=== PATIENT | female | born 1970 | race Caucasian/White ===

== ENCOUNTER 2017-04-11 10:36 | Emergency (ER) | payer OTHER ==
[~2017-04-11] VITALS: Ht 157.5 cm; Wt 97.7 kg
[2017-04-11] MEDS ORDERED: NS 1,000 ML IV ONE ×2 (11:30→12:30)
[2017-04-11 12:15] LABS: ANION GAP 6 MEQ/L (8-16); BLOOD UREA NITROGEN 10 MG/DL (7-18); CALCIUM LEVEL 8.7 MG/DL (8.5-10.1); CARBON DIOXIDE LEVEL 28 MEQ/L (21-32); CHLORIDE LEVEL 103 MEQ/L (98-107); CREATININE FOR GFR 0.79 MG/DL (0.55-1.02); GLOMERULAR FILTRATION RATE > 60.0 (>58); GLUCOSE, FASTING 384 MG/DL (70-105); HCG, SERUM QUANTITATIVE < 1.0 MIU/ML; SODIUM LEVEL 137 MEQ/L (136-145)
--- NOTE | 2017-04-11 12:18 | REP ---
Clinical: Abnormal uterine bleeding . Technique: Transabdominal pelvic ultrasound followed by transvaginal examination for better evaluation of the endometrium and adnexa with color Doppler evaluation of the ovaries. Findings: Bladder is unremarkable and measures 8.7 x 8.0 x 2.7 cm . Heterogeneous anteverted uterus measures 9.2 x 5.8 x 6.7 cm. The endometrial complex is heterogeneous and thickened to 28 mm. No focal uterine abnormality or fibroid appreciated. The right ovary is not identified. The left ovary measures 4.2 x 3.1 x 4.0 cm and includes 4.0 x 3.0 x 4.0 cm cyst. No evidence for torsion; R I = 0.53 . No pelvic fluid or adnexal mass lesion identified . Impression: 1. Thickened heterogeneous endometrium to 28 mm may represent clot and hemorrhagic debris, but requires followup and correlation. 2. Right ovary not visualized. Left ovary dominated by 4 cm simple cyst may warrant reevaluation and 4-6 weeks. Signed by Dread Hyde MD 04/11/2017 12:09 P
[2017-04-11 12:30] LABS: BASO # 0.1 K/mm3 (0.0-0.2); BASO % 0.9 % (0.0-1.0); EOS # 0.1 K/mm3 (0.0-0.50); LARGE UNSTAINED CELL # 0.2 K/mm3 (0.0-0.4); LARGE UNSTAINED CELL % 1.7 % (0.0-4.0); LYMPH # 2.8 K/mm3 (1.5-4.5); LYMPH % 22.2 % (24.0-44.0); MEAN CORPUSCULAR HEMOGLOBIN 22.7 pg (27.0-33.0); MEAN CORPUSCULAR HGB CONC 29.9 g/dl (32.0-36.5); MEAN CORPUSCULAR VOLUME 76.1 fl (80.0-96.0); MONO # 0.5 K/mm3 (0.0-0.8); MONO % 4.3 % (0.0-5.0); NEUTROPHILS # 8.9 K/mm3 (1.8-7.7); PLATELET COUNT, AUTOMATED 473 k/mm3 (150-450); RED CELL DISTRIBUTION WIDTH 15.1 % (11.5-14.5); WHITE BLOOD COUNT 12.7 K/mm3 (4.0-10.0)
[2017-04-11] MEDS ORDERED: METF500T13 PO (15:26)
[2017-04-11 15:39] VITALS: BP 143/82
[2017-08-12] MEDS ORDERED: BACT800T5 PO (18:56)
== END 2017-04-11 15:48 | disposition home or self-care (01) ==
LOC: M ED 10:36
DX: N92.0 Excessive and frequent menstruation with regular cycle (principal); E11.65 Type 2 diabetes mellitus with hyperglycemia; Z88.5 Allergy status to narcotic agent; Z88.6 Allergy status to analgesic agent

== ENCOUNTER 2017-07-30 13:14 | Emergency (ER) | payer OTHER ==
[~2017-07-30] VITALS: Ht 157.5 cm; Wt 88.8 kg
[~2017-07-30 13:14] MED LIST: METF500T13 PO
[2017-07-30] MEDS ORDERED: ASPIRIN 81 MG CHEW TABLET PO ONE (14:45)
[2017-07-30] MEDS ORDERED: NS 500 ML IV ONE (14:45)
[2017-07-30 14:59] LABS: BASO # 0.1 10^3/uL (0.0-0.2); BASO % 0.4 % (0.0-1.0); EOS # 0.2 10^3/uL (0.0-0.50); EOS % 1.2 % (0.0-3.0); IMMATURE GRANULOCYTE % 0.5 % (0-0); LYMPH % 29.1 % (24.0-44.0); MEAN CORPUSCULAR HGB CONC 27.1 g/dl (32.0-36.5); MONO # 0.8 10^3/uL (0.0-0.8); MONO % 5.4 % (0.0-5.0); NEUTROPHILS # 8.8 10^3/uL (1.8-7.7); NEUTROPHILS % 63.4 % (36.0-66.0); PLATELET COUNT, AUTOMATED 334 10^3/uL (150-450); WHITE BLOOD COUNT 13.9 10^3/uL (4.0-10.0)
[2017-07-30 15:03] LABS: MEAN CORPUSCULAR VOLUME 66.3 fl (80.0-96.0); POSITIVE MORPH POS FLAG; RED CELL DISTRIBUTION WIDTH 20.1 % (11.5-14.5)
[2017-07-30 15:04] LABS: ADD MORPHOLOGY? YES
[2017-07-30 15:13] LABS: ANION GAP 9 MEQ/L (8-16); BLOOD UREA NITROGEN 11 MG/DL (7-18); CALCIUM LEVEL 8.8 MG/DL (8.5-10.1); CARBON DIOXIDE LEVEL 26 MEQ/L (21-32); CHLORIDE LEVEL 104 MEQ/L (98-107); FREE T4 1.43 NG/DL (0.76-1.46); GLOMERULAR FILTRATION RATE > 60.0 (>58); GLUCOSE, FASTING 222 MG/DL (70-105); POTASSIUM SERUM 3.7 MEQ/L (3.5-5.1); SODIUM LEVEL 139 MEQ/L (136-145)
[2017-07-30 15:27] LABS: ANISOCYTOSIS 2+; HYPOCHROMASIA 1+; POIKILOCYTOSIS 1+
--- NOTE | 2017-07-30 15:27 | REP ---
Chest two views HISTORY: Chest pain Comparison: 09/12/2013 The lungs are clear. The heart is normal in size. The pulmonary vasculature is normal in appearance. The bony structure is intact. IMPRESSION: No acute disease. Signed by Reg Farnsworth MD 07/30/2017 03:18 P
[2017-07-30] MEDS ORDERED: hydrALAZINE INJ 20 MG/ML VIAL IV STA (16:39)
[2017-07-30] MEDS ORDERED: FIORICET TAB PO ONE (16:45)
[2017-07-30] MEDS ORDERED: FUROSEMIDE 40 MG/4 ML VIAL (J1940) IV ONE (16:45)
[2017-07-30 16:54] VITALS: BP 163/83
[2017-07-30] MEDS ORDERED: GLIP5TAB8 PO (16:55)
[2017-07-30] MEDS ORDERED: GI COCKTAIL 50ML BTL(HYOSCYAMINE/MAALOX/LIDOCAINE VISCOUS)(1:3:1) PO ONE (17:00)
[2017-07-30 17:31] VITALS: BP 158/82
--- NOTE | 2017-07-30 19:13 | ECGEPIP ---
Stationary ECG Study [facility] - ED Test Date: 2017-07-30 Pat Name: DESIREE MENDES Department: Room: - Gender: F Wrapper Off: LUCA : 1970 Requested By: Partha Souza Order Number: [id number] Reading MD: Partha Dubose Measurements Intervals [place] Rate: 80 P: 24 KS: 143 QRS: 4 QRSD: 83 T: 5 QT: 371 QTc: 429 Interpretive Statements SINUS RHYTHM SIMILAR TO 10/18/11 Electronically Signed On 07-30-2017 19:12:33 EDT by Partha Dubose
[2017-08-12] MEDS ORDERED: BACT800T5 PO (18:56)
== END 2017-07-30 17:56 | disposition home or self-care (01) ==
LOC: M ED 13:14
DX: R07.9 Chest pain, unspecified (principal); I10 Essential (primary) hypertension; E11.9 Type 2 diabetes mellitus without complications
CPT/HCPCS: 71020; 80048; 82550; 82553; 83036; 83880; 84439; 84443; 85025; 93005; 93041; 94760; 96374; 96375; 99284; J1940

== ENCOUNTER 2017-12-04 11:04 | Emergency (ER) | payer OTHER ==
[2017-12-04] MEDS: GENTAMICIN 0.3% OPHTH SOL 5 ML BTL OD (12:00)
== END 2017-12-04 12:24 | disposition home or self-care (01) ==
LOC: M ED 11:04
DX: H10.9 Unspecified conjunctivitis (principal); J02.9 Acute pharyngitis, unspecified; E11.9 Type 2 diabetes mellitus without complications; I10 Essential (primary) hypertension; Z88.5 Allergy status to narcotic agent
CPT/HCPCS: 87880

== ENCOUNTER 2018-01-11 18:04 | Day surgery (SDC) | payer OTHER ==
[2018-01-11 19:26] LABS: BASO # 0.1 10^3/uL (0.0-0.2); BASO % 0.3 % (0.0-1.0); EOS # 0.1 10^3/uL (0.0-0.50); EOS % 0.4 % (0.0-3.0); HEMATOCRIT 39.8 % (36.0-47.0); HEMOGLOBIN 11.6 g/dl (12.0-15.5); IMMATURE GRANULOCYTE % 0.7 % (0-3.0); LYMPH # 3.2 10^3/uL (1.5-4.5); LYMPH % 15.3 % (24.0-44.0); MEAN CORPUSCULAR HEMOGLOBIN 21.8 pg (27.0-33.0); MEAN CORPUSCULAR HGB CONC 29.1 g/dl (32.0-36.5); MEAN CORPUSCULAR VOLUME 74.8 fl (80.0-96.0); MONO # 1.2 10^3/uL (0.0-0.8); MONO % 5.9 % (0.0-5.0); NEUTROPHILS # 16.1 10^3/uL (1.8-7.7); NEUTROPHILS % 77.4 % (36.0-66.0); PLATELET COUNT, AUTOMATED 409 10^3/uL (150-450); RED BLOOD COUNT 5.32 10^6/uL (4.00-5.40); RED CELL DISTRIBUTION WIDTH 16.6 % (11.5-14.5); WHITE BLOOD COUNT 20.8 10^3/uL (4.0-10.0)
[2018-01-11 19:39] LABS: ALBUMIN 3.5 GM/DL (3.2-5.2); ALBUMIN/GLOBULIN RATIO 0.78 (1.00-1.93); ALKALINE PHOSPHATASE 81 U/L (45-117); ALT/SGPT 17 U/L (12-78); ANION GAP 8 MEQ/L (8-16); AST/SGOT 9 U/L (7-37); BILIRUBIN,DIRECT < 0.1 MG/DL (0.0-0.2); BILIRUBIN,TOTAL 0.3 MG/DL (0.2-1.0); BLOOD UREA NITROGEN 18 MG/DL (7-18); CARBON DIOXIDE LEVEL 26 MEQ/L (21-32); CHLORIDE LEVEL 103 MEQ/L (98-107); CREATININE FOR GFR 0.78 MG/DL (0.55-1.30); GLOMERULAR FILTRATION RATE > 60.0 (>58); GLUCOSE, FASTING 272 MG/DL (70-100); POTASSIUM SERUM 4.1 MEQ/L (3.5-5.1); SODIUM LEVEL 137 MEQ/L (136-145)
[2018-01-11] MEDS: ONDANSETRON 4MG/2ML VIAL (J2405) IV (19:39)
[2018-01-11] MEDS: HYDROmorphone HCL 1 MG/ML SYRINGE (J1170) IV (19:40)
[2018-01-11] MEDS ORDERED: ISOVUE-370 76% 100ML VIAL (Q9967) As Ordered (19:44)
[2018-01-11] MEDS: PIPERACILLIN/TAZOBACTAM SOD 3.375 GM in APPROPRIATE DILUENT 1 EA IV (20:47)
[2018-01-11] MEDS: LIDOCAINE 2% MDV 20 ML VIAL SC (21:08)
[2018-01-11] MEDS: LR 1,000 ML IV ×2 (22:07→23:45)
[2018-01-11] MEDS ORDERED: CHLOROPROCAINE 2 % INJ PRES.FREE 20 ML VIAL (J2400) As Ordered (22:53)
[2018-01-11] MEDS: BUPIVACAINE HCL 0.5% 10 ML VIAL As Ordered (23:02)
[2018-01-11] MEDS ORDERED: NORCO, ANEXSIA 5/325MG TABLET (HYDROcodone/ACETAMINOPHEN) PO ×2 (23:30)
[2018-01-11] MEDS ORDERED: DEXTROSE 50% 50 ML SYRINGE IV (23:30)
[2018-01-11] MEDS ORDERED: GLUCOSE 4 GM CHEW TABLET PO (23:30)
[2018-01-11] MEDS ORDERED: GLUCAGON FOR INJ 1 MG VIAL (J1610) SC (23:30)
[2018-01-11 23:34] LABS: BEDSIDE GLUCOSE 232 MG/DL (70-105)
[2018-01-11] MEDS ORDERED: PERCOCET 5MG/325MG TAB PO (23:45)
[2018-01-11] MEDS ORDERED: ONDANSETRON 4MG/2ML VIAL (J2405) IV (23:45)
[2018-01-11] MEDS ORDERED: KETOROLAC 30 MG/ML VIAL (J1885) IV (23:45)
[2018-01-12] MEDS: LR 1,000 ML IV (00:31)
[2018-01-12] MEDS: KETOROLAC 30 MG/ML VIAL (J1885) IV ×2 (00:32→05:33)
[2018-01-12] MEDS: PIPERACILLIN/TAZOBACTAM SOD 3.375 GM in APPROPRIATE DILUENT 1 EA IV (05:33)
[2018-01-12 06:41] LABS: BASO % 0.2 % (0.0-1.0); EOS # 0.1 10^3/uL (0.0-0.50); EOS % 0.6 % (0.0-3.0); HEMATOCRIT 33.6 % (36.0-47.0); HEMOGLOBIN 9.8 g/dl (12.0-15.5); IMMATURE GRANULOCYTE % 0.4 % (0-3.0); LYMPH # 2.9 10^3/uL (1.5-4.5); LYMPH % 18.1 % (24.0-44.0); MEAN CORPUSCULAR HGB CONC 29.2 g/dl (32.0-36.5); MEAN CORPUSCULAR VOLUME 75.5 fl (80.0-96.0); MONO % 6.2 % (0.0-5.0); NEUTROPHILS % 74.5 % (36.0-66.0); PLATELET COUNT, AUTOMATED 319 10^3/uL (150-450); RED BLOOD COUNT 4.45 10^6/uL (4.00-5.40); RED CELL DISTRIBUTION WIDTH 16.2 % (11.5-14.5); WHITE BLOOD COUNT 16.1 10^3/uL (4.0-10.0)
[2018-01-12 06:55] LABS: ANION GAP 6 MEQ/L (8-16); BLOOD UREA NITROGEN 17 MG/DL (7-18); CALCIUM LEVEL 8.4 MG/DL (8.5-10.1); CARBON DIOXIDE LEVEL 29 MEQ/L (21-32); CHLORIDE LEVEL 107 MEQ/L (98-107); CREATININE FOR GFR 0.63 MG/DL (0.55-1.30); GLOMERULAR FILTRATION RATE > 60.0 (>58); GLUCOSE, FASTING 247 MG/DL (70-100); POTASSIUM SERUM 4.3 MEQ/L (3.5-5.1); SODIUM LEVEL 142 MEQ/L (136-145)
[2018-01-12 06:58] LABS: ESTIMATED AVERAGE GLUCOSE 283 MG/DL (60-110); HEMOGLOBIN A1c 11.5 %
[2018-01-12] MEDS: HumaLOG INSULIN (NovoLOG) PER UNIT SC (07:30)
[2018-01-12] MEDS: metFORMIN (GLUCOPHAGE) 500 MG TAB PO (08:05)
[2018-01-12] MEDS: glyBURIDE 2.5 MG TAB PO (08:10)
== END 2018-01-12 11:15 | disposition home or self-care (01) ==
LOC: M PED 01-12 00:15 → M ED 18:04 → M SDC 01-12 11:15
DX: K61.0 Anal abscess (principal); E11.9 Type 2 diabetes mellitus without complications; I10 Essential (primary) hypertension; E66.9 Obesity, unspecified; Z68.35 Body mass index [BMI] 35.0-35.9, adult; R06.83 Snoring; Z88.5 Allergy status to narcotic agent; Z79.899 Other long term (current) drug therapy
CPT/HCPCS: 46050

== ENCOUNTER 2018-05-14 23:50 | Emergency (ER) | payer OTHER ==
[2018-05-15 00:46] LABS: KETONE, URINE AUTO RFX NEGATIVE (NEGATIVE); MUCUS, URINE RFX SMALL (NEGATIVE); NITRITE, URINE AUTO RFX NEGATIVE (NEGATIVE); RBC, URINE AUTO RFX 5 /HPF (0-3); SPECIFIC GRAVITY UR AUTO RFX 1.035 (1.002-1.035); SQUAM EPITHELIAL CELL UR AURFX 1 /HPF (0-6); WBC, URINE AUTO RFX 5 /HPF (0-3)
[2018-05-15 00:47] LABS: LEUKOCYTE ESTERASE UR AUTO RFX TRACE (NEGATIVE)
[2018-05-15] MEDS: NS 1,000 ML IV (01:00)
[2018-05-15] MEDS: ONDANSETRON 4MG/2ML VIAL (J2405) IV (01:17)
[2018-05-15] MEDS: MORPHINE 4 MG/ML 1ML VIAL/SYRINGE (J2270) IV (01:18)
[2018-05-15 01:22] LABS: BASO % 0.2 % (0.0-1.0); EOS # 0.1 10^3/uL (0.0-0.50); EOS % 0.8 % (0.0-3.0); HEMATOCRIT 42.4 % (36.0-47.0); HEMOGLOBIN 12.7 g/dl (12.0-15.5); IMMATURE GRANULOCYTE % 0.3 % (0-3.0); LYMPH # 2.8 10^3/uL (1.5-4.5); LYMPH % 24.9 % (24.0-44.0); MEAN CORPUSCULAR HEMOGLOBIN 22.4 pg (27.0-33.0); MEAN CORPUSCULAR VOLUME 74.6 fl (80.0-96.0); MONO # 0.8 10^3/uL (0.0-0.8); MONO % 7.3 % (0.0-5.0); NEUTROPHILS # 7.6 10^3/uL (1.8-7.7); NEUTROPHILS % 66.5 % (36.0-66.0); PLATELET COUNT, AUTOMATED 312 10^3/uL (150-450); RED BLOOD COUNT 5.68 10^6/uL (4.00-5.40); RED CELL DISTRIBUTION WIDTH 17.1 % (11.5-14.5); WHITE BLOOD COUNT 11.4 10^3/uL (4.0-10.0)
[2018-05-15 01:45] LABS: CONTROL LINE HCG INT CTR LINE PRESENT; HCG, SERUM QUALITATIVE NEGATIVE (NEGATIVE)
[2018-05-15 01:47] LABS: ALBUMIN/GLOBULIN RATIO 0.79 (1.00-1.93); ALKALINE PHOSPHATASE 96 U/L (45-117); ALT/SGPT 27 U/L (12-78); ANION GAP 10 MEQ/L (8-16); AST/SGOT 18 U/L (7-37); BILIRUBIN,DIRECT < 0.1 MG/DL (0.0-0.2); BILIRUBIN,TOTAL 0.2 MG/DL (0.2-1.0); BLOOD UREA NITROGEN 13 MG/DL (7-18); CALCIUM LEVEL 8.6 MG/DL (8.5-10.1); CARBON DIOXIDE LEVEL 28 MEQ/L (21-32); CHLORIDE LEVEL 102 MEQ/L (98-107); CREATININE FOR GFR 0.81 MG/DL (0.55-1.30); ETHYL ALCOHOL (ETHANOL) < 0.003 % (0.000-0.010); GLOMERULAR FILTRATION RATE > 60.0 (>58); GLUCOSE, FASTING 345 MG/DL (70-100); LIPASE 137 U/L (73-393); POTASSIUM SERUM 4.4 MEQ/L (3.5-5.1); SODIUM LEVEL 140 MEQ/L (136-145); TOTAL PROTEIN 6.8 GM/DL (6.4-8.2)
[2018-05-15 01:50] LABS: LACTIC ACID SEPSIS PROTOCOL 2.6 MMOL/L (0.4-2.0)
[2018-05-15] MEDS ORDERED: ISOVUE-370 76% 100ML VIAL (Q9967) As Ordered (02:17)
[2018-05-15 08:17] LABS: CHLAMYDIA DNA AMPLIFICATION NEGATIVE (NEGATIVE); GC DNA AMPLIFICATION NEGATIVE (NEGATIVE)
== END 2018-05-15 06:56 | disposition home or self-care (01) ==
LOC: M ED 23:50
DX: R10.9 Unspecified abdominal pain (principal); E11.9 Type 2 diabetes mellitus without complications; Z91.19 Patient's noncompliance with other medical treatment and regimen; K57.30 Diverticulosis of large intestine without perforation or abscess without bleeding; R16.0 Hepatomegaly, not elsewhere classified; K76.0 Fatty (change of) liver, not elsewhere classified; Z88.5 Allergy status to narcotic agent; Z88.6 Allergy status to analgesic agent
CPT/HCPCS: J2270

== ENCOUNTER 2018-07-22 09:55 | Inpatient (IN) | payer OTHER ==
[2018-07-22 11:41] LABS: BASO # 0.1 10^3/uL (0.0-0.2); BASO % 0.3 % (0.0-1.0); EOS # 0.1 10^3/uL (0.0-0.50); EOS % 0.7 % (0.0-3.0); HEMATOCRIT 40.2 % (36.0-47.0); IMMATURE GRANULOCYTE % 0.7 % (0-3.0); LYMPH # 2.3 10^3/uL (1.5-4.5); LYMPH % 13.6 % (24.0-44.0); MEAN CORPUSCULAR HEMOGLOBIN 23.7 pg (27.0-33.0); MEAN CORPUSCULAR HGB CONC 29.9 g/dl (32.0-36.5); MEAN CORPUSCULAR VOLUME 79.4 fl (80.0-96.0); NEUTROPHILS # 13.3 10^3/uL (1.8-7.7); NEUTROPHILS % 78.7 % (36.0-66.0); PLATELET COUNT, AUTOMATED 357 10^3/uL (150-450); RED BLOOD COUNT 5.06 10^6/uL (4.00-5.40); RED CELL DISTRIBUTION WIDTH 16.2 % (11.5-14.5); WHITE BLOOD COUNT 16.9 10^3/uL (4.0-10.0)
[2018-07-22 11:46] LABS: KETONE, URINE AUTO RFX NEGATIVE (NEGATIVE); NITRITE, URINE AUTO RFX NEGATIVE (NEGATIVE); RBC, URINE AUTO RFX 10 /HPF (0-3); SPECIFIC GRAVITY UR AUTO RFX 1.031 (1.002-1.035); SQUAM EPITHELIAL CELL UR AURFX 0 /HPF (0-6); WBC, URINE AUTO RFX 6 /HPF (0-3)
[2018-07-22] MEDS: PIPERACILLIN/TAZOBACTAM SOD 3.375 GM in D5W MINI-BAG PLUS 50 ML IV ×3 (11:53→23:50)
[2018-07-22] MEDS: PERCOCET 5MG/325MG TAB PO (11:54)
[2018-07-22 11:56] LABS: LEUKOCYTE ESTERASE UR AUTO RFX 1+ (NEGATIVE)
[2018-07-22 12:28] LABS: ALBUMIN 2.9 GM/DL (3.2-5.2); ALBUMIN/GLOBULIN RATIO 0.76 (1.00-1.93); ALKALINE PHOSPHATASE 96 U/L (45-117); ALT/SGPT 19 U/L (12-78); ANION GAP 10 MEQ/L (8-16); AST/SGOT 8 U/L (7-37); BILIRUBIN,DIRECT < 0.1 MG/DL (0.0-0.2); BILIRUBIN,TOTAL 0.3 MG/DL (0.2-1.0); BLOOD UREA NITROGEN 10 MG/DL (7-18); CALCIUM LEVEL 8.7 MG/DL (8.5-10.1); CARBON DIOXIDE LEVEL 28 MEQ/L (21-32); CHLORIDE LEVEL 105 MEQ/L (98-107); CREATININE FOR GFR 0.77 MG/DL (0.55-1.30); GLOMERULAR FILTRATION RATE > 60.0 (>58); GLUCOSE, FASTING 403 MG/DL (70-100); POTASSIUM SERUM 4.2 MEQ/L (3.5-5.1); SODIUM LEVEL 143 MEQ/L (136-145); TOTAL PROTEIN 6.7 GM/DL (6.4-8.2)
[2018-07-22] MEDS ORDERED: ONDANSETRON 4MG/2ML VIAL (J2405) As Ordered ×2 (12:28→19:28)
[2018-07-22] MEDS ORDERED: GLUCOSE 4 GM CHEW TABLET PO (13:00)
[2018-07-22] MEDS ORDERED: DEXTROSE 50% 50 ML SYRINGE IV (13:00)
[2018-07-22] MEDS ORDERED: NS 1,000 ML IV (13:00)
[2018-07-22] MEDS ORDERED: GLUCAGON FOR INJ 1 MG VIAL (J1610) SC (13:00)
[2018-07-22] MEDS ORDERED: KETOROLAC 30 MG/ML VIAL (J1885) As Ordered (13:12)
[2018-07-22] MEDS: amLODIPine 5 MG TAB PO ×2 (13:15→23:07)
[2018-07-22] MEDS: HumaLOG INSULIN (NovoLOG) PER UNIT SC ×3 (13:18→21:00)
[2018-07-22] MEDS: NS 1,830 ML in APPROPRIATE DILUENT 1 EA IV (13:18)
[2018-07-22] MEDS: ONDANSETRON 4MG/2ML VIAL (J2405) IV ×2 (13:27→19:30)
[2018-07-22] MEDS: KETOROLAC 30 MG/ML VIAL (J1885) IV (13:27)
[2018-07-22 14:03] LABS: ESTIMATED AVERAGE GLUCOSE 306 MG/DL (60-110); HEMOGLOBIN A1c 12.3 %
[2018-07-22] MEDS: NS 1,000 ML IV (14:40)
[2018-07-22] MEDS ORDERED: MIDAZOLAM INJ 2 MG/2 ML VIAL (J2250) As Ordered (17:51)
[2018-07-22] MEDS ORDERED: LIDOCAINE 2% INJ 100 MG/5 ML SDV (FOR ANES.) As Ordered (17:52)
[2018-07-22] MEDS ORDERED: fentaNYL 100 MCG/2 ML INJECTION (J3010) As Ordered (17:52)
[2018-07-22] MEDS ORDERED: PROPOFOL 200 MG/20 ML VIAL As Ordered (17:52)
[2018-07-22] MEDS ORDERED: CHLOROPROCAINE 2 % INJ PRES.FREE 20 ML VIAL (J2400) As Ordered (17:56)
[2018-07-22 18:21] LABS: BEDSIDE GLUCOSE 151 MG/DL (70-105)
[2018-07-22] MEDS: ZOSYN 3.375 GM VIAL (J2543) As Ordered (18:21)
[2018-07-22 18:46] LABS: LACTIC ACID SEPSIS PROTOCOL 1.8 MMOL/L (0.4-2.0)
[2018-07-22] MEDS: BUPIVACAINE LIPOSOME/PF 1.3% 20 ML VIAL (13.3MG/ML)(EXPAREL) As Ordered (19:00)
[2018-07-22] MEDS: BUPIVACAINE HCL 0.25% 10 ML VIAL As Ordered (19:00)
[2018-07-22] MEDS: LR 1,000 ML IV (19:25)
[2018-07-22] MEDS ORDERED: METOCLOPRAMIDE INJ 10MG/2ML VIAL (J2765) As Ordered ×2 (19:31→19:33)
[2018-07-22] MEDS: METOCLOPRAMIDE INJ 10MG/2ML VIAL (J2765) IV (19:37)
[2018-07-22 19:40] LABS: BEDSIDE GLUCOSE 176 MG/DL (70-105)
[2018-07-22] MEDS ORDERED: ePHEDrine INJ 50 MG/ML VIAL IV (19:45)
[2018-07-22] MEDS ORDERED: fentaNYL 100 MCG/2 ML INJECTION (J3010) IV (19:45)
[2018-07-22 22:39] LABS: BEDSIDE GLUCOSE 211 MG/DL (70-105)
[2018-07-23] MEDS: PERCOCET 5MG/325MG TAB PO ×5 (00:20→20:47)
[2018-07-23] MEDS: LR 1,000 ML IV ×2 (05:45→12:27)
[2018-07-23] MEDS: PIPERACILLIN/TAZOBACTAM SOD 3.375 GM in D5W MINI-BAG PLUS 50 ML IV ×3 (06:12→17:15)
[2018-07-23 07:16] LABS: BASO % 0.2 % (0.0-1.0); EOS # 0.1 10^3/uL (0.0-0.50); EOS % 0.7 % (0.0-3.0); HEMATOCRIT 33.7 % (36.0-47.0); HEMOGLOBIN 10.1 g/dl (12.0-15.5); IMMATURE GRANULOCYTE % 0.6 % (0-3.0); LYMPH # 2.3 10^3/uL (1.5-4.5); LYMPH % 13.6 % (24.0-44.0); MONO % 5.6 % (0.0-5.0); NEUTROPHILS # 13.5 10^3/uL (1.8-7.7); NEUTROPHILS % 79.3 % (36.0-66.0); PLATELET COUNT, AUTOMATED 295 10^3/uL (150-450); RED BLOOD COUNT 4.21 10^6/uL (4.00-5.40); RED CELL DISTRIBUTION WIDTH 16.3 % (11.5-14.5)
[2018-07-23 07:44] LABS: ANION GAP 7 MEQ/L (8-16); BLOOD UREA NITROGEN 10 MG/DL (7-18); CALCIUM LEVEL 7.2 MG/DL (8.5-10.1); CARBON DIOXIDE LEVEL 26 MEQ/L (21-32); CHLORIDE LEVEL 106 MEQ/L (98-107); CHOLESTEROL LEVEL 167 MG/DL (<200); CHOLESTEROL RISK RATIO 4.638 (<5); CREATININE FOR GFR 0.52 MG/DL (0.55-1.30); GLOMERULAR FILTRATION RATE > 60.0 (>58); GLUCOSE, FASTING 226 MG/DL (70-100); HDL CHOLESTEROL 36 MG/DL (>40); LDL CHOLESTEROL 94 MG/DL (<100); MAGNESIUM LEVEL 1.9 MG/DL (1.8-2.4); NON-HDL-C 131 MG/DL; SODIUM LEVEL 139 MEQ/L (136-145); TRIGLYCERIDES LEVEL 184 MG/DL (<150)
[2018-07-23] MEDS: amLODIPine 5 MG TAB PO ×2 (07:58→20:38)
[2018-07-23] MEDS: HumaLOG INSULIN (NovoLOG) PER UNIT SC ×4 (07:58→21:45)
[2018-07-23 11:48] LABS: BEDSIDE GLUCOSE 224 MG/DL (70-105)
[2018-07-23] MEDS ORDERED: ePHEDrine SULFATE 25 MG/5 ML(5MG/ML) SYRINGE (13:57)
[2018-07-23 16:55] LABS: BEDSIDE GLUCOSE 226 MG/DL (70-105)
[2018-07-23 20:46] LABS: BEDSIDE GLUCOSE 324 MG/DL (70-105)
[2018-07-24] MEDS: PIPERACILLIN/TAZOBACTAM SOD 3.375 GM in D5W MINI-BAG PLUS 50 ML IV ×4 (00:15→17:20)
[2018-07-24] MEDS: PERCOCET 5MG/325MG TAB PO ×5 (01:13→21:23)
[2018-07-24] MEDS: LR 1,000 ML IV (01:45)
[2018-07-24 07:41] LABS: BEDSIDE GLUCOSE 203 MG/DL (70-105)
[2018-07-24] MEDS: amLODIPine 5 MG TAB PO ×2 (08:44→20:15)
[2018-07-24] MEDS: HumaLOG INSULIN (NovoLOG) PER UNIT SC ×4 (08:44→21:10)
[2018-07-24] MEDS: guaiFENesin ER 600 MG TAB PO ×2 (09:44→20:14)
[2018-07-24 12:20] LABS: BEDSIDE GLUCOSE 202 MG/DL (70-105)
[2018-07-24] MEDS: IPRATROPIUM 0.5MG/ALBUTEROL 2.5MG INH SOL UD 3ML (DUONEB)(J7620) NEB (15:16)
[2018-07-24 16:49] LABS: BEDSIDE GLUCOSE 235 MG/DL (70-105)
[2018-07-24 21:04] LABS: BEDSIDE GLUCOSE 354 MG/DL (70-105)
[2018-07-25] MEDS: PIPERACILLIN/TAZOBACTAM SOD 3.375 GM in D5W MINI-BAG PLUS 50 ML IV ×3 (00:05→11:53)
[2018-07-25] MEDS: IPRATROPIUM 0.5MG/ALBUTEROL 2.5MG INH SOL UD 3ML (DUONEB)(J7620) NEB ×4 (00:11→13:47)
[2018-07-25] MEDS: PERCOCET 5MG/325MG TAB PO ×5 (02:21→21:18)
[2018-07-25 07:41] LABS: HEMOGLOBIN 10.6 g/dl (12.0-15.5); MEAN CORPUSCULAR HEMOGLOBIN 23.8 pg (27.0-33.0); MEAN CORPUSCULAR HGB CONC 29.4 g/dl (32.0-36.5); MEAN CORPUSCULAR VOLUME 80.9 fl (80.0-96.0); PLATELET COUNT, AUTOMATED 316 10^3/uL (150-450); RED BLOOD COUNT 4.45 10^6/uL (4.00-5.40); RED CELL DISTRIBUTION WIDTH 16.4 % (11.5-14.5); WHITE BLOOD COUNT 15.7 10^3/uL (4.0-10.0)
[2018-07-25 08:12] LABS: ANION GAP 13 MEQ/L (8-16); BLOOD UREA NITROGEN 12 MG/DL (7-18); CALCIUM LEVEL 8.5 MG/DL (8.5-10.1); CARBON DIOXIDE LEVEL 23 MEQ/L (21-32); CHLORIDE LEVEL 104 MEQ/L (98-107); CREATININE FOR GFR 0.49 MG/DL (0.55-1.30); GLOMERULAR FILTRATION RATE > 60.0 (>58); GLUCOSE, FASTING 199 MG/DL (70-100); POTASSIUM SERUM 4.3 MEQ/L (3.5-5.1); SODIUM LEVEL 140 MEQ/L (136-145)
[2018-07-25] MEDS: amLODIPine 5 MG TAB PO ×2 (08:27→21:17)
[2018-07-25] MEDS: guaiFENesin ER 600 MG TAB PO ×2 (08:27→21:17)
[2018-07-25] MEDS: HumaLOG INSULIN (NovoLOG) PER UNIT SC ×4 (08:27→21:19)
[2018-07-25] MEDS: MOM 30ML SUSPENSION UDC PO (11:52)
[2018-07-25 12:05] LABS: BEDSIDE GLUCOSE 231 MG/DL (70-105)
[2018-07-25] MEDS: MIRALAX *UNIT DOSE* 17GM PACKET PO (15:17)
[2018-07-25] MEDS: methylPREDNISolone INJ 125 MG/2 ML VIAL (J2930) IV (16:36)
[2018-07-25 16:43] LABS: BEDSIDE GLUCOSE 263 MG/DL (70-105)
[2018-07-25] MEDS: LACTOBACILLUS ACIDOPHILUS CAP (BACID) PO (17:35)
[2018-07-25 20:23] LABS: BEDSIDE GLUCOSE 412 MG/DL (70-105)
[2018-07-25] MEDS: AUGMENTIN 875 MG TAB PO (21:00)
[2018-07-26 00:24] LABS: Chitobioside Carbohydrat (ACCA 44 units (0-90); Laminaribioside Carbohyd (ALCA 4 units (0-60); Mannobioside Carbohydrat (AMCA 16 units (0-100); Saccharomyces cerevisiae IgG A 9 units (0-50)
[2018-07-26] MEDS: PERCOCET 5MG/325MG TAB PO ×5 (02:07→21:19)
[2018-07-26 06:47] LABS: HEMATOCRIT 38.3 % (36.0-47.0); HEMOGLOBIN 11.5 g/dl (12.0-15.5); PLATELET COUNT, AUTOMATED 333 10^3/uL (150-450); RED BLOOD COUNT 4.79 10^6/uL (4.00-5.40); RED CELL DISTRIBUTION WIDTH 16.4 % (11.5-14.5); WHITE BLOOD COUNT 15.5 10^3/uL (4.0-10.0)
[2018-07-26 07:13] LABS: ANION GAP 11 MEQ/L (8-16); BLOOD UREA NITROGEN 15 MG/DL (7-18); CALCIUM LEVEL 9.2 MG/DL (8.5-10.1); CARBON DIOXIDE LEVEL 26 MEQ/L (21-32); CHLORIDE LEVEL 102 MEQ/L (98-107); CREATININE FOR GFR 0.53 MG/DL (0.55-1.30); GLOMERULAR FILTRATION RATE > 60.0 (>58); GLUCOSE, FASTING 238 MG/DL (70-100); POTASSIUM SERUM 4.6 MEQ/L (3.5-5.1); SODIUM LEVEL 139 MEQ/L (136-145)
[2018-07-26] MEDS: LACTOBACILLUS ACIDOPHILUS CAP (BACID) PO ×3 (07:26→17:03)
[2018-07-26] MEDS: HumaLOG INSULIN (NovoLOG) PER UNIT SC ×4 (07:27→21:18)
[2018-07-26] MEDS: guaiFENesin ER 600 MG TAB PO ×2 (08:26→21:18)
[2018-07-26] MEDS: amLODIPine 5 MG TAB PO ×2 (08:26→21:18)
[2018-07-26] MEDS: AUGMENTIN 875 MG TAB PO ×2 (08:27→21:18)
[2018-07-26] MEDS: IPRATROPIUM 0.5MG/ALBUTEROL 2.5MG INH SOL UD 3ML (DUONEB)(J7620) NEB ×3 (08:58→15:53)
[2018-07-26 11:40] LABS: BEDSIDE GLUCOSE 228 MG/DL (70-105)
[2018-07-26 16:39] LABS: BEDSIDE GLUCOSE 263 MG/DL (70-105)
[2018-07-26] MEDS: predniSONE 10 MG TAB PO (17:53)
[2018-07-26 20:38] LABS: BEDSIDE GLUCOSE 342 MG/DL (70-105)
[2018-07-27] MEDS: IPRATROPIUM 0.5MG/ALBUTEROL 2.5MG INH SOL UD 3ML (DUONEB)(J7620) NEB ×2 (00:11→08:11)
[2018-07-27] MEDS: PERCOCET 5MG/325MG TAB PO ×2 (04:07→10:18)
[2018-07-27 06:59] LABS: HEMATOCRIT 36.8 % (36.0-47.0); MEAN CORPUSCULAR HEMOGLOBIN 23.4 pg (27.0-33.0); MEAN CORPUSCULAR HGB CONC 29.9 g/dl (32.0-36.5); MEAN CORPUSCULAR VOLUME 78.3 fl (80.0-96.0); PLATELET COUNT, AUTOMATED 363 10^3/uL (150-450); RED CELL DISTRIBUTION WIDTH 16.8 % (11.5-14.5); WHITE BLOOD COUNT 12.5 10^3/uL (4.0-10.0)
[2018-07-27 07:27] LABS: ANION GAP 12 MEQ/L (8-16); BLOOD UREA NITROGEN 18 MG/DL (7-18); CALCIUM LEVEL 8.7 MG/DL (8.5-10.1); CARBON DIOXIDE LEVEL 24 MEQ/L (21-32); CHLORIDE LEVEL 101 MEQ/L (98-107); CREATININE FOR GFR 0.54 MG/DL (0.55-1.30); GLOMERULAR FILTRATION RATE > 60.0 (>58); GLUCOSE, FASTING 230 MG/DL (70-100); POTASSIUM SERUM 4.4 MEQ/L (3.5-5.1); SODIUM LEVEL 137 MEQ/L (136-145)
[2018-07-27] MEDS: LACTOBACILLUS ACIDOPHILUS CAP (BACID) PO (08:12)
[2018-07-27] MEDS: HumaLOG INSULIN (NovoLOG) PER UNIT SC (08:12)
[2018-07-27] MEDS: AUGMENTIN 875 MG TAB PO (09:55)
[2018-07-27] MEDS: predniSONE 10 MG TAB PO (09:59)
[2018-07-27] MEDS: guaiFENesin ER 600 MG TAB PO (09:59)
[2018-07-27] MEDS: hydroCHLOROthiazide 25 MG TAB PO (09:59)
== END 2018-07-27 11:40 | disposition home or self-care (01) | DRG 347 ==
LOC: M SDC 07-24 12:02 → M PED 07-24 12:03 → M ED 09:55 → M SDC 11:51 → M PED 20:45
PROC: 0D9Q0ZZ Drainage of Anus, Open Approach (ICD-10-PCS; principal; 2018-07-22 18:30)
DX: K61.0 Anal abscess (principal); J18.9 Pneumonia, unspecified organism; E11.65 Type 2 diabetes mellitus with hyperglycemia; I10 Essential (primary) hypertension; Z88.5 Allergy status to narcotic agent; Z88.6 Allergy status to analgesic agent; E66.9 Obesity, unspecified; Z68.38 Body mass index [BMI] 38.0-38.9, adult; E78.5 Hyperlipidemia, unspecified; R60.0 Localized edema; T38.3X6A Underdosing of insulin and oral hypoglycemic [antidiabetic] drugs, initial encounter; Z91.120 Patient's intentional underdosing of medication regimen due to financial hardship; T46.5X6A Underdosing of other antihypertensive drugs, initial encounter

== ENCOUNTER 2018-10-23 19:23 | Emergency (ER) | payer OTHER ==
[~2018-10-23] VITALS: Ht 157.5 cm; Wt 86.4 kg
[~2018-10-23 19:23] MED LIST changes: +AMOX875T2 PO; +BACT800T5 PO; +CIPR5SUS PO; +GENT3OPD OD; +GLIP5TAB8 PO; +GLYB25TA PO; +HYDR25TAB PO; +IBUP-1114 PO; +IBUP1TAB7 PO; +METF10004 PO; +METR-201 PO; +NORCOTAB PO; +PERC5TAB12 PO; +PRED10TA2 PO; +PYRI1TAB5 PO; +VENTAER INH
[2018-10-23 19:24] VITALS: BP 169/88
[2018-10-23] MEDS ORDERED: NORCO, ANEXSIA 5/325MG TABLET (HYDROcodone/ACETAMINOPHEN) PO ONE (21:45)
--- NOTE | 2018-10-23 22:55 | REPVR ---
EXAM: US Pelvis Complete, Transabdominal EXAM DATE/TIME: 10/23/2018 9:59 PM CLINICAL HISTORY: 48 years old, female; Pain; Pelvic pain; Additional info: Pelvic pain/irreg bleeding TECHNIQUE: Real-time transabdominal pelvic ultrasound with image documentation. Complete exam. COMPARISON: US PELVIC NON-OB COMPLETE 04/11/2017 11:44 AM FINDINGS: Uterus/cervix: Anteverted enlarged uterus measuring 13.1 x 7.9 x 8.6 cm. Thickened endometrium measuring 16.2 mm. Right adnexa: Right ovary is not visualized secondary to patient's body habitus. Left adnexa: Left ovary is not visualized secondary to patient's body habitus. Free fluid: None. Bladder: Normal. IMPRESSION: 1. Limited study secondary to patient's body habitus. 2. Large uterus and thickened endometrial stone measuring up to 16.2 mm. Clinical correlation is recommended. 3. Bilateral ovaries are not seen. Electronically signed by: Janet Saul On 10/23/2018 22:54:23 PM
[2018-10-23] MEDS ORDERED: NORCOTAB PO (23:15)
--- NOTE | 2018-10-24 15:43 | ED PDOC ---
Post-Departure Follow-Up dr stallings faxed formal report of pelvic us for fu Kodak Herron MD Oct 24, 2018 15:43
[2018-10-24] MEDS ORDERED: IBUP-1022 PO (21:16)
== END 2018-10-23 23:25 | disposition home or self-care (01) ==
LOC: M ED 19:23
DX: N92.6 Irregular menstruation, unspecified (principal); N80.9 Endometriosis, unspecified; E11.9 Type 2 diabetes mellitus without complications; I10 Essential (primary) hypertension

== ENCOUNTER 2018-10-24 20:22 | Emergency (ER) | payer OTHER ==
[~2018-10-24] VITALS: Ht 157.5 cm; Wt 86.4 kg
[2018-10-24] MEDS ORDERED: IBUP-1022 PO (21:16)
[2018-10-24] MEDS ORDERED: PERCOCET 5MG/325MG TAB PO ONE (22:15)
[2018-10-24] MEDS ORDERED: NS 1,000 ML IV ONE (22:15)
[2018-10-24] MEDS ORDERED: KETOROLAC 30 MG/ML VIAL (J1885) IV ONE (22:15)
[2018-10-24 22:31] LABS: BASO % 0.2 % (0.0-1.0); EOS # 0.1 10^3/uL (0.0-0.50); EOS % 0.6 % (0.0-3.0); HEMOGLOBIN 14.4 g/dl (12.0-15.5); LYMPH # 3.1 10^3/uL (1.5-4.5); LYMPH % 19.2 % (24.0-44.0); MEAN CORPUSCULAR HEMOGLOBIN 23.4 pg (27.0-33.0); MEAN CORPUSCULAR VOLUME 77.9 fl (80.0-96.0); MONO # 0.9 10^3/uL (0.0-0.8); MONO % 5.7 % (0.0-5.0); NEUTROPHILS % 73.9 % (36.0-66.0); PLATELET COUNT, AUTOMATED 368 10^3/uL (150-450); RED BLOOD COUNT 6.16 10^6/uL (4.00-5.40); WHITE BLOOD COUNT 16.2 10^3/uL (4.0-10.0)
[2018-10-24 22:36] LABS: APPEARANCE, URINE CLOUDY (CLEAR); BACTERIA, URINE AUTO 3+ (NEGATIVE); BILIRUBIN, URINE AUTO NEGATIVE (NEGATIVE); BLOOD, URINE BLOOD 3+ (NEGATIVE); COLOR, URINE YELLOW (YELLOW); GLUCOSE, URINE (UA) AUTO 3+ mg/dL (NEGATIVE); KETONE, URINE AUTO NEGATIVE (NEGATIVE); LEUKOCYTE ESTERASE, URINE AUTO 3+ (NEGATIVE); MUCUS, URINE SMALL (NEGATIVE); NITRITE, URINE AUTO NEGATIVE (NEGATIVE); PROTEIN, URINE AUTO NEGATIVE (NEGATIVE); RBC, URINE AUTO 15 /HPF (0-3); SPECIFIC GRAVITY URINE AUTO 1.035 (1.002-1.035); SQUAMOUS EPITHELIAL CELL UR AU 4 /HPF (0-6); UROBILINOGEN, URINE AUTO 0.2 mg/dL (0.0-2.0); WBC, URINE AUTO 110 /HPF (0-3)
[2018-10-24 23:01] LABS: ALBUMIN 3.5 GM/DL (3.2-5.2); ALT/SGPT 22 U/L (12-78); BILIRUBIN,TOTAL 0.2 MG/DL (0.2-1.0); BLOOD UREA NITROGEN 22 MG/DL (7-18); CALCIUM LEVEL 9.7 MG/DL (8.5-10.1); CARBON DIOXIDE LEVEL 30 MEQ/L (21-32); CHLORIDE LEVEL 95 MEQ/L (98-107); CREATININE FOR GFR 0.95 MG/DL (0.55-1.30); GLOMERULAR FILTRATION RATE > 60.0 (>58); GLUCOSE, FASTING 496 MG/DL (70-100); LIPASE 298 U/L (73-393); POTASSIUM SERUM 4.8 MEQ/L (3.5-5.1); SODIUM LEVEL 133 MEQ/L (136-145); TOTAL PROTEIN 7.6 GM/DL (6.4-8.2)
[2018-10-24] MEDS ORDERED: ISOVUE-370 76% 100ML VIAL (Q9967) As Ordered ONE (23:08)
--- NOTE | 2018-10-24 23:58 | REPVR ---
EXAM: CT Abdomen and Pelvis With Contrast EXAM DATE/TIME: 10/24/2018 10:09 PM CLINICAL HISTORY: 48 years old, female; Pain; Abdominal pain; Localized; Lower; Additional info: Pelvic pain, r flank pain TECHNIQUE: Axial computed tomography images of the abdomen and pelvis with intravenous contrast. All CT scans at this facility use at least one of these dose optimization techniques: automated exposure control; mA and/or kV adjustment per patient size (includes targeted exams where dose is matched to clinical indication); or iterative reconstruction. Coronal and sagittal reformatted images were created and reviewed. CONTRAST: 100 ml of iso administered intravenously. COMPARISON: CT ABD/PEL W/IV CONTRAST ONLY 05/15/2018 2:16 AM FINDINGS: Lower thorax: No acute findings. ABDOMEN: Liver: There is a diffuse decrease in hepatic parenchymal density, consistent with fatty infiltration. Gallbladder and bile ducts: Normal. No calcified stones. No ductal dilation. Pancreas: Normal. No ductal dilation. Spleen: Normal. No splenomegaly. Adrenals: Normal. No mass. Kidneys and ureters: Normal. No hydronephrosis. Stomach and bowel: There is increased feces throughout the colon consistent with constipation. Appendix: No evidence of appendicitis. PELVIS: Bladder: Unremarkable as visualized. Reproductive: Enlarged uterus and gross enlargement of the endometrial cavity by a mixed density enhancing partially necrotic mass measuring 4.7 cm in maximum thickness with a lobular soft tissue mass demonstrated in the fundus. Findings worrisome for endometrial carcinoma. ABDOMEN and PELVIS: Intraperitoneal space: Normal. No free air. No significant fluid collection. Bones/joints: The spine demonstrates mild degenerative changes. Soft tissues: Unremarkable. Vasculature: Normal. No abdominal aortic aneurysm. Lymph nodes: Multiple retroperitoneal lymph nodes demonstrated measuring up to 1.3 cm and the left para-aortic region and 1.2 cm in the interaortocaval region. IMPRESSION: 1. There is a diffuse decrease in hepatic parenchymal density, consistent with fatty infiltration. 2. Enlarged uterus and gross enlargement of the endometrial cavity by a mixed density enhancing partially necrotic mass measuring 4.7 cm in maximum thickness with a lobular soft tissue mass demonstrated in the fundus. Findings worrisome for endometrial carcinoma. 3. Multiple retroperitoneal lymph nodes demonstrated measuring up to 1.3 cm and the left para-aortic region and 1.2 cm in the interaortocaval region. 4. There is increased feces throughout the colon consistent with constipation. Electronically signed by: Paco Menchaca On 10/24/2018 23:57:46 PM
[2018-10-25] MEDS ORDERED: NITROFURANTOIN (MACROBID) 100 MG CAP PO ONE (00:45)
[2018-10-25 01:00] VITALS: BP 141/71
[2018-10-25] MEDS ORDERED: OXYCODONE/APAP 5MG/325MG(BULK FOR ED) 1 TABLET PO ONE (01:15)
[2018-10-25] MEDS ORDERED: MACR100C43 PO (01:17)
--- NOTE | 2018-10-28 12:35 | ED PDOC ---
Post-Departure Follow-Up dr villalobos faxed formal report of ct abd/p for fu Kodak Herron MD Oct 28, 2018 12:35
== END 2018-10-25 01:38 | disposition home or self-care (01) ==
LOC: M ED 20:22
DX: N85.8 Other specified noninflammatory disorders of uterus (principal); R10.2 Pelvic and perineal pain; N39.0 Urinary tract infection, site not specified; E11.9 Type 2 diabetes mellitus without complications; I10 Essential (primary) hypertension; Z88.5 Allergy status to narcotic agent; Z88.6 Allergy status to analgesic agent
CPT/HCPCS: 74177; 80053; 81001; 83690; 85025; 96374; 99284; J1885; Q9967

== ENCOUNTER → 2018-11-07 | Day surgery (SDC) | payer OTHER ==
[~2018-11-07] MED LIST changes: +CIPR-249 PO; +GLYB5TA PO; +IBUP-1022 PO; +MACR100C43 PO
== END | disposition home or self-care (01) ==
LOC: M SDC 12:03
PROVIDERS: ATTEND Obstetrics & Gynecology
DX: N85.8 Other specified noninflammatory disorders of uterus (principal); Z53.09 Procedure and treatment not carried out because of other contraindication; E11.65 Type 2 diabetes mellitus with hyperglycemia

== ENCOUNTER 2018-11-08 01:47 | Emergency (ER) | payer OTHER ==
[~2018-11-08] VITALS: Ht 157.5 cm; Wt 87.3 kg
[~2018-11-08 01:47] MED LIST changes: -CIPR-249 PO; -GLYB5TA PO
[2018-11-08] MEDS ORDERED: MORPHINE 4 MG/ML 1ML VIAL/SYRINGE (J2270) IV ONE (02:30)
[2018-11-08 02:42] LABS: BASO % 0.3 % (0.0-1.0); EOS # 0.1 10^3/uL (0.0-0.50); EOS % 0.7 % (0.0-3.0); HEMATOCRIT 41.8 % (36.0-47.0); HEMOGLOBIN 12.5 g/dl (12.0-15.5); LYMPH # 1.9 10^3/uL (1.5-4.5); LYMPH % 14.8 % (24.0-44.0); MEAN CORPUSCULAR HEMOGLOBIN 23.8 pg (27.0-33.0); MEAN CORPUSCULAR HGB CONC 29.9 g/dl (32.0-36.5); MEAN CORPUSCULAR VOLUME 79.6 fl (80.0-96.0); MONO # 0.9 10^3/uL (0.0-0.8); NEUTROPHILS % 76.4 % (36.0-66.0); PLATELET COUNT, AUTOMATED 274 10^3/uL (150-450); RED BLOOD COUNT 5.25 10^6/uL (4.00-5.40)
[2018-11-08 03:04] LABS: ALBUMIN 2.7 GM/DL (3.2-5.2); ALT/SGPT 17 U/L (12-78); BILIRUBIN,DIRECT < 0.1 MG/DL (0.0-0.2); BILIRUBIN,TOTAL 0.1 MG/DL (0.2-1.0); BLOOD UREA NITROGEN 16 MG/DL (7-18); CALCIUM LEVEL 9.1 MG/DL (8.5-10.1); CARBON DIOXIDE LEVEL 28 MEQ/L (21-32); CHLORIDE LEVEL 104 MEQ/L (98-107); CREATININE FOR GFR 0.61 MG/DL (0.55-1.30); GLOMERULAR FILTRATION RATE > 60.0 (>58); GLUCOSE, FASTING 390 MG/DL (70-100); LIPASE 143 U/L (73-393); SODIUM LEVEL 143 MEQ/L (136-145)
[2018-11-08] MEDS ORDERED: CIPROFLOXACIN 400 MG in APPROPRIATE DILUENT 1 EA IV ONE (03:15)
[2018-11-08] MEDS ORDERED: metFORMIN (GLUCOPHAGE) 1000 MG TABLET PO ONE (03:30)
--- NOTE | 2018-11-08 05:02 | REPVR ---
EXAM: US Pelvis Complete, Transabdominal and US Pelvis, Transvaginal EXAM DATE/TIME: 11/08/2018 4:30 AM CLINICAL HISTORY: 48 years old, female; Pain; Pelvic pain; Additional info: Pelvic pain R/O torsion TECHNIQUE: Real-time transabdominal and transvaginal pelvic ultrasound (complete) with image documentation. Transvaginal imaging was used for better evaluation of the endometrium and adnexa. COMPARISON: No relevant prior studies available. FINDINGS: Uterus/cervix: The uterus is enlarged and heterogeneous in echotexture measuring 12.6 x 7.4 x 8.4 cm. No discrete myometrial mass. The endometrium is not clearly defined but appears thickened measuring approximately 2.7 cm. Right adnexa: The right ovary is not seen transabdominally or transvaginally. Left adnexa: The left ovary is not seen transabdominally or transvaginally. Free fluid: No evidence of free fluid. Bladder: Normal. IMPRESSION: 1. The uterus is enlarged and heterogeneous echotexture. The endometrium is not clearly defined but appears thickened which may be secondary to endometrial hyperplasia or polyps. Other endometrial pathology cannot be excluded. 2. No evidence of free fluid. 3. Nonvisualization of the bilateral ovaries. Electronically signed by: Dread Rajput On 11/08/2018 05:01:45 AM
[2018-11-08 05:20] VITALS: BP 132/77
[2018-11-08] MEDS ORDERED: CIPR-249 PO (05:28)
[2018-11-08] MEDS ORDERED: METF10004 PO (05:29)
[2018-11-08] MEDS ORDERED: GLYB5TA PO (05:32)
[2018-11-08] MEDS ORDERED: PERC5TAB12 PO (05:36)
[2018-11-08 05:40] LABS: CHLAMYDIA DNA AMPLIFICATION NEGATIVE (NEGATIVE); GC DNA AMPLIFICATION NEGATIVE (NEGATIVE)
--- NOTE | 2018-11-10 11:56 | ED PDOC ---
Post-Departure Follow-Up dr villalobos and [facility] faxed formal report of pelvic us for fu Kodak Herron MD Nov 10, 2018 11:56
[2018-11-19] MEDS ORDERED: TYLE500T78 PO (14:15)
[2018-11-19] MEDS ORDERED: OXYC1TAB23 PO (14:15)
[2018-11-19] MEDS ORDERED: HYDR25TAB PO (14:15)
[2018-11-19] MEDS ORDERED: BASA100I SC (14:15)
[2018-11-19] MEDS ORDERED: ATOR80TA59 PO (14:15)
== END 2018-11-08 06:10 | disposition home or self-care (01) ==
LOC: M ED 01:47
DX: N39.0 Urinary tract infection, site not specified (principal); E11.65 Type 2 diabetes mellitus with hyperglycemia; N80.9 Endometriosis, unspecified; I10 Essential (primary) hypertension; E66.9 Obesity, unspecified
CPT/HCPCS: 76830; 76856; 80048; 80076; 81001; 83690; 85025; 87086; 87210; 87491; 87591; 96374; 96375; 99284; J0744; J2270

== ENCOUNTER → 2018-11-08 | Outpatient (REF) | payer OTHER ==
[2018-11-08 13:20] LABS: CHOLESTEROL RISK RATIO 7.612 (<5)
[2018-11-08 13:25] LABS: HEMOGLOBIN A1c 13.7 %
== END ==
LOC: M SFHCPLAZ 11:18
PROVIDERS: ATTEND Family Medicine
DX: Z13.220 Encounter for screening for lipoid disorders (principal); Z13.1 Encounter for screening for diabetes mellitus

== ENCOUNTER 2018-11-22 05:59 | Day surgery (SDC) | payer OTHER ==
[~2018-11-22] VITALS: Ht 158.8 cm; Wt 84.4 kg
[~2018-11-22 05:59] MED LIST changes: +ATOR80TA59 PO; +BASA100I SC; +CIPR-249 PO; +GLYB5TA PO; +OXYC1TAB23 PO; +TYLE500T78 PO
[2018-11-22] MEDS ORDERED: LIDOCAINE 1% MDV 20ML VIAL SQ PRN (06:00)
[2018-11-22] MEDS ORDERED: LR 1,000 ML IV ONE ×2 (06:00→08:00)
[2018-11-22] MEDS ORDERED: ACETAMINOPHEN 650 MG SUPP PR ONE (06:00)
[2018-11-22 06:50] LABS: HEMATOCRIT 43.3 % (36.0-47.0); HEMOGLOBIN 13.3 g/dl (12.0-15.5); MEAN CORPUSCULAR HEMOGLOBIN 24.1 pg (27.0-33.0); MEAN CORPUSCULAR HGB CONC 30.7 g/dl (32.0-36.5); MEAN CORPUSCULAR VOLUME 78.4 fl (80.0-96.0); PLATELET COUNT, AUTOMATED 402 10^3/uL (150-450); RED BLOOD COUNT 5.52 10^6/uL (4.00-5.40); WHITE BLOOD COUNT 16.5 10^3/uL (4.0-10.0)
[2018-11-22 07:40] LABS: URINE PREG TEST NEGATIVE (NEGATIVE)
[2018-11-22] MEDS ORDERED: HumaLOG INSULIN (NovoLOG) PER UNIT As Ordered ONE (07:49)
[2018-11-22] MEDS ORDERED: HumaLOG INSULIN (NovoLOG) PER UNIT SC ONE (08:15)
[2018-11-22] MEDS ORDERED: ONDANSETRON 4MG/2ML VIAL (J2405) As Ordered ONE (08:46)
[2018-11-22] MEDS ORDERED: KETOROLAC 60 MG/2 ML VIAL (J1885) As Ordered ONE (08:46)
[2018-11-22] MEDS ORDERED: MIDAZOLAM INJ 2 MG/2 ML VIAL (J2250) As Ordered ONE (08:46)
[2018-11-22] MEDS ORDERED: METOCLOPRAMIDE INJ 10MG/2ML VIAL (J2765) As Ordered ONE (08:46)
[2018-11-22] MEDS ORDERED: dexameTHASONE 4 MG/ML 1ML VIAL (J1100) As Ordered ONE (08:46)
[2018-11-22] MEDS ORDERED: PROPOFOL 200 MG/20 ML VIAL As Ordered ONE (08:46)
[2018-11-22] MEDS ORDERED: fentaNYL 100 MCG/2 ML INJECTION (J3010) As Ordered ONE ×2 (08:47→10:20)
[2018-11-22] MEDS ORDERED: HYDROmorphone HCL 2 MG/ML 1ML VIAL (J1170) As Ordered ONE (09:17)
[2018-11-22] MEDS ORDERED: LR 1,000 ML IV SCH (10:00)
[2018-11-22] MEDS ORDERED: ONDANSETRON 4MG/2ML VIAL (J2405) IV PRN (10:00)
[2018-11-22] MEDS ORDERED: PERCOCET 5MG/325MG TAB PO PRN ×2 (10:00→10:30)
[2018-11-22] MEDS ORDERED: fentaNYL 100 MCG/2 ML INJECTION (J3010) IV PRN (10:00)
[2018-11-22] MEDS ORDERED: METOCLOPRAMIDE INJ 10MG/2ML VIAL (J2765) IV PRN (10:00)
[2018-11-22] MEDS ORDERED: GABAPENTIN 300 MG CAP PO ONE (11:45)
[2018-11-22] MEDS ORDERED: GABA-843 PO (11:48)
[2018-11-22 13:00] VITALS: BP 156/83
[2018-11-22] MEDS ORDERED: IBUPROFEN 800 MG TAB PO SCH (14:00)
[2018-11-22] MEDS ORDERED: GABAPENTIN 300 MG CAP PO SCH (16:00)
--- NOTE | 2018-11-25 14:01 | RO ---
DATE OF PROCEDURE: 11/22/2018 Jenise is a 48-year-old female, who presented with abnormal uterine bleeding, was found to have a large cervical lesion on exam and on ultrasound and CAT scan a large endometrial mass, cancerous process could not be ruled out. After extensive counseling in the office and after she has received medical clearance, the patient was then being taken to the operating room for an examination under anesthesia, dilation and curettage, hysteroscopy and biopsy of the cervical mass. PREOPERATIVE DIAGNOSES: 1. Abnormal uterine bleeding. 2. large endometrial mass. 3. Cervical lesion, cannot rule out cancer. POSTOPERATIVE DIAGNOSES: 1. Abnormal uterine bleeding. 2. large endometrial mass. 3. Cervical lesion, cannot rule out cancer. 4. 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 PROCEDURE: 1. Examination under anesthesia. 2. Cervical biopsy. 3. Dilation and curettage, hysteroscopy with frozen section. Postoperative consult with [facility] Oncology done via phone Dr. Mobley. Patient will be seen in [place] in the next few days for further evaluation and further surgery. ANESTHESIA: General. SURGEON: Dr. Stevens LINE INSTALLER TROLLEY: COMPLICATIONS: None. ESTIMATED BLOOD LOSS: Less than 100 mL. SPECIMEN SENT TO THE LAB: Endometrial curetting and cervical biopsy. DESCRIPTION OF PROCEDURE: After obtaining informed consent and visiting with the patient in the holding area, she was then taken to the operating room where general anesthetic was found to be adequate. She was then draped and prepped in usual sterile fashion in the dorsal lithotomy position. At this point, a straight catheter to bladder was performed for approximately 100 mL of clear urine. We then placed a weighted speculum in the posterior fornix of the vagina. The vagina as well as the cervix was inspected. The cervix and the top layer of the vagina was found to be very indurated. The cervical mass was noted and this was biopsied. The mass was very friable. This was biopsied and sent for frozen section with the above-noted finding. At this point, the uterus was sound to approximately 9 cm in size. The cervix serially dilated. The hysteroscope was inserted and the endometrial cavity visualized. It was hard to see the endometrial cavity as it was filled with debris. The hysteroscope was removed. A sharp curettage was done and tissue was obtained to send to pathology. The tissue was found to be very necrotic and numerous in amount consistent with a possible cancer. At this point, the instruments were removed. Massage and pressure was held at the level of the cervical biopsy site. Good hemostasis noted. The patient's partner was informed of the finding, and the patient was awakened and taken to the recovery room in stable condition. Please note that she would be seen by Dr. Mobley next week for further surgery and possible further treatment.
== END 2018-11-22 13:20 | disposition home or self-care (01) ==
LOC: M SDC 05:59
PROVIDERS: ATTEND Obstetrics & Gynecology
DX: C54.1 Malignant neoplasm of endometrium (principal); N84.0 Polyp of corpus uteri; I10 Essential (primary) hypertension; E78.5 Hyperlipidemia, unspecified; E11.9 Type 2 diabetes mellitus without complications; E66.09 Other obesity due to excess calories; Z79.84 Long term (current) use of oral hypoglycemic drugs; Z79.899 Other long term (current) drug therapy
CPT/HCPCS: 36415; 57500; 58558; 84703; 85027; 86850; 86900; 86901; 88304; 88305; J0690; J1100; J1170; J1885; J2250; J2405; J2765; J3010

== ENCOUNTER → 2019-01-01 | Outpatient (CLI) | payer OTHER ==
[~2019-01-01] MED LIST changes: +CEPH500C PO; +GABA-843 PO; +GASTROGRAFIN SOLUTION 30ML (Q9963) As Ordered ONE; +ISOVUE-370 76% 125ML VIAL (Q9967 PER ML) As Ordered ONE
--- NOTE | 2019-01-02 08:20 | REP ---
Clinical: Endometrial carcinoma for restaging. Technique: Slow contrast enhanced images from the thoracic inlet to the upper abdomen using 100 ml Isovue 370 intravenous contrast material with coronal and sagittal re-formations. Comparison: 10/19/2011. Findings: 9 mm noncalcified nodule in the posterior left apex (image 25) and right middle lobe along with smaller scattered noncalcified nodules are most concerning for metastatic disease. No consolidation. No effusion. No pneumothorax. Tracheobronchial tree is patent. No significant adenopathy is appreciated. Mediastinum demonstrates normal thoracic aorta, pulmonary vasculature and heart/pericardium. Limited upper abdomen demonstrates normal bilateral adrenal glands. Impression: Scattered nodules up to 9 mm most concerning for metastatic disease. Electronically Signed by Dread Hyde MD 01/02/2019 08:12 A
--- NOTE | 2019-01-02 08:27 | REP ---
Clinical: Endometrial carcinoma for restaging. Technique: Axial contrast enhanced images from the lung bases to the pubic symphysis using oral (per protocol) and 100 ml Isovue 370 intravenous contrast material with delayed images of the abdomen as well as coronal and sagittal re-formations. Comparison: 10/24/2018. Findings: Please refer to chest CT for evaluation of lung bases. Liver, spleen, pancreas, gallbladder, bilateral adrenal glands and kidneys are normal. The enteric system is without obstruction or acute inflammatory process. Normal terminal ileum and appendix identified in the right lower quadrant. Sigmoid diverticula noted without acute diverticulitis. Pelvis demonstrates normal bladder and evidence for prior hysterectomy. No pelvic fluid collection/abscess. Bilateral pelvic sidewall lymph nodes measure up to 16 mm and consistent with metastatic disease. Periumbilical fat stranding in the subcutaneous tissues with small focus of gas likely represent postsurgical changes related to hysterectomy. No ascites. No free air. Few retroperitoneal lymph nodes measure up to 12 mm and are nonspecific but again likely concerning for metastatic disease. Abdominal aorta and vasculature without aneurysm or dissection. Musculoskeletal structures are intact. Impression: 1. Retroperitoneal and pelvic lymph nodes up to 60 mm concerning for metastatic disease. 2. Postsurgical changes in the periumbilical subcutaneous fat without abscess. 3. Evidence for prior hysterectomy. 4. Colonic diverticulosis without acute diverticulitis. Electronically Signed by Dread Hyde MD 01/02/2019 08:18 A
== END ==
LOC: M RAD 16:09
PROVIDERS: ATTEND Internal Medicine Medical Oncology
DX: C54.1 Malignant neoplasm of endometrium (principal); R91.8 Other nonspecific abnormal finding of lung field; R59.0 Localized enlarged lymph nodes; K57.30 Diverticulosis of large intestine without perforation or abscess without bleeding
CPT/HCPCS: 71260; 74177; Q9963; Q9967

== ENCOUNTER → 2019-01-28 | Outpatient (CLI) | payer OTHER ==
[~2019-01-28] MED LIST changes: -GASTROGRAFIN SOLUTION 30ML (Q9963) As Ordered ONE; +GENT0.3S36 OD; -GENT3OPD OD; +HYDR-3715 PO; -ISOVUE-370 76% 125ML VIAL (Q9967 PER ML) As Ordered ONE; -METR-201 PO; +METR-265 PO; -NORCOTAB PO; +ONDA8TAB7 PO; +PROC10TA4 PO; +PROC5TA PO
--- NOTE | 2019-01-28 16:16 | REP ---
PET/CT: History: Advanced endometrial carcinosarcoma. Staging. Patient is status post laparoscopic hysterectomy, bilateral salpingo-oophorectomy, pelvic lymph node biopsy. Comparisons: Comparison CT study of the chest, abdomen and pelvis is from January 01, 2019. TECHNIQUE: 59 minutes following the intravenous injection of a 9.75 mCi dose of F-18 FDG, three-dimensional PET scintigraphy is acquired from the skull base to the proximal thighs. Triplanar noncontrast CT scanning is acquired through the same anatomic range for attenuation correction, and image registration with scan parameters optimized to minimize radiation exposure to the patient. PET scintigraphy and CT datasets were fused and displayed on a workstation with multiplanar and projection display capability. PET/CT Findings: No hypermetabolic uptake is seen within the thorax. The largest visible pulmonary nodule is in the right middle lobe and this has a maximum standard uptake value of only 1.35. Bone marrow uptake is diffusely somewhat more prominent than is typical. This is not focal and is most likely normal variant. There is aortocaval and periaortic and right pelvic mild lymphadenopathy which is hypermetabolic. The periaortic lymph nodes show mildly hypermetabolic uptake with maximum standard uptake value of 3.45. There is a right external iliac lymph node, which has a maximum standard uptake value of 10.1, however, this may be contributed to by adjacent ureter. Lastly there is a focus of hypermetabolic uptake in the right perianal soft tissues which may be hemorrhoids. Maximum standard uptake value here is 7.98. Impression: Mildly hypermetabolic retroperitoneal periaortic lymph nodes. The known pulmonary nodules are not discernibly hypermetabolic. No other abnormal uptake. Electronically Signed by Maxime Henriquez MD 01/28/2019 05:22 P
== END ==
LOC: M PLARAD 10:49
PROVIDERS: ATTEND Internal Medicine Medical Oncology
DX: C54.1 Malignant neoplasm of endometrium (principal); R91.8 Other nonspecific abnormal finding of lung field; Z90.79 Acquired absence of other genital organ(s)
CPT/HCPCS: 78815; A9552

== ENCOUNTER 2019-02-06 23:22 | Emergency (ER) | payer OTHER ==
[~2019-02-06] VITALS: Ht 157.5 cm; Wt 88.2 kg
[~2019-02-06 23:22] MED LIST changes: +ACET500T15 PO
[2019-02-06] MEDS ORDERED: NS IV ONE (23:45)
[2019-02-06] MEDS ORDERED: DILUENT IV ONE (23:45)
[2019-02-07 00:30] LABS: BASO % 0.1 % (0.0-1.0); HEMATOCRIT 38.4 % (36.0-47.0); HEMOGLOBIN 11.7 g/dl (12.0-15.5); LYMPH # 0.6 10^3/uL (1.5-4.5); LYMPH % 8.5 % (24.0-44.0); MEAN CORPUSCULAR HEMOGLOBIN 23.4 pg (27.0-33.0); MEAN CORPUSCULAR HGB CONC 30.5 g/dl (32.0-36.5); MEAN CORPUSCULAR VOLUME 76.8 fl (80.0-96.0); MONO # 0.1 10^3/uL (0.0-0.8); NEUTROPHILS # 6.2 10^3/uL (1.8-7.7); NEUTROPHILS % 88.8 % (36.0-66.0); PLATELET COUNT, AUTOMATED 530 10^3/uL (150-450)
[2019-02-07 00:51] LABS: INR 0.95; PROTHROMBIN TIME 12.8 SECONDS (12.1-14.4)
[2019-02-07 00:59] LABS: ALBUMIN 3.1 GM/DL (3.2-5.2); ALT/SGPT 29 U/L (12-78); BILIRUBIN,DIRECT 0.1 MG/DL (0.0-0.2); BILIRUBIN,TOTAL 0.5 MG/DL (0.2-1.0); BLOOD UREA NITROGEN 23 MG/DL (7-18); CALCIUM LEVEL 8.2 MG/DL (8.5-10.1); CARBON DIOXIDE LEVEL 27 MEQ/L (21-32); CHLORIDE LEVEL 101 MEQ/L (98-107); CREATININE FOR GFR 0.86 MG/DL (0.55-1.30); GLOMERULAR FILTRATION RATE > 60.0 (>58); GLUCOSE, FASTING 344 MG/DL (70-100); LIPASE 98 U/L (73-393); POTASSIUM SERUM 4.3 MEQ/L (3.5-5.1); SODIUM LEVEL 137 MEQ/L (136-145); TOTAL PROTEIN 6.8 GM/DL (6.4-8.2)
[2019-02-07] MEDS ORDERED: LOMOTIL 2.5MG/0.025MG TABLET PO ONE (01:45)
[2019-02-07 03:32] VITALS: BP 141/78
[2019-02-07] MEDS ORDERED: LOMO2.5T PO (03:49)
== END 2019-02-07 04:02 | disposition home or self-care (01) ==
LOC: M ED 23:22
DX: A08.11 Acute gastroenteropathy due to Norwalk agent (principal); C54.1 Malignant neoplasm of endometrium; E11.9 Type 2 diabetes mellitus without complications; I10 Essential (primary) hypertension; E78.5 Hyperlipidemia, unspecified; Z88.5 Allergy status to narcotic agent; Z88.8 Allergy status to other drugs, medicaments and biological substances; Z79.899 Other long term (current) drug therapy; Z79.4 Long term (current) use of insulin

== ENCOUNTER 2019-02-14 09:40 | Emergency (ER) | payer OTHER ==
[~2019-02-14] VITALS: Ht 157.5 cm; Wt 86.4 kg
[~2019-02-14 09:40] MED LIST changes: +LOMO2.5T PO
[2019-02-14 10:58] LABS: BASO # 0.1 10^3/uL (0.0-0.2); BASO % 0.5 % (0.0-1.0); EOS % 0.1 % (0.0-3.0); HEMATOCRIT 42.5 % (36.0-47.0); HEMOGLOBIN 12.7 g/dl (12.0-15.5); LYMPH # 2.5 10^3/uL (1.5-4.5); LYMPH % 12.8 % (24.0-44.0); MEAN CORPUSCULAR HEMOGLOBIN 23.2 pg (27.0-33.0); MEAN CORPUSCULAR HGB CONC 29.9 g/dl (32.0-36.5); MEAN CORPUSCULAR VOLUME 77.6 fl (80.0-96.0); MONO # 1.6 10^3/uL (0.0-0.8); NEUTROPHILS # 15.2 10^3/uL (1.8-7.7); NEUTROPHILS % 77.6 % (36.0-66.0); PLATELET COUNT, AUTOMATED 265 10^3/uL (150-450); RED BLOOD COUNT 5.48 10^6/uL (4.00-5.40); WHITE BLOOD COUNT 19.6 10^3/uL (4.0-10.0)
--- NOTE | 2019-02-14 11:10 | REP ---
Chest two views HISTORY: Cough Comparison: 07/27/2018 The lungs are clear. The heart is normal in size. The pulmonary vasculature is normal in appearance. The bony structure is intact. IMPRESSION: No acute disease. Electronically Signed by Reg Farnsworth MD 02/14/2019 11:02 A
[2019-02-14 11:21] LABS: INFLUENZA A AMPLIFICATION NEGATIVE (NEGATIVE); INFLUENZA B AMPLIFICATION NEGATIVE (NEGATIVE)
[2019-02-14 11:21] LABS: BLOOD UREA NITROGEN 21 MG/DL (7-18); CALCIUM LEVEL 8.9 MG/DL (8.5-10.1); CARBON DIOXIDE LEVEL 29 MEQ/L (21-32); CHLORIDE LEVEL 102 MEQ/L (98-107); CREATININE FOR GFR 0.74 MG/DL (0.55-1.30); GLOMERULAR FILTRATION RATE > 60.0 (>58); GLUCOSE, FASTING 256 MG/DL (70-100); POTASSIUM SERUM 4.4 MEQ/L (3.5-5.1); SODIUM LEVEL 138 MEQ/L (136-145)
[2019-02-14 11:42] VITALS: BP 135/81
[2019-02-14] MEDS ORDERED: MUCI600T31 PO (12:05)
[2019-02-14] MEDS ORDERED: AFRI0.058 (12:05)
[2019-02-14] MEDS ORDERED: BENZ200C70 PO (12:05)
== END 2019-02-14 12:18 | disposition home or self-care (01) ==
LOC: M ED 09:40
DX: J06.9 Acute upper respiratory infection, unspecified (principal); C54.1 Malignant neoplasm of endometrium; Z79.899 Other long term (current) drug therapy; Z88.5 Allergy status to narcotic agent; Z88.8 Allergy status to other drugs, medicaments and biological substances

== ENCOUNTER 2019-03-08 20:09 | Inpatient (IN) | payer OTHER ==
[~2019-03-08] VITALS: Ht 157.5 cm; Wt 87.4 kg
[~2019-03-08 20:09] MED LIST changes: +AFRI0.058; +BENZ200C70 PO; +MUCI600T31 PO
[2019-03-08 21:02] LABS: MEAN CORPUSCULAR HEMOGLOBIN 25.1 pg (27.0-33.0); MEAN CORPUSCULAR HGB CONC 30.8 g/dl (32.0-36.5); MEAN CORPUSCULAR VOLUME 81.4 fl (80.0-96.0); PLATELET COUNT, AUTOMATED 290 10^3/uL (150-450); RED BLOOD COUNT 4.79 10^6/uL (4.00-5.40); WHITE BLOOD COUNT 23.9 10^3/uL (4.0-10.0)
[2019-03-08 21:33] LABS: ALBUMIN 3.4 GM/DL (3.2-5.2); ALT/SGPT 35 U/L (12-78); BILIRUBIN,DIRECT < 0.1 MG/DL (0.0-0.2); BILIRUBIN,TOTAL 0.2 MG/DL (0.2-1.0); BLOOD UREA NITROGEN 16 MG/DL (7-18); CALCIUM LEVEL 8.7 MG/DL (8.5-10.1); CARBON DIOXIDE LEVEL 25 MEQ/L (21-32); CHLORIDE LEVEL 101 MEQ/L (98-107); CREATININE FOR GFR 0.84 MG/DL (0.55-1.30); GLOMERULAR FILTRATION RATE > 60.0 (>58); GLUCOSE, FASTING 345 MG/DL (70-100); LIPASE 273 U/L (73-393); POTASSIUM SERUM 3.4 MEQ/L (3.5-5.1); SODIUM LEVEL 140 MEQ/L (136-145); TOTAL PROTEIN 6.7 GM/DL (6.4-8.2)
[2019-03-08 21:40] LABS: LYMPHOCYTES 21 % (16-52); METAMYELOCYTES 1 % (0-0); MYELOCYTES 1 % (0-0); NEUTROPHILS 72 % (35-75)
[2019-03-08 21:41] LABS: ANISOCYTOSIS 2+; MICROCYTOSIS 1+; PLATELET ESTIMATE NORMAL (NORMAL)
[2019-03-08] MEDS ORDERED: ISOVUE-370 76% 100ML VIAL (Q9967) As Ordered ONE (21:52)
[2019-03-08] MEDS ORDERED: MORPHINE 4 MG/ML 1ML VIAL/SYRINGE (J2270) IV ONE (22:00)
[2019-03-08] MEDS ORDERED: VANCOMYCIN HCL 1,000 MG, VIAL MATE ADAPTER 1 EACH in D5W 250 ML IV ONE (22:30)
[2019-03-08] MEDS ORDERED: NS 1,000 ML IV ONE (22:30)
[2019-03-08] MEDS ORDERED: PIPERACILLIN/TAZOBACTAM SOD 3.375 GM in D5W MINI-BAG PLUS 50 ML IV ONE (22:30)
[2019-03-08] MEDS ORDERED: PROC5TA PO (22:59)
[2019-03-08] MEDS ORDERED: LOMO2.5T PO (22:59)
[2019-03-08] MEDS ORDERED: METF10004 PO (22:59)
[2019-03-08] MEDS ORDERED: ONDA8TAB7 PO (22:59)
--- NOTE | 2019-03-08 23:38 | REPVR ---
EXAM: CT Abdomen and Pelvis With Contrast EXAM DATE/TIME: 03/08/2019 10:07 PM CLINICAL HISTORY: 48 years old, female; Abdominal pain; Generalized; Prior surgery; Surgery date: 1-6 months; Additional info: Abdominal pain, recent abdominal surgery, eval for abscess TECHNIQUE: Imaging protocol: Axial computed tomography images of the abdomen and pelvis with intravenous contrast. Coronal and sagittal reformatted images were created and reviewed. Radiation optimization: All CT scans at this facility use at least one of these dose optimization techniques: automated exposure control; mA and/or kV adjustment per patient size (includes targeted exams where dose is matched to clinical indication); or iterative reconstruction. Contrast material: ISOVUE 370; Contrast volume: 100 ml; Contrast route: IV; COMPARISON: CT ABD PELVIS WITH CONTRAST 01/01/2019 5:49 PM FINDINGS: 5 mm nodular density in the right lung. Recommend followup CT scan in 6 months for reevaluation to document stability. ABDOMEN: Liver: There is prominence of the right lobe of the liver. Gallbladder and bile ducts: Normal gallbladder. Normal common bile duct. Pancreas: Normal pancreas. Spleen: Normal spleen. Adrenals: Normal adrenal glands. Kidneys and ureters: Normal kidneys. Stomach and bowel: The cecum is in the right lower quadrant. The appendix appears within the range of normal. Normal-appearing small bowel. PELVIS: Bladder: Normal appearing urinary bladder. Reproductive: The patient is status post hysterectomy. ABDOMEN and PELVIS: Intraperitoneal space: There is no evidence of pneumoperitoneum. As there is no evidence of free fluid in the abdomen or pelvis. Bones/joints: There is posterior disc protrusion L5-S1. Soft tissues: On the exam of 01/01/2019 there was an area of subcutaneous infection at the umbilicus and now resolved. Vasculature: There is opacification of the SMV and SMA. There is opacification of the aorta which is normal in size. Lymph nodes: There are few lymph nodes along the aorta. One of these has increased in size to 1.3 CM. There are several small lymph nodes in the right and left groin. IMPRESSION: No evidence of areas of infection. 5 mm nodule right lower lung field. Recommend followup CT scan in 6 months for reevaluation to document stability. Electronically signed by: Michael Zuniga On 03/08/2019 23:38:04 PM
[2019-03-08] MEDS ORDERED: MORPHINE 10 MG/ML 1ML VIAL (J2270) IM ONE (23:45)
[2019-03-09] MEDS ORDERED: KCL 20MEQ IN D5/0.45NS 1000ML 1,000 ML IV SCH
[2019-03-09] MEDS ORDERED: NS 1,000 ML IV SCH (00:34)
[2019-03-09] MEDS ORDERED: LOMOTIL 2.5MG/0.025MG TABLET PO PRN (00:45)
[2019-03-09] MEDS ORDERED: ACETAMINOPHEN TAB 650MG DOSE (2X325MG) PO PRN (00:45)
[2019-03-09] MEDS ORDERED: ONDANSETRON 4 MG TAB (S0181) PO PRN (00:45)
[2019-03-09] MEDS ORDERED: PROCHLORPERAZINE 5 MG TAB (S0183) PO PRN (00:45)
[2019-03-09] MEDS ORDERED: DEXTROSE 50% 50 ML SYRINGE IV PRN (00:45)
[2019-03-09] MEDS ORDERED: GLUCAGON FOR INJ 1 MG VIAL (J1610) SC PRN (00:45)
[2019-03-09] MEDS ORDERED: GLUCOSE 4 GM CHEW TABLET PO PRN (00:45)
[2019-03-09] MEDS: KCL 40MEQ in NS 1000ML 1,000 ML IV SCH ×4 (01:26→21:28)
[2019-03-09] MEDS: LEVEMIR (INSULIN DETEMIR) 1 UNITS/0.01ML SC SCH ×3 (01:30→22:07)
[2019-03-09] MEDS ORDERED: ACETAMINOPHEN 500 MG TAB PO PRN (01:30)
[2019-03-09] MEDS ORDERED: ONDANSETRON 4MG/2ML VIAL (J2405) IV PRN (01:30)
[2019-03-09] MEDS: GABAPENTIN 300 MG CAP PO SCH ×3 (02:07→21:27)
[2019-03-09] MEDS: ENOXAPARIN 40 MG/0.4 ML SYRINGE (J1650) SC SCH (02:09)
[2019-03-09 02:25] VITALS: BP 140/76
[2019-03-09] MEDS: PIPERACILLIN/TAZOBACTAM SOD 3.375 GM in D5W MINI-BAG PLUS 50 ML IV SCH ×3 (05:27→18:55)
[2019-03-09 06:00] VITALS: BP 130/70
[2019-03-09] MEDS: MORPHINE 4 MG/ML 1ML VIAL/SYRINGE (J2270) IV PRN ×5 (06:42→22:06)
[2019-03-09 07:12] LABS: HEMATOCRIT 36.5 % (36.0-47.0); HEMOGLOBIN 10.9 g/dl (12.0-15.5); MEAN CORPUSCULAR HEMOGLOBIN 24.8 pg (27.0-33.0); MEAN CORPUSCULAR HGB CONC 29.9 g/dl (32.0-36.5); PLATELET COUNT, AUTOMATED 242 10^3/uL (150-450); WHITE BLOOD COUNT 25.6 10^3/uL (4.0-10.0)
[2019-03-09 07:28] LABS: BLOOD UREA NITROGEN 13 MG/DL (7-18); CALCIUM LEVEL 7.8 MG/DL (8.5-10.1); CARBON DIOXIDE LEVEL 27 MEQ/L (21-32); CHLORIDE LEVEL 106 MEQ/L (98-107); CREATININE FOR GFR 0.52 MG/DL (0.55-1.30); GLOMERULAR FILTRATION RATE > 60.0 (>58); GLUCOSE, FASTING 190 MG/DL (70-100); POTASSIUM SERUM 3.4 MEQ/L (3.5-5.1); SODIUM LEVEL 141 MEQ/L (136-145)
[2019-03-09 07:53] LABS: ANISOCYTOSIS 2+; LYMPHOCYTES 18 % (16-52); METAMYELOCYTES 1 % (0-0); MONOCYTES 3 % (0-8); NEUTROPHILS 76 % (35-75); OVALOCYTES 1+; PLATELET ESTIMATE NORMAL (NORMAL)
--- NOTE | 2019-03-09 08:20 | REP ---
Clinical: Chest pain with leukocytosis . Comparison: 02/14/2019 . Technique: PA and lateral. Findings: The mediastinum and cardiac silhouette are normal. The lung honeycutt are clear and without acute consolidation, effusion, or pneumothorax. The skeletal structures are intact and normal. Impression: 1. No acute cardiopulmonary process. Electronically Signed by Dread Hyde MD 03/09/2019 08:11 A
[2019-03-09] MEDS: ATORVASTATIN 20 MG TAB PO SCH (08:22)
[2019-03-09] MEDS: HumaLOG INSULIN (NovoLOG) PER UNIT SC SCH ×4 (08:24→21:00)
[2019-03-09] MEDS ORDERED: hydroCHLOROthiazide 25 MG TAB PO SCH (09:00)
[2019-03-09 14:00] VITALS: BP 171/79
--- NOTE | 2019-03-09 14:34 | IPNPDOC ---
Date Seen The patient was seen on 03/09/19. Progress Note Please note no H&P available at the time of this note SUBJECTIVE: Patient tells me that she feels about the same, she still has persistent abdominal pain she denies any further episodes of diarrhea otherwise patient denies chest pain, shortness breath, nausea, vomiting, fevers, chills OBJECTIVE PHYSICAL EXAMINATION: VITAL SIGNS: Please see below. GENERAL: Pleasant obese female balled sitting up in bed awake alert oriented speaking in complete sentences appears mildly uncomfortable HEENT: Moist mucous membranes no elevation and CVP CARDIOVASCULAR: S1 S2 regular no additional heart sounds appreciated. RESPIRATORY: Clear to auscultation bilaterally. ABDOMINAL: Bowel sounds present abdomen soft diffusely distended and diffusely tender EXTREMITIES: No clubbing cyanosis or edema NEUROLOGICAL: Spontaneously moves all 4 extremities cranial 2 through 12 grossly intact no gross focal deficits appreciated PSYCHOLOGICAL: Appropriate LABORATORY DATA, MICROBIOLOGY: Please see below. IMAGING STUDIES: CT abdomen pelvis:No evidence of areas of infection. 5 mm nodule right lower lung field. Recommend followup CT scan in 6 months for reevaluation to document stability. Chest x-ray:1. No acute cardiopulmonary process. DVT prophylaxis ordered?: Lovenox ASSESSMENT AND PLAN: This is a 48-year-old female with abdominal pain and diarrhea. PROBLEMS: 1. Abdominal pain and diarrhea: Possibly related to chemotherapy, however she does have significant leukocytosis. The patient does have endometrial cancer as well which could be contributing to her abdominal pain. She did have an elevated lactic acid which is trending down this morning. The time being she is on empiric Zosyn. A GI PCR panel has been ordered however her diarrhea has slowed since her admission. Patient is normally on Lomotil for chronic diarrhea 2. Hypokalemia: Likely secondary to dehydration and diarrhea. Continue with KCl at 120 mL per hour 3. Diabetes: Insulin-dependent, continuous fingersticks and sliding scale finger 6. Well-controlled at this time. 4. Hypertension: Continue hydrochlorothiazide 5. Neuropathy: Continue with gabapentin 6. Dyslipidemia: Continue with atorvastatin 7. Dementia cancer: Continue chemotherapy on the outpatient setting and is able DISPOSITION: Pending improvement in abdominal pain and diarrhea. PROGNOSIS: Guarded given her malignancy and poor tolerance of chemotherapy VS, I&O, 24H, Fishbone Vital Signs/I&O Vital Signs Date Time Temp Pulse Resp B/P (MAP) Pulse Ox O2 Delivery O2 Flow Rate FiO2 03/09/19 10:51 18 03/09/19 06:00 98.8 93 130/70 (90) 95 03/09/19 02:11 Room Air I&O- Last 24 Hours up to 6 AM 03/09/19 06:00 Intake Total 1230 ml Balance 1230 ml Laboratory Data 24H LABS Laboratory Tests 2 03/08/19 20:54: Immature Granulocyte % (Auto) , Nucleated Red Blood Cells % (auto) 0.1H, Neutrophils 72, Band Neutrophils 5, Lymphocytes (Manual) 21, Metamyelocytes 1H, Myelocytes 1H, Platelet Estimate NORMAL, Anisocytosis 2+, Microcytosis 1+, Anion Gap 14, Glomerular Filtration Rate > 60.0, Lactic Acid Level 5.2*H, Calcium Level 8.7, Aspartate Amino Transf (AST/SGOT) 16, Alanine Aminotransferase (ALT/SGPT) 35, Alkaline Phosphatase 177H, Total Bilirubin 0.2, Direct Bilirubin < 0.1, Total Protein 6.7, Albumin 3.4, Albumin/Globulin Ratio 1.03, Lipase 273 03/08/19 23:16: Urine Color STRAW, Urine Appearance CLEAR, Urine pH 5.0, Urine Specific [place] 1.047, Urine Protein NEGATIVE, Urine Glucose (UA) 3+H, Urine Ketones NEGATIVE, Urine Blood NEGATIVE, Urine Nitrite NEGATIVE, Urine Bilirubin NEGATIVE, Urine Urobilinogen 0.2, Urine Leukocyte Esterase NEGATIVE, Urine WBC (Auto) 10H, Urine RBC (Auto) 2, Urine Hyaline Casts (Auto) 0, Urine Bacteria (Auto) NEGATIVE, Urine Squamous Epithelial Cells 1, Urine Sperm (Auto) 03/09/19 01:33: Lactic Acid Followup at 4 Hours 3.1*H 03/09/19 06:44: Immature Granulocyte % (Auto) , Nucleated Red Blood Cells % (auto) 0.1H, Neutrophils 76H, Band Neutrophils 2, Lymphocytes (Manual) 18, Metamyelocytes 1H, Platelet Estimate NORMAL, Anisocytosis 2+, Anion Gap 8, Glomerular Filtration Rate > 60.0, Calcium Level 7.8L, Monocytes (Manual) 3, Ovalocytes 1+, Blood Urea Nitrogen 13, Creatinine 0.52L, Sodium Level 141, Potassium Level 3.4L, Chloride Level 106, Carbon Dioxide Level 27, Procalcitonin 0.25 03/09/19 10:35: Bedside Glucose (Misc Panel) 169H CBC/BMP Laboratory Tests 03/08/19 20:54 Red Blood Count 4.79, Mean Corpuscular Volume 81.4, Mean Corpuscular Hemoglobin 25.1 L, Mean Corpuscular Hemoglobin Concent 30.8 L, Red Cell Distribution Width 21.3 H 03/09/19 06:44 Red Blood Count 4.40, Mean Corpuscular Volume 83.0, Mean Corpuscular Hemoglobin 24.8 L, Mean Corpuscular Hemoglobin Concent 29.9 L, Red Cell Distribution Width 21.6 H, Calcium Level 7.8 L Microbiology Microbiology 03/08/19 Blood Culture, Received Pending 03/08/19 Blood Culture, Received Pending AMAYA LIZARRAGA MD March 09, 2019 14:34
[2019-03-09 16:07] LABS: BLOOD UREA NITROGEN 13 MG/DL (7-18); CALCIUM LEVEL 7.6 MG/DL (8.5-10.1); CARBON DIOXIDE LEVEL 27 MEQ/L (21-32); CHLORIDE LEVEL 107 MEQ/L (98-107); CREATININE FOR GFR 0.62 MG/DL (0.55-1.30); GLOMERULAR FILTRATION RATE > 60.0 (>58); GLUCOSE, FASTING 178 MG/DL (70-100); MAGNESIUM LEVEL 0.9 MG/DL (1.8-2.4); POTASSIUM SERUM 3.8 MEQ/L (3.5-5.1); SODIUM LEVEL 141 MEQ/L (136-145)
[2019-03-09] MEDS: MAG SULF 1GM/100ML (MAG RUN) 1 GM in APPROPRIATE DILUENT 1 EA IV SCH ×2 (16:46→17:48)
[2019-03-09 22:00] VITALS: BP 148/85
[2019-03-10] MEDS: PIPERACILLIN/TAZOBACTAM SOD 3.375 GM in D5W MINI-BAG PLUS 50 ML IV SCH ×5 (00:49→23:05)
[2019-03-10] MEDS: KCL 40MEQ in NS 1000ML 1,000 ML IV SCH (02:27)
[2019-03-10] MEDS: MORPHINE 4 MG/ML 1ML VIAL/SYRINGE (J2270) IV PRN ×6 (02:28→23:06)
[2019-03-10 06:00] VITALS: BP 135/78
[2019-03-10 07:08] LABS: HEMATOCRIT 36.1 % (36.0-47.0); HEMOGLOBIN 10.8 g/dl (12.0-15.5); MEAN CORPUSCULAR HEMOGLOBIN 24.8 pg (27.0-33.0); MEAN CORPUSCULAR HGB CONC 29.9 g/dl (32.0-36.5); MEAN CORPUSCULAR VOLUME 82.8 fl (80.0-96.0); PLATELET COUNT, AUTOMATED 185 10^3/uL (150-450); RED BLOOD COUNT 4.36 10^6/uL (4.00-5.40); WHITE BLOOD COUNT 19.3 10^3/uL (4.0-10.0)
[2019-03-10 07:34] LABS: ALBUMIN 2.7 GM/DL (3.2-5.2); ALT/SGPT 36 U/L (12-78); BILIRUBIN,TOTAL 0.3 MG/DL (0.2-1.0); BLOOD UREA NITROGEN 10 MG/DL (7-18); CALCIUM LEVEL 7.8 MG/DL (8.5-10.1); CARBON DIOXIDE LEVEL 25 MEQ/L (21-32); CHLORIDE LEVEL 109 MEQ/L (98-107); CREATININE FOR GFR 0.44 MG/DL (0.55-1.30); GLOMERULAR FILTRATION RATE > 60.0 (>58); GLUCOSE, FASTING 172 MG/DL (70-100); POTASSIUM SERUM 4.3 MEQ/L (3.5-5.1); SODIUM LEVEL 141 MEQ/L (136-145)
[2019-03-10 07:51] LABS: ATYPICAL LYMPH 1 % (0-5); LYMPHOCYTES 11 % (16-52); MONOCYTES 6 % (0-8); NEUTROPHILS 80 % (35-75); PLATELET ESTIMATE NORMAL (NORMAL)
[2019-03-10 07:52] LABS: ANISOCYTOSIS 3+
[2019-03-10 07:53] LABS: OVALOCYTES 1+
[2019-03-10 08:00] LABS: DOHLE BODIES 1+
[2019-03-10] MEDS: ATORVASTATIN 20 MG TAB PO SCH (08:03)
[2019-03-10] MEDS: GABAPENTIN 300 MG CAP PO SCH ×2 (08:03→21:13)
[2019-03-10] MEDS: HumaLOG INSULIN (NovoLOG) PER UNIT SC SCH ×4 (08:04→21:00)
[2019-03-10] MEDS: LEVEMIR (INSULIN DETEMIR) 1 UNITS/0.01ML SC SCH ×2 (08:05→21:13)
[2019-03-10] MEDS: ENOXAPARIN 40 MG/0.4 ML SYRINGE (J1650) SC SCH (08:06)
[2019-03-10 08:20] LABS: MAGNESIUM LEVEL 1.3 MG/DL (1.8-2.4)
[2019-03-10] MEDS: MAG SULF 1GM/100ML (MAG RUN) 1 GM in APPROPRIATE DILUENT 1 EA IV SCH ×2 (12:09→15:04)
--- NOTE | 2019-03-10 17:02 | IPNPDOC ---
Text Note Date of Service The patient was seen on 03/10/19. NOTE SUBJECTIVE:Ms. Valiente is seen on bedside rounds this morning, she is laying in bed, she feels comfortable but does complain of some abdominal discomfort continued in lower abdomen. She has not had any episodes of diarrhea. Denies CP, SOB, N/V, fever or chills. OBJECTIVE PHYSICAL EXAMINATION: VITAL SIGNS: Please see below. GENERAL: Pleasant obese female laying in bed appearing her stated age, NAD, awake alert oriented speaking in complete sentences appears mildly uncomfortable HEENT: Moist mucous membranes, no JVD, EOMI CARDIOVASCULAR: S1 S2 regular no additional heart sounds appreciated RESPIRATORY: Clear to auscultation bilaterally. ABDOMINAL: abdomen soft, obese, diffusely tender in lower abdomen, nabsx4, no rebound ridgity or guarding, minimal diffuse distension, no masses or hepatosplenomegaly EXTREMITIES: No clubbing cyanosis or edema NEUROLOGICAL: no focal deficits appreciated PSYCHOLOGICAL: Appropriate LABORATORY DATA, MICROBIOLOGY: Please see below. ASSESSMENT AND PLAN: This is a 48-year-old female with abdominal pain and diarrhea. PROBLEMS: 1. Abdominal pain and diarrhea -Likely related to chemotherapy, her lactic acidosis has resolved, she is still having leukocytosis but improving. She has endometrial cancer as well which could be contributing to her abdominal pain. She continues on empiric Zosyn. A GI PCR panel was negative.Patient is normally on Lomotil for chronic diarrhea. CT abdomen without acute intra-abdominal pathology to explain symptoms. She does have incidental 5 mm RLL nodule needs repeat CT scan in 6 mo. outpatient for follow up. Blood cultures negative x24 hours. 2. Hypokalemia and low Mg -Potassium resolved, today was 4.3, likely 2/2 dehydration and diarrhea. Mg still low, c/w supplementation. She was getting IVF with potassium supplementation. Tolerating diet now. 3. Diabetes - Insulin-dependent, continuous fingersticks and sliding scale. Well-controlled at this time. 4. Hypertension -stable, c/w hydrochlorothiazide 5. Neuropathy - chornic, c/w gabapentin 6. Dyslipidemia -c/w statin Continue 7. Endometrial cancer -c/w chemotherapy out pt. DISPOSITION: Pending improvement in abdominal pain and diarrhea. PROGNOSIS: Guarded given her malignancy and poor tolerance of chemotherapy. VS,Fishbone, I+O VS, Fishbone, I+O Laboratory Tests 03/10/19 06:54 Red Blood Count 4.36, Mean Corpuscular Volume 82.8, Mean Corpuscular Hemoglobin 24.8 L, Mean Corpuscular Hemoglobin Concent 29.9 L, Red Cell Distribution Width 21.5 H, Calcium Level 7.8 L, Aspartate Amino Transf (AST/SGOT) 24, Alanine Aminotransferase (ALT/SGPT) 36, Alkaline Phosphatase 153 H, Total Bilirubin 0.3, Total Protein 6.0 L, Albumin 2.7 #L Vital Signs Date Time Temp Pulse Resp B/P (MAP) Pulse Ox O2 Delivery O2 Flow Rate FiO2 03/10/19 15:15 16 03/10/19 14:00 97.4 102 91 03/10/19 06:00 135/78 (97) 03/09/19 02:11 Room Air I&O- Last 24 Hours up to 6 AM 03/10/19 06:00 Intake Total 3070 ml Output Total 1850 ml Balance 1220 ml GME ATTESTATION GME ATTESTATION My faculty preceptor for this patient encounter was physically present during the encounter and was fully available. All aspects of the patient interview, examination, medical decision making process, and medical care plan development were reviewed and approved by the faculty preceptor. The faculty preceptor is aware and concurs with the plan as stated in the body of this note and will attest to such by his/her cosignature. ATTENDING NOTE I saw and evaluated the patient. I agree with the findings and plan of care as documented in the resident's note ROBER WHIPPLE DO March 10, 2019 17:02 AMAYA LIZARRAGA MD March 14, 2019 15:01
[2019-03-10 22:00] VITALS: BP 160/87
[2019-03-11] MEDS: MORPHINE 4 MG/ML 1ML VIAL/SYRINGE (J2270) IV PRN ×7 (03:01→23:35)
[2019-03-11] MEDS: PERCOCET 5MG/325MG TAB PO PRN ×3 (05:10→19:59)
[2019-03-11] MEDS: PIPERACILLIN/TAZOBACTAM SOD 3.375 GM in D5W MINI-BAG PLUS 50 ML IV SCH ×2 (05:10→11:23)
[2019-03-11 06:00] VITALS: BP 125/71
[2019-03-11 06:09] LABS: HEMATOCRIT 35.2 % (36.0-47.0); HEMOGLOBIN 10.6 g/dl (12.0-15.5); MEAN CORPUSCULAR HEMOGLOBIN 24.7 pg (27.0-33.0); MEAN CORPUSCULAR HGB CONC 30.1 g/dl (32.0-36.5); MEAN CORPUSCULAR VOLUME 82.1 fl (80.0-96.0); PLATELET COUNT, AUTOMATED 151 10^3/uL (150-450); RED BLOOD COUNT 4.29 10^6/uL (4.00-5.40); WHITE BLOOD COUNT 19.1 10^3/uL (4.0-10.0)
[2019-03-11 06:31] LABS: BLOOD UREA NITROGEN 10 MG/DL (7-18); CALCIUM LEVEL 8.4 MG/DL (8.5-10.1); CARBON DIOXIDE LEVEL 28 MEQ/L (21-32); CHLORIDE LEVEL 107 MEQ/L (98-107); CREATININE FOR GFR 0.46 MG/DL (0.55-1.30); GLOMERULAR FILTRATION RATE > 60.0 (>58); GLUCOSE, FASTING 181 MG/DL (70-100); MAGNESIUM LEVEL 1.3 MG/DL (1.8-2.4); POTASSIUM SERUM 4.8 MEQ/L (3.5-5.1); SODIUM LEVEL 140 MEQ/L (136-145)
[2019-03-11 06:54] LABS: ANISOCYTOSIS 2+; ATYPICAL LYMPH 1 % (0-5); LYMPHOCYTES 30 % (16-52); METAMYELOCYTES 3 % (0-0); MONOCYTES 3 % (0-8); NEUTROPHILS 58 % (35-75); PLATELET ESTIMATE NORMAL (NORMAL)
[2019-03-11 06:55] LABS: OVALOCYTES 1+; POLYCHROMASIA 1+
[2019-03-11] MEDS: LEVEMIR (INSULIN DETEMIR) 1 UNITS/0.01ML SC SCH ×2 (08:07→20:07)
[2019-03-11] MEDS: HumaLOG INSULIN (NovoLOG) PER UNIT SC SCH ×4 (08:07→20:30)
[2019-03-11] MEDS: GABAPENTIN 300 MG CAP PO SCH ×2 (08:08→20:08)
[2019-03-11] MEDS: ATORVASTATIN 20 MG TAB PO SCH (08:08)
[2019-03-11] MEDS: ENOXAPARIN 40 MG/0.4 ML SYRINGE (J1650) SC SCH (08:08)
[2019-03-11] MEDS: LevoFLOXacin 500 MG TABLET PO SCH (12:10)
[2019-03-11] MEDS: MAG SULF 1GM/100ML (MAG RUN) 1 GM in APPROPRIATE DILUENT 1 EA IV SCH ×2 (12:11→14:15)
--- NOTE | 2019-03-11 13:35 | IPNPDOC ---
Text Note Date of Service The patient was seen on 03/11/19. NOTE SUBJECTIVE:Ms. Valiente is seen on bedside rounds this morning, she is laying in bed, states her lower abdomen is still bothering her and she doesn't feel the percocet helps. She has not had any episodes of diarrhea. Denies CP, SOB, N/V, fever or chills. OBJECTIVE PHYSICAL EXAMINATION: VITAL SIGNS: Please see below. GENERAL: Pleasant obese female laying in bed appearing her stated age, NAD, awake alert oriented speaking in complete sentences appears mildly uncomfortable HEENT: Moist mucous membranes, no JVD, EOMI CARDIOVASCULAR: S1 S2 regular no additional heart sounds appreciated RESPIRATORY: Clear to auscultation bilaterally. ABDOMINAL: abdomen soft, obese, diffusely tender in lower abdomen again but seems improved today, nabsx4, no rebound ridgity or guarding, minimal diffuse distension, no masses or hepatosplenomegaly EXTREMITIES: No clubbing cyanosis or edema NEUROLOGICAL: no focal deficits appreciated PSYCHOLOGICAL: Appropriate LABORATORY DATA, MICROBIOLOGY: Please see below. ASSESSMENT AND PLAN: This is a 48-year-old female with abdominal pain and diarrhea. PROBLEMS: 1. Abdominal pain and diarrhea -Likely related to chemotherapy, lactic acidosis has resolved, she is still having leukocytosis but improving, 19.1 today. She has endometrial cancer as well which could be contributing to her abdominal pain. She continues on empiric Zosyn but we will d/c this and began oral Levaquin today. A GI PCR panel was negative.Patient is normally on Lomotil for chronic diarrhea. CT abdomen without acute intra-abdominal pathology to explain symptoms. She does have incidental 5 mm RLL nodule needs repeat CT scan in 6 mo. outpatient for follow up. Blood cultures negative so far. Due to malignancy and prognosis we will have palliative medicine consult for end of life discussions/care and pain medicine recommendations. 2. Hypokalemia and low Mg -Potassium resolved, today was 4.8, likely 2/2 dehydration and diarrhea. Mg still low, c/w supplementation. She was getting IVF with potassium supplementation. Tolerating diet now. 3. Diabetes - Insulin-dependent, continuous fingersticks and sliding scale. Well-controlled at this time. 4. Hypertension -stable, c/w hydrochlorothiazide 5. Neuropathy - chronic, c/w gabapentin 6. Dyslipidemia -c/w statin Continue 7. Endometrial cancer -c/w chemotherapy out pt. DISPOSITION: Palliative care consult placed PROGNOSIS: Guarded given her malignancy and poor tolerance of chemotherapy. VS,Fishbone, I+O VS, Fishbone, I+O Laboratory Tests 03/11/19 05:38 Red Blood Count 4.29, Mean Corpuscular Volume 82.1, Mean Corpuscular Hemoglobin 24.7 L, Mean Corpuscular Hemoglobin Concent 30.1 L, Red Cell Distribution Width 21.6 H, Calcium Level 8.4 L Vital Signs Date Time Temp Pulse Resp B/P (MAP) Pulse Ox O2 Delivery O2 Flow Rate FiO2 03/11/19 13:12 16 03/11/19 06:00 97.8 76 125/71 (89) 96 03/09/19 02:11 Room Air I&O- Last 24 Hours up to 6 AM 03/11/19 06:00 Intake Total 3190 ml Output Total 4325 ml Balance -1135 ml GME ATTESTATION GME ATTESTATION My faculty preceptor for this patient encounter was physically present during the encounter and was fully available. All aspects of the patient interview, examination, medical decision making process, and medical care plan development were reviewed and approved by the faculty preceptor. The faculty preceptor is aware and concurs with the plan as stated in the body of this note and will attest to such by his/her cosignature. ATTENDING NOTE I saw and evaluated the patient. I agree with the findings and plan of care as documented in the resident's note ROBER WHIPPLE DO March 11, 2019 13:35 AMAYA LIZARRAGA MD March 14, 2019 15:04
[2019-03-11 14:34] VITALS: BP 127/79
[2019-03-11 22:00] VITALS: BP 152/89
[2019-03-12] MEDS: MORPHINE 4 MG/ML 1ML VIAL/SYRINGE (J2270) IV PRN ×3 (03:27→10:19)
[2019-03-12] MEDS: PERCOCET 5MG/325MG TAB PO PRN ×3 (05:29→19:47)
[2019-03-12] MEDS: LevoFLOXacin 500 MG TABLET PO SCH (05:29)
[2019-03-12 06:00] VITALS: BP 144/82
[2019-03-12 07:07] LABS: HEMATOCRIT 35.4 % (36.0-47.0); HEMOGLOBIN 10.7 g/dl (12.0-15.5); MEAN CORPUSCULAR HEMOGLOBIN 24.7 pg (27.0-33.0); MEAN CORPUSCULAR HGB CONC 30.2 g/dl (32.0-36.5); MEAN CORPUSCULAR VOLUME 81.8 fl (80.0-96.0); PLATELET COUNT, AUTOMATED 125 10^3/uL (150-450); RED BLOOD COUNT 4.33 10^6/uL (4.00-5.40); WHITE BLOOD COUNT 13.7 10^3/uL (4.0-10.0)
[2019-03-12 07:27] LABS: BLOOD UREA NITROGEN 10 MG/DL (7-18); CALCIUM LEVEL 8.3 MG/DL (8.5-10.1); CARBON DIOXIDE LEVEL 29 MEQ/L (21-32); CHLORIDE LEVEL 106 MEQ/L (98-107); CREATININE FOR GFR 0.42 MG/DL (0.55-1.30); GLOMERULAR FILTRATION RATE > 60.0 (>58); GLUCOSE, FASTING 189 MG/DL (70-100); MAGNESIUM LEVEL 1.5 MG/DL (1.8-2.4); POTASSIUM SERUM 4.8 MEQ/L (3.5-5.1); SODIUM LEVEL 141 MEQ/L (136-145)
[2019-03-12 07:45] LABS: ATYPICAL LYMPH 1 % (0-5); LYMPHOCYTES 25 % (16-52); MONOCYTES 6 % (0-8); NEUTROPHILS 68 % (35-75)
[2019-03-12 07:48] LABS: ANISOCYTOSIS 1+; MICROCYTOSIS 1+; OVALOCYTES 1+; POLYCHROMASIA 1+
[2019-03-12 07:49] LABS: PLATELET ESTIMATE DECREASED (NORMAL)
[2019-03-12] MEDS ORDERED: MAG SULF 1GM/100ML (MAG RUN) 1 GM in APPROPRIATE DILUENT 1 EA IV ONE (08:15)
[2019-03-12] MEDS: ATORVASTATIN 20 MG TAB PO SCH (08:16)
[2019-03-12] MEDS: GABAPENTIN 300 MG CAP PO SCH ×2 (08:17→20:25)
[2019-03-12] MEDS: LEVEMIR (INSULIN DETEMIR) 1 UNITS/0.01ML SC SCH ×2 (08:18→20:25)
[2019-03-12] MEDS: HumaLOG INSULIN (NovoLOG) PER UNIT SC SCH ×4 (08:18→20:26)
[2019-03-12] MEDS: ENOXAPARIN 40 MG/0.4 ML SYRINGE (J1650) SC SCH (08:18)
--- NOTE | 2019-03-12 12:56 | IPNPDOC ---
Text Note Date of Service The patient was seen on 03/12/19. NOTE SUBJECTIVE:Ms. Valiente is seen on bedside rounds this morning, she is laying in bed, states her lower abdomen is still bothersome to her, not too much improved. She has not had any episodes of diarrhea. Denies CP, SOB, N/V, fever or chills. OBJECTIVE PHYSICAL EXAMINATION: VITAL SIGNS: Please see below. GENERAL: Pleasant obese female laying in bed appearing her stated age, NAD, awake alert oriented speaking in complete sentences appears mildly uncomfortable due to LLQ and lower abdominal pain HEENT: Moist mucous membranes, no JVD, EOMI CARDIOVASCULAR: S1 S2 regular no additional heart sounds appreciated RESPIRATORY: Clear to auscultation bilaterally. ABDOMINAL: abdomen soft, obese, diffusely tender in lower abdomen again without much improvement, nabsx4, no rebound ridgity or guarding, minimal diffuse distension, no masses or hepatosplenomegaly EXTREMITIES: No clubbing cyanosis or edema NEUROLOGICAL: no focal deficits appreciated PSYCHOLOGICAL: Appropriate LABORATORY DATA, MICROBIOLOGY: Please see below. ASSESSMENT AND PLAN: This is a 48-year-old female with abdominal pain and diarrhea. PROBLEMS: 1. Abdominal pain and diarrhea -Likely related to chemotherapy, she is still requiring IV morphine, we will attempt to d/c IV pain medication and begin PO medication, have started MSContin and Roxycodone. Her lactic acidosis has resolved, she is still having leukocytosis but improving, 13.7 today. Likely that endometrial cancer is contributing to her abdominal pain. S/P Zosyn, c/w oral Levaquin today. A GI PCR panel was negative. Patient is normally on Lomotil for chronic diarrhea. CT abdomen without acute intra-abdominal pathology to explain symptoms. She does have incidental 5 mm RLL nodule needs repeat CT scan in 6 mo. outpatient for follow up. Blood cultures negative so far. Due to malignancy and prognosis we will have palliative medicine consult for end of life discussions/care and pain medicine recommendations. They will see her tomorrow is the plan. 2. Hypokalemia and low Mg -Potassium resolved, today was 4.8, likely 2/2 dehydration and diarrhea. Mg still low and was 1.5 today, c/w supplementation. She was getting IVF with p otassium supplementation. Tolerating diet now. 3. Diabetes - Insulin-dependent, continuous fingersticks and sliding scale. Well-controlled at this time. 4. Hypertension -stable, c/w hydrochlorothiazide 5. Neuropathy - chronic, c/w gabapentin 6. Dyslipidemia -c/w statin Continue 7. Endometrial cancer -c/w chemotherapy out pt. DISPOSITION: Palliative care consult placed, we need to be able to control her pain with PO pain medications, d/c IV morphine today and we will see how she does. PROGNOSIS: Guarded given her malignancy and poor tolerance of chemotherapy. VS,Fishbone, I+O VS, Fishbone, I+O Laboratory Tests 03/12/19 06:42 Red Blood Count 4.33, Mean Corpuscular Volume 81.8, Mean Corpuscular Hemoglobin 24.7 L, Mean Corpuscular Hemoglobin Concent 30.2 L, Red Cell Distribution Width 21.5 H, Calcium Level 8.3 L Vital Signs Date Time Temp Pulse Resp B/P (MAP) Pulse Ox O2 Delivery O2 Flow Rate FiO2 03/12/19 11:52 18 03/12/19 06:00 97.9 87 144/82 (102) 94 03/09/19 02:11 Room Air I&O- Last 24 Hours up to 6 AM 03/12/19 06:00 Intake Total 2950 ml Output Total 5500 ml Balance -2550 ml GME ATTESTATION GME ATTESTATION My faculty preceptor for this patient encounter was physically present during the encounter and was fully available. All aspects of the patient interview, examination, medical decision making process, and medical care plan development were reviewed and approved by the faculty preceptor. The faculty preceptor is aware and concurs with the plan as stated in the body of this note and will atte st to such by his/her cosignature. ATTENDING NOTE I saw and evaluated the patient. I agree with the findings and plan of care as documented in the resident's note ROBER WHIPPLE DO March 12, 2019 12:56 AMAYA LIZARRAGA MD Mar 15, 2019 12:20
[2019-03-12] MEDS: oxyCODONE 5MG TAB PO PRN ×3 (13:17→22:23)
[2019-03-12 14:00] VITALS: BP 137/81
[2019-03-12] MEDS: MORPHINE 15 MG SA TAB PO SCH (17:16)
[2019-03-12 22:00] VITALS: BP 141/82
[2019-03-13] MEDS: PERCOCET 5MG/325MG TAB PO PRN ×2 (02:13→10:15)
[2019-03-13] MEDS: oxyCODONE 5MG TAB PO PRN ×5 (03:04→20:40)
[2019-03-13] MEDS: LevoFLOXacin 500 MG TABLET PO SCH (05:40)
[2019-03-13] MEDS: MORPHINE 15 MG SA TAB PO SCH ×2 (05:40→17:16)
[2019-03-13 06:00] VITALS: BP 141/83
[2019-03-13 06:02] LABS: HEMATOCRIT 36.1 % (36.0-47.0); MEAN CORPUSCULAR HGB CONC 30.5 g/dl (32.0-36.5); PLATELET COUNT, AUTOMATED 118 10^3/uL (150-450); WHITE BLOOD COUNT 14.7 10^3/uL (4.0-10.0)
[2019-03-13 06:33] LABS: BLOOD UREA NITROGEN 16 MG/DL (7-18); CALCIUM LEVEL 9.1 MG/DL (8.5-10.1); CARBON DIOXIDE LEVEL 30 MEQ/L (21-32); CHLORIDE LEVEL 106 MEQ/L (98-107); GLOMERULAR FILTRATION RATE > 60.0 (>58); GLUCOSE, FASTING 235 MG/DL (70-100); MAGNESIUM LEVEL 1.3 MG/DL (1.8-2.4); SODIUM LEVEL 140 MEQ/L (136-145)
[2019-03-13 06:57] LABS: ANISOCYTOSIS 4+; ATYPICAL LYMPH 3 % (0-5); LYMPHOCYTES 31 % (16-52); MONOCYTES 8 % (0-8); NEUTROPHILS 58 % (35-75); PLATELET ESTIMATE DECREASED (NORMAL)
[2019-03-13 06:58] LABS: POLYCHROMASIA 1+
[2019-03-13 06:59] LABS: OVALOCYTES 1+
[2019-03-13] MEDS: HumaLOG INSULIN (NovoLOG) PER UNIT SC SCH ×4 (08:11→20:39)
[2019-03-13] MEDS: LEVEMIR (INSULIN DETEMIR) 1 UNITS/0.01ML SC SCH ×2 (08:11→20:38)
[2019-03-13] MEDS: ATORVASTATIN 20 MG TAB PO SCH (08:12)
[2019-03-13] MEDS: GABAPENTIN 300 MG CAP PO SCH ×2 (08:12→20:38)
[2019-03-13] MEDS: ENOXAPARIN 40 MG/0.4 ML SYRINGE (J1650) SC SCH (08:13)
[2019-03-13] MEDS ORDERED: MAG SULF 1GM/100ML (MAG RUN) 1 GM in APPROPRIATE DILUENT 1 EA IV ONE (09:00)
[2019-03-13] MEDS: MAGNESIUM CHLORIDE 64 MG TABCR (SLO MAG) PO SCH (09:37)
--- NOTE | 2019-03-13 14:44 | CR.PDOC ---
General Date of Consultation: March 13, 2019 Referring Provider: ROBER WHIPPLE DO Consultation REASON FOR CONSULTATION/CHIEF COMPLAINT: Metastatic cancer pain and pain from chemortherapy, advance directive discussion HISTORY OF PRESENT ILLNESS: Jenise is a 48 year old female with lower abdominal pain, total body pain in her muscles and bones which developed after she received chemotherapy for her endometrial cancer. Sh was seen by this tag writer and Delmer Torres LMSW yesterday to discuss her pain and advance directives. She stated her pain was improved and did not wish to discuss advance directives of any kind, stating she does not need them at this point. She had just been started on long acting morphine 15 mg po q 12 hr and so I made no futher recommendations. Today she tells me she had a difficult night with pain in her abdomen and her generalized pain and required some IV morphine. She stated she thinks oxycodone is helpful to some degree, and denied any n/v/c. She denied sedation or confusion. ALLERGIES: Please see below. HOME MEDICATIONS: Please see below. PAST MEDICAL HISTORY: 1. [Endometrial cancer 2. Diabetes 3. HTN 4. Neuropathy 5. dyspipidemia 6. electrolyte imbalance, magneisum/potassium REVIEW OF SYSTEMS: CONSTITUTIONAL: denied fevers, chill,s unexplained weight loss, fatigue HEENT: no oral pain or dryness, no vision changes CARDIOVASCULAR: [no CP/palpitations, lower ext edema RESPIRATORY: denies wheezing, LEE, orthpnea GENITOURINARY: no dysuria or retention MUSCULOSKELETAL: generalized muscular pain and pain in bones/joints GASTROINTESTINAL: [previously had diarrhea, better now. No n/v/c. No dysphagia SKIN: [no rrashes or lumps NEUROLOGICAL: [denies headaches, diplopia, tremors PSYCHIATRIC: denies SI/HI ENDOCRINE: IDDM HEMATOLOGIC/LYMPHATIC: endometrial cancer on chempotherapy, no panful or swollen nodes ALLERGIC/IMMUNOLOGIC: chemotherapy PHYSICAL EXAMINATION: VITAL SIGNS: Please see below. GENERAL APPEARANCE: Obese fmale resting in be in no acute distress. HEENT: Alopecia, oral mucosa moist, pharynx free of exudates RESPIRATORY: CTA CARDIOVASCULAR: S1 S2 RRR ABDOMEN: Obese, soft, +BS. Lower abdomen is tender to palpation, no guarding or rebound tenderness, no ascites EXTREMITIES: no C/C/E NEUROLOGICAL: Cn2-12 grossly intact, no tremor, rigidity PSYCHIATRIC: eyuthymic LABORATORY DATA: Please see below. ASSESSMENT/PLAN: 1. Pain secondary to cancer andchemotherapy. Would recommend changing oxycodone dosing to oxy 5 mg po q 3 hr prn. She reports at times her pain is not well controlled before she is able to get her next dose of short acting medication. If she is still requirin very regular oxycodone dosing or IV morphine by tomorrow, would recommendchanging MSContin to 15 mg po q 8 hr. 2. Consider increasing gabapentin to 900 mg po qam and 1200 mg at bedtime to improve her sleep and reduce her neuropathy. 3. She is still resisting advance directive discussion. We will try to approach her again tomorrow regarding this. Vital Signs/I&O Vital Signs Date Time Temp Pulse Resp B/P (MAP) Pulse Ox O2 Delivery O2 Flow Rate FiO2 03/13/19 12:49 18 03/13/19 06:00 97.5 95 141/83 (102) 95 03/09/19 02:11 Room Air I&O- Last 24 Hours up to 6 AM 03/13/19 06:00 Intake Total 1940 ml Output Total 4550 ml Balance -2610 ml Laboratory Data Labs 24H Laboratory Tests 2 03/12/19 16:48: Bedside Glucose (Misc Panel) 260H 03/12/19 20:02: Bedside Glucose (Misc Panel) 273H 03/13/19 05:33: Nucleated Red Blood Cells % (auto) 0.2H, Neutrophils 58, Lymphocytes (Manual) 31, Monocytes (Manual) 8, Atypical Lymphocytes 3, Platelet Estimate DECREASED, Polychromasia 1+, Anisocytosis 4+, Ovalocytes 1+, Anion Gap 4L, Glomerular Filtration Rate > 60.0, Blood Urea Nitrogen 16#, Creatinine 0.50L, Sodium Level 140, Potassium Level 5.0, Chloride Level 106, Carbon Dioxide Level 30, Calcium Level 9.1, Magnesium Level 1.3L 03/13/19 11:35: Bedside Glucose (Misc Panel) 190H CBC/BMP Laboratory Tests 03/13/19 05:33 Red Blood Count 4.40, Mean Corpuscular Volume 82.0, Mean Corpuscular Hemoglobin 25.0 L, Mean Corpuscular Hemoglobin Concent 30.5 L, Red Cell Distribution Width 22.3 H, Calcium Level 9.1 Microbiology Microbiology 03/08/19 Blood Culture - Preliminary, Resulted No Growth after 72 hours. All specime... 03/08/19 Blood Culture - Preliminary, Resulted No Growth after 72 hours. All specime... 03/10/19 Gastrointestinal Tract Panel (PCR) - Final, Complete Allergies Coded Allergies: morphine (Verified Adverse Reaction, Mild, GI UPSET, 01/08/19) naproxen (Verified Adverse Reaction, Mild, GI UPSET, 01/08/19) Home Medications Scheduled Atorvastatin Calcium (Atorvastatin Calcium) 80 Mg Tab, 80 MG PO DAILY, (Reported) Gabapentin (Gabapentin) 300 Mg Capsule, 900 MG PO BID, (Reported) Hydrochlorothiazide (Hydrochlorothiazide) 25 Mg Tab, 25 MG PO DAILY, (Reported) Insulin Glargine,Hum.rec.anlog (Basaglar Kwikpen U-100) 100 Unit/Ml Inj, 32 UNIT SC QHS, (Reported) Metformin HCl (Metformin HCl) 1,000 Mg Tablet, 1,000 MG PO BID, (Reported) Scheduled PRN Acetaminophen (Acetaminophen) 500 Mg Tablet, 1,000 MG PO TID PRN for PAIN / FEVER, (Reported) Diphenoxylate HCl/Atropine (Lomotil 2.5-0.025 mg Tablet) 1 Each Tablet, 1 TAB PO QID PRN for DIARRHEA, (Reported) Ondansetron HCl (Ondansetron HCl) 8 Mg Tablet, 8 MG PO Q6H PRN for NAUSEA OR VOMITING, (Reported) Prochlorperazine (Prochlorperazine Maleate) 5 Mg Tablet, 5 MG PO Q8H PRN for NAUSEA OR VOMITING, (Reported) Elaina GRANADOS March 13, 2019 14:44
[2019-03-13 14:59] VITALS: BP 142/79
--- NOTE | 2019-03-13 18:41 | IPNPDOC ---
Text Note Date of Service The patient was seen on 03/13/19. NOTE SUBJECTIVE: Ms. Valiente is seen on bedside rounds this morning, she is laying in bed, unfortunately her lower abdomen pain is still bothering her, she is says its about a 6-7/10 and that stopping IV morphine and beginning PO pain medications made it worse. She is working with physical therapy. She has not had any episodes of diarrhea. Denies CP, SOB, N/V, fever or chills. OBJECTIVE PHYSICAL EXAMINATION: VITAL SIGNS: Please see below. GENERAL: Pleasant obese female laying in bed appearing her stated age, NAD, awake alert oriented speaking in complete sentences appears mildly uncomfortable again due to LLQ and lower abdominal pain HEENT: Moist mucous membranes, no JVD, EOMI CARDIOVASCULAR: S1 S2 regular no additional heart sounds appreciated RESPIRATORY: Clear to auscultation bilaterally. ABDOMINAL: abdomen soft, obese, diffusely tender in lower abdomen again without much improvement today, largely unchanged from exam yesterday, nabsx4, no rebound ridgity or guarding, minimal diffuse distension, no masses or hepatosplenomegaly EXTREMITIES: No clubbing cyanosis or edema NEUROLOGICAL: no focal deficits appreciated PSYCHOLOGICAL: Appropriate LABORATORY DATA, MICROBIOLOGY: Please see below. ASSESSMENT AND PLAN: This is a 48-year-old female with abdominal pain and diarrhea. PROBLEMS: 1. Abdominal pain and diarrhea -Likely related to chemotherapy, we have d/c IV morphine but this has made her pain worse, it is not helped with PO pain medication. We will double both the dose of MS Contin and Roxycodone to hopefully get her some relieve. Palliative care has seen her, we will see what their recommendations are as well. Her lactic acidosis has resolved, she is still having leukocytosis 14.7 today, somewhat elevated from yesterday 13.7. Likely that her endometrial cancer is contributing mostly to her abdominal pain. S/P Zosyn, c/w oral Levaquin today. A GI PCR panel was negative. Patient is normally on Lomotil for chronic diarrhea. CT abdomen without acute intra-abdominal pathology to explain symptoms. She does have incidental 5 mm RLL nodule needs repeat CT scan in 6 mo. outpatient for follow up. Blood cultures negative so far. Due to malignancy and prognosis we will have palliative medicine consult for end of life discussions/care and pain medicine recommendations. They will see her tomorrow is the plan. 2. Hypokalemia and low Mg -Potassium resolved, today was 5, likely 2/2 dehydration and diarrhea. Mg still low and was supplemented today, begin Slow Mag tablets. She was getting IVF with potassium supplementation. Tolerating diet now. 3. Diabetes - Insulin-dependent, continuous fingersticks and sliding scale. Well-controlled at this time. 4. Hypertension -stable, c/w hydrochlorothiazide 5. Neuropathy - chronic, c/w gabapentin 6. Dyslipidemia -c/w statin Continue 7. Endometrial cancer -c/w chemotherapy out pt. DISPOSITION: Palliative care consult placed and has seen the patient, we will see what their recommendations are, we will double current PO pain medications to hopefully control her pain we need to be able to control her pain with PO pain medications. She has cleared PT. PROGNOSIS: Guarded given her malignancy and poor tolerance of chemotherapy. VS,Fishbone, I+O VS, Fishbone, I+O Laboratory Tests 03/13/19 05:33 Red Blood Count 4.40, Mean Corpuscular Volume 82.0, Mean Corpuscular Hemoglobin 25.0 L, Mean Corpuscular Hemoglobin Concent 30.5 L, Red Cell Distribution Width 22.3 H, Calcium Level 9.1 Vital Signs Date Time Temp Pulse Resp B/P (MAP) Pulse Ox O2 Delivery O2 Flow Rate FiO2 03/13/19 17:16 18 03/13/19 14:59 98.0 86 142/79 (100) 96 03/09/19 02:11 Room Air I&O- Last 24 Hours up to 6 AM 03/13/19 06:00 Intake Total 1940 ml Output Total 4550 ml Balance -2610 ml GME ATTESTATION GME ATTESTATION My faculty preceptor for this patient encounter was physically present during the encounter and was fully available. All aspects of the patient interview, examination, medical decision making process, and medical care plan development were reviewed and approved by the faculty preceptor. The faculty preceptor is aware and concurs with the plan as stated in the body of this note and will attest to such by his/her cosignature. ATTENDING NOTE I saw and evaluated the patient. I agree with the findings and plan of care as documented in the resident's note ROBER WHIPPLE DO March 13, 2019 18:41 AMAYA LIZARRAGA MD Mar 15, 2019 12:32
[2019-03-13 22:00] VITALS: BP 123/72
[2019-03-14] MEDS: oxyCODONE 5MG TAB PO PRN ×6 (01:41→23:48)
[2019-03-14] MEDS: LevoFLOXacin 500 MG TABLET PO SCH (05:22)
[2019-03-14] MEDS: MORPHINE 15 MG SA TAB PO SCH ×3 (05:23→21:59)
[2019-03-14 06:00] VITALS: BP 138/80
[2019-03-14 06:31] LABS: BASO # 0.1 10^3/uL (0.0-0.2); BASO % 0.4 % (0.0-1.0); EOS % 0.2 % (0.0-3.0); HEMATOCRIT 35.9 % (36.0-47.0); HEMOGLOBIN 10.7 g/dl (12.0-15.5); LYMPH # 3.5 10^3/uL (1.5-4.5); LYMPH % 27.7 % (24.0-44.0); MEAN CORPUSCULAR HEMOGLOBIN 24.2 pg (27.0-33.0); MEAN CORPUSCULAR HGB CONC 29.8 g/dl (32.0-36.5); MEAN CORPUSCULAR VOLUME 81.2 fl (80.0-96.0); MONO # 0.9 10^3/uL (0.0-0.8); NEUTROPHILS # 7.8 10^3/uL (1.8-7.7); PLATELET COUNT, AUTOMATED 115 10^3/uL (150-450); RED BLOOD COUNT 4.42 10^6/uL (4.00-5.40); WHITE BLOOD COUNT 12.5 10^3/uL (4.0-10.0)
[2019-03-14 06:49] LABS: BLOOD UREA NITROGEN 20 MG/DL (7-18); CALCIUM LEVEL 8.9 MG/DL (8.5-10.1); CARBON DIOXIDE LEVEL 32 MEQ/L (21-32); CHLORIDE LEVEL 105 MEQ/L (98-107); CREATININE FOR GFR 0.54 MG/DL (0.55-1.30); GLOMERULAR FILTRATION RATE > 60.0 (>58); GLUCOSE, FASTING 283 MG/DL (70-100); MAGNESIUM LEVEL 1.4 MG/DL (1.8-2.4); POTASSIUM SERUM 4.8 MEQ/L (3.5-5.1); SODIUM LEVEL 141 MEQ/L (136-145)
[2019-03-14] MEDS: ATORVASTATIN 20 MG TAB PO SCH (08:15)
[2019-03-14] MEDS: GABAPENTIN 300 MG CAP PO SCH (08:15)
[2019-03-14] MEDS: MAGNESIUM CHLORIDE 64 MG TABCR (SLO MAG) PO SCH ×3 (08:15→20:34)
[2019-03-14] MEDS: LEVEMIR (INSULIN DETEMIR) 1 UNITS/0.01ML SC SCH ×2 (08:15→20:34)
[2019-03-14] MEDS: HumaLOG INSULIN (NovoLOG) PER UNIT SC SCH ×4 (08:15→20:33)
[2019-03-14] MEDS: ENOXAPARIN 40 MG/0.4 ML SYRINGE (J1650) SC SCH (08:17)
--- NOTE | 2019-03-14 11:44 | IPNPDOC ---
Text Note Date of Service The patient was seen on 03/14/19. NOTE SUBJECTIVE: Ms. Valiente is seen on bedside rounds this morning, she is laying in bed, she states her pain is 6/10 this morning and all of yesterday. The lower abdomen pain is still bothering her, even with increased pain medication that was initiated yesterday. She has cleared physical therapy. She has not had any episodes of diarrhea. Denies CP, SOB, N/V, fever or chills. OBJECTIVE PHYSICAL EXAMINATION: VITAL SIGNS: Please see below. GENERAL: Pleasant, obese female laying in bed appearing her stated age, NAD, awake alert oriented speaking in complete sentences appears a bit uncomfortable from her abdominal pain discomfort HEENT: Moist mucous membranes, no JVD, EOMI CARDIOVASCULAR: S1 S2 regular no additional heart sounds appreciated RESPIRATORY: Clear to auscultation bilaterally. ABDOMINAL: abdomen soft, obese, diffusely tender in lower abdomen again, seems a little improved today, nabsx4, no rebound ridgity or guarding, minimal diffuse distension, no masses or hepatosplenomegaly EXTREMITIES: No clubbing cyanosis or edema NEUROLOGICAL: no focal deficits appreciated PSYCHOLOGICAL: Appropriate LABORATORY DATA, MICROBIOLOGY: Please see below. ASSESSMENT AND PLAN: This is a 48-year-old female with abdominal pain and diarrhea. PROBLEMS: 1. Abdominal pain and diarrhea -Likely related to chemotherapy, we had d/c IV morphine but this has made her pain worse, we have also increased her PO pain mediation yesterday, actually doubled MSContin and Roxycodone. Unfortunately her pain is still 6/10, she doesn't want to go home today because she doesn't think her pain is controlled yet. Palliative care has seen her, we will initiate their pain recommendations, although they recommended decreasing her amount of pain medications, but spacing them a little closer, at least her Roxycodone, because she was having pain before her next dose of pain medicine. Hopefully this helps her. We will also change gabapentin from 900 mg BID to 900 mg AM and 1200 mg qpm as per their recommendations. Her lactic acidosis has resolved, she is still having leukoc ytosis 12.5 today which is improving. Likely that her endometrial cancer is contributing mostly to her abdominal pain. S/P Zosyn, c/w oral Levaquin today for her elevated WBC, will likey d/c tomorrow. A GI PCR panel was negative. Patient is normally on Lomotil for chronic diarrhea. CT abdomen without acute intra-abdominal pathology to explain symptoms. She does have incidental 5 mm RLL nodule needs repeat CT scan in 6 mo. outpatient for follow up. Blood cultures negative so far. Due to malignancy and prognosis suggest palliative medicine continue to try with discussions for end of life care. . 2. Hypokalemia and low Mg -Potassium today was 4.8, likely 2/2 dehydration and diarrhea. Mg still low and was supplemented today, we will increase her Slow Mag tablets. She was getting IVF with potassium supplementation. Tolerating diet fine. 3. Diabetes - Insulin-dependent, continuous fingersticks and sliding scale. Well-controlled at this time. 4. Hypertension -stable, c/w hydrochlorothiazide 5. Neuropathy - chronic, c/w gabapentin 6. Dyslipidemia -c/w statin Continue 7. Endometrial cancer -c/w chemotherapy out pt. DISPOSITION: Palliative care consult placed and has seen the patient, we will initiate their pain medication recommendations & hopefully control her pain, we need to be able to control her pain with PO pain medications. She has cleared PT. PROGNOSIS: Guarded given her malignancy and poor tolerance of chemotherapy. VS,Fishbone, I+O VS, Fishbone, I+O Laboratory Tests 03/14/19 05:53 Red Blood Count 4.42, Mean Corpuscular Volume 81.2, Mean Corpuscular Hemoglobin 24.2 L, Mean Corpuscular Hemoglobin Concent 29.8 L, Red Cell Distribution Width 22.7 H, Neutrophils (%) (Auto) 62.0, Lymphocytes (%) (Auto) 27.7, Monocytes (%) (Auto) 7.0 H, Eosinophils (%) (Auto) 0.2, Basophils (%) (Auto) 0.4, Neutrophils # (Auto) 7.8 H, Lymphocytes # (Auto) 3.5, Monocytes # (Auto) 0.9 H, Eosinophils # (Auto) 0.0, Basophils # (Auto) 0.1, Calcium Level 8.9 Vital Signs Date Time Temp Pulse Resp B/P (MAP) Pulse Ox O2 Delivery O2 Flow Rate FiO2 03/14/19 10:27 20 03/14/19 06:00 96.0 97 138/80 (99) 92 03/09/19 02:11 Room Air I&O- Last 24 Hours up to 6 AM 03/14/19 06:00 Intake Total 2160 ml Output Total 2400 ml Balance -240 ml GME ATTESTATION GME ATTESTATION My faculty preceptor for this patient encounter was physically present during the encounter and was fully available. All aspects of the patient interview, examination, medical decision making process, and medical care plan development were reviewed and approved by the faculty preceptor. The faculty preceptor is aware and concurs with the plan as stated in the body of this note and will attest to such by his/her cosignature. ATTENDING NOTE I saw and evaluated the patient. I agree with the findings and plan of care as documented in the resident's note ROBER WHIPPLE DO March 14, 2019 11:44 AMAYA LIZARRAGA MD Mar 15, 2019 12:33
[2019-03-14 14:00] VITALS: BP 138/80
[2019-03-14] MEDS ORDERED: GABAPENTIN 400 MG CAP PO SCH (21:00)
[2019-03-14 22:00] VITALS: BP 136/85
[2019-03-15] MEDS: oxyCODONE 5MG TAB PO PRN ×4 (02:47→12:13)
[2019-03-15] MEDS: LevoFLOXacin 500 MG TABLET PO SCH (05:44)
[2019-03-15 06:00] VITALS: BP 136/87
[2019-03-15] MEDS: MORPHINE 15 MG SA TAB PO SCH ×2 (06:18→13:38)
[2019-03-15 06:42] LABS: BASO % 0.3 % (0.0-1.0); HEMOGLOBIN 10.7 g/dl (12.0-15.5); LYMPH # 2.9 10^3/uL (1.5-4.5); MEAN CORPUSCULAR HEMOGLOBIN 24.4 pg (27.0-33.0); MEAN CORPUSCULAR HGB CONC 29.7 g/dl (32.0-36.5); MEAN CORPUSCULAR VOLUME 82.2 fl (80.0-96.0); MONO # 0.7 10^3/uL (0.0-0.8); MONO % 7.4 % (0.0-5.0); NEUTROPHILS # 6.1 10^3/uL (1.8-7.7); NEUTROPHILS % 61.5 % (36.0-66.0); PLATELET COUNT, AUTOMATED 132 10^3/uL (150-450); RED BLOOD COUNT 4.38 10^6/uL (4.00-5.40); WHITE BLOOD COUNT 9.9 10^3/uL (4.0-10.0)
[2019-03-15 07:00] LABS: BLOOD UREA NITROGEN 19 MG/DL (7-18); CALCIUM LEVEL 9.2 MG/DL (8.5-10.1); CARBON DIOXIDE LEVEL 31 MEQ/L (21-32); CHLORIDE LEVEL 104 MEQ/L (98-107); CREATININE FOR GFR 0.58 MG/DL (0.55-1.30); GLOMERULAR FILTRATION RATE > 60.0 (>58); GLUCOSE, FASTING 263 MG/DL (70-100); MAGNESIUM LEVEL 1.3 MG/DL (1.8-2.4); POTASSIUM SERUM 4.2 MEQ/L (3.5-5.1); SODIUM LEVEL 140 MEQ/L (136-145)
[2019-03-15] MEDS: HumaLOG INSULIN (NovoLOG) PER UNIT SC SCH ×2 (08:06→12:08)
[2019-03-15] MEDS ORDERED: GABA-845 PO (08:09)
[2019-03-15] MEDS ORDERED: MORP15TASA PO ×2 (08:09→08:10)
[2019-03-15] MEDS ORDERED: OXYCO5TA PO ×4 (08:09→09:51)
[2019-03-15] MEDS ORDERED: GABA-843 PO (08:09)
[2019-03-15] MEDS ORDERED: MAGN64TASA PO (08:09)
[2019-03-15] MEDS: MAG SULF 1GM/100ML (MAG RUN) 1 GM in APPROPRIATE DILUENT 1 EA IV SCH ×2 (08:47→09:42)
[2019-03-15] MEDS: ENOXAPARIN 40 MG/0.4 ML SYRINGE (J1650) SC SCH (09:00)
[2019-03-15] MEDS ORDERED: GABAPENTIN 300 MG CAP PO SCH (09:00)
[2019-03-15 09:11] VITALS: BP 135/83
[2019-03-15] MEDS: MAGNESIUM CHLORIDE 64 MG TABCR (SLO MAG) PO SCH (09:29)
[2019-03-15] MEDS: ATORVASTATIN 20 MG TAB PO SCH (09:30)
[2019-03-15] MEDS: LEVEMIR (INSULIN DETEMIR) 1 UNITS/0.01ML SC SCH (09:32)
[2019-03-15 12:29] VITALS: BP 137/80
[2019-03-15 14:00] VITALS: BP 150/88
--- NOTE | 2019-03-15 16:09 | IPNPDOC ---
Text Note Date of Service The patient was seen on 03/15/19. NOTE DISCHARGE DIAGNOSIS: 1.Abdominal pain and diarrhea SECONDARY DIAGNOSIS: 1. Hypokalemia 2. Diabetes 3. Hypertension 4. Neuropathy 5. Dyslipidemia 6. Endometrial cancer PROCEDURES PERFORMED DURING STAY: None CONSULTANTS: Palliative care HOSPITAL COURSE: During the course of the patients hospital stay her diarrhea improved, GI panel was negative for infectious source, CT abdomen was unrevealing for infectious source or etiology for abdominal pain but did demonstrate of note 5 mm nodule at the anterior right lung base that should be followed up with repeat CT in 6 months by PCP. She did have elevated lactic acid and white blood count during her hospital stay, but both resolved by discharge, she received IV abx in house, blood cultures were neg after 5 days and resp panel was also negative. CXR did not reveal source of PNA.. Her potassium and magnesium were low during her stay and both were repleted, she was started on PO Magnesium and discharged on this, potassium and magnesium should be followed by PCP. Unfortunately her abdominal pain was a big issue for Ms Valiente, likely secondary to her underlying malignancy, she worked with and was cleared by physical therapy. She was seen by palliative care but according to their notes did not want to discuss end of life plans as of yet, they did recommend adjustments in her pain medication regime which we followed. On the day of her discharge her abdominal pain had come down to a 4-5 when it was at a 9 or higher on admission. She should have a discussion with her PCP on d/c about end of life care and her wishes going forward as her prognosis from underlying malignancy is certainly grim. DISCHARGE MEDICATIONS: Please see below. ALLERGIES: Please see below. SUBJECTIVE: This is a 48 yo female laying in bed, mildly uncomfortable from lower abdomen discomfort, otherwise patient denies chest pain, shortness, breath, nausea, vomiting, fevers, chills OBJECTIVE: PHYSICAL EXAMINATION: VITAL SIGNS: Please see below. GENERAL: This is a 48 yo female laying in bed, mildly uncomfortable from lower abdomen discomfort bed, awake alert oriented speaking in complete sentences no acute distress HEENT: Moist mucous membranes, no JVD, EOMI CARDIOVASCULAR: S1 S2 regular, no murmurs, rubs or gallops RESPIRATORY: Clear to auscultation bilaterally, no rales/rhonchi or wheezing ABDOMINAL: nabsx4, no pain to palpation, no rebound ridgity or guarding, no hepatosplenomegaly or masses, no distension EXTREMITIES: No clubbing, cyanosis, edema NEUROLOGICAL: Spontaneously moves all 4 extremities, no gross focal deficits appreciated PSYCHOLOGICAL: Appropriate affect LABORATORY DATA, MICROBIOLOGY: Please see below. IMAGING STUDIES: CXR 03.09.19 Impression: 1. No acute cardiopulmonary process. CT Ab/pelvis 03.08.19 No evidence of areas of infection. 5 mm nodule right lower lung field. Recommend followup CT scan in 6 months for reevaluation to document stability. 5 mm nodule at the anterior right lung base previously measured 7 mm on 01/01/[address] There has been a 2-3 mm decrease in size over 2 months. Concern for nodules within the lungs should be closely followed with CT. ASSESSMENT AND PLAN: This is a 48 year old female who presented to the ED with a bdominal pain and diarrhea likely secondary to underlying malignancy. PROBLEMS: .Abdominal pain and diarrhea SECONDARY DIAGNOSIS: 1. Abdominal pain/discomfort/diarrhea 2. Hypokalemia 3. Diabetes 4. Hypertension 5. Neuropathy 6. Dyslipidemia 7. Endometrial cancer DISPOSITION: Stable to home DISCHARGE CONDITION: Improved and Stable [PROGNOSIS]: favorable FOLLOW UP: Please follow up with PCP and Oncology within 5-7 days of d/c ACTIVITY: As prior to admission DIET: [As prior to admission] TIME SPENT ON DISCHARGE: 35 minutes VS,Fishbone, I+O VS, Fishbone, I+O Laboratory Tests 03/15/19 06:29 Red Blood Count 4.38, Mean Corpuscular Volume 82.2, Mean Corpuscular Hemoglobin 24.4 L, Mean Corpuscular Hemoglobin Concent 29.7 L, Red Cell Distribution Width 23.0 H, Neutrophils (%) (Auto) 61.5, Lymphocytes (%) (Auto) 29.0, Monocytes (%) (Auto) 7.4 H, Eosinophils (%) (Auto) 0.0, Basophils (%) (Auto) 0.3, Neutrophils # (Auto) 6.1, Lymphocytes # (Auto) 2.9, Monocytes # (Auto) 0.7, Eosinophils # (Auto) 0.0, Basophils # (Auto) 0.0, Calcium Level 9.2 Vital Signs Date Time Temp Pulse Resp B/P (MAP) Pulse Ox O2 Delivery O2 Flow Rate FiO2 03/15/19 14:00 98.1 104 20 150/88 (108) 93 03/09/19 02:11 Room Air I&O- Last 24 Hours up to 6 AM 03/15/19 05:59 Intake Total 1760 ml Output Total 1050 ml Balance 710 ml GME ATTESTATION GME ATTESTATION My faculty preceptor for this patient encounter was physically present during the encounter and was fully available. All aspects of the patient interview, examination, medical decision making process, and medical care plan development were reviewed and approved by the faculty preceptor. The faculty preceptor is aware and concurs with the plan as stated in the body of this note and will attest to such by his/her cosignature. ATTENDING NOTE I saw and evaluated the patient. I agree with the findings and plan of care as documented in the resident's note. I spent 45 minutes coordinating this patient's discharge. ROBER WHIPPLE DO Mar 15, 2019 16:09 AMAYA LIZARRAGA MD Mar 16, 2019 08:52
== END 2019-03-15 15:15 | disposition home or self-care (01) | DRG 861 ==
LOC: M ED 20:09 → M ED INP 03-09 01:03 → M MS5PR 03-09 02:21
PROVIDERS: ADMIT Internal Medicine Nephrology; ATTEND Internal Medicine
DX: G89.3 Neoplasm related pain (acute) (chronic) (principal); E87.2 Acidosis; E11.40 Type 2 diabetes mellitus with diabetic neuropathy, unspecified; E83.42 Hypomagnesemia; R19.7 Diarrhea, unspecified; R10.9 Unspecified abdominal pain; C54.1 Malignant neoplasm of endometrium; E87.6 Hypokalemia; I10 Essential (primary) hypertension; E78.5 Hyperlipidemia, unspecified; Z79.899 Other long term (current) drug therapy; Z88.5 Allergy status to narcotic agent; Z88.6 Allergy status to analgesic agent

== ENCOUNTER 2019-04-27 22:20 | Emergency (ER) | payer OTHER ==
[~2019-04-27] VITALS: Ht 157.5 cm; Wt 88.8 kg
[~2019-04-27 22:20] MED LIST changes: +GABA-845 PO; +MAGN64TASA PO; +MORP15TASA PO; +OXYCO5TA PO; +SENN1TAB8 PO
[2019-04-28] MEDS ORDERED: ONDANSETRON 4MG/2ML VIAL (J2405) IV ONE (00:30)
[2019-04-28 01:24] LABS: BASO % 0.2 % (0.0-1.0); EOS % 0.1 % (0.0-3.0); HEMATOCRIT 38.7 % (36.0-47.0); HEMOGLOBIN 12.3 g/dl (12.0-15.5); LYMPH # 2.2 10^3/uL (1.5-4.5); LYMPH % 19.3 % (24.0-44.0); MEAN CORPUSCULAR HEMOGLOBIN 28.2 pg (27.0-33.0); MEAN CORPUSCULAR HGB CONC 31.8 g/dl (32.0-36.5); MEAN CORPUSCULAR VOLUME 88.8 fl (80.0-96.0); MONO # 0.8 10^3/uL (0.0-0.8); MONO % 7.3 % (0.0-5.0); NEUTROPHILS # 8.2 10^3/uL (1.8-7.7); NEUTROPHILS % 72.5 % (36.0-66.0); PLATELET COUNT, AUTOMATED 145 10^3/uL (150-450); RED BLOOD COUNT 4.36 10^6/uL (4.00-5.40); WHITE BLOOD COUNT 11.3 10^3/uL (4.0-10.0)
[2019-04-28] MEDS: HYDROMORPHONE HCL 0.5 MG/ 0.5 ML SYRINGE (J1170 PER 1) IV PRN ×2 (01:27→02:35)
[2019-04-28 01:53] LABS: ALBUMIN 3.2 GM/DL (3.2-5.2); ALT/SGPT 21 U/L (12-78); BILIRUBIN,DIRECT < 0.1 MG/DL (0.0-0.2); BILIRUBIN,TOTAL 0.2 MG/DL (0.2-1.0); LIPASE 84 U/L (73-393); TOTAL PROTEIN 6.6 GM/DL (6.4-8.2)
[2019-04-28] MEDS ORDERED: NS 1,000 ML IV ONE ×2 (02:30→04:45)
[2019-04-28 03:02] LABS: VENOUS BASE EXCESS 0.3 (-2.0-2.0); VENOUS HCO3 26.9 MEQ/L (23.0-27.0); VENOUS O2 SATURATION 89.5 % (60.0-80.0); VENOUS PARTIAL PRESSURE CO2 52.5 mmHg (38.0-50.0); VENOUS PARTIAL PRESSURE O2 65.8 mmHg (30.0-50.0); VENOUS PH 7.328 UNITS (7.330-7.430); VENOUS STANDARD HCO3 24.6 MEQ/L; VENOUS TOTAL CO2 28.5 MEQ/L (24.0-28.0)
[2019-04-28 03:53] LABS: CK-MB VALUE MASS < 1.0 NG/ML (<3.6); CPK CREATINE PHOSPHOKINASE 37 U/L (26-192); TROPONIN I < 0.02 NG/ML (< 0.10)
[2019-04-28 03:58] LABS: MAGNESIUM LEVEL 1.4 MG/DL (1.8-2.4)
[2019-04-28] MEDS ORDERED: HYDROMORPHONE HCL 0.5 MG/ 0.5 ML SYRINGE (J1170 PER 1) IV PRN (05:45)
[2019-04-28 06:53] VITALS: BP 138/72
== END 2019-04-28 07:11 | disposition home or self-care (01) ==
LOC: M ED 22:20
DX: R53.81 Other malaise (principal); E87.2 Acidosis; C55 Malignant neoplasm of uterus, part unspecified; Z79.899 Other long term (current) drug therapy; Z79.4 Long term (current) use of insulin
CPT/HCPCS: 80047; 80076; 81001; 82550; 82553; 82803; 83605; 83690; 83735; 85025; 87040; 96361; 96374; 96375; 96376; 99284; J1170; J2405

== ENCOUNTER 2019-05-11 20:29 | Inpatient (IN) | payer OTHER ==
[~2019-05-11] VITALS: Ht 157.5 cm; Wt 90.5 kg
[2019-05-11] MEDS ORDERED: NS 1,000 ML IV ONE (22:15)
[2019-05-11] MEDS ORDERED: HYDROMORPHONE HCL 0.5 MG/ 0.5 ML SYRINGE (J1170 PER 1) IV ONE (22:15)
[2019-05-11] MEDS ORDERED: ONDANSETRON 4MG/2ML VIAL (J2405) IV ONE (22:15)
[2019-05-11 23:00] LABS: BASO # 0.1 10^3/uL (0.0-0.2); BASO % 0.3 % (0.0-1.0); HEMATOCRIT 33.4 % (36.0-47.0); HEMOGLOBIN 10.7 g/dl (12.0-15.5); LYMPH # 2.5 10^3/uL (1.5-4.5); LYMPH % 14.2 % (24.0-44.0); MEAN CORPUSCULAR HEMOGLOBIN 29.6 pg (27.0-33.0); MEAN CORPUSCULAR VOLUME 92.3 fl (80.0-96.0); MONO # 0.7 10^3/uL (0.0-0.8); MONO % 4.3 % (0.0-5.0); NEUTROPHILS % 80.6 % (36.0-66.0); PLATELET COUNT, AUTOMATED 104 10^3/uL (150-450); RED BLOOD COUNT 3.62 10^6/uL (4.00-5.40); WHITE BLOOD COUNT 17.4 10^3/uL (4.0-10.0)
[2019-05-11 23:10] LABS: INR 1.01; PARTIAL THROMBOPLASTIN TIME 26.8 SECONDS (25.0-38.4)
[2019-05-11 23:21] LABS: ALBUMIN 2.9 GM/DL (3.2-5.2); ALT/SGPT 22 U/L (12-78); BILIRUBIN,DIRECT < 0.1 MG/DL (0.0-0.2); BILIRUBIN,TOTAL 0.1 MG/DL (0.2-1.0); LIPASE 61 U/L (73-393)
[2019-05-11] MEDS ORDERED: NS IV ONE (23:45)
[2019-05-11] MEDS ORDERED: DILUENT IV ONE (23:45)
[2019-05-12] MEDS ORDERED: KCL 10MEQ/100ML SWI (KRUN) 10 MEQ in APPROPRIATE DILUENT 1 EA IV ONE ×2
[2019-05-12 00:49] LABS: VENOUS BASE EXCESS 3.3 (-2.0-2.0); VENOUS HCO3 29.3 MEQ/L (23.0-27.0); VENOUS O2 SATURATION 98.5 % (60.0-80.0); VENOUS PARTIAL PRESSURE CO2 51.2 mmHg (38.0-50.0); VENOUS PARTIAL PRESSURE O2 146.1 mmHg (30.0-50.0); VENOUS PH 7.376 UNITS (7.330-7.430); VENOUS STANDARD HCO3 27.5 MEQ/L; VENOUS TOTAL CO2 30.9 MEQ/L (24.0-28.0)
[2019-05-12] MEDS ORDERED: GABA-843 PO ×2 (02:13)
[2019-05-12] MEDS ORDERED: OXYC-517 PO (02:13)
[2019-05-12] MEDS ORDERED: MORP-38 PO (02:13)
[2019-05-12] MEDS ORDERED: MIRA3350 PO (02:15)
[2019-05-12] MEDS ORDERED: NS 1,000 ML IV SCH (02:19)
[2019-05-12] MEDS ORDERED: EPIDURAL/PCA KEYS XX PRN (02:30)
[2019-05-12] MEDS ORDERED: NALOXONE INJ 0.4 MG/1 ML VIAL (J2310) IV PRN (02:30)
[2019-05-12] MEDS ORDERED: ONDANSETRON 4MG/2ML VIAL (J2405) IV PRN (02:30)
[2019-05-12] MEDS ORDERED: MAG SULF 1GM/100ML (MAG RUN) 1 GM in APPROPRIATE DILUENT 1 EA IV ONE ×3 (02:30→18:45)
[2019-05-12] MEDS ORDERED: MAALOX 30 ML SUSP *UDC PO PRN (02:30)
[2019-05-12] MEDS ORDERED: ACETAMINOPHEN TAB 650MG DOSE (2X325MG) PO PRN (02:30)
[2019-05-12] MEDS ORDERED: POTASSIUM CHLORIDE 10 MEQ SR TABLET PO ONE (02:30)
--- NOTE | 2019-05-12 02:40 | HPEPDOC ---
General Date of Admission 05/12/19 Date of Service: May 12, 2019 Attending Physician: SALVATORE HAMMER MD Chief Complaint The patient is a 48-year-old female admitted with a reason for visit of Abdomina l Pain. 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 She has a past medical history of stage IV endometrial carcinosarcoma, hypertension, hyperlipidemia, insulin-dependent diabetes mellitus type 2, came in with chief complaints of worsening generalized body pain starts from her abdomen. Her arms, her legs and neck and is reluctant place and does not resolve with any medication. She does not get relief with any position, unable to sleep secondary to pain. She came in for the pain management. Patient also complains of some nausea but no vomiting, no diarrhea no chest pain, no shortness of breath Home Medications Scheduled Atorvastatin Calcium (Atorvastatin Calcium) 80 Mg Tab, 80 MG PO DAILY, (Reported) Gabapentin (Gabapentin) 300 Mg Capsule, 900 MG PO DAILY, (Reported) Gabapentin (Gabapentin) 300 Mg Capsule, 1,200 MG PO QHS, (Reported) Hydrochlorothiazide (Hydrochlorothiazide) 25 Mg Tab, 25 MG PO DAILY, (Reported) Insulin Glargine,Hum.rec.anlog (Basaglar Kwikpen U-100) 100 Unit/Ml Inj, 32 UNIT SC QHS, (Reported) Metformin HCl (Metformin HCl) 1,000 Mg Tablet, 1,000 MG PO BID, (Reported) Sennosides (Senna) 8.6 Mg Tablet, 8.6 MG PO QHS, (Reported) Scheduled PRN Diphenoxylate HCl/Atropine (Lomotil 2.5-0.025 mg Tablet) 1 Each Tablet, 1 TAB PO QID PRN for DIARRHEA, (Reported) Morphine Sulfate (Morphine Sulfate ER) 15 Mg Tablet.er, 15 MG PO Q8H PRN for PAIN, (Reported) Ondansetron HCl (Ondansetron HCl) 8 Mg Tablet, 8 MG PO Q6H PRN for NAUSEA OR VOMITING, (Reported) Oxycodone HCl (Oxycodone HCl) 5 Mg Tablet, 5 MG PO Q8H PRN for PAIN, (Reported) Polyethylene Glycol 3350 (Miralax) 119 Gm Powder, 17 GM PO DAILY PRN for CONSTIPATION, (Reported) Prochlorperazine (Prochlorperazine Maleate) 5 Mg Tablet, 5 MG PO Q8H PRN for NAUSEA OR VOMITING, (Reported) Allergies Coded Allergies: naproxen (Verified Adverse Reaction, Mild, GI UPSET, 04/27/19) Past Medical History Medical History Stage IV B, T4 N1 M1 endometrial carcinoma sarcoma, currently under Dr. Bethany watkins and receiving chemotherapy Type 2 diabetes mellitus, insulin-requiring , Hypertension, epilepsy, anemia Surgical History Hysterectomy in November 2018. Uterine and cervical tumor resection 2019. Perineal abscess and fracture of the repair of left wrist, right ankle Family History Significant Family History: Other (history of cancer in the family but not particularly endometrial carcinoma) Social History * Smoker: Denies Alcohol: Denies Drugs: denies A-FIB/CHADSVASC A-FIB History Current/History of A-Fib/PAF?: No Review of Systems Constitutional: Reports: Other Eyes: Denies: Pain, Vision change, Conjunctivae inflammation, Eyelid inflammation, Redness, Other ENT: Denies: Head Aches, Ear Pain, Dysphagia, Sinus Congestion, Post Nasal Drip, Sore Throat, Epistaxis, Other Symptoms Skin: Denies: Rash, Lesions, Jaundice, Bruising, Itching, Dry, Breakdown, Nail Changes, Other Pulmonary: Denies: Dyspnea, Cough, Pleuritic Chest Pain, Other Symptoms Cardiovascular: Denies: Chest Pain, Palpitations, Orthopnea, Paroxysmal Noc. Dyspnea, Edema, Lt Headedness, Other Symptoms Gastrointestinal: Reports: Nausea; Denies: Vomiting, Abdominal Pain, Diarrhea, Constipation, Melena, Hematochezia, Other Symptoms Hematologic: Denies: Bruising, Bleeding Excessively, Petecchia, Purpura, Enlarged Lymph Nodes, Other Hematologic Endocrine: Denies: Polydipsia, Polyphagia, Polyuria, Heat Intolerance, Cold Int olerance, Other Endocrine Sx Musculoskeletal: Denies: Neck Pain, Back Pain, Shoulder Pain, Arm Pain, Hand Pain, Leg Pain, Foot Pain, Joint Pain, Muscle Pain, Spasms, Other Symptoms Neurological: Denies: Weakness, Numbness, Incoordination, Change in speech, Confusion, Seizures, Other Symptoms Psych: Denies: Mood Normal, Anxiety, Depression, Memory Issues, Thoughts of Self Harm, Anger, Thoughts of Harming Other, Other Psych Physical Examination General Exam: Positive: Alert, Cooperative Eye Exam: Positive: Conjunctiva & lids normal ENT Exam: Positive: Atraumatic, Mucous membr. moist/pink Neck Exam: Positive: Supple Chest Exam: Positive: Clear to auscultation, Normal air movement Heart Exam: Positive: Rate Normal, Normal S1, Normal S2 Abdomen Exam: Positive: Normal bowel sounds Extremity Exam: Positive: Normal pulses Skin Exam: Positive: Nl turgor and temperature Neuro Exam: Positive: Strength at 5/5 X4 ext, Normal Tone, Sensation Intact Psych Exam: Positive: Mental status NL, Mood NL, Oriented x 3 Vital Signs Vital Signs Date Time Temp Pulse Resp B/P (MAP) Pulse Ox O2 Delivery O2 Flow Rate FiO2 05/12/19 01:05 99 18 111/70 (84) 97 05/11/19 21:53 98.3 05/11/19 20:29 Room Air Laboratory Data Labs 24H Laboratory Tests 2 05/11/19 22:40: Immature Granulocyte % (Auto) 0.6, White Blood Count 17.4H, Red Blood Count 3.62L, Hemoglobin 10.7L, Hematocrit 33.4L, Mean Corpuscular Volume 92.3, Mean Corpuscular Hemoglobin 29.6, Mean Corpuscular Hemoglobin Concent 32.0, Red Cell Distribution Width 18.0H, Platelet Count 104L, Neutrophils (%) (Auto) 80.6H, Lymphocytes (%) (Auto) 14.2L, Monocytes (%) (Auto) 4.3, Eosinophils (%) (Auto) 0.0, Basophils (%) (Auto) 0.3, Neutrophils # (Auto) 14.0H, Lymphocytes # (Auto) 2.5, Monocytes # (Auto) 0.7, Eosinophils # (Auto) 0.0, Basophils # (Auto) 0.1, Nucleated Red Blood Cells % (auto) 0.0, Prothrombin Time 13.0, Prothromb Time International Ratio 1.01, Activated Partial Thromboplast Time 26.8, Urine Color YELLOW, Urine Appearance CLEAR, Urine pH 6.0, Urine Specific [place] 1.027, Urine Protein NEGATIVE, Urine Glucose (UA) 3+H, Urine Ketones NEGATIVE, Urine Blood NEGATIVE, Urine Nitrite NEGATIVE, Urine Bilirubin NEGATIVE, Urine Urobilinogen 0.2, Urine Leukocyte Esterase TRACEH, Urine WBC (Auto) 6H, Urine RBC (Auto) 2, Urine Hyaline Casts (Auto) 0, Urine Bacteria (Auto) NEGATIVE, Urine Squamous Epithelial Cells 1, Urine Mucus (Auto) SMALL, Urine Sperm (Auto) , Lactic Acid Level 3.4*H, Magnesium Level 1.0L, Aspartate Amino Transf (AST/SGOT) 13, Alanine Aminotransferase (ALT/SGPT) 22, Alkaline Phosphatase 156H, Total Bilirubin 0.1L, Direct Bilirubin < 0.1, Total Protein 6.0L, Albumin 2.9L, Albumin/Globulin Ratio 0.94L, Lipase 61L 05/11/19 22:52: POC Glucose (Misc Panel) 308H, POC Sodium (Misc Panel) 140, POC Potassium (Misc Panel) 3.1L, POC Chloride (Misc Panel) 95L, POC Total CO2 (Misc Panel) 29.0H, POC Blood Urea Nitrogen (Misc Panel 11, POC Ionized Calcium (Misc Panel) 4.1L, POC Creatinine (Misc Panel) 0.6, POC Hematocrit (Misc Panel) 33.0L 05/12/19 00:30: Blood Gas Bicarbonate Standard 27.5, Venous Blood pH 7.376, Venous Blood Partial Pressure CO2 51.2H, Venous Blood Partial Pressure O2 146.1H, Venous Blood Total Carbon Dioxide 30.9H, Venous Blood HCO3 29.3H, Venous Blood Oxygen Saturation 98.5H, Venous Blood Base Excess 3.3H CBC/BMP Laboratory Tests 05/11/19 22:40 Red Blood Count 3.62 L, Mean Corpuscular Volume 92.3, Mean Corpuscular Hemoglobin 29.6, Mean Corpuscular Hemoglobin Concent 32.0, Red Cell Distribution Width 18.0 H, Neutrophils (%) (Auto) 80.6 H, Lymphocytes (%) (Auto) 14.2 L, Monocytes (%) (Auto) 4.3, Eosinophils (%) (Auto) 0.0, Basophils (%) (Auto) 0.3, Neutrophils # (Auto) 14.0 H, Lymphocytes # (Auto) 2.5, Monocytes # (Auto) 0.7, Eosinophils # (Auto) 0.0, Basophils # (Auto) 0.1 Microbiology Microbiology 05/12/19 Blood Culture, Received Pending 05/11/19 Blood Culture, Received Pending 05/11/19 Urine Culture, Received Pending Problems (1) Intractable pain Status: Acute Problem Text: 48 years old, unfortunate white female with past medical history of endometrial carcinosarcoma with intractable pain. Patient will be admitted for the pain management. She also has a electrolyte imbalance such as hypomagnesemia hypo-kalemia which will be corrected, as well . She qualifies for sepsis protocol with high WBC count increased heart rate and respiratory rate. Patient will also be started on empiric antibiotics and urine was sent out for cultures as well Admit patient to the medical floor with night monitor . I'll start patient on morphine [employer] for better pain control Pain management consult needs to be called in in a.m. : Would be to achieve her pain control with oral pain medications with the help of pain management Diet carbohydrate consistent diet DVT prophylaxis with bilateral SCDs Continue home meds (2) Sepsis Status: Acute Problem Text: Patient has a high WBC count of 17,000. She also has a tachycardic and tachypneic hence qualifies in the service criteria Source of her infection is not known, but I will request a pro-calcitonin to establish the diagnosis of bacterial infection. Most likely her urine could be the cause And cultures has been requested, she will be started on empiric IV antibiotics such as Zosyn 3.375 mg IV every 6 hours to the cultures are back Low. Repeat blood work in a.m. Also will start patient on IV fluid normal saline at 100 mL per hour for hydration, repeat lactic acid in a.m. (3) Hypokalemia Status: Acute Problem Text: Corrected anemia with 10 mEq of KCl IV Will give 40 mg of KCl by mouth 1 dose given Repeat potassium level in a.m. and correct accordingly (4) Hypomagnesemia Status: Acute Problem Text: Magnesium sulfate 4 g IV piggyback has been ordered PT levels in a.m. and correct accordingly (5) Lactic acidosis Status: Acute Problem Text: Lactic acid is high at 3.4, most likely inflammation Carcinoma as well as possible infection IV fluids normal saline 800 mL per hour has been ordered Repeat lactic acid level in a.m. (6) Diabetes type 2, uncontrolled Status: Chronic Problem Text: Will hold hold all by mouth meds including Glucophage and long acting insulin as patient has a poor appetite and poor oral intake, All her home meds can be restarted when patient is pain is under control and she is eating normal out of food In the meantime, we will cover her with fingerstick blood sugar every before meals and at bedtime with regular insulin Plan / VTE VTE Prophylaxis Ordered?: Yes SALVATORE HAMMER MD May 12, 2019 02:40
[2019-05-12] MEDS ORDERED: DEXTROSE 50% 50 ML SYRINGE IV PRN (02:45)
[2019-05-12] MEDS ORDERED: GLUCOSE 4 GM CHEW TABLET PO PRN (02:45)
[2019-05-12] MEDS ORDERED: GLUCAGON FOR INJ 1 MG VIAL (J1610) SC PRN (02:45)
[2019-05-12] MEDS: NS 1,000 ML IV SCH ×2 (02:47→15:39)
[2019-05-12] MEDS ORDERED: HYDROMORPHONE HCL 0.5 MG/ 0.5 ML SYRINGE (J1170 PER 1) IV ONE ×2 (03:00)
[2019-05-12] MEDS ORDERED: NALBUPHINE HCL 10 MG/ML AMP (J2300) IV PRN (04:00)
[2019-05-12] MEDS ORDERED: MORPHINE 1MG/ML IN 0.9% NACL 100ML IV BAG IV PRN (04:00)
[2019-05-12] MEDS ORDERED: diphenhydrAMINE INJ 50MG/ML VIAL (J1200) IV PRN (04:00)
[2019-05-12] MEDS: PIPERACILLIN/TAZOBACTAM SOD 3.375 GM in D5W MINI-BAG PLUS 50 ML IV SCH ×4 (04:32→21:32)
[2019-05-12 06:00] VITALS: BP 137/80
[2019-05-12 06:23] LABS: MAGNESIUM LEVEL 1.5 MG/DL (1.8-2.4)
[2019-05-12] MEDS: MORPHINE 4 MG/ML 1ML VIAL/SYRINGE (J2270) IV PRN ×5 (07:12→22:46)
[2019-05-12] MEDS: HumaLOG INSULIN (NovoLOG) PER UNIT SC SCH ×4 (07:30→21:00)
--- NOTE | 2019-05-12 07:54 | REP ---
PA and lateral chest: Comparison is 03/08/2019. The lung honeycutt are clear. The cardiac size is normal. The christina, mediastinum, and skeletal structures are unremarkable. Impression: Negative PA and lateral chest. . There is no interval change. Electronically Signed by Lance Ochoa MD 05/12/2019 07:08 A
[2019-05-12] MEDS: DOCUSATE SODIUM 100 MG CAP PO SCH ×2 (09:00→21:33)
[2019-05-12 09:11] LABS: HEMATOCRIT 32.3 % (36.0-47.0); HEMOGLOBIN 10.1 g/dl (12.0-15.5); MEAN CORPUSCULAR HEMOGLOBIN 29.4 pg (27.0-33.0); MEAN CORPUSCULAR HGB CONC 31.3 g/dl (32.0-36.5); MEAN CORPUSCULAR VOLUME 94.2 fl (80.0-96.0); RED BLOOD COUNT 3.43 10^6/uL (4.00-5.40); WHITE BLOOD COUNT 12.8 10^3/uL (4.0-10.0)
[2019-05-12] MEDS: GABAPENTIN 300 MG CAP PO SCH (09:36)
[2019-05-12] MEDS: ATORVASTATIN 20 MG TAB PO SCH (09:36)
[2019-05-12 09:45] LABS: PLATELET COUNT, AUTOMATED 91 10^3/uL (150-450)
[2019-05-12 10:55] LABS: ALBUMIN 2.9 GM/DL (3.2-5.2); ALT/SGPT 20 U/L (12-78); BILIRUBIN,TOTAL < 0.1 MG/DL (0.2-1.0); BLOOD UREA NITROGEN 12 MG/DL (7-18); CALCIUM LEVEL 7.8 MG/DL (8.5-10.1); CARBON DIOXIDE LEVEL 26 MEQ/L (21-32); CHLORIDE LEVEL 104 MEQ/L (98-107); CREATININE FOR GFR 0.69 MG/DL (0.55-1.30); GLOMERULAR FILTRATION RATE > 60.0 (>58); GLUCOSE, FASTING 195 MG/DL (70-100); POTASSIUM SERUM 3.6 MEQ/L (3.5-5.1); SODIUM LEVEL 142 MEQ/L (136-145); TOTAL PROTEIN 6.6 GM/DL (6.4-8.2)
[2019-05-12 14:00] VITALS: BP 139/69
--- NOTE | 2019-05-12 18:55 | IPNPDOC ---
Text Note Date of Service The patient was seen on 05/12/19. NOTE Patient seen and examined at bedside. Patient planning of poorly controlled pain all over. Current morphine takes the pain away slightly but doesn't last long enough. She denies other symptoms of fevers, chills, chest pain, difficulty breathing, nausea, vomiting, diarrhea. Patient remains slightly tachycardic, but tachypnea has resolved. Obese female laying in bed in no acute distress Tachycardia but regular, normal S1/S2. CTA bilaterally. Soft, mildly tender to palpation, nondistended Tenderness to palpation of lower extremities intact distal pulses Normal mental status, A&Ox3 A/P: 48-year-old female with stage IV endometrial cancer here with intractable pain #Intractable pain Cont. morphine 4mg q3hrs PRN for enhanced pain relief Pain management consult Plan to achieve her pain control with oral pain medications with the help of pain management Diet carbohydrate consistent diet DVT prophylaxis with bilateral SCDs Continue home meds #sepsis Patient has a high WBC count of 17,000. She also has a tachycardic and tachypneic hence qualifies in the service criteria Source of her infection is not known, pro-calcitonin 0.07 unlikely bacterial infection UA shows that urine unlikely source of any infection cultures have been requested cont. Zosyn 3.375 mg IV every 6 hours until the cultures are back WBC improved to 12 with hydration Also will start patient on IV fluid normal saline at 100 mL per hour for hydration elevated lactate resolved #Hypokalemia - RESOLVED S/p 40 mg of KCl by mouth 1 dose given Repeat potassium level in a.m. and correct accordingly #Hypomagnesemia 1mg IV mag given repeat mag in AM #Lactic acidosis - RESOLVED IV fluids normal saline 800 mL per hour has been ordered Repeat shows lactic 1.8 #Diabetes type 2, uncontrolled Will hold hold all by mouth meds including Glucophage and long acting insulin as patient has a poor appetite and poor oral intake, All her home meds can be restarted when patient is pain is under control and she is eating normal out of food In the meantime, we will cover her with fingerstick blood sugar every before meals and at bedtime with regular insulin DVT PPX: lovenox Disposition: home pending adequate pain control VS,Fishbone, I+O VS, Fishbone, I+O Laboratory Tests 05/11/19 22:40 Red Blood Count 3.62 L, Mean Corpuscular Volume 92.3, Mean Corpuscular Hemoglobin 29.6, Mean Corpuscular Hemoglobin Concent 32.0, Red Cell Distribution Width 18.0 H, Neutrophils (%) (Auto) 80.6 H, Lymphocytes (%) (Auto) 14.2 L, Monocytes (%) (Auto) 4.3, Eosinophils (%) (Auto) 0.0, Basophils (%) (Auto) 0.3, Neutrophils # (Auto) 14.0 H, Lymphocytes # (Auto) 2.5, Monocytes # (Auto) 0.7, Eosinophils # (Auto) 0.0, Basophils # (Auto) 0.1 05/12/19 05:53 Calcium Level 7.8 L, Aspartate Amino Transf (AST/SGOT) 13, Alanine Aminotrans ferase (ALT/SGPT) 20, Alkaline Phosphatase 160 H, Total Bilirubin < 0.1 L, Total Protein 6.6, Albumin 2.9 L 05/12/19 08:07 Red Blood Count 3.43 L, Mean Corpuscular Volume 94.2, Mean Corpuscular Hemoglobin 29.4, Mean Corpuscular Hemoglobin Concent 31.3 L, Red Cell Distribution Width 18.0 H Vital Signs Date Time Temp Pulse Resp B/P (MAP) Pulse Ox O2 Delivery O2 Flow Rate FiO2 05/12/19 16:51 18 05/12/19 14:00 97.9 105 139/69 (92) 96 05/12/19 03:20 Nasal Cannula 2.0 I&O- Last 24 Hours up to 6 AM 05/12/19 06:00 Intake Total 140 ml Output Total 0 ml Balance 140 ml PRASHANTH ALAN MD May 12, 2019 18:55
[2019-05-12] MEDS ORDERED: GABAPENTIN 300 MG CAP PO SCH (21:00)
[2019-05-12] MEDS ORDERED: ENOXAPARIN 40 MG/0.4 ML SYRINGE (J1650) SC SCH (21:00)
[2019-05-12] MEDS: SENNA 8.6 MG TAB (SENOKOT) PO SCH (21:33)
[2019-05-12 22:00] VITALS: BP 147/72
[2019-05-13] MEDS: PIPERACILLIN/TAZOBACTAM SOD 3.375 GM in D5W MINI-BAG PLUS 50 ML IV SCH ×4 (02:47→20:37)
[2019-05-13] MEDS: MORPHINE 4 MG/ML 1ML VIAL/SYRINGE (J2270) IV PRN ×6 (03:08→18:39)
[2019-05-13 06:00] VITALS: BP 144/86
[2019-05-13 06:30] LABS: HEMATOCRIT 30.6 % (36.0-47.0); HEMOGLOBIN 9.4 g/dl (12.0-15.5); MEAN CORPUSCULAR HEMOGLOBIN 29.2 pg (27.0-33.0); MEAN CORPUSCULAR HGB CONC 30.7 g/dl (32.0-36.5); RED BLOOD COUNT 3.22 10^6/uL (4.00-5.40); WHITE BLOOD COUNT 10.4 10^3/uL (4.0-10.0)
[2019-05-13 06:31] LABS: PLATELET COUNT, AUTOMATED 73 10^3/uL (150-450)
[2019-05-13 07:02] LABS: ALBUMIN 2.7 GM/DL (3.2-5.2); ALT/SGPT 20 U/L (12-78); BILIRUBIN,TOTAL 0.3 MG/DL (0.2-1.0); BLOOD UREA NITROGEN 14 MG/DL (7-18); CALCIUM LEVEL 8.4 MG/DL (8.5-10.1); CARBON DIOXIDE LEVEL 32 MEQ/L (21-32); CHLORIDE LEVEL 107 MEQ/L (98-107); CREATININE FOR GFR 0.55 MG/DL (0.55-1.30); GLOMERULAR FILTRATION RATE > 60.0 (>58); GLUCOSE, FASTING 188 MG/DL (70-100); MAGNESIUM LEVEL 1.8 MG/DL (1.8-2.4); POTASSIUM SERUM 3.5 MEQ/L (3.5-5.1); SODIUM LEVEL 143 MEQ/L (136-145); TOTAL PROTEIN 6.1 GM/DL (6.4-8.2)
[2019-05-13] MEDS: DOCUSATE SODIUM 100 MG CAP PO SCH ×2 (09:18→20:38)
[2019-05-13] MEDS: GABAPENTIN 300 MG CAP PO SCH (09:18)
[2019-05-13] MEDS: ATORVASTATIN 20 MG TAB PO SCH (09:19)
[2019-05-13] MEDS: HumaLOG INSULIN (NovoLOG) PER UNIT SC SCH ×4 (09:20→20:55)
[2019-05-13 14:14] VITALS: BP 138/84
--- NOTE | 2019-05-13 17:27 | CR ---
DATE OF CONSULTATION: 05/13/2019 CHIEF COMPLAINT: 1. Abdominal pain. 2. Neuropathy pain. REFERRING PHYSICIAN: Dr. Khang Jett HISTORY OF PRESENT ILLNESS: Jenise Valiente is a 48-year-old female with a diagnosis of stage IV endometrial carcinosarcoma. She was admitted a few days ago due to abdominal pain and severe neuropathic pain of her extremities, especially lower extremities and feet. Rating pain level as an 8/10. She has just started another cycle of chemotherapy and states that whenever she does this her pain seems to get out of control. At home she is on morphine sulfate extended release 15 mg three times a day, as well as oxycodone 5 mg up to the three a day. She also was taking gabapentin at an adequate dose daily. Discussed medication options in hopes to transition off of morphine IV and get her to go home with better pain control with oral pain medication. Currently receiving intravenous 4 mg morphine every 3 hours as needed, which shows short-term improvement. ALLERGIES: NAPROXEN PAST MEDICAL HISTORY: Stage IV endometrial carcinosarcoma under Dr. Sims care and receiving chemotherapy, type 2 diabetes mellitus, insulin-requiring, hypertension, hypercholesterolemia. PAST SURGICAL HISTORY: Hysterectomy in November 2018 , uterine and cervical tumor resection 2018, perineal abscess, fracture with repair of left wrist and right ankle. SOCIAL HISTORY: She denies alcohol, illicit drug use or smoking. PHYSICAL EXAMINATION: Awake, alert, pleasant. No acute distress. Vital signs: 97.8, 102, 18, blood pressure 138/84, oxygen saturation 96%. Cardiac: S1, S2. Normal rate and rhythm. Bowel sounds are present times four quadrants, reporting normal bowel movement. Abdomen is nontender. Lower extremities +1 edema noted around the lower extremities and feet. Reporting painful to light touch over mid calf and feet bilaterally. ASSESSMENT: 1. Neuropathy. 2. Abdominal pain secondary to endometrial carcinosarcoma. PLAN: My recommendation would be to increase MS Contin to 30 mg twice a day and continue morphine sulfate extended release 15 mg mid day. Consider trial of Lyrica 100 mg twice a day. Continue gabapentin until Lyrica can be dosed appropriately. Try using oxycodone 5 mg one to two tablets every 4 hours as needed for breakthrough pain episodes. I would recommend starting Colace 100 mg two capsules twice a day. Thank you for allowing us to participate in the care of your patient. If you have any questions or concerns please do not hesitate to contact me. Sincerely, Marcela Irwin, family nurse practitioner, [facility]
[2019-05-13] MEDS ORDERED: oxyCODONE 5MG TAB PO PRN (19:00)
--- NOTE | 2019-05-13 19:04 | IPNPDOC ---
Subjective Date Seen The patient was seen on 05/13/19. Subjective Chief Complaint/HPI Follow-up intractable pain Events since last encounter Patient seen and examined at bedside. Family at bedside. Patient says pain is better controlled on morphine 4 mg every 3 hours, but only down to 6 out of 10. Patient denies other symptoms of fevers, chills, chest pain, difficulty breathing, nausea, vomiting, diarrhea Objective Physical Examination General Exam: Positive: Alert, Cooperative, No Acute Distress Chest Exam: Positive: Clear to auscultation, Normal air movement Heart Exam: Positive: Rate Normal, Normal S1, Normal S2 Abdomen Exam: Positive: Normal bowel sounds, Soft; Negative: Tenderness Extremity Exam: Positive: Normal pulses, Tenderness; Negative: Edema Skin Exam: Positive: Nl turgor and temperature Neuro Exam: Positive: Other (no focal deficits) Psych Exam: Positive: Mental status NL, Mood NL, Oriented x 3 Assessment /Plan Problems (1) Intractable pain Status: Acute (2) Sepsis Status: Acute (3) Hypokalemia Status: Acute (4) Hypomagnesemia Status: Acute (5) Lactic acidosis Status: Acute (6) Diabetes type 2, uncontrolled Status: Chronic Plan/VTE VTE Prophylaxis Ordered?: Yes Plan #Intractable pain -Appreciate pain management consult -Will start MS Contin 30mg BID, morphine sulfate ER 15mg midday, lyrica 100mg BID and oxycodone 5mg [id number] for breakthrough pain -will also start colace 200mg BID -Plan to achieve her pain control with oral pain medications with the help of pain management -Diet carbohydrate consistent diet -DVT prophylaxis with bilateral SCDs #sepsis -Patient has a high WBC count of 17,000. She also has a tachycardic and tachypneic hence qualifies in the service criteria -Source of her infection is not known, pro-calcitonin 0.07 unlikely bacterial infection -UA shows that urine unlikely source of any infection -cultures: NGTD -cont. Zosyn 3.375 mg IV every 6 hours until the cultures are back -WBC cont. to downtrend -cont. IV fluid normal saline at 100 mL per hour for hydration -elevated lactate resolved #Hypokalemia - RESOLVED -will cont. to monitor #Hypomagnesemia - RESOLVED -Will cont. to monitor #Lactic acidosis - RESOLVED -IV fluids normal saline 800 mL per hour has been ordered -Repeat shows lactic 1.8 #Diabetes type 2, uncontrolled -Will hold hold all by mouth meds including Glucophage and long acting insulin as patient has a poor appetite and poor oral intake, -All her home meds can be restarted when patient is pain is under control and she is eating normal out of food -In the meantime, we will cover her with fingerstick blood sugar every before meals and at bedtime with regular insulin DVT PPX: SCDs Disposition pending adequate pain control on oral regimen VS, I&O, 24H, Fishbone Vital Signs/I&O Vital Signs Date Time Temp Pulse Resp B/P (MAP) Pulse Ox O2 Delivery O2 Flow Rate FiO2 05/13/19 18:49 18 05/13/19 14:15 96 05/13/19 14:14 97.8 102 138/84 (102) 05/12/19 03:20 Nasal Cannula 2.0 I&O- Last 24 Hours up to 6 AM 05/13/19 06:00 Intake Total 1250 ml Output Total 3080 ml Balance -1830 ml Laboratory Data 24H LABS Laboratory Tests 2 05/13/19 05:44: Nucleated Red Blood Cells % (auto) 0.0, Anion Gap 4L, Glomerular Filtration Rate > 60.0, Blood Urea Nitrogen 14, Creatinine 0.55, Sodium Level 143, Potassium Level 3.5, Chloride Level 107, Carbon Dioxide Level 32, Calcium Level 8.4L, Aspartate Amino Transf (AST/SGOT) 9, Alanine Aminotransferase (ALT/SGPT) 20, Alkaline Phosphatase 111, Total Bilirubin 0.3#, Total Protein 6.1L, Albumin 2.7L, Magnesium Level 1.8, Albumin/Globulin Ratio 0.79L CBC/BMP Laboratory Tests 05/13/19 05:44 Red Blood Count 3.22 L, Mean Corpuscular Volume 95.0, Mean Corpuscular Hemoglobin 29.2, Mean Corpuscular Hemoglobin Concent 30.7 L, Red Cell Distribution Width 17.9 H, Calcium Level 8.4 L, Aspartate Amino Transf (AST/SGOT) 9, Alanine Aminotransferase (ALT/SGPT) 20, Alkaline Phosphatase 111, Total Bilirubin 0.3 #, Total Protein 6.1 L, Albumin 2.7 L Microbiology Microbiology 05/12/19 Blood Culture - Preliminary, Resulted No growth after 24 hours . All specim... 05/11/19 Blood Culture - Preliminary, Resulted No growth after 24 hours . All specim... 05/11/19 Urine Culture, Received Pending PRASHANTH ALAN MD May 13, 2019 19:04
[2019-05-13] MEDS: PREGABALIN 100 MG CAP (LYRICA) PO SCH (20:38)
[2019-05-13] MEDS: SENNA 8.6 MG TAB (SENOKOT) PO SCH (20:38)
[2019-05-13] MEDS: MORPHINE 30 MG SA TAB PO SCH (20:54)
[2019-05-13 22:00] VITALS: BP 156/70
[2019-05-13] MEDS: oxyCODONE 5MG TAB PO PRN (22:01)
[2019-05-14] MEDS: PIPERACILLIN/TAZOBACTAM SOD 3.375 GM in D5W MINI-BAG PLUS 50 ML IV SCH ×4 (02:09→22:16)
[2019-05-14] MEDS: oxyCODONE 5MG TAB PO PRN ×6 (02:10→22:37)
[2019-05-14 06:00] VITALS: BP 150/77
[2019-05-14] MEDS: ATORVASTATIN 20 MG TAB PO SCH (08:07)
[2019-05-14] MEDS: MORPHINE 30 MG SA TAB PO SCH ×2 (08:07→22:15)
[2019-05-14] MEDS: DOCUSATE SODIUM 100 MG CAP PO SCH ×2 (08:07→22:15)
[2019-05-14] MEDS: PREGABALIN 100 MG CAP (LYRICA) PO SCH ×2 (08:07→22:15)
[2019-05-14] MEDS: HumaLOG INSULIN (NovoLOG) PER UNIT SC SCH ×4 (08:08→22:16)
[2019-05-14 09:13] LABS: HEMATOCRIT 35.9 % (36.0-47.0); HEMOGLOBIN 11.3 g/dl (12.0-15.5); MEAN CORPUSCULAR HEMOGLOBIN 29.8 pg (27.0-33.0); MEAN CORPUSCULAR HGB CONC 31.5 g/dl (32.0-36.5); MEAN CORPUSCULAR VOLUME 94.7 fl (80.0-96.0); RED BLOOD COUNT 3.79 10^6/uL (4.00-5.40); WHITE BLOOD COUNT 9.9 10^3/uL (4.0-10.0)
[2019-05-14 09:16] LABS: PLATELET COUNT, AUTOMATED 81 10^3/uL (150-450)
[2019-05-14 14:00] VITALS: BP 119/73
[2019-05-14] MEDS: MORPHINE 15 MG SA TAB PO SCH (14:36)
--- NOTE | 2019-05-14 15:17 | IPNPDOC ---
Subjective Date Seen The patient was seen on 05/14/19. Subjective Chief Complaint/HPI Follow-up intractable pain Events since last encounter Patient seen and examined at bedside. Pain management consult saw patient yesterday with recommendations for oral pain management regimen. Patient switched to oral regimen yesterday evening with adequate pain control overnight. Patient says pain currently 5 out of 10 and tolerable. Per patient, this regimen seems reasonable to go home on likely tomorrow. Patient denies fevers, chills, chest pain, difficulty breathing, nausea, vomiting, diarrhea. Patient does endo rse some abdominal soreness and leg pain. Objective Physical Examination General Exam: Positive: Alert, Cooperative, No Acute Distress, Other (laying in bed) Chest Exam: Positive: Clear to auscultation, Normal air movement Heart Exam: Positive: Rate Normal, Normal S1, Normal S2 Abdomen Exam: Positive: Normal bowel sounds, Soft; Negative: Tenderness Extremity Exam: Positive: Normal pulses, Tenderness; Negative: Edema Skin Exam: Positive: Nl turgor and temperature Neuro Exam: Positive: Other (no focal deficits) Psych Exam: Positive: Mental status NL, Mood NL, Oriented x 3 Assessment /Plan Assessment 48-year-old female with stage IV endometrial cancer here with intractable pain. Pt initially placed on morphine 4mg IV q4hr -> 3hrs with some relief. Pain management consulted who made recommendations for adjustments to her home regimen. New oral regimen put in place with good effect. Pt states that pain tolerable and that she could go home on this regimen. Plan to watch pt another day on new regimen to ensure pain managed and then go home tomorrow. Pt also on zosyn for sepsis. Urine grew Group B strep though UA with only 6WBCs. Would empirically treat for 5-7days given high white count, tachycardia and tachypnea on admission. Problems (1) Intractable pain Status: Acute (2) Sepsis Status: Acute (3) Hypokalemia Status: Acute (4) Hypomagnesemia Status: Acute (5) Lactic acidosis Status: Acute (6) Diabetes type 2, uncontrolled Status: Chronic Plan/VTE VTE Prophylaxis Ordered?: Yes Plan #Intractable pain -Appreciate pain management consult -cont. MS Contin 30mg BID, morphine sulfate ER 15mg midday, lyrica 100mg BID and oxycodone 5mg [id number] for breakthrough pain -cont. colace 200mg BID -Plan to achieve her pain control with oral pain medications with the help of pain management -Diet carbohydrate consistent diet -DVT prophylaxis with bilateral SCDs #sepsis -Patient has a high WBC count of 17,000. She also has a tachycardic and tac hypneic hence qualifies in the service criteria -Source of her infection is not known, pro-calcitonin 0.07 unlikely bacterial infection -UA shows that urine unlikely source of any infection -cultures: NGTD -cont. Zosyn 3.375 mg IV every 6 hours until the cultures are back -WBC cont. to downtrend -cont. IV fluid normal saline at 100 mL per hour for hydration -elevated lactate resolved #Hypokalemia - RESOLVED -will cont. to monitor #Hypomagnesemia - RESOLVED -Will cont. to monitor #Lactic acidosis - RESOLVED -IV fluids normal saline 800 mL per hour has been ordered -Repeat shows lactic 1.8 #Diabetes type 2, uncontrolled -Will hold hold all by mouth meds including Glucophage and long acting insulin as patient has a poor appetite and poor oral intake, -FSG -ISS Disposition home likely tomorrow on new oral pain regimen VS, I&O, 24H, Fishbone Vital Signs/I&O Vital Signs Date Time Temp Pulse Resp B/P (MAP) Pulse Ox O2 Delivery O2 Flow Rate FiO2 05/14/19 14:36 18 05/14/19 14:00 96.9 102 119/73 (88) 93 05/12/19 03:20 Nasal Cannula 2.0 I&O- Last 24 Hours up to 6 AM 05/14/19 06:00 Intake Total 860 ml Output Total 1650 ml Balance -790 ml Laboratory Data 24H LABS Laboratory Tests 2 05/13/19 17:11: Bedside Glucose (Misc Panel) 277H 05/13/19 20:36: Bedside Glucose (Misc Panel) 291H 05/14/19 06:33: Bedside Glucose (Misc Panel) 176H 05/14/19 08:14: Nucleated Red Blood Cells % (auto) 0.0, Immature Platelet Fraction 3.9 05/14/19 11:35: Bedside Glucose (Misc Panel) 218H CBC/BMP Laboratory Tests 05/14/19 08:14 Red Blood Count 3.79 L, Mean Corpuscular Volume 94.7, Mean Corpuscular Hemoglobin 29.8, Mean Corpuscular Hemoglobin Concent 31.5 L, Red Cell Distribution Width 17.9 H Microbiology Microbiology 05/12/19 Blood Culture - Preliminary, Resulted No Growth after 48 hours. All Specime... 05/11/19 Blood Culture - Preliminary, Resulted No Growth after 48 hours. All Specime... 05/11/19 Urine Culture - Final, Complete Strep Agalactiae Group B PRASHANTH ALAN MD May 14, 2019 15:17
[2019-05-14 22:00] VITALS: BP 148/75
[2019-05-14] MEDS: SENNA 8.6 MG TAB (SENOKOT) PO SCH (22:15)
[2019-05-15] MEDS: PIPERACILLIN/TAZOBACTAM SOD 3.375 GM in D5W MINI-BAG PLUS 50 ML IV SCH ×2 (02:50→08:02)
[2019-05-15] MEDS: oxyCODONE 5MG TAB PO PRN ×5 (02:50→21:57)
[2019-05-15 06:00] VITALS: BP 130/76
[2019-05-15 06:53] LABS: HEMATOCRIT 30.9 % (36.0-47.0); HEMOGLOBIN 9.8 g/dl (12.0-15.5); MEAN CORPUSCULAR HEMOGLOBIN 29.9 pg (27.0-33.0); MEAN CORPUSCULAR HGB CONC 31.7 g/dl (32.0-36.5); MEAN CORPUSCULAR VOLUME 94.2 fl (80.0-96.0); RED BLOOD COUNT 3.28 10^6/uL (4.00-5.40); WHITE BLOOD COUNT 7.3 10^3/uL (4.0-10.0)
[2019-05-15 06:57] LABS: PLATELET COUNT, AUTOMATED 69 10^3/uL (150-450)
[2019-05-15] MEDS: DOCUSATE SODIUM 100 MG CAP PO SCH ×2 (08:01→21:16)
[2019-05-15] MEDS: ATORVASTATIN 20 MG TAB PO SCH (08:01)
[2019-05-15] MEDS: HumaLOG INSULIN (NovoLOG) PER UNIT SC SCH ×4 (08:01→21:17)
[2019-05-15] MEDS: PREGABALIN 100 MG CAP (LYRICA) PO SCH ×2 (08:01→21:16)
[2019-05-15] MEDS: MORPHINE 30 MG SA TAB PO SCH ×2 (08:02→21:17)
[2019-05-15] MEDS ORDERED: MORP30TASA PO (10:42)
[2019-05-15] MEDS ORDERED: PREG100CA PO (10:42)
[2019-05-15] MEDS ORDERED: OXYCO5TA PO (10:42)
[2019-05-15] MEDS ORDERED: DOXY-350 PO (10:45)
[2019-05-15] MEDS ORDERED: ONDANSETRON 4MG/2ML VIAL (J2405) IV PRN (11:15)
[2019-05-15] MEDS: MIRALAX *UNIT DOSE* 17GM PACKET PO SCH (11:27)
[2019-05-15] MEDS: MOM 30ML SUSPENSION UDC PO PRN (11:28)
[2019-05-15] MEDS ORDERED: DOXYCYCLINE HYCLATE 100 MG TAB PO ONE (12:00)
--- NOTE | 2019-05-15 13:57 | IPNPDOC ---
Date Seen The patient was seen on 05/15/19. Progress Note SUBJECTIVE: pt still c/o 8/10 pain while lying down not doing anything. c/o intractable 10/10 pain when she moves around even with bid ms controlled release and prn msir. awaiting reassesment by pain management for better pain control. Pt also c/o constipation. OBJECTIVE: PHYSICAL EXAMINATION: VITALS: PLS SEE BELOW General Exam: Positive: Alert, Cooperative, No Acute Distress, Other (laying in bed) Chest Exam: Positive: Clear to auscultation, Normal air movement Heart Exam: Positive: Rate Normal, Normal S1, Normal S2 Abdomen Exam: Positive: Normal bowel sounds, Soft; Negative: Tenderness Extremity Exam: Positive: Normal pulses, Tenderness; Negative: Edema Skin Exam: Positive: Nl turgor and temperature Neuro Exam: Positive: Other (no focal deficits) Psych Exam: Positive: Mental status NL, Mood NL, Oriented x 3 ASSESSMENT AND PLAN: 48-year-old female with stage IV endometrial cancer here with intractable pain. Pt initially placed on morphine 4mg IV q4hr -> 3hrs with some relief. Pain management consulted who made recommendations for adjustments to her home regimen. New oral regimen put in place with good effect. Pt states that pain tolerable and that she could go home on this regimen. Plan to watch pt another day on new regimen to ensure pain managed. Pt also on zosyn for sepsis. Urine grew Group B strep though UA with only 6WBCs. Would empirically treat for 5- 7days given high white count, tachycardia and tachypnea on admission. ACUTE ISSUES: Intractable pain -Appreciate pain management consult , but needs to re-assess the patient to adjust meds for better pain control -no improvement with MS Contin 30mg BID, morphine sulfate ER 15mg midday, lyrica 100mg BID and oxycodone 5mg [id number] for breakthrough pain -cont. colace 200mg BID -Plan to achieve her pain control with oral pain medications with the help of pain management -Diet carbohydrate consistent diet -DVT prophylaxis with bilateral SCDs sepsis -Patient has a high WBC count of 17,000. She also has a tachycardic and tachypneic -s/p Zosyn 3.375 mg IV every 6 hours -urine cx: grp b strep changed to po doxycycline -WBC cont. to downtrend -cont. IV fluid normal saline at 100 mL per hour for hydration -elevated lactate resolved Hypokalemia - RESOLVED -will cont. to monitor Hypomagnesemia - RESOLVED -Will cont. to monitor Lactic acidosis - RESOLVED -IV fluids normal saline 800 mL per hour has been ordered -Repeat shows lactic 1.8 Diabetes type 2, uncontrolled -Will hold hold all by mouth meds including Glucophage and long acting insulin as patient has a poor appetite and poor oral intake, -FSG -ISS disposition: deferred hospital discharge for due to uncontrolled pain and poor oral intake. VS, I&O, 24H, Fishbone Vital Signs/I&O Vital Signs Date Time Temp Pulse Resp B/P (MAP) Pulse Ox O2 Delivery O2 Flow Rate FiO2 05/15/19 11:41 17 05/15/19 06:00 98.4 88 130/76 (94) 94 05/12/19 03:20 Nasal Cannula 2.0 I&O- Last 24 Hours up to 6 AM 05/15/19 06:00 Intake Total 1560 ml Output Total 2100 ml Balance -540 ml Laboratory Data 24H LABS Laboratory Tests 2 05/15/19 06:37: Nucleated Red Blood Cells % (auto) 0.0 CBC/BMP Laboratory Tests 05/15/19 06:37 Red Blood Count 3.28 L, Mean Corpuscular Volume 94.2, Mean Corpuscular Hemoglobin 29.9, Mean Corpuscular Hemoglobin Concent 31.7 L, Red Cell Distribution Width 17.7 H Microbiology Microbiology 05/12/19 Blood Culture - Preliminary, Resulted No Growth after 72 hours. All specime... 05/11/19 Blood Culture - Preliminary, Resulted No Growth after 72 hours. All specime... 05/11/19 Urine Culture - Final, Complete Strep Agalactiae Group B GAEL TRAORE MD May 15, 2019 13:57
[2019-05-15 14:00] VITALS: BP 136/91
[2019-05-15 14:27] LABS: BASO % 0.1 % (0.0-1.0); EOS % 0.1 % (0.0-3.0); HEMATOCRIT 30.8 % (36.0-47.0); HEMOGLOBIN 9.8 g/dl (12.0-15.5); LYMPH # 1.7 10^3/uL (1.5-4.5); LYMPH % 18.1 % (24.0-44.0); MEAN CORPUSCULAR HEMOGLOBIN 30.2 pg (27.0-33.0); MEAN CORPUSCULAR HGB CONC 31.8 g/dl (32.0-36.5); MEAN CORPUSCULAR VOLUME 95.1 fl (80.0-96.0); MONO # 0.3 10^3/uL (0.0-0.8); MONO % 2.9 % (0.0-5.0); NEUTROPHILS # 7.3 10^3/uL (1.8-7.7); NEUTROPHILS % 78.2 % (36.0-66.0); RED BLOOD COUNT 3.24 10^6/uL (4.00-5.40); WHITE BLOOD COUNT 9.3 10^3/uL (4.0-10.0)
[2019-05-15 14:34] LABS: PLATELET COUNT, AUTOMATED 74 10^3/uL (150-450)
[2019-05-15 14:45] LABS: ALBUMIN 2.8 GM/DL (3.2-5.2); ALT/SGPT 27 U/L (12-78); BILIRUBIN,TOTAL 0.3 MG/DL (0.2-1.0); BLOOD UREA NITROGEN 17 MG/DL (7-18); C REACTIVE PROTEIN QUANTITATIV 1.54 MG/DL (0.00-0.30); CALCIUM LEVEL 8.4 MG/DL (8.5-10.1); CARBON DIOXIDE LEVEL 31 MEQ/L (21-32); CHLORIDE LEVEL 103 MEQ/L (98-107); CREATININE FOR GFR 0.73 MG/DL (0.55-1.30); GLOMERULAR FILTRATION RATE > 60.0 (>58); GLUCOSE, FASTING 275 MG/DL (70-100); SODIUM LEVEL 143 MEQ/L (136-145); TOTAL PROTEIN 6.2 GM/DL (6.4-8.2)
[2019-05-15 15:16] LABS: ERYTHROCYTE SEDIMENTATION RATE 63 mm/hr (0-20)
[2019-05-15] MEDS: MORPHINE 15 MG SA TAB PO SCH (15:29)
[2019-05-15] MEDS: DOXYCYCLINE HYCLATE 100 MG TAB PO SCH (21:16)
[2019-05-15] MEDS: SENNA 8.6 MG TAB (SENOKOT) PO SCH (21:16)
[2019-05-15 22:00] VITALS: BP 126/78
[2019-05-16] MEDS: oxyCODONE 5MG TAB PO PRN ×4 (05:47→21:43)
[2019-05-16 06:00] VITALS: BP 122/66
[2019-05-16] MEDS ORDERED: NALOXONE INJ 0.4 MG/1 ML VIAL (J2310) IV PRN (08:30)
[2019-05-16] MEDS: MIRALAX *UNIT DOSE* 17GM PACKET PO SCH ×2 (08:54→20:29)
[2019-05-16] MEDS: HumaLOG INSULIN (NovoLOG) PER UNIT SC SCH ×4 (08:54→21:42)
[2019-05-16] MEDS: MOM 30ML SUSPENSION UDC PO PRN (08:55)
[2019-05-16] MEDS: ATORVASTATIN 20 MG TAB PO SCH (08:55)
[2019-05-16] MEDS: DOCUSATE SODIUM 100 MG CAP PO SCH (08:55)
[2019-05-16] MEDS: DOXYCYCLINE HYCLATE 100 MG TAB PO SCH ×2 (08:55→20:28)
[2019-05-16] MEDS: MORPHINE 30 MG SA TAB PO SCH ×2 (08:56→20:28)
[2019-05-16] MEDS: PREGABALIN 100 MG CAP (LYRICA) PO SCH ×2 (08:57→20:29)
[2019-05-16] MEDS ORDERED: GABAPENTIN 300 MG CAP PO SCH (09:00)
--- NOTE | 2019-05-16 09:10 | IPN ---
DATE: 05/16/2019 REFERRING PROVIDER: Dr. Khan HISTORY OF PRESENT ILLNESS: Jenise is a 48-year-old female who was admitted a few days ago for intractable abdominal pain and neuropathic pain with a history of stage IV endometrial carcinosarcoma. We saw her on 05/13/2019 and recommended increasing MS-Contin to 30 mg in the morning, 15 mg mid day, and 30 mg at bedtime. At that time, we recommended starting Lyrica 100 mg twice a day. She is on these medications plus oxycodone 10 mg every 4 hours as needed for breakthrough pain. We were asked to see her again for uncontrolled pain. Although she feels her pain is better, she is still quite uncomfortable and rating her abdominal pain and low back pain as an 8/10 today. She does mention concerns about weight gain with Lyrica. She also is currently on gabapentin 900 mg in the morning and 1200 mg at bedtime. Continues with complaints of severe pain in her left arm and hand as well as her feet. Discussed the possibility of increasing Lyrica and discontinuing gabapentin. She is somewhat receptive but still concerned about weight gain. Dr. Khan was at the bedside when I visited and she is suggesting daily weights. At this point, the patient is receptive to increasing the Lyrica to 200 mg morning and night and keeping MS-Contin 30 mg twice a day and 15 mg mid day. I would recommend slowly discontinuing gabapentin by 600 mg morning and night. Consider increasing short-acting oxycodone to 15 mg every 4 hours as needed for breakthrough pain. She also mentions issues with constipation. Consider increasing the Colace to three times a day 200 mg. Thank you for allowing us to assist in the care of your patient, Jenise Valiente. If you have any questions, please do not hesitate to contact me. JOSE
--- NOTE | 2019-05-16 09:14 | REP ---
Clinical: Abdominal pain. Technique: Axial noncontrast images from the lung bases to the pubic symphysis with coronal and sagittal re-formations. Comparison: 03/08/2019. Findings: 14 cm noncalcified lesion in the right middle lobe has increased when compared to 01/01/2019. New smaller similar lesions are also identified bilaterally including a 8 mm lesion in the left lower lobe (image 23). Liver, spleen, pancreas, gallbladder, bilateral adrenal glands and kidneys are normal for noncontrast evaluation. The enteric system is without obstruction or acute inflammatory process. Moderate fecal stasis noted. Normal terminal ileum and appendix identified in the right lower quadrant. Pelvis demonstrates normal bladder. The patient is known to be status post hysterectomy and a large multilobulated mass in the pelvis is now identified measuring greater than 8 cm diameter concerning for malignancy/metastasis. Peripelvic lymph nodes measuring up to 14 mm are identified along with satellite lesion in the left jose antonio pelvis measuring 2.2 cm. No ascites. No free air. Impression: 1. Suspected pulmonary metastatic disease increased from prior examination. 2. Large recurrent mass in the pelvis measuring greater than 8 cm diameter and associated mild pelvic adenopathy. Electronically Signed by Dread Hyde MD 05/16/2019 09:06 A
[2019-05-16 09:40] LABS: BASO % 0.1 % (0.0-1.0); HEMATOCRIT 31.6 % (36.0-47.0); LYMPH # 1.3 10^3/uL (1.5-4.5); LYMPH % 15.7 % (24.0-44.0); MEAN CORPUSCULAR HEMOGLOBIN 29.3 pg (27.0-33.0); MEAN CORPUSCULAR HGB CONC 31.6 g/dl (32.0-36.5); MEAN CORPUSCULAR VOLUME 92.7 fl (80.0-96.0); MONO # 0.3 10^3/uL (0.0-0.8); MONO % 3.1 % (0.0-5.0); NEUTROPHILS # 6.4 10^3/uL (1.8-7.7); NEUTROPHILS % 80.6 % (36.0-66.0); RED BLOOD COUNT 3.41 10^6/uL (4.00-5.40)
[2019-05-16 09:41] LABS: PLATELET COUNT, AUTOMATED 83 10^3/uL (150-450)
[2019-05-16 09:43] LABS: ALBUMIN 2.8 GM/DL (3.2-5.2); ALT/SGPT 27 U/L (12-78); BILIRUBIN,TOTAL 0.3 MG/DL (0.2-1.0); BLOOD UREA NITROGEN 17 MG/DL (7-18); C REACTIVE PROTEIN QUANTITATIV 2.21 MG/DL (0.00-0.30); CARBON DIOXIDE LEVEL 31 MEQ/L (21-32); CHLORIDE LEVEL 103 MEQ/L (98-107); CREATININE FOR GFR 0.71 MG/DL (0.55-1.30); GLOMERULAR FILTRATION RATE > 60.0 (>58); GLUCOSE, FASTING 309 MG/DL (70-100); POTASSIUM SERUM 4.3 MEQ/L (3.5-5.1); SODIUM LEVEL 141 MEQ/L (136-145); TOTAL PROTEIN 6.7 GM/DL (6.4-8.2)
[2019-05-16 10:38] LABS: ERYTHROCYTE SEDIMENTATION RATE 58 mm/hr (0-20)
[2019-05-16 13:37] VITALS: BP 138/89
[2019-05-16 14:00] VITALS: BP 138/89
[2019-05-16] MEDS: MORPHINE 15 MG SA TAB PO SCH (15:05)
[2019-05-16] MEDS ORDERED: MAGNESIUM CITRATE 300 ML BTL PO ONE (17:15)
[2019-05-16] MEDS ORDERED: MOM 30ML SUSPENSION UDC PO PRN (17:15)
--- NOTE | 2019-05-16 18:03 | IPNPDOC ---
Date Seen The patient was seen on 05/16/19. Progress Note SUBJECTIVE: 05/16/19 ctabd to rule out abscess, perforation, bowel obstruction. pain mgt recommended increasing oxyir to 15mg q4prn due to persistent abd pain. no nausea or vomiting today. 8/10 pain even with lying down. increased abd distension OBJECTIVE: PHYSICAL EXAMINATION: VITALS: PLS SEE BELOW General Exam: Positive: Alert, Cooperative, No Acute Distress, Other (laying in bed) Chest Exam: Positive: Clear to auscultation, Normal air movement Heart Exam: Positive: Rate Normal, Normal S1, Normal S2 Abdomen Exam: Positive: Normal bowel sounds, Soft; distended Negative: Tenderness Extremity Exam: Positive: Normal pulses, Tenderness; Negative: Edema Skin Exam: Positive: Nl turgor and temperature Neuro Exam: Positive: Other (no focal deficits) Psych Exam: Positive: Mental status NL, Mood NL, Oriented x 3 ASSESSMENT AND PLAN: 48-year-old female with stage IV endometrial cancer here with intractable pain. Pt initially placed on morphine 4mg IV q4hr -> 3hrs with some relief. Pain management consulted who made recommendations for adjustments to her home regimen. New oral regimen put in place with good effect. Pt states that pain tolerable and that she could go home on this regimen. Plan to watch pt another day on new regimen to ensure pain managed. Pt also on zosyn for sepsis. Urine grew Group B strep though UA with only 6WBCs. Would empirically treat for 5- 7days given high white count, tachycardia and tachypnea on admission. ACUTE ISSUES: Intractable abdominal pain -due to stage IV endometrial cancer -Appreciate pain management consult , but needs to re-assess the patient to adjust meds for better pain control -no improvement with MS Contin 30mg BID, morphine sulfate ER 15mg midday, lyrica 100mg BID and oxycodone 5mg [id number] for breakthrough pain -cont. colace 200mg BID -Plan to achieve her pain control with oral pain medications with the help of pain management -Diet carbohydrate consistent diet -DVT prophylaxis with bilateral SCDs -per pain mgt recommendations," Lyrica to 200 mg morning and night and keeping MS-Contin 30 mg twice a day and 15 mg mid day. I would recommend slowly discontinuing gabapentin by 600 mg morning and night. Consider increasing short-acting oxycodone to 15 mg every 4 hours as needed for breakthrough pain. She also mentions issues with possibly constipation. Consider increasing the Colace to three times a day 200 mg." sepsis -Patient has a high WBC count of 17,000. She also has a tachycardic and tachypneic -s/p Zosyn 3.375 mg IV every 6 hours -urine cx: grp b strep changed to po doxycycline -WBC cont. to downtrend -cont. IV fluid normal saline at 100 mL per hour for hydration -elevated lactate resolved Hypokalemia - RESOLVED -will cont. to monitor Hypomagnesemia - RESOLVED -Will cont. to monitor Lactic acidosis - RESOLVED -IV fluids normal saline 800 mL per hour has been ordered -Repeat shows lactic 1.8 Diabetes type 2, uncontrolled -Will hold hold all by mouth meds including Glucophage and long acting insulin as patient has a poor appetite and poor oral intake, -FSG -ISS constipation bowel regimen disposition: deferred hospital discharge for due to uncontrolled pain and poor oral intake. VS, I&O, 24H, Fishbone Vital Signs/I&O Vital Signs Date Time Temp Pulse Resp B/P (MAP) Pulse Ox O2 Delivery O2 Flow Rate FiO2 05/16/19 16:39 17 05/16/19 14:00 99.3 97 138/89 (105) 94 05/12/19 03:20 Nasal Cannula 2.0 I&O- Last 24 Hours up to 6 AM 05/16/19 06:00 Intake Total 2750 ml Output Total 1700 ml Balance 1050 ml Laboratory Data 24H LABS Laboratory Tests 2 05/15/19 21:01: Bedside Glucose (Misc Panel) 271H 05/16/19 06:02: Bedside Glucose (Misc Panel) 215H 05/16/19 09:00: Immature Granulocyte % (Auto) 0.5, White Blood Count 8.0, Red Blood Count 3.41L, Hemoglobin 10.0L, Hematocrit 31.6L, Mean Corpuscular Volume 92.7, Mean Corpuscular Hemoglobin 29.3, Mean Corpuscular Hemoglobin Concent 31.6L, Red Cell Distribution Width 17.9H, Platelet Count 83L, Neutrophils (%) (Auto) 80.6H, Lymphocytes (%) (Auto) 15.7L, Monocytes (%) (Auto) 3.1, Eosinophils (%) (Auto) 0.0, Basophils (%) (Auto) 0.1, Neutrophils # (Auto) 6.4, Lymphocytes # (Auto) 1.3L, Monocytes # (Auto) 0.3, Eosinophils # (Auto) 0.0, Basophils # (Auto) 0.0, Nucleated Red Blood Cells % (auto) 0.0, Erythrocyte Sedimentation Rate 58H, Anion Gap 7L, Glomerular Filtration Rate > 60.0, Blood Urea Nitrogen 17, Creatinine 0.71, Sodium Level 141, Potassium Level 4.3, Chloride Level 103, Carbon Dioxide Level 31, Calcium Level 9.0, Aspartate Amino Transf (AST/SGOT) 14, Alanine Aminotransferase (ALT/SGPT) 27, Alkaline Phosphatase 109, Total Bilirubin 0.3, Total Protein 6.7, Albumin 2.8L, C-Reactive Protein, Quantitative 2.21H, Albumin/Globulin Ratio 0.72L 05/16/19 11:18: Bedside Glucose (Misc Panel) 272H CBC/BMP Laboratory Tests 05/16/19 09:00 Red Blood Count 3.41 L, Mean Corpuscular Volume 92.7, Mean Corpuscular Hemoglobin 29.3, Mean Corpuscular Hemoglobin Concent 31.6 L, Red Cell Distribution Width 17.9 H, Neutrophils (%) (Auto) 80.6 H, Lymphocytes (%) (Auto) 15.7 L, Monocytes (%) (Auto) 3.1, Eosinophils (%) (Auto) 0.0, Basophils (%) (Auto) 0.1, Neutrophils # (Auto) 6.4, Lymphocytes # (Auto) 1.3 L, Monocytes # (Auto) 0.3, Eosinophils # (Auto) 0.0, Basophils # (Auto) 0.0, Calcium Level 9.0, Aspartate Amino Transf (AST/SGOT) 14, Alanine Aminotransferase (ALT/SGPT) 27, Alkaline Phosphatase 109, Total Bilirubin 0.3, Total Protein 6.7, Albumin 2.8 L Microbiology Microbiology 05/12/19 Blood Culture - Preliminary, Resulted No Growth after 72 hours. All specime... 05/11/19 Blood Culture - Preliminary, Resulted No Growth after 72 hours. All specime... 05/11/19 Urine Culture - Final, Complete Strep Agalactiae Group GAEL HAWLEY MD May 16, 2019 18:03
[2019-05-16] MEDS: SENOKOT S TAB PO SCH (20:28)
[2019-05-16] MEDS ORDERED: GABAPENTIN 400 MG CAP PO SCH (21:00)
[2019-05-16 22:00] VITALS: BP 140/89
[2019-05-17] MEDS: oxyCODONE 5MG TAB PO PRN ×5 (03:53→21:24)
[2019-05-17 06:00] VITALS: BP 131/76
[2019-05-17 06:52] LABS: EOS % 0.2 % (0.0-3.0); HEMATOCRIT 31.4 % (36.0-47.0); HEMOGLOBIN 9.7 g/dl (12.0-15.5); LYMPH # 1.5 10^3/uL (1.5-4.5); LYMPH % 24.2 % (24.0-44.0); MEAN CORPUSCULAR HEMOGLOBIN 29.8 pg (27.0-33.0); MEAN CORPUSCULAR HGB CONC 30.9 g/dl (32.0-36.5); MEAN CORPUSCULAR VOLUME 96.3 fl (80.0-96.0); MONO # 0.3 10^3/uL (0.0-0.8); MONO % 4.8 % (0.0-5.0); NEUTROPHILS # 4.3 10^3/uL (1.8-7.7); NEUTROPHILS % 70.5 % (36.0-66.0); RED BLOOD COUNT 3.26 10^6/uL (4.00-5.40)
[2019-05-17 06:54] LABS: PLATELET COUNT, AUTOMATED 85 10^3/uL (150-450)
[2019-05-17 07:06] LABS: ALBUMIN 2.7 GM/DL (3.2-5.2); ALT/SGPT 25 U/L (12-78); BILIRUBIN,DIRECT < 0.1 MG/DL (0.0-0.2); BILIRUBIN,TOTAL 0.3 MG/DL (0.2-1.0); BLOOD UREA NITROGEN 18 MG/DL (7-18); CALCIUM LEVEL 9.1 MG/DL (8.5-10.1); CARBON DIOXIDE LEVEL 27 MEQ/L (21-32); CHLORIDE LEVEL 107 MEQ/L (98-107); GLOMERULAR FILTRATION RATE > 60.0 (>58); GLUCOSE, FASTING 235 MG/DL (70-100); POTASSIUM SERUM 4.3 MEQ/L (3.5-5.1); SODIUM LEVEL 140 MEQ/L (136-145); TOTAL PROTEIN 6.7 GM/DL (6.4-8.2)
[2019-05-17] MEDS: HumaLOG INSULIN (NovoLOG) PER UNIT SC SCH ×4 (08:03→21:23)
[2019-05-17] MEDS: MORPHINE 30 MG SA TAB PO SCH ×2 (09:14→20:43)
[2019-05-17] MEDS: MIRALAX *UNIT DOSE* 17GM PACKET PO SCH ×2 (09:14→20:42)
[2019-05-17] MEDS: DOXYCYCLINE HYCLATE 100 MG TAB PO SCH ×2 (09:15→20:42)
[2019-05-17] MEDS: ATORVASTATIN 20 MG TAB PO SCH (09:15)
[2019-05-17] MEDS: PREGABALIN 100 MG CAP (LYRICA) PO SCH ×2 (09:15→20:42)
[2019-05-17] MEDS: SENOKOT S TAB PO SCH ×2 (09:15→20:42)
--- NOTE | 2019-05-17 09:40 | IPNPDOC ---
Date Seen The patient was seen on 05/17/19. Progress Note SUBJECTIVE: no c/o sob despite increased abdominal distention. ambulated outside her room yesterday without dukes. 05/16/19 ctabd to rule out abscess, perforation, bowel obstruction: increased size of pulmonary nodule. Ct chest today to determine if pt has progressive pulmonary mets, LAD, and malignant peleural effuson. pain mgt recommended increasing oxyir to 15mg q4prn due to persistent abd pain. no nausea or vomiting ,and tolerating her diet better today . 05/24 pain even with lying down and complained of not getting her pain meds promptly last night. still c/o peripheral neuropathic pain in her b/l feet. OBJECTIVE: PHYSICAL EXAMINATION: VITALS: PLS SEE BELOW General Exam: Positive: Alert, Cooperative, No Acute Distress, Other (laying in bed) Chest Exam: Positive: diminished Normal air movement Heart Exam: Positive: Rate Normal, Normal S1, Normal S2 Abdomen Exam: Positive: Normal bowel sounds, Soft; distended Negative: Tenderness Extremity Exam: Positive: Normal pulses, Tenderness; Negative: Edema Skin Exam: Positive: Nl turgor and temperature Neuro Exam: Positive: Other (no focal deficits) Psych Exam: Positive: Mental status NL, Mood NL, Oriented x 3 ASSESSMENT AND PLAN: 48-year-old female with stage IV endometrial cancer here with intractable pain. Pt initially placed on morphine 4mg IV q4hr -> 3hrs with some relief. Pain management consulted who made recommendations for adjustments to her home regimen. New oral regimen put in place with good effect. Pt states that pain tolerable and that she could go home on this regimen. Plan to watch pt another day on new regimen to ensure pain managed. Pt also on zosyn for sepsis. Urine grew Group B strep though UA with only 6WBCs. Would empirically treat for 5- 7days given high white count, tachycardia and tachypnea on admission. ACUTE ISSUES: Intractable abdominal pain -due to stage IV endometrial cancer -Appreciate pain management consult , but needs to re-assess the patient to adjust meds for better pain control -no improvement with MS Contin 30mg BID, morphine sulfate ER 15mg midday, lyrica 100mg BID and oxycodone 5mg [id number] for breakthrough pain -cont. colace 200mg BID -Plan to achieve her pain control with oral pain medications with the help of pain management -Diet carbohydrate consistent diet -DVT prophylaxis with bilateral SCDs -per pain mgt recommendations," Lyrica to 200 mg morning and night and keeping MS-Contin 30 mg twice a day and 15 mg mid day. I would recommend slowly discontinuing gabapentin by 600 mg morning and night. Consider increasing short-acting oxycodone to 15 mg every 4 hours as needed for breakthrough pain. She also mentions issues with possibly constipation. Consider increasing the Colace to three times a day 200 mg." Stage IV B, T4N1M1 FIGO grade 2 endometrial carcinosarcoma, - pMMR, ER / PRpositive, with high-risk features: LVI, bladder invasion, peritoneal studding, retroperitoneal adenopathy. Status post laparoscopic TONY - BSO, peritoneal biopsy 11/2018. Persistent hypermetabolic retroperitoneal adenopathy on postoperative PET 01/28/2019. 03/08/[address] with subcutaneous infection / umbilicus resolved, a few para-aortic nodes, one 1.3 cm, right lower lung 5 mm nodule, decreased, requiring followup. -managed by [facility] Oncologist, Dr. Alia Sims -Carboplatin / paclitaxel q. 21 days. Day one cycle one 01/16/2019. s/p cycle six 04/2019. - Restaging imaging with PET in approximately 6 weeks. -checked CA-125. - For residual disease,treatment options include continuing current therapy, vs single-agent carboplatin, vs testing for PDL1 status and possible immunotherapy. increased size of metastatic pulmonary nodule. -Ct chest today to determine if pt has progressive pulmonary mets, LAD, and malignant peleural effusion. -checked ca 125 for disease progression vs response to chemo. sepsis -Patient has a high WBC count of 17,000. She also has a tachycardic and tachypneic -s/p Zosyn 3.375 mg IV every 6 hours -urine cx: grp b strep changed to po doxycycline -WBC cont. to downtrend -cont. IV fluid normal saline at 100 mL per hour for hydration -elevated lactate resolved UTI -urine cx: grp b strep changed to po doxycycline -WBC cont. to downtrend -cont. IV fluid normal saline at 100 mL per hour for hydration -elevated lactate resolved Hypokalemia - RESOLVED -will cont. to monitor Hypomagnesemia - RESOLVED -Will cont. 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 constipation bowel regimen disposition: deferred hospital discharge due to uncontrolled pain. VS, I&O, 24H, Fishbone Vital Signs/I&O Vital Signs Date Time Temp Pulse Resp B/P (MAP) Pulse Ox O2 Delivery O2 Flow Rate FiO2 05/17/19 09:14 16 05/17/19 06:00 97.1 99 131/76 (94) 93 05/12/19 03:20 Nasal Cannula 2.0 I&O- Last 24 Hours up to 6 AM 05/17/19 06:00 Intake Total 1520 ml Output Total 0 ml Balance 1520 ml Laboratory Data 24H LABS Laboratory Tests 2 05/16/19 11:18: Bedside Glucose (Misc Panel) 272H 05/16/19 16:57: Bedside Glucose (Misc Panel) 270H 05/16/19 21:11: Bedside Glucose (Misc Panel) 282H 05/17/19 06:27: Immature Granulocyte % (Auto) 0.3, White Blood Count 6.0, Red Blood Count 3.26L, Hemoglobin 9.7L, Hematocrit 31.4L, Mean Corpuscular Volume 96.3H, Mean Corpuscul ar Hemoglobin 29.8, Mean Corpuscular Hemoglobin Concent 30.9L, Red Cell Distribution Width 18.0H, Platelet Count 85L, Neutrophils (%) (Auto) 70.5H, Lymphocytes (%) (Auto) 24.2, Monocytes (%) (Auto) 4.8, Eosinophils (%) (Auto) 0.2, Basophils (%) (Auto) 0.0, Neutrophils # (Auto) 4.3, Lymphocytes # (Auto) 1.5, Monocytes # (Auto) 0.3, Eosinophils # (Auto) 0.0, Basophils # (Auto) 0.0, Nucleated Red Blood Cells % (auto) 0.0, Immature Platelet Fraction 2.3, Anion Gap 6L, Glomerular Filtration Rate > 60.0, Blood Urea Nitrogen 18, Creatinine 0.50L, Sodium Level 140, Potassium Level 4.3, Chloride Level 107, Carbon Dioxide Level 27, Calcium Level 9.1, Aspartate Amino Transf (AST/SGOT) 12, Alanine Amino transferase (ALT/SGPT) 25, Alkaline Phosphatase 102, Total Bilirubin 0.3, Direct Bilirubin < 0.1, Total Protein 6.7, Albumin 2.7L, Albumin/Globulin Ratio 0.68L CBC/BMP Laboratory Tests 05/17/19 06:27 Red Blood Count 3.26 L, Mean Corpuscular Volume 96.3 H, Mean Corpuscular Hemogl obin 29.8, Mean Corpuscular Hemoglobin Concent 30.9 L, Red Cell Distribution Width 18.0 H, Neutrophils (%) (Auto) 70.5 H, Lymphocytes (%) (Auto) 24.2, Monocytes (%) (Auto) 4.8, Eosinophils (%) (Auto) 0.2, Basophils (%) (Auto) 0.0, Neutrophils # (Auto) 4.3, Lymphocytes # (Auto) 1.5, Monocytes # (Auto) 0.3, Eosinophils # (Auto) 0.0, Basophils # (Auto) 0.0, Calcium Level 9.1, Aspartate Amino Transf (AST/SGOT) 12, Alanine Aminotransferase (ALT/SGPT) 25, Alkaline Phosphatase 102, Total Bilirubin 0.3, Direct Bilirubin < 0.1, Total Protein 6.7, Albumin 2.7 L Microbiology Microbiology 05/12/19 Blood Culture - Final, Complete NO GROWTH AFTER 5 DAYS 05/11/19 Blood Culture - Final, Complete NO GROWTH AFTER 5 DAYS 05/11/19 Urine Culture - Final, Complete Strep Agalactiae Group B GAEL TRAORE MD May 17, 2019 09:34
[2019-05-17] MEDS ORDERED: ISOVUE-370 76% 100ML VIAL (Q9967) As Ordered ONE (10:14)
--- NOTE | 2019-05-17 10:49 | REP ---
Clinical: Acute chest pain. Technique: Axial contrast enhanced images from the thoracic inlet to the upper abdomen using 100 ml Isovue 370 intravenous contrast material with coronal and sagittal re-formations. Comparison: 01/01/2019 Findings: Satisfactory enhancement of the pulmonary vasculature is achieved and no filling defects are identified to suggest pulmonary embolus. Thoracic aorta is normal caliber without aneurysm or dissection. Heart and pericardium are normal. New pulmonary metastatic foci include 12 mm medial right upper lobe lesion (image 32), enlarging 16 mm right middle lobe lesion (image 50), and a new 9 mm left lower lobe lesion (image 67). No consolidation. No effusion. No pneumothorax. Tracheobronchial tree is patent. No obvious axillary, hilar, or mediastinal adenopathy. Osseous structures without focal abnormality. Limited upper abdomen demonstrates normal bilateral adrenal glands. Impression: No evidence for pulmonary embolus. New/increased metastatic lesions as described above. Electronically Signed by Dread yHde MD 05/17/2019 10:40 A
[2019-05-17 14:00] VITALS: BP 117/70
[2019-05-17 14:57] LABS: INR 1.04; PROTHROMBIN TIME 13.3 SECONDS (11.8-14.0)
[2019-05-17 14:58] LABS: PARTIAL THROMBOPLASTIN TIME 27.7 SECONDS (25.0-38.4)
[2019-05-17 15:01] LABS: D-DIMER QUANT 1374.52 ng/ml (<500)
[2019-05-17] MEDS: MORPHINE 15 MG SA TAB PO SCH (15:18)
--- NOTE | 2019-05-17 19:02 | REPVR ---
EXAM: CT Head Without Contrast EXAM DATE/TIME: 05/17/2019 5:21 PM CLINICAL HISTORY: 48 years old, female; Condition or disease; History of cancer (specify primary cancer site): ; Primary cancer: Endometrial; Additional info: Progressive stage iv endometrial CA AMS R/O brain mets TECHNIQUE: Imaging protocol: Computed tomography images of the head without contrast. Radiation optimization: All CT scans at this facility use at least one of these dose optimization techniques: automated exposure control; mA and/or kV adjustment per patient size (includes targeted exams where dose is matched to clinical indication); or iterative reconstruction. COMPARISON: No relevant prior studies available. FINDINGS: Limitations: No sagittal or coronal reformatted images. Without intravenous contrast, there is reduced sensitivity for detecting brain metastases. Brain: There is no mass effect. There is no evidence of acute cortical infarct or intracranial mass lesion. Rebollar-white matter differentiation is normal. There is no extra-axial fluid collection. At the posterior aspect of the right cerebellar hemisphere an 8 x 8 mm wedge-shaped hypodense lesion is consistent with a chronic infarct with encephalomalacia (image 8). A 5 x 3 mm densely calcified ovoid extra-axial lesion at the medial aspect of the left middle cranial fossa, attached to the sphenoid bone, is most likely a calcified meningioma. It has no clinical significance (image 6). Midline shift: No midline shift. Ventricles: The ventricular system size is within normal limits for the patient's 48 years of age. Bones/joints: Unremarkable. No acute fracture. Sinuses: Visualized sinuses are unremarkable. No fluid levels. Mastoid air cells: Visualized mastoid air cells are well aerated. No mastoid effusion. Orbits: Normal. Soft tissues: Unremarkable. IMPRESSION: 1. No acute intracranial abnormality. No evidence of brain metastasis. However, sensitivity is limited without intravenous contrast. 2. At the posterior aspect of the right cerebellar hemisphere an 8 x 8 mm wedge-shaped hypodense lesion is consistent with a chronic infarct with encephalomalacia (image 8). Electronically signed by: Hemanth Crandall On 05/17/2019 19:02:11 PM
--- NOTE | 2019-05-17 19:08 | REPVR ---
EXAM: US Duplex Right Upper Extremity Veins, Limited EXAM DATE/TIME: 05/17/2019 5:43 PM CLINICAL HISTORY: 48 years old, female; Pain; Other: Lump; Arm; Right; Additional info: Right ue mass R/O dvt h/o stage iv endometrial CA TECHNIQUE: Imaging protocol: Real-time Duplex ultrasound of the Right Upper Extremity with 2-D guzman scale, color Doppler flow and spectral waveform analysis with image documentation. Limited exam focused on the right upper extremity veins. COMPARISON: No relevant prior studies available. FINDINGS: Right deep veins: Unremarkable. Axillary and brachial veins are patent throughout without thrombus. Normal Doppler waveforms. Normal compressibility and/or augmentation response. Visualized internal jugular and subclavian veins are patent. Right superficial veins: The cephalic vein in the proximal forearm is completely thrombosed (images 36-39). It is the cause of the palpable lump. The basilic vein is patent without thrombus. IMPRESSION: Complete thrombosis in the cephalic vein at the proximal right forearm causes the palpable lump. No deep vein thrombosis. Electronically signed by: Hemanth Crandall On 05/17/2019 19:07:59 PM
[2019-05-17 22:00] VITALS: BP 151/87
[2019-05-18] MEDS: oxyCODONE 5MG TAB PO PRN ×5 (04:42→21:16)
[2019-05-18 06:00] VITALS: BP 140/81
[2019-05-18 06:53] LABS: HEMATOCRIT 29.5 % (36.0-47.0); HEMOGLOBIN 9.6 g/dl (12.0-15.5); MEAN CORPUSCULAR HEMOGLOBIN 30.7 pg (27.0-33.0); MEAN CORPUSCULAR HGB CONC 32.5 g/dl (32.0-36.5); MEAN CORPUSCULAR VOLUME 94.2 fl (80.0-96.0); RED BLOOD COUNT 3.13 10^6/uL (4.00-5.40); WHITE BLOOD COUNT 4.8 10^3/uL (4.0-10.0)
[2019-05-18 07:07] LABS: PLATELET COUNT, AUTOMATED 84 10^3/uL (150-450)
[2019-05-18] MEDS: HumaLOG INSULIN (NovoLOG) PER UNIT SC SCH ×4 (08:46→21:15)
[2019-05-18] MEDS: MORPHINE 30 MG SA TAB PO SCH ×2 (08:47→21:14)
[2019-05-18] MEDS: MIRALAX *UNIT DOSE* 17GM PACKET PO SCH ×2 (08:48→21:13)
[2019-05-18] MEDS: PREGABALIN 100 MG CAP (LYRICA) PO SCH ×2 (08:48→21:14)
[2019-05-18] MEDS: DOXYCYCLINE HYCLATE 100 MG TAB PO SCH ×2 (08:48→21:14)
[2019-05-18] MEDS: SENOKOT S TAB PO SCH ×3 (08:49→21:13)
[2019-05-18] MEDS: ATORVASTATIN 20 MG TAB PO SCH (08:49)
[2019-05-18 14:00] VITALS: BP 142/98
[2019-05-18] MEDS: MORPHINE 15 MG SA TAB PO SCH (15:06)
--- NOTE | 2019-05-18 15:43 | IPNPDOC ---
Text Note Date of Service The patient was seen on 05/18/19. NOTE SUBJECTIVE: Patient seen and examined at bedside. Still complaining of pain all over her body. OBJECTIVE: PHYSICAL EXAMINATION: VITALS: PLS SEE BELOW General Exam: Positive: Alert, Cooperative, No Acute Distress, Other (laying in bed) Chest Exam: Positive: diminished Normal air movement Heart Exam: Positive: Rate Normal, Normal S1, Normal S2 Abdomen Exam: Positive: Normal bowel sounds, Soft; distended Negative: Tenderness Extremity Exam: Positive: Normal pulses, Tenderness; Negative: Edema Skin Exam: Positive: Nl turgor and temperature Neuro Exam: Positive: Other (no focal deficits) Psych Exam: Positive: Mental status NL, Mood NL, Oriented x 3 ASSESSMENT AND PLAN: 48-year-old female with stage IV endometrial cancer here with intractable pain. Pt initially placed on morphine 4mg IV q4hr -> 3hrs with some relief. Pain management consulted who made recommendations for adjustments to her home regimen. New oral regimen put in place with good effect. Pt states that pain tolerable and that she could go home on this regimen. Plan to watch pt another day on new regimen to ensure pain managed. Pt also on zosyn for sepsis. Urine grew Group B strep though UA with only 6WBCs. Would empirically treat for 5- 7days given high white count, tachycardia and tachypnea on admission. ACUTE ISSUES: Intractable abdominal pain -due to stage IV endometrial cancer -Appreciate pain management consult , but needs to re-assess the patient to adjust meds for better pain control -no improvement with MS Contin 30mg BID, morphine sulfate ER 15mg midday, lyrica 100mg BID and oxycodone 5mg [id number] for breakthrough pain -cont. colace 200mg BID -Plan to achieve her pain control with oral pain medications with the help of pain management -Diet carbohydrate consistent diet -DVT prophylaxis with bilateral SCDs -per pain mgt recommendations," Lyrica to 200 mg morning and night and keeping MS-Contin 30 mg twice a day and 15 mg mid day. -increased short-acting oxycodone to 15 mg every 4 hours as needed for breakthrough pain. -increased the Colace to three times a day 200 mg." #Stage IV B, T4N1M1 FIGO grade 2 endometrial carcinosarcoma, - pMMR, ER / PRpositive, with high-risk features: LVI, bladder invasion, peritoneal studding, retroperitoneal adenopathy. Status post laparoscopic TONY - BSO, peritoneal biopsy 11/2018. Persistent hypermetabolic retroperitoneal adenopathy on postoperative PET 01/28/2019. 03/08/[address] with subcutaneous infection / umbilicus resolved, a few para-aortic nodes, one 1.3 cm, right lower lung 5 mm nodule, decreased, requiring followup. -managed by [facility] Oncologist, Dr. Alia Sims -Carboplatin / paclitaxel q. 21 days. Day one cycle one 01/16/2019. s/p cycle six 04/2019. - Restaging imaging with PET in approximately 6 weeks. -checked CA-125. - For residual disease,treatment options include continuing current therapy, vs single-agent carboplatin, vs testing for PDL1 status and possible immunotherapy. #increased size of metastatic pulmonary nodule. -new pulmonary metastatic lesions, and increased size to 16mm of the known right middle lobe pulmonary mets, oncology Dr. Grace was consulted sepsis -Patient has a high WBC count of 17,000. She also has a tachycardic and tachypneic -s/p Zosyn 3.375 mg IV every 6 hours -urine cx: grp b strep changed to po doxycycline -WBC cont. to downtrend -cont. IV fluid normal saline at 100 mL per hour for hydration -elevated lactate resolved UTI -urine cx: grp b strep changed to po doxycycline -WBC cont. to downtrend -cont. IV fluid normal saline at 100 mL per hour for hydration -elevated lactate resolved Hypokalemia - RESOLVED -will cont. to monitor Hypomagnesemia - RESOLVED -Will cont. 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 constipation bowel regimen disposition: deferred hospital discharge due to uncontrolled pain. VS,Fishbone, I+O VS, Fishbone, I+O Laboratory Tests 05/18/19 06:34 Red Blood Count 3.13 L, Mean Corpuscular Volume 94.2, Mean Corpuscular Hemo globin 30.7, Mean Corpuscular Hemoglobin Concent 32.5, Red Cell Distribution Width 18.3 H Vital Signs Date Time Temp Pulse Resp B/P (MAP) Pulse Ox O2 Delivery O2 Flow Rate FiO2 05/18/19 15:06 18 05/18/19 14:00 99.4 111 142/98 (113) 90 05/12/19 03:20 Nasal Cannula 2.0 I&O- Last 24 Hours up to 6 AM 05/18/19 06:00 Intake Total 2100 ml Output Total 0 ml Balance 2100 ml BETTY RADFORD MD May 18, 2019 15:43
[2019-05-18] MEDS ORDERED: oxyCODONE 5MG TAB PO PRN (15:45)
[2019-05-18 22:00] VITALS: BP 101/60
[2019-05-19] MEDS: oxyCODONE 5MG TAB PO PRN ×6 (01:16→23:02)
[2019-05-19 06:00] VITALS: BP 140/84
[2019-05-19] MEDS: DOXYCYCLINE HYCLATE 100 MG TAB PO SCH ×2 (07:44→20:54)
[2019-05-19] MEDS: PREGABALIN 100 MG CAP (LYRICA) PO SCH ×2 (07:44→20:54)
[2019-05-19] MEDS: SENOKOT S TAB PO SCH ×3 (07:44→20:54)
[2019-05-19] MEDS: ATORVASTATIN 20 MG TAB PO SCH (07:45)
[2019-05-19] MEDS: MIRALAX *UNIT DOSE* 17GM PACKET PO SCH ×2 (07:45→20:54)
[2019-05-19] MEDS: HumaLOG INSULIN (NovoLOG) PER UNIT SC SCH ×4 (07:46→20:58)
[2019-05-19] MEDS: MORPHINE 30 MG SA TAB PO SCH ×2 (07:46→20:54)
[2019-05-19] MEDS ORDERED: MOM30SS2 PO (11:10)
[2019-05-19] MEDS ORDERED: OXYCO5TA PO (11:10)
[2019-05-19] MEDS ORDERED: PEG1POW PO (11:10)
[2019-05-19] MEDS ORDERED: MORP15TASA PO (11:10)
[2019-05-19] MEDS ORDERED: MYLASSUD PO (11:10)
--- NOTE | 2019-05-19 11:29 | DS.PDOC ---
Discharge Summary General Date of Admission May 12, 2019 at 12:06 Date of Discharge 05/19/19 Discharge Summary PROCEDURES PERFORMED DURING STAY: None. ADMITTING DIAGNOSES: Endometrial cancer with metastasis and uncontrolled pain DISCHARGE DIAGNOSES: Endometrial cancer with metastasis and controlled pain COMPLICATIONS/CHIEF COMPLAINT: Intractable Pain. 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 She has a past medical history of stage IV endometrial carcinosarcoma, hypertension, hyperlipidemia, insulin-dependent diabetes mellitus type 2, came in with chief complaints of worsening generalized body pain starts from her abdomen. Her arms, her legs and neck and is reluctant place and does not resolve with any medication. She does not get relief with any position, unable to sleep secondary to pain. She came in for the pain management. Patient also complains of some nausea but no vomiting, no diarrhea no chest pain, no shortness of breath HOSPITAL COURSE: Patient was started on IV medications and subsequently transitioned to by mouth medications. Patient still reports pain on current oral regimen however states it is more tolerable than she first came. I have sent prescriptions off the narcotics to the pharmacy of patient's choice. Patient patient has also been set up within appointment with primary care doctor for close follow-up and referral to pain management. Patient is medically stable to be discharged today DISCHARGE MEDICATIONS: Please see below. ALLERGIES: Please see below. PHYSICAL EXAMINATION ON DISCHARGE: General Exam: Positive: Alert, Cooperative Eye Exam: Positive: Conjunctiva & lids normal ENT Exam: Positive: Atraumatic, Mucous membr. moist/pink Neck Exam: Positive: Supple Chest Exam: Positive: Clear to auscultation, Normal air movement Heart Exam: Positive: Rate Normal, Normal S1, Normal S2 Abdomen Exam: Positive: Normal bowel sounds Extremity Exam: Positive: Normal pulses Skin Exam: Positive: Nl turgor and temperature Neuro Exam: Positive: Strength at 5/5 X4 ext, Normal Tone, Sensation Intact Psych Exam: Positive: Mental status NL, Mood NL, Oriented x 3 LABORATORY DATA: Please see below. IMAGING: CT Lung: new pulmonary metastatic lesions, and increased size to 16mm of the known right middle lobe pulmonary mets PROGNOSIS: poor ACTIVITY: As tolerated. DIET: Low-sodium diabetic diet DISCHARGE PLAN: DISPOSITION: . DISCHARGE INSTRUCTIONS: 1. PCP and pain management ITEMS TO FOLLOWUP ON ON OUTPATIENT: 1. PCP and pain management DISCHARGE CONDITION: Stable. TIME SPENT ON DISCHARGE: Greater than 36 minutes. Vital Signs/I&Os Vital Signs Date Time Temp Pulse Resp B/P (MAP) Pulse Ox O2 Delivery O2 Flow Rate FiO2 05/19/19 10:19 20 05/19/19 06:00 98.3 106 140/84 (102) 94 I&O- Last 24 Hours up to 6 AM 05/19/19 05:59 Intake Total 596 ml Output Total 0 ml Balance 596 ml Laboratory Data Labs 24H Laboratory Tests 2 05/18/19 12:01: Bedside Glucose (Misc Panel) 270H 05/18/19 17:07: Bedside Glucose (Misc Panel) 312H 05/18/19 20:37: Bedside Glucose (Misc Panel) 332H FSBS Laboratory Tests Test 05/18/19 12:01 05/18/19 17:07 05/18/19 20:37 Range/Units Bedside Glucose (Misc Panel) 270 312 332 70-105 MG/DL Microbiology Microbiology 05/12/19 Blood Culture - Final, Complete NO GROWTH AFTER 5 DAYS 05/11/19 Blood Culture - Final, Complete NO GROWTH AFTER 5 DAYS 05/11/19 Urine Culture - Final, Complete Strep Agalactiae Group B Discharge Medications Scheduled Atorvastatin Calcium (Atorvastatin Calcium) 80 Mg Tab, 80 MG PO DAILY, (Reported) Doxycycline Monohydrate (Doxycycline) 100 Mg Capsule, 1 CAP PO BID Insulin Glargine,Hum.rec.anlog (Basaglar Kwikpen U-100) 100 Unit/Ml Inj, 32 UNIT SC QHS, (Reported) Metformin HCl (Metformin HCl) 1,000 Mg Tablet, 1,000 MG PO BID, (Reported) Morphine Sulfate (Morphine Sulfate ER) 15 Mg Tablet.er, 30 MG PO TID Polyethylene Glycol 3350 (Polyethylene Glycol 3350) 17 Gm Powd.pack, 1 PKT PO BID Pregabalin (Lyrica) 100 Mg Capsule, 100 MG PO BID Sennosides (Senna) 8.6 Mg Tablet, 8.6 MG PO QHS, (Reported) Scheduled PRN Aluminum/Magnesium/Simeth (Mag-Al Plus Suspension) 30 Ml Oral.susp, 30 ML PO DAILY PRN for DYSPEPSIA Diphenoxylate HCl/Atropine (Lomotil 2.5-0.025 mg Tablet) 1 Each Tablet, 1 TAB PO QID PRN for DIARRHEA, (Reported) Magnesium Hydroxide (Milk of Magnesia) 400 Mg/5 Ml Oral.susp, 30 ML PO Q6HP PRN for CONSTIPATION Morphine Sulfate (Morphine Sulfate ER) 15 Mg Tablet.er, 15 MG PO Q8H PRN for PAIN, (Reported) Ondansetron HCl (Ondansetron HCl) 8 Mg Tablet, 8 MG PO Q6H PRN for NAUSEA OR VOMITING, (Reported) Oxycodone HCl (Oxycodone HCl) 5 Mg Tablet, 15 MG PO Q4HP PRN for MODERATE/SEVERE PAIN (PS 5-10) Polyethylene Glycol 3350 (Miralax) 119 Gm Powder, 17 GM PO DAILY PRN for CONSTIPATION, (Reported) Prochlorperazine (Prochlorperazine Maleate) 5 Mg Tablet, 5 MG PO Q8H PRN for NAUSEA OR VOMITING, (Reported) Allergies Coded Allergies: naproxen (Verified Adverse Reaction, Mild, GI UPSET, 04/27/19) BETTY RADFORD MD May 19, 2019 11:29
[2019-05-19 14:00] VITALS: BP 138/75
--- NOTE | 2019-05-19 14:00 | IPNPDOC ---
Text Note Date of Service The patient was seen on 05/19/19. NOTE Patient's discharge canceled because her insurance did not authorize her pain medication increased. I did preauthorization but the decision whether the medication is approved or not will not get back until tomorrow. 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 Discharge summary is finished. VS,Fishbone, I+O VS, Fishbone, I+O Vital Signs Date Time Temp Pulse Resp B/P (MAP) Pulse Ox O2 Delivery O2 Flow Rate FiO2 05/19/19 10:19 20 05/19/19 06:00 98.3 106 140/84 (102) 94 I&O- Last 24 Hours up to 6 AM 05/19/19 05:59 Intake Total 596 ml Output Total 0 ml Balance 596 ml BETTY RADFORD MD May 19, 2019 14:00
[2019-05-19] MEDS: MORPHINE 15 MG SA TAB PO SCH (15:41)
[2019-05-19 22:00] VITALS: BP 140/81
[2019-05-20] MEDS: oxyCODONE 5MG TAB PO PRN ×2 (03:22→10:34)
[2019-05-20 06:00] VITALS: BP 139/80
[2019-05-20] MEDS: MORPHINE 30 MG SA TAB PO SCH (08:19)
[2019-05-20] MEDS: MIRALAX *UNIT DOSE* 17GM PACKET PO SCH (08:19)
[2019-05-20] MEDS: SENOKOT S TAB PO SCH (08:20)
[2019-05-20] MEDS: PREGABALIN 100 MG CAP (LYRICA) PO SCH (08:20)
[2019-05-20] MEDS: ATORVASTATIN 20 MG TAB PO SCH (08:20)
[2019-05-20] MEDS: DOXYCYCLINE HYCLATE 100 MG TAB PO SCH (08:20)
[2019-05-20] MEDS: HumaLOG INSULIN (NovoLOG) PER UNIT SC SCH ×2 (08:20→11:45)
[2019-05-20 14:35] LABS: CA 125 16.3 U/ML (<30.2)
--- NOTE | 2019-05-20 20:01 | IPNPDOC ---
Text Note Date of Service The patient was seen on 05/20/19. NOTE This is a 48-year-old female admitted with intractable pain and endometrial carcinosarcoma stage IV. Brief physical exam: HENT: Neck is supple, mild scleral injection, moist oral mucosa, significant alopecia Chest Exam: Shallow diminished sounds Heart Exam: Regular rate and rhythm with a normal S1 and S2 Abdomen Exam: Soft, distended, obese, mild tenderness elicited Extremity Exam: Pedal pulses bilaterally palpable This is a 48-year-old female with intractable pain due to endometrial carcinoma sarcoma, stage IV. Plans had been for her to be discharged to home yesterday. Her discharge was held due to the fact that her insurance company required prior authorization of her pain medications per home--these were extended release morphine and immediate release oxycodone. 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 VS,Fishbone, I+O VS, Fishbone, I+O Vital Signs Date Time Temp Pulse Resp B/P (MAP) Pulse Ox O2 Delivery O2 Flow Rate FiO2 05/20/19 11:04 18 05/20/19 06:00 96.9 84 139/80 (99) 93 I&O- Last 24 Hours up to 6 AM 05/20/19 05:59 Intake Total 1800 ml Output Total 0 ml Balance 1800 ml GITA BHAKTA MD May 20, 2019 20:01
== END 2019-05-20 12:23 | disposition home or self-care (01) | DRG 861 ==
LOC: M ED 20:29 → M ED INP 20:30 → M MSPAV 05-12 04:02 → OBSVTOIN 05-12 12:06
PROVIDERS: ADMIT Internal Medicine; ATTEND Hospitalist
DX: G89.3 Neoplasm related pain (acute) (chronic) (principal); R65.10 Systemic inflammatory response syndrome (SIRS) of non-infectious origin without acute organ dysfunction; E87.2 Acidosis; E11.42 Type 2 diabetes mellitus with diabetic polyneuropathy; C78.02 Secondary malignant neoplasm of left lung; E11.65 Type 2 diabetes mellitus with hyperglycemia; E83.42 Hypomagnesemia; G62.0 Drug-induced polyneuropathy; D64.9 Anemia, unspecified; N39.0 Urinary tract infection, site not specified; B95.1 Streptococcus, group B, as the cause of diseases classified elsewhere; I10 Essential (primary) hypertension; G40.909 Epilepsy, unspecified, not intractable, without status epilepticus; E78.00 Pure hypercholesterolemia, unspecified; E87.6 Hypokalemia; E66.9 Obesity, unspecified; C54.1 Malignant neoplasm of endometrium; Z79.4 Long term (current) use of insulin; Z79.899 Other long term (current) drug therapy; Z88.6 Allergy status to analgesic agent; K59.00 Constipation, unspecified; Z68.36 Body mass index [BMI] 36.0-36.9, adult

== ENCOUNTER 2019-05-23 08:03 | Inpatient (IN) | payer OTHER ==
[~2019-05-23] VITALS: Ht 157.5 cm; Wt 91.2 kg
[~2019-05-23 08:03] MED LIST changes: +DOXY-350 PO; +MIRA3350 PO; +MOM30SS2 PO; +MORP-69 PO; +MORP30TASA PO; +MYLASSUD PO; +OXYC-517 PO; +PEG1POW PO; +PREG100CA PO
[2019-05-23] MEDS ORDERED: NEUR300C PO (10:20)
[2019-05-23] MEDS ORDERED: NEUR400C PO (10:20)
[2019-05-23] MEDS ORDERED: NS 1,000 ML IV ONE (10:45)
[2019-05-23] MEDS ORDERED: ONDANSETRON 4MG/2ML VIAL (J2405) IV ONE (10:45)
[2019-05-23] MEDS: MORPHINE 4 MG/ML 1ML VIAL/SYRINGE (J2270) IV PRN ×6 (10:52→21:43)
[2019-05-23 11:01] LABS: BASO % 0.2 % (0.0-1.0); HEMATOCRIT 34.5 % (36.0-47.0); HEMOGLOBIN 10.5 g/dl (12.0-15.5); LYMPH # 1.3 10^3/uL (1.5-4.5); LYMPH % 21.1 % (24.0-44.0); MEAN CORPUSCULAR HEMOGLOBIN 30.3 pg (27.0-33.0); MEAN CORPUSCULAR HGB CONC 30.4 g/dl (32.0-36.5); MEAN CORPUSCULAR VOLUME 99.4 fl (80.0-96.0); MONO # 0.5 10^3/uL (0.0-0.8); MONO % 7.7 % (0.0-5.0); NEUTROPHILS # 4.3 10^3/uL (1.8-7.7); NEUTROPHILS % 70.8 % (36.0-66.0); PLATELET COUNT, AUTOMATED 285 10^3/uL (150-450); RED BLOOD COUNT 3.47 10^6/uL (4.00-5.40); WHITE BLOOD COUNT 6.1 10^3/uL (4.0-10.0)
[2019-05-23] MEDS ORDERED: ISOVUE-370 76% 100ML VIAL (Q9967) As Ordered ONE (11:04)
[2019-05-23 11:38] LABS: ALT/SGPT 15 U/L (12-78); BILIRUBIN,DIRECT < 0.1 MG/DL (0.0-0.2); BILIRUBIN,TOTAL 0.4 MG/DL (0.2-1.0); LIPASE 34 U/L (73-393); TOTAL PROTEIN 6.4 GM/DL (6.4-8.2)
--- NOTE | 2019-05-23 14:56 | REP ---
CT ABDOMEN AND PELVIS WITH IV CONTRAST ONLY: 05/23/2019. Comparison: CT without contrast 05/16/2019, contrast CT 03/08/2019. Clinical history: Hematuria, pelvic pain, inability to void. Prior hysterectomy, history of lung and cervical carcinoma. Technique: Bolus of 100 mL Isovue 370 scanning through the abdomen and pelvis with coronal and sagittal reconstructions as well as delayed axial images and reconstructions. 3-D surface renderings for urogram also provided. Findings: CT abdomen: The lung bases show a 17 mm nodule in the right middle lobe where previously 5 mm nodule on 03/08/2019 noted. There is a new 11 mm nodule in the posterior basal segment of the left lower lobe since 03/08/2019 exam. Some periaortic nodes are present at the level of the lower pole of the left kidney. No pleural effusion. Heart not enlarged. No pericardial thickening or effusion. No hepatomegaly, splenomegaly, focal hepatic or splenic mass nor intrahepatic biliary dilatation. Gallbladder without calcified stone or mass. Pancreas without any acute abnormality. Adrenal glands normal. Small bowel loops intact. Abdominal portion of the colon shows no sign of colitis or diverticulitis. Minor stranding along the peroneal gutter on the right more than left. A retrocecal appendix is seen ascending on that right side. Diameters up to 9 mm, similar to the previous study. Kidneys show symmetric enhancement without mass, cyst, stone or hydronephrosis. No perinephric edema. Adrenal glands normal. Some periaortic nodes present at the level of the lower pole of the left kidney. Small bowel loops in the upper abdomen unremarkable. Colon in the abdomen proper unremarkable. No ventral or umbilical hernia. Bone windows show degenerative changes thoracic endplates and minor facet arthropathy lower lumbar spine without compression deformity of destructive lesion. Visualized ribs intact. Lung window review shows no perforation or free air in the abdomen or pelvis. CT pelvis: The sacrum, pelvis, hips and SI joints show only minimal degenerative change without destructive lesion or fracture in the midline pelvis. There is an entirely new finding since 03/08/2019 but is visible on the examination 1 week ago. By my measurement, maximum diameter last week was 9.5 cm. It is now 10.8 x 8.2 by 8.8 cm. It has an irregular somewhat lobulated contour and some stranding in the fat adjacent to it. It abuts the distal sigmoid colon and the vaginal cuff from the recent hysterectomy. It also abuts the posterior margin of the bladder and appears to extend down to the vaginal fornix. Some scattered pelvic nodes and stranding in the pelvic fat is seen. The mass abuts and displaces the bladder somewhat anteriorly. It could certainly effect the bladder emptying. There are stable chronic postoperative changes in the perineum dating back to 03/08/2019. No other change. Impression: 1. Recurrent mass in the central pelvis at the vaginal cuff extending to the vaginal fornix with maximum diameters 10.8 x 8.2 x 8.8 cm increased from last week's examination some adenopathy and stranding in the fat noted. 2. No ascites or abscess but some stranding in the peroneal gutter on the right and a retrocecal appendix extending vertically unchanged in appearance from last two examinations. 3. No upper abdominal mass, but some periaortic small nodes present on the left at the level of the lower pole of the left kidney. 4. No hydronephrosis or hydroureter. Bladder with mass effect from the recurrent pelvic lesion displacing the bladder anteriorly and compressing it which could effect bladder outflow. Chronic postoperative changes in the perineum are stable. Electronically Signed by Jake Marquez MD 05/23/2019 03:10 P
[2019-05-23] MEDS ORDERED: GABA-843 PO (15:47)
[2019-05-23] MEDS ORDERED: PROCHLORPERAZINE 5 MG TAB (S0183) PO PRN (16:30)
[2019-05-23] MEDS ORDERED: ONDANSETRON 4 MG TAB (S0181) PO PRN (16:30)
[2019-05-23] MEDS ORDERED: MIRALAX *UNIT DOSE* 17GM PACKET PO PRN (16:30)
[2019-05-23] MEDS ORDERED: DEXTROSE 50% 50 ML SYRINGE IV PRN (16:30)
[2019-05-23] MEDS ORDERED: GLUCAGON FOR INJ 1 MG VIAL (J1610) SC PRN (16:30)
[2019-05-23] MEDS ORDERED: GLUCOSE 4 GM CHEW TABLET PO PRN (16:30)
[2019-05-23] MEDS ORDERED: MAALOX 30 ML SUSP *UDC PO PRN (16:30)
[2019-05-23] MEDS: HumaLOG INSULIN (NovoLOG) PER UNIT SC SCH ×2 (17:30→20:44)
[2019-05-23] MEDS: metFORMIN (GLUCOPHAGE) 1000 MG TABLET PO SCH (18:00)
--- NOTE | 2019-05-23 19:12 | HPEPDOC ---
General Date of Admission May 23, 2019 at 16:17 Date of Service: May 23, 2019 Chief Complaint The patient is a 48-year-old female admitted with a reason for visit of Carcinosarcoma Of Endometrium Intractable Pain. Source: Patient, Old records Exam Limitations: No limitations Timing/Duration: Day(s), Getting worse Severity: Severe Associated Symptoms: Other (increasing inability to urinate well) Home Medications Scheduled Atorvastatin Calcium (Atorvastatin Calcium) 80 Mg Tab, 80 MG PO DAILY, (Reported) Gabapentin (Neurontin) 300 Mg Capsule, 900 MG PO DAILY, (Reported) Gabapentin (Gabapentin) 300 Mg Capsule, 1,200 MG PO QHS, (Reported) Insulin Glargine,Hum.rec.anlog (Basaglar Kwikpen U-100) 100 Unit/Ml Inj, 32 UNIT SC QHS, (Reported) Metformin HCl (Metformin HCl) 1,000 Mg Tablet, 1,000 MG PO BID, (Reported) Morphine Sulfate (Morphine Sulfate ER) 15 Mg Tablet.er, 30 MG PO TID Pregabalin (Lyrica) 100 Mg Capsule, 200 MG PO BID Sennosides (Senna) 8.6 Mg Tablet, 8.6 MG PO QHS, (Reported) Scheduled PRN Aluminum/Magnesium/Simeth (Mag-Al Plus Suspension) 30 Ml Oral.susp, 30 ML PO DAILY PRN for DYSPEPSIA Diphenoxylate HCl/Atropine (Lomotil 2.5-0.025 mg Tablet) 1 Each Tablet, 1 TAB PO QID PRN for DIARRHEA, (Reported) Magnesium Hydroxide (Milk of Magnesia) 400 Mg/5 Ml Oral.susp, 30 ML PO Q6HP PRN for CONSTIPATION Ondansetron HCl (Ondansetron HCl) 8 Mg Tablet, 8 MG PO Q6H PRN for NAUSEA OR VOMITING, (Reported) Oxycodone HCl (Oxycodone HCl) 5 Mg Tablet, 15 MG PO Q4HP PRN for MODERATE/SEVERE PAIN (PS 5-10) Polyethylene Glycol 3350 (Miralax) 119 Gm Powder, 17 GM PO DAILY PRN for CONSTIP ATION, (Reported) Prochlorperazine (Prochlorperazine Maleate) 5 Mg Tablet, 5 MG PO Q8H PRN for NAUSEA OR VOMITING, (Reported) Allergies Coded Allergies: naproxen (Verified Adverse Reaction, Mild, GI UPSET, 04/27/19) Past Medical History Medical History Bnj-[id number]-[id number] diabetes mellitus, essential hypertension, dyslipidemia, morbid obesity Surgical History Hysterectomy, pelvic tumor resection, perineal abscess incision and drainage, left wrist and right ankle fracture repair Family History Significant Family History: Unable to assess (patient's pain limits conversation) Social History * Smoker: Denies Alcohol: Denies Drugs: denies Recent Travel/Sick Contacts: Denies: Recent travel, Recent sick contacts Psychosocial History: Depression A-FIB/CHADSVASC A-FIB History Current/History of A-Fib/PAF?: No Current PO Anticoag Therapy: No Physical Examination General Exam: Positive: Alert, Moderate Distress, Other (alopecia) Eye Exam: Positive: PERRLA, Conjunctiva & lids normal, EOMI ENT Exam: Positive: Atraumatic, Mucous membr. moist/pink, Nares Patent Neck Exam: Positive: Supple; Negative: JVD, thyromegaly Chest Exam: Positive: Clear to auscultation, Normal air movement Heart Exam: Positive: Rate Normal, Regular Rhythm, Normal S1, Normal S2; Negative: Murmurs, Rubs Abdomen Exam: Positive: Normal bowel sounds, Soft, Tenderness (remarkable tenderness to lower abdomen, notable distention); Negative: Hepatospenomegaly Extremity Exam: Positive: Normal pulses, Tenderness, Swelling Skin Exam: Positive: Nl turgor and temperature; Negative: Breakdown, Lesion Neuro Exam: Positive: Normal Speech, Normal Tone, Cranial Nerves 3-12 NL Psych Exam: Positive: Oriented x 3, Other (depressed affect) Vital Signs Vital Signs Date Time Temp Pulse Resp B/P (MAP) Pulse Ox O2 Delivery O2 Flow Rate FiO2 05/23/19 17:40 16 95 05/23/19 17:39 97.9 102 138/82 (100) Room Air Laboratory Data Labs 24H Laboratory Tests 2 05/23/19 08:39: Urine Color YELLOW, Urine Appearance HAZY, Urine pH 5.0, Urine Specific Caspar 1.030, Urine Protein NEGATIVE, Urine Glucose (UA) 3+H, Urine Ketones TRACEH, Urine Blood NEGATIVE, Urine Nitrite NEGATIVE, Urine Bilirubin NEGATIVE, Urine Urobilinogen 0.2, Urine Leukocyte Esterase NEGATIVE, Urine WBC (Auto) 2, Urine RBC (Auto) 8H, Urine Hyaline Casts (Auto) 0, Urine Bacteria (Auto) NEGATIVE, Urine Squamous Epithelial Cells 11, Urine Mucus (Auto) SMALL, Urine Sperm (Auto) 05/23/19 10:38: Immature Granulocyte % (Auto) 0.2, White Blood Count 6.1, Red Blood Count 3.47L, Hemoglobin 10.5L, Hematocrit 34.5L, Mean Corpuscular Volume 99.4H, Mean Corpuscular Hemoglobin 30.3, Mean Corpuscular Hemoglobin Concent 30.4L, Red Cell Distribution Width 18.4H, Platelet Count 285, Neutrophils (%) (Auto) 70.8H, Lymphocytes (%) (Auto) 21.1L, Monocytes (%) (Auto) 7.7H, Eosinophils (%) (Auto) 0.0, Basophils (%) (Auto) 0.2, Neutrophils # (Auto) 4.3, Lymphocytes # (Auto) 1.3L, Monocytes # (Auto) 0.5, Eosinophils # (Auto) 0.0, Basophils # (Auto) 0.0, Nucleated Red Blood Cells % (auto) 0.0, Aspartate Amino Transf (AST/SGOT) 19, Alanine Aminotransferase (ALT/SGPT) 15, Alkaline Phosphatase 84, Total Bilirubin 0.4, Direct Bilirubin < 0.1, Total Protein 6.4, Albumin 3.0L, Albumin/Globulin Ratio 0.88L, Lipase 34L 05/23/19 10:54: POC Glucose (Misc Panel) 193H, POC Sodium (Misc Panel) 142, POC Potassium (Misc Panel) 4.1, POC Chloride (Misc Panel) 101, POC Total CO2 (Misc Panel) 29.0H, POC Blood Urea Nitrogen (Misc Panel 14, POC Ionized Calcium (Misc Panel) 4.6, POC Creatinine (Misc Panel) 0.4L, POC Hematocrit (Misc Panel) 33.0L 05/23/19 17:49: Bedside Glucose (Misc Panel) 175H CBC/BMP Laboratory Tests 05/23/19 10:38 Red Blood Count 3.47 L, Mean Corpuscular Volume 99.4 H, Mean Corpuscular Hemoglobin 30.3, Mean Corpuscular Hemoglobin Concent 30.4 L, Red Cell Distribution Width 18.4 H, Neutrophils (%) (Auto) 70.8 H, Lymphocytes (%) (Auto) 21.1 L, Monocytes (%) (Auto) 7.7 H, Eosinophils (%) (Auto) 0.0, Basophils (%) (Auto) 0.2, Neutrophils # (Auto) 4.3, Lymphocytes # (Auto) 1.3 L, Monocytes # (Auto) 0.5, Eosinophils # (Auto) 0.0, Basophils # (Auto) 0.0 Assessment/Plan Intractable pain. The patient is readmitted with intractable pain. At discharge she had been placed on oral extended release morphine and immediate release oxycodone. She has not found this to be effective. Additional medication that does work for her is Lyrica. This is apparently not covered by her insurance. Neurontin was given as an alternative and this does not work well for her. Initial plans are to reinstitute pain control; we will use IV morphine and oral immediate release oxycodone for now. We will also restore Lyrica at her last known dosage. Decreased urination function. The patient reports difficulty urinating, stating that she has to "force" it. CT scan shows presence of a recurrent mass in the central pelvis that is 10.8 cm that is displacing the bladder anteriorly and compressing it. Concern is raised for bladder outflow obstruction. Plans are to place Mccarthy catheter for drainage. Plan / VTE VTE Prophylaxis Ordered?: Yes Plan / Urinary Catheter Urinary Catheter: Place Mccarthy Reason for insertion/continuin: Acute obstruct/retention Plan Diet: Continue Current Activity: Continue Current Medications: Increase Pain Meds Diagnostics: Check Labs Anticipated Discharge: Home Advanced Directives: Health Care Proxy (HCP) (conversation with the patient is limited due to pain. She is not able to identify healthcare proxy at this time. She also is not able to have a discussion of CODE STATUS. Her advanced directives. She is wanting to speak with her oncologist and wait for her PET scan.) GITA BHAKTA MD May 23, 2019 19:12
[2019-05-23] MEDS: oxyCODONE 5MG TAB PO PRN (19:53)
[2019-05-23] MEDS: PREGABALIN 100 MG CAP (LYRICA) PO SCH (20:44)
[2019-05-23] MEDS: LEVEMIR (INSULIN DETEMIR) 1 UNITS/0.01ML SC SCH (20:44)
[2019-05-23] MEDS: SENNA 8.6 MG TAB (SENOKOT) PO SCH (20:44)
[2019-05-23 22:00] VITALS: BP 145/90
[2019-05-24] MEDS: oxyCODONE 5MG TAB PO PRN ×5 (01:54→21:41)
[2019-05-24] MEDS: MORPHINE 4 MG/ML 1ML VIAL/SYRINGE (J2270) IV PRN ×5 (05:35→21:41)
[2019-05-24 06:00] VITALS: BP 130/76
[2019-05-24 06:24] LABS: HEMATOCRIT 30.5 % (36.0-47.0); HEMOGLOBIN 9.4 g/dl (12.0-15.5); MEAN CORPUSCULAR HEMOGLOBIN 29.8 pg (27.0-33.0); MEAN CORPUSCULAR HGB CONC 30.8 g/dl (32.0-36.5); MEAN CORPUSCULAR VOLUME 96.8 fl (80.0-96.0); PLATELET COUNT, AUTOMATED 341 10^3/uL (150-450); RED BLOOD COUNT 3.15 10^6/uL (4.00-5.40); WHITE BLOOD COUNT 4.8 10^3/uL (4.0-10.0)
[2019-05-24 06:50] LABS: BLOOD UREA NITROGEN 12 MG/DL (7-18); CARBON DIOXIDE LEVEL 32 MEQ/L (21-32); CHLORIDE LEVEL 107 MEQ/L (98-107); CREATININE FOR GFR 0.43 MG/DL (0.55-1.30); GLOMERULAR FILTRATION RATE > 60.0 (>58); GLUCOSE, FASTING 151 MG/DL (70-100); POTASSIUM SERUM 4.3 MEQ/L (3.5-5.1); SODIUM LEVEL 143 MEQ/L (136-145)
[2019-05-24] MEDS: PREGABALIN 100 MG CAP (LYRICA) PO SCH ×2 (08:18→21:03)
[2019-05-24] MEDS: ATORVASTATIN 20 MG TAB PO SCH (08:18)
[2019-05-24] MEDS: metFORMIN (GLUCOPHAGE) 1000 MG TABLET PO SCH ×3 (08:19→17:40)
[2019-05-24] MEDS: ENOXAPARIN 40 MG/0.4 ML SYRINGE (J1650) SC SCH ×2 (08:19→08:28)
[2019-05-24] MEDS: HumaLOG INSULIN (NovoLOG) PER UNIT SC SCH ×4 (08:20→21:04)
[2019-05-24] MEDS: MOM 30ML SUSPENSION UDC PO PRN (08:23)
[2019-05-24] MEDS ORDERED: PREG100CA PO (09:58)
[2019-05-24] MEDS ORDERED: BISACODYL 5 MG TAB PO ONE (12:15)
[2019-05-24 14:00] VITALS: BP 138/83
--- NOTE | 2019-05-24 16:13 | IPNPDOC ---
Text Note Date of Service The patient was seen on 05/24/19. NOTE Ms. Valiente is a 48-year-old female unfortunately readmitted with intractable pain from her stage IV endometrial carcinosarcoma. She had been discharged to home with Percocet and extended release morphine tablets. The other pain medication that is effective for her is Lyrica; this was not covered by her insurance. She has returned with intractable pain and difficulty urinating. Physical exam: HENT: Neck is supple with no adenopathy or thyromegaly. Oral mucosa is moist, patient has significant alopecia. Cardiovascular: shows regular rate and rhythm with no appreciable murmur. Respiratory: Good air movement, slightly diminished at the bases, no active wheezing or cough. Abdomen: is soft, there is moderate central obesity, there is some decreased tenderness to palpation to her lower abdomen, bowel tones remain present. Extremities: Patient has tender swelling to her legs, pedal pulses are otherwise palpable. Neuro exam shows no gross neuromotor or sensory deficit, patient is independently ambulatory in the room ASSESSMENT/PLAN: 1. Intractable pain. The patient is currently receiving IV morphine and oral oxycodone. She is also receiving Lyrica as given with past hospital stay. This has given her much improved pain management. I attempted to send prescription through to her pharmacy for Lyrica; it was not approved by her insurance. Patient has Neurontin as an alternative, but it is not effective for her. 2. Urinary retention. This appears to be mostly mechanical, although narcotics could be contributory. The patient has a mass that is pressing on her bladder displacing it and compressing it. The patient would benefit from Mccarthy catheter placement and we have offered this. She has refused and is asking about other options. She had asked for a diuretic, but we have explained that a diuretic is not going to help with the probable obstructing problem. She has asked about I & O cathing but we have explained to her this is more intrusive than just leaving the catheter in place. Options to include indwelling Mccarthy catheter versus suprapubic catheter versus ileostomy at the extreme. The patient is instead asking about tumor removal. She also wants to try laxatives to see if more bowel movements will help with her urination. We will need to be patient with her. 3. Stage IV endometrial carcinosarcoma. The patient has some enlarging lesions to her lungs in addition to the pelvic lesion adjacent to her bladder. She will need to see her oncologist to determine whether there are any remaining treatment options. VS,Fishbone, I+O VS, Fishbone, I+O Laboratory Tests 05/24/19 06:01 Red Blood Count 3.15 L, Mean Corpuscular Volume 96.8 H, Mean Corpuscular Hemoglobin 29.8, Mean Corpuscular Hemoglobin Concent 30.8 L, Red Cell Distribution Width 18.1 H, Calcium Level 9.0 Vital Signs Date Time Temp Pulse Resp B/P (MAP) Pulse Ox O2 Delivery O2 Flow Rate FiO2 05/24/19 14:51 18 05/24/19 14:00 98.6 116 138/83 (101) 91 05/23/19 17:39 Room Air I&O- Last 24 Hours up to 6 AM 05/24/19 06:00 Intake Total 500 ml Output Total 400 ml Balance 100 ml GITA BHAKTA MD May 24, 2019 16:13
[2019-05-24] MEDS: SENNA 8.6 MG TAB (SENOKOT) PO SCH (21:03)
[2019-05-24] MEDS: LEVEMIR (INSULIN DETEMIR) 1 UNITS/0.01ML SC SCH (21:04)
[2019-05-24 22:00] VITALS: BP 140/77
[2019-05-25] MEDS: MORPHINE 4 MG/ML 1ML VIAL/SYRINGE (J2270) IV PRN ×5 (02:29→21:03)
[2019-05-25] MEDS: oxyCODONE 5MG TAB PO PRN ×5 (02:30→21:02)
[2019-05-25 06:00] VITALS: BP 158/86
[2019-05-25] MEDS: ENOXAPARIN 40 MG/0.4 ML SYRINGE (J1650) SC SCH ×2 (07:46→09:00)
[2019-05-25] MEDS: PREGABALIN 100 MG CAP (LYRICA) PO SCH ×2 (07:47→21:02)
[2019-05-25] MEDS: metFORMIN (GLUCOPHAGE) 1000 MG TABLET PO SCH ×2 (07:48→18:57)
[2019-05-25] MEDS: HumaLOG INSULIN (NovoLOG) PER UNIT SC SCH ×4 (07:49→21:37)
[2019-05-25] MEDS: ATORVASTATIN 20 MG TAB PO SCH (07:49)
[2019-05-25] MEDS ORDERED: LORazepam 2 MG/ML VIAL (J2060) IV ONE (11:30)
--- NOTE | 2019-05-25 13:12 | IPNPDOC ---
Text Note Date of Service The patient was seen on 05/25/19. NOTE Ms. Valiente is increasingly uncomfortable today. She is now complaining of bladder pain and distention. The patient has underlying stage IV endometrial carcinosarcoma. She has been found to have a new mass lesion pressing on her bladder. She has had difficulty urinating as a result. Patient has been shown copies of her images and imaging reports in an effort to improve her understanding. Physical exam: HENT: Neck is supple with no adenopathy or thyromegaly. Oral mucosa is moist, patient has significant alopecia. Cardiovascular: shows regular rate and rhythm with no appreciable murmur. Respiratory: Good air movement, slightly diminished at the bases, no active wheezing or cough. Abdomen: is soft, there is moderate central obesity, there is some increased ten derness to palpation to her lower abdomen with some distention, bowel tones remain present. Extremities: Patient has tender swelling to her legs, pedal pulses are otherwise palpable. Neuro: shows no gross neuromotor or sensory deficit, patient is independently ambulatory in the room Psych: At times exhibits impaired cognition, judgment, insight ASSESSMENT/PLAN: 1. Intractable pain. The patient is currently receiving IV morphine and oral oxycodone. She is also receiving Lyrica as given with past hospital stay. This has given her much improved pain management. I attempted to send prescription through to her pharmacy for Lyrica; it was not approved by her insurance. Patient has Neurontin as an alternative, but it is not effective for her. 2. Urinary retention. This appears to be mostly mechanical, although narcotics could be contributory. The patient has a mass that is pressing on her bladder displacing it and compressing it. Patient has had retained urine due to incomplete voiding greater than 300 mL. The patient would benefit from Mccarthy catheter placement. The patient has finally agreed to this after refusing multiple other alternatives. Case has been discussed with the urology service; suprapubic catheter was an option to the patient but is not best per urology; recommendations are that she ultimately have intra-abdominal ablative surgery with subsequent ileal conduit. This will require involvement of an oncologic poultry hatchery laborer-surgeon (Dr. Mobley) who she sees in [place]. The patient is also asking about tumor removal which is also not a likely option. She has also tried laxatives to see if more bowel movements will help with her urination. We will need to be patient with her. 3. Stage IV endometrial carcinosarcoma. The patient has some enlarging lesions to her lungs in addition to the pelvic lesion adjacent to her bladder. She will need to see her oncologist (Alia Sims) to determine whether there are any remaining treatment options. VS,Fishbone, I+O VS, Fishbone, I+O Vital Signs Date Time Temp Pulse Resp B/P (MAP) Pulse Ox O2 Delivery O2 Flow Rate FiO2 05/25/19 12:16 18 05/25/19 06:00 98.0 92 158/86 (110) 96 05/23/19 17:39 Room Air I&O- Last 24 Hours up to 6 AM 05/25/19 06:00 Intake Total 1220 ml Output Total 1900 ml Balance -680 ml GITA BHAKTA MD May 25, 2019 13:12
[2019-05-25 15:17] VITALS: BP 147/80
[2019-05-25] MEDS: MOM 30ML SUSPENSION UDC PO PRN (18:59)
[2019-05-25] MEDS: SENNA 8.6 MG TAB (SENOKOT) PO SCH (21:03)
[2019-05-25] MEDS: LEVEMIR (INSULIN DETEMIR) 1 UNITS/0.01ML SC SCH (21:36)
[2019-05-25 22:00] VITALS: BP 163/88
[2019-05-26] MEDS: MORPHINE 4 MG/ML 1ML VIAL/SYRINGE (J2270) IV PRN ×3 (01:21→09:50)
[2019-05-26] MEDS: oxyCODONE 5MG TAB PO PRN ×4 (01:23→13:00)
[2019-05-26 06:00] VITALS: BP 157/84
[2019-05-26 06:33] LABS: HEMATOCRIT 31.5 % (36.0-47.0); HEMOGLOBIN 9.5 g/dl (12.0-15.5); MEAN CORPUSCULAR HEMOGLOBIN 29.1 pg (27.0-33.0); MEAN CORPUSCULAR HGB CONC 30.2 g/dl (32.0-36.5); MEAN CORPUSCULAR VOLUME 96.3 fl (80.0-96.0); PLATELET COUNT, AUTOMATED 527 10^3/uL (150-450); RED BLOOD COUNT 3.27 10^6/uL (4.00-5.40); WHITE BLOOD COUNT 7.2 10^3/uL (4.0-10.0)
[2019-05-26] MEDS: PREGABALIN 100 MG CAP (LYRICA) PO SCH (08:25)
[2019-05-26] MEDS: ATORVASTATIN 20 MG TAB PO SCH (08:25)
[2019-05-26] MEDS: metFORMIN (GLUCOPHAGE) 1000 MG TABLET PO SCH (08:25)
[2019-05-26] MEDS: ENOXAPARIN 40 MG/0.4 ML SYRINGE (J1650) SC SCH (08:26)
[2019-05-26] MEDS: HumaLOG INSULIN (NovoLOG) PER UNIT SC SCH (08:26)
[2019-05-26] MEDS ORDERED: MAGNESIUM CITRATE 300 ML BTL PO ONE (10:30)
--- NOTE | 2019-05-26 14:31 | DS.PDOC ---
Discharge Summary General Date of Admission May 23, 2019 at 16:17 Date of Discharge 05/26/19 Attending Physician: SALVATORE HAMMER MD Discharge Summary PROCEDURES PERFORMED DURING STAY: None. ADMITTING DIAGNOSES: 1. Intractable pain, urinary retention. DISCHARGE DIAGNOSES: 1. Intractable pain, urinary retention. COMPLICATIONS/CHIEF COMPLAINT: Carcinosarcoma Of Endometrium Intractable Pain. HISTORY OF PRESENT ILLNESS: The patient is a 48-year-old female admitted with a reason for visit of Carcinosarcoma Of Endometrium Intractable Pain.. HOSPITAL COURSE: ENT/PLAN: Intractable pain. The patient is currently receiving IV morphine and oral oxycodone. She is also receiving Lyrica as given with past hospital stay. This has given her much improved pain management. I attempted to send prescription through to her pharmacy for Lyrica; it was not approved by her insurance. Patient has Neurontin as an alternative, and will continue the same as an outpatient once she is dis charged. Urinary retention. This appears to be mostly mechanical, although narcotics could be contributory. The patient has a mass that is pressing on her bladder displacing it and compressing it. Patient has had retained urine due to incomplete voiding greater than 300 mL. The patient would benefit from Mccarthy catheter placement. The patient has finally agreed to this after refusing multiple other alternatives. Case has been discussed with the urology service; suprapubic catheter was an option to the patient but is not best per urology; recommendations are that she ultimately have intra-abdominal ablative surgery with subsequent ileal conduit. This will require involvement of an oncologic odd bundle worker-surgeon (Dr. Mobley) who she sees in [place]. The patient is also asking about tumor removal which is also not a likely option. She has also tried laxatives to see if more bowel movements will help with her urination. We will need to be patient with her. Patient will be discharged home with a Mccarthy catheter and follow with Dr. Sims and the urology as an outpatient Stage IV endometrial carcinosarcoma. The patient has some enlarging lesions to her lungs in addition to the pelvic lesion adjacent to her bladder. She will need to see her oncologist (Alia Sims) to determine whether there are any remaining treatment options. Patient will follow with Dr. johnson. after discharge from this hospital. She is a scheduled to see her today. DISCHARGE MEDICATIONS: Please see below. ALLERGIES: Please see below. PHYSICAL EXAMINATION ON DISCHARGE: VITAL SIGNS: Please see below. GENERAL: Within normal limits HEENT: PERRLA. Extraocular muscles intact NECK: Supple, no JVD, no lymphadenopathy CARDIOVASCULAR EXAMINATION: S1, S2, regular RESPIRATORY EXAMINATION: Clear to A&P ABDOMINAL EXAMINATION: , Soft, nontender, bowel sounds present EXTREMITIES: Clubbing, cyanosis, edema SKIN: Normal NEUROLOGICAL EXAMINATION: . No focal motor sensory deficit PSYCHIATRIC EXAMINATION: Normal LABORATORY DATA: Please see below. IMAGING: None PROGNOSIS: Poor ACTIVITY: As tolerated. DIET: As tolerated DISCHARGE PLAN: [Follow with Dr. Sims an outpatient today DISPOSITION: 01 Home, Self-Care. DISCHARGE INSTRUCTIONS: 1. As per discharge instructions. ITEMS TO FOLLOWUP ON ON OUTPATIENT: 1. Follow Dr. Sims today. DISCHARGE CONDITION: Stable. TIME SPENT ON DISCHARGE: 35 minutes. Vital Signs/I&Os Vital Signs Date Time Temp Pulse Resp B/P (MAP) Pulse Ox O2 Delivery O2 Flow Rate FiO2 05/26/19 13:00 18 05/26/19 06:00 97.8 111 157/84 (108) 92 05/23/19 17:39 Room Air I&O- Last 24 Hours up to 6 AM 05/26/19 05:59 Intake Total 1280 ml Output Total 750 ml Balance 530 ml Laboratory Data Labs 24H Laboratory Tests 2 05/25/19 16:47: Bedside Glucose (Misc Panel) 186H 05/25/19 21:20: Bedside Glucose (Misc Panel) 256H 05/26/19 06:03: Bedside Glucose (Misc Panel) 221H 05/26/19 06:17: Nucleated Red Blood Cells % (auto) 0.0 CBC/BMP Laboratory Tests 05/26/19 06:17 Red Blood Count 3.27 L, Mean Corpuscular Volume 96.3 H, Mean Corpuscular Hemogl obin 29.1, Mean Corpuscular Hemoglobin Concent 30.2 L, Red Cell Distribution Width 18.1 H FSBS Laboratory Tests Test 05/25/19 16:47 05/25/19 21:20 05/26/19 06:03 Range/Units Bedside Glucose (Misc Panel) 186 256 221 70-105 MG/DL Discharge Medications Scheduled Atorvastatin Calcium (Atorvastatin Calcium) 80 Mg Tab, 80 MG PO DAILY, (Reported) Gabapentin (Neurontin) 300 Mg Capsule, 900 MG PO DAILY, (Reported) Gabapentin (Gabapentin) 300 Mg Capsule, 1,200 MG PO QHS, (Reported) Insulin Glargine,Hum.rec.anlog (Basaglar Kwikpen U-100) 100 Unit/Ml Inj, 32 UNIT SC QHS, (Reported) Metformin HCl (Metformin HCl) 1,000 Mg Tablet, 1,000 MG PO BID, (Reported) Morphine Sulfate (Morphine Sulfate ER) 15 Mg Tablet.er, 30 MG PO TID Sennosides (Senna) 8.6 Mg Tablet, 8.6 MG PO QHS, (Reported) Scheduled PRN Aluminum/Magnesium/Simeth (Mag-Al Plus Suspension) 30 Ml Oral.susp, 30 ML PO DAILY PRN for DYSPEPSIA Diphenoxylate HCl/Atropine (Lomotil 2.5-0.025 mg Tablet) 1 Each Tablet, 1 TAB PO QID PRN for DIARRHEA, (Reported) Magnesium Hydroxide (Milk of Magnesia) 400 Mg/5 Ml Oral.susp, 30 ML PO Q6HP PRN for CONSTIPATION Ondansetron HCl (Ondansetron HCl) 8 Mg Tablet, 8 MG PO Q6H PRN for NAUSEA OR VOMITING, (Reported) Oxycodone HCl (Oxycodone HCl) 5 Mg Tablet, 15 MG PO Q4HP PRN for MODERATE/SEVERE PAIN (PS 5-10) Polyethylene Glycol 3350 (Miralax) 119 Gm Powder, 17 GM PO DAILY PRN for C ONSTIPATION, (Reported) Prochlorperazine (Prochlorperazine Maleate) 5 Mg Tablet, 5 MG PO Q8H PRN for NAUSEA OR VOMITING, (Reported) Allergies Coded Allergies: naproxen (Verified Adverse Reaction, Mild, GI UPSET, 04/27/19) SALVATORE HAMMER MD May 26, 2019 14:31
== END 2019-05-26 13:10 | disposition home or self-care (01) | DRG 861 ==
LOC: M ED 08:03 → M ED INP 16:17 → M MS5PR 18:30
PROVIDERS: ADMIT Internal Medicine; ATTEND Internal Medicine
DX: G89.3 Neoplasm related pain (acute) (chronic) (principal); I10 Essential (primary) hypertension; R33.8 Other retention of urine; E11.9 Type 2 diabetes mellitus without complications; E78.5 Hyperlipidemia, unspecified; C54.1 Malignant neoplasm of endometrium; Z79.4 Long term (current) use of insulin; Z79.899 Other long term (current) drug therapy; Z88.6 Allergy status to analgesic agent

== ENCOUNTER 2019-05-29 07:28 | Outpatient (RCR) | payer OTHER ==
[2018-12-30 11:38] VITALS: BP 146/95
[2018-12-30 12:50] LABS: HEMATOCRIT 38.8 % (36.0-47.0); HEMOGLOBIN 12.1 g/dl (12.0-15.5); LYMPH % 28.2 % (24.0-44.0); MEAN CORPUSCULAR HEMOGLOBIN 23.5 pg (27.0-33.0); MEAN CORPUSCULAR HGB CONC 31.2 g/dl (32.0-36.5); MEAN CORPUSCULAR VOLUME 75.5 fl (80.0-96.0); NEUTROPHILS # 7.8 10^3/uL (1.8-7.7); NEUTROPHILS % 64.1 % (36.0-66.0); RED BLOOD COUNT 5.14 10^6/uL (4.00-5.40); WHITE BLOOD COUNT 12.2 10^3/uL (4.0-10.0)
[2018-12-30 13:25] LABS: ALBUMIN 4.1 GM/DL (3.5-5.2); BLOOD UREA NITROGEN 24 MG/DL (6-20); CALCIUM LEVEL 9.8 MG/DL (8.5-10.2); CARBON DIOXIDE LEVEL 28 MEQ/L (23-31); CHLORIDE LEVEL 97 MMOL/L (98-107); CREATININE FOR GFR 0.78 MG/DL (0.60-1.10); GLOMERULAR FILTRATION RATE > 60.0 (>58); GLUCOSE, FASTING 264 MG/DL (70-105); POTASSIUM SERUM 4.5 MMOL/L (3.5-5.1); SODIUM LEVEL 135 MMOL/L (136-145); TOTAL PROTEIN 7.4 GM/DL (6.4-8.3)
[2018-12-30 13:33] LABS: PERCENT SATURATION 5.8 % (13.2-45.0)
[2018-12-31 10:56] LABS: CA 125 59.4 U/ML (<30.2)
--- NOTE | 2019-01-06 14:00 | MEDONC ---
MEDICAL ONCOLOGY INITIAL VISIT DATE OF SERVICE: 12/30/2018 Jenise Valiente is a 48-year-old woman with newly diagnosed advanced endometrial carcinosarcoma referred by Dread Mobley MD for postoperative medical oncology management. HISTORY OF PRESENT ILLNESS: At baseline Jenise has type 2 diabetes with some peripheral neuropathy symptoms. 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 In late fall 2017 she developed some vaginal bleeding. This eventually took her to the emergency room October 23. Pelvic ultrasound showed a large uterus, thickened endometrial stripe, ovaries not visualized. The next day, abdomen and pelvis CT showed a 4.7 cm necrotic uterine mass with multiple retroperitoneal nodes. Outpatient follow-up was arranged but on November 08 she returned to the emergency room with crampy abdominal pain, persistent vaginal bleeding. Ultrasound showed an enlarged uterus, thickened endometrium, heterogeneous in quality, again ovaries not well visualized. On November 22, 2018 she underwent exam under anesthesia under Gregorio Stevens DO. Pathology of cervical and endometrial biopsy showed mixed undifferentiated carcinoma 20% involving the cervix, and endometrial FIGO 2 adenocarcinoma 80% involving endometrium, ER strongly positive 70-80%, MI strongly positive 80-90%,. MMR with no deficiency. She was then referred to Dread Mobley and on 12/12/2018 underwent laparoscopic hysterectomy, bilateral salpingo-oophorectomy, pelvic node biopsy washings. Final pathology showed metastatic carcinosarcoma involving a peritoneal biopsy, cervix, uterus, bilateral fallopian tubes and ovaries extensively involved with carcinosarcoma, tumor invading the outer half of the myometrium, tumor involving cervical mucosa and stroma, uterine serosal implants present, LVI present, bilateral parametrial tumor involvement, and a single lymph node excision showing metastatic carcinosarcoma extensively involving one lymph node. Ki-67 was 80%. Pathologic staging thus [id number], stage IVB (of note, T4 based on bladder flap involvement). In follow-up with Dr. Mobley she had laparoscopic incision draining at the umbilicus and was started on antibiotics. Jenise is today accompanied by her and mother and daughter. She has persistent low grade crampy pain. No new vaginal bleeding. Having bowel movements. No new fever or chills. She is quite tired. PAST MEDICAL HISTORY: Type 2 diabetes complicated by diabetic neuropathy on gabapentin. Hypertension. Hypercholesterolemia. PAST SURGICAL HISTORY: 2010 ankle fracture with plate repair. 2004 ulnar fracture and repair. July 2018 and January 2018 buttock abscess. ALLERGIES: No known drug allergies. MEDICATIONS: - acetaminophen 500 mg 2 tablets as needed for pain - atorvastatin 80 mg daily - Basaglar KwikPen 32 units q.h.s. - cephalexin 500 mg q.i.d. - gabapentin 300 mg t.i.d. - hydrochlorothiazide 25 mg daily - ibuprofen 600 mg p.r.n. - metformin 1000 mg b.i.d. SOCIAL HISTORY: Patient is a nonsmoker. Alcohol rare. Works two jobs, , lives in [facility]. FAMILY HISTORY: Paternal grandmother of breast cancer. Maternal grandmother had breast cancer. No family history of colon cancer. REVIEW OF SYSTEMS: Positive for continued though small drainage from the umbilical site, generally feeling fatigued and having some low level abdominal pain. Negative for fever, chills, new urinary symptoms, diarrhea, leg cramping, swelling or asymmetry, shortness of breath, palpitations or chest pain or vaginal bleeding. Remainder of 12 system review negative. PHYSICAL EXAMINATION: Weight 87 kg, height 159 cm, temperature 98.2, blood pressure was 146/95, heart rate 93, respiratory rate 20, O2 sat 97. Patient is a slightly overweight 48-year-old woman, makes good eye contact, slight head tremor. Respiratory: Clear lungs to auscultation bilaterally, anteriorly and posteriorly. Cardiac: S1-S2 regular rate and rhythm. No murmurs or gallops. Abdomen: Soft, mild tenderness without rebound about the umbilicus. No erythema, fluctuance. No obvious drainage at the umbilicus. No hepatomegaly. No splenomegaly. No suprapubic tenderness. Minimal lower abdominal tenderness. No inguinal adenopathy. Extremities: No edema. Lymph nodes: No palpable submandibular, cervical, supraclavicular or axillary adenopathy bilaterally. LABORATORIES: WBC 12, hemoglobin 12, hematocrit 38.8, platelets 571. MCV 75/31/35, potassium 4.5, chloride 97, bicarb 28, BUN 24, creatinine 0.78, GFR normal, glucose 264, normal liver functions, bilirubin, albumin, alk phos, CA-125 59, ferritin 10. IMPRESSION: Jenise Valiente is a 48-year-old woman now status post laparoscopic hysterectomy/bilateral salpingo-oophorectomy, lymph node biopsy and peritoneal biopsy found to have stage IVB, T4N1M1 endometrial carcinosarcoma with high-risk features of lymphovascular invasion, bladder flap invasion, peritoneal involvement, extensive retroperitoneal adenopathy on CT, greater than 50% invasion of myometrium an extensive fallopian tube and ovarian involvement including serosal surface. Postoperatively she has drainage suspicious for an infection for which she was placed empirically on antibiotics. Diabetic peripheral neuropathy on gabapentin. Microcytic anemia with evidence of iron deficiency likely secondary to preoperative menorrhagia. ECOG performance status 1, limited currently by fatigue postoperatively. PLAN: 1. Repeat abdomen and pelvis CT with contrast, assess for persistent fluid collection or abscess. 2. Chest CT with contrast as a staging study, rule out intrathoracic metastases. 3. I will discuss the case with Dr. Mobley in terms of the potential for residual infected fluid. 4. Dr. Mobley had provisionally recommended to Jenise what sounds like weekly chemotherapy. NCCN guidelines currently include q. 21-day carboplatin, paclitaxel, dosed at carboplatin AUC 6, Taxol 175 mg per meter squared for up to seven cycles. However, a recent study demonstrated improved progression free survival with "dose dense" carboplatin and Taxol with weekly Taxol and carboplatin on day 1 on a 28 day cycle with 3/4 weeks of weekly paclitaxel. This is in the adjuvant setting for advanced disease stage III but could be extrapolated. TIME STATEMENT: 65 minutes spent [id number] with the patient and her family, more than 50% involved in counseling regarding the diagnosis, prognosis, treatment options, staging, and answering the patient's questions to their apparent satisfaction, outlining the plan above. Electronically Signed by Alia Sims MD 01/06/2019 05:01 P DD: Alia Sims MD 01/05/2019 01:55 P DT: miki 01/06/2019 01:21 P CC: MD Jay Gonzalez DO Walter Dodard, DO
[2019-01-07 11:40] VITALS: BP 146/96
[2019-01-07 12:54] LABS: HEMATOCRIT 41.6 % (36.0-47.0); LYMPH % 22.4 % (24.0-44.0); MEAN CORPUSCULAR HEMOGLOBIN 23.5 pg (27.0-33.0); MEAN CORPUSCULAR HGB CONC 31.3 g/dl (32.0-36.5); MEAN CORPUSCULAR VOLUME 75.3 fl (80.0-96.0); NEUTROPHILS # 9.7 10^3/uL (1.8-7.7); RED BLOOD COUNT 5.53 10^6/uL (4.00-5.40); WHITE BLOOD COUNT 13.3 10^3/uL (4.0-10.0)
--- NOTE | 2019-01-14 11:39 | MEDONC ---
MEDICAL ONCOLOGY FOLLOWUP DATE OF SERVICE: 01/07/2019 DIAGNOSIS: 1. Stage IVB, T4N1M1, FIGO grade 2 endometrial carcinosarcoma, ER/ND positive, with high-risk features of LVI, bladder invasion, peritoneal studding and retroperitoneal lymphadenopathy, greater than 50% myometrial invasion, extensive ovarian fallopian tube and peritoneal lymph node invasion. Status post laparoscopic TONY-BSO, lymph node biopsy and peritoneal biopsy 12/12/2018 under Dread Mobley. 2. Persistent serous umbilical drainage status post antibiotic course. No evidence of residual abscess on abdomen CT 01/02/2019. INTERVAL HISTORY: Jenise is here with her family again to discuss results of CTs and treatment. Restaging with the CT chest, abdomen and pelvis 01/02/2019 showed bilateral pulmonary nodules close to 1 cm suspicious for metastases in the chest; retroperitoneal and pelvic lymphadenopathy up to 16 mm, postsurgical periumbilical changes without abscess. I recommended PET/CT to complete staging and assess whether lung nodules are truly metastatic, and set baseline for followup restaging and response to treatment. I then discussed treatment with Jenise and her family. After discussing her case with Dr. Mobley he clearly intended for her to have carboplatin/paclitaxel every 21 days as opposed to a dose dense regimen with carboplatin and Taxol day 1 followed by weekly Taxol days 8 and 15. I explained this to Jenise and reviewed the schedule, risks, side effects, potential benefits including but not limited to: alopecia, peripheral neuropathy, myelosuppression including leukopenia and risk of infection, anemia in risk of fatigue and need for transfusion, thrombocytopenia and risk of bleeding and need for transfusion, fatigue/malaise. The need for long-acting G-CSF support with Neulasta based on recent surgery. I answered all of Jenise and her family's questions about chemotherapy and we then signed written informed consent. I conveyed Dr. Mobley's recommendations for warm soaks to the umbilical area as a good means of reducing drainage drawing the fluid out. But no clear evidence of abscess currently. IMPRESSION: Stage IVB, T4T1M1 endometrial carcinosarcoma with extensive organ and peritoneal lymph node involvement, biopsy proven peritoneal sidewall involvement and pulmonary nodules suspicious for distant metastases. ER/ND positive. ECOG performance status 1. Preexisting type 2 diabetes with grade 1 peripheral neuropathy. Persistent small volume serous drainage from laparoscopic umbilicus site. No evidence of abscess on CT. PLAN: 1. PET/CT to complete staging assess pulmonary nodules. 2. Return approximately 10 days to begin palliative carboplatin/paclitaxel every 21 days up to seven cycles. CBC, stat CMP, CA-125 each day 1, clinical exam each day 1. 3. Warm soaks. TIME STATEMENT: 40 minutes spent [id number] with the patient more than 50% involved in counseling regarding palliative chemotherapy, stage IV disease is incurable and the palliative nature of treatment, reviewing risks, benefits, side effects, obtaining written informed consent, and making the plan outlined above. Electronically Signed by Alia Sims MD 01/21/2019 04:22 P DD: Alia Sims MD 01/12/2019 11:05 A DT: joon 01/14/2019 11:27 A CC: MD Jay Gonzalez DO Walter Dodard, DO
[2019-01-16 08:16] VITALS: BP 146/95
[2019-01-16 08:16] LABS: HEMATOCRIT 40.1 % (36.0-47.0); HEMOGLOBIN 12.3 g/dl (12.0-15.5); LYMPH % 18.4 % (24.0-44.0); MEAN CORPUSCULAR HGB CONC 30.7 g/dl (32.0-36.5); MEAN CORPUSCULAR VOLUME 74.9 fl (80.0-96.0); NEUTROPHILS # 9.4 10^3/uL (1.8-7.7); NEUTROPHILS % 76.2 % (36.0-66.0); RED BLOOD COUNT 5.35 10^6/uL (4.00-5.40); WHITE BLOOD COUNT 12.4 10^3/uL (4.0-10.0)
[2019-01-16 08:51] LABS: BLOOD UREA NITROGEN 21 MG/DL (6-20); CALCIUM LEVEL 9.2 MG/DL (8.5-10.2); CARBON DIOXIDE LEVEL 28 MEQ/L (23-31); CHLORIDE LEVEL 100 MMOL/L (98-107); CREATININE FOR GFR 0.79 MG/DL (0.60-1.10); GLOMERULAR FILTRATION RATE > 60.0 (>58); GLUCOSE, FASTING 318 MG/DL (70-105); POTASSIUM SERUM 3.9 MMOL/L (3.5-5.1); SODIUM LEVEL 138 MMOL/L (135-145)
--- NOTE | 2019-01-16 20:02 | MEDONC ---
MEDICAL ONCOLOGY FOLLOWUP / TREATMENT VISIT DATE OF SERVICE: 01/16/2019 DIAGNOSIS 1. 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 Status post laparoscopic TONY-BSO, lymph node biopsy and peritoneal biopsy 12/12/[address] Dread Mobley. 2. Persistent serous umbilical drainage, status post antibiotic course. No evidence of residual abscess on CT abdomen 01/02/2019. INTERVAL HISTORY Jenise presents today for a followup prior to proceeding with day one cycle 1 of carboplatin/ paclitaxel every 21 days per recommendations of Dr. Dread Mobley. Previously reviewed by Dr. Sims was the treatment schedule, risks, side effects, potential benefits, including but not limited to alopecia, peripheral neuropathy, myelosuppression including leukopenia and risk of infection, anemia and risk of fatigue and need for transfusion, thrombocytopenia and risk of bleeding and need for transfusion, fatigue/malaise. The need for long acting GCSF support with Neulasta based on recent surgery. At present, Jenise offers no new complaints. She thinks that the serous umbilical drainage is becoming less. We once again conveyed to her Dr. Mobley's recommendations for warm soaks to the umbilical area as a good means of reducing drainage and drawing the fluid out. Upon inspection of the area today, no clear evidence for infection, no redness, warmth or other drainage. For the purpose to complete staging and to assess whether the patient's lung nodules noted on CT of the chest dated 01/02/2019 showing bilateral pulmonary nodules close to 1 cm, suspicious for metastasis, Jenise is scheduled for a PET/CT scan on 01/28/2019. VITAL SIGNS Weight is 86.7 kg, temperature 98, pulse 100, respirations 20, BP 146/95, O2 sat 96% at rest on room air. Remainder of physical exam deferred. LABORATORY DATA CBC: WBC 12.4, ANC 9.4, RBC 5.35, H and H 12.3, 40.1. Platelets 402. Chemistries and a current CA-125 are pending as of this dictation. IMPRESSION Stage IV B, T4N1M1 endometrial carcinosarcoma with extensive organ and peritoneal lymph node involvement, biopsy proven peritoneal sidewall involvement and pulmonary nodules suspicious for distant metastasis. ER/CO positive. ECOG performance status 1. Preexisting type 2 diabetes with grade 1 peripheral neuropathy. Persistent small volume serous drainage from laparoscopic umbilicus site. No evidence of infection. No evidence of abscess on CT. PLAN 1. Proceed with day one cycle one of palliative carboplatin/paclitaxel today. 2. PET/CT to complete staging, assessing pulmonary nodules scheduled for 01/28/2019. 3. Warm soaks to the umbilical area. 4. Return in 3 weeks for day one cycle 2 palliative carboplatin/paclitaxel with an office visit for physical examination, blood work to include CBC, stat CMP and CA-125. Electronically Signed by Kathy Goldstein NP 01/17/2019 07:17 A Electronically Signed by Alia Sims MD 01/21/2019 04:22 P DD: Kathy Goldstein NP 01/16/2019 10:02 A DT: telma 01/16/2019 07:38 P CC: MD Jay Gonzalez DO Walter Dodard, DO
[2019-02-06 08:15] VITALS: BP 135/88
[2019-02-06 08:21] LABS: HEMATOCRIT 39.4 % (36.0-47.0); HEMOGLOBIN 12.6 g/dl (12.0-15.5); LYMPH % 11.9 % (24.0-44.0); NEUTROPHILS % 83.3 % (36.0-66.0); RED BLOOD COUNT 5.25 10^6/uL (4.00-5.40); WHITE BLOOD COUNT 13.2 10^3/uL (4.0-10.0)
[2019-02-06 08:51] LABS: ALBUMIN 3.7 GM/DL (3.5-5.2); BLOOD UREA NITROGEN 17 MG/DL (6-20); CALCIUM LEVEL 9.4 MG/DL (8.5-10.2); CARBON DIOXIDE LEVEL 28 MEQ/L (23-31); CHLORIDE LEVEL 97 MMOL/L (98-107); CREATININE FOR GFR 0.67 MG/DL (0.60-1.10); GLOMERULAR FILTRATION RATE > 60.0 (>58); GLUCOSE, FASTING 361 MG/DL (70-105); POTASSIUM SERUM 4.4 MMOL/L (3.5-5.1); SODIUM LEVEL 135 MMOL/L (135-145); TOTAL PROTEIN 6.7 GM/DL (6.4-8.3)
--- NOTE | 2019-02-06 23:01 | MEDONCTEEN ---
Telephone Encounter Recd call from patient through the Answering Service around 10:45 pm that she was having severe diarrhoea had 11 loose stools already in the last 5 hours, had taken loperamide, 2 at first and one more 4 hours later with no improvement. Patient has Stage IV Carsinosarcoma endometrial and recd Carboplatin Taxol today. Explained to Mrs. Valiente that neither of these drugs usually give diarrhoea like this. On enquiry, patient has not been on Abx or exposed to anyone with diarrhoea. Has not eaten outside spoilt food or raw eggs. Suggested that Mrs. Valiente go to the ER to be evaluated, and receive IV Fluids, since we would run into renal failure or low potassium at the rate her diarrhoea was occurring. Patient understood the reasoning and agreed to go. Have called the ER and given the patient's brief history to Dr. Armendariz (spelling may be incorrect.) He said he would do the needful. (Mirna ERAZO) Heme/Onc Locums. cc: Dr. Jay Delgado PCP. MICHAEL BULLOCK MD Feb 06, 2019 23:01
--- NOTE | 2019-02-10 10:01 | MEDONC ---
MEDICAL ONCOLOGY FOLLOWUP/TREATMENT VISIT DATE OF SERVICE: 02/06/2019 DIAGNOSIS: 1. Stage IVB, T4N1M1, FIGO grade 2 endometrial carcinosarcoma, ER/[place] positive with high-risk features of LVI, bladder invasion, peritoneal studding, retroperitoneal adenopathy, greater than 50% myometrial invasion, extensive ovarian, fallopian and peritoneal lymph node invasion. Status post laparoscopic TONY-BSO, LND and peritoneal biopsy 12/12/2018 (Dread Mobley MD) pulmonary nodules, non hypermetabolic on PET. 2. Persistent serous umbilical drainage status post antibiotic course. No evidence of residual abscess on CT abdomen 01/02/2019. CURRENT THERAPY: Carboplatin/paclitaxel q. 21 days, day 1, cycle one 01/16/2019. INTERVAL HISTORY: Jenise here for day 1 cycle two carboplatin/Taxol. She reports some "funny feeling" in her hands and feet, arms and legs and some achiness. This is most likely Taxol related, possibly a combination of neuropathy type symptoms and Taxol related myalgias. I cautioned Jenise that Taxol is highly neuropathic. She has underlying diabetes, but Jenise repeatedly asks that there be no dose reduction in the treatment. I warned her, cautioned her carefully and explicitly, about the possible progression of neuropathic symptoms and their possible permanence. She denies any difficulty with zipping, buttons, dexterity, so forth and denies any imbalance problems. She notes persistent umbilical drainage and a "bubble" that appear apparently resolved today. The PET 01/28/2019 showed hypermetabolic retroperitoneal, periaortic lymph nodes, but the known pulmonary nodules are not hypermetabolic. This is good news. REVIEW OF SYSTEMS: Pertinent positives and negatives as noted above. In addition, Jenise denies any new shortness of breath, cough, headache, visual disturbance, ear ringing, dysuria, blood in her urine or stool, blood in the umbilicus, focal weakness and denies numbness in her digits, hand or feet. The remainder of 12 system review negative. PHYSICAL EXAMINATION: Weight 88 kg, temperature 97.5, blood pressure 135/88, heart rate 115, respiratory 24, O2 sat 94%. Patient is an overweight well-groomed middle-aged woman in no distress. RESPIRATORY: Clear lungs to auscultation throughout. No wheezes or rales. CARDIAC: S1-S2, 1/6 systolic murmur. No gallops. ABDOMEN: Soft, nontender, nondistended, no hepatosplenomegaly. Soft, no rebound tenderness. There is clear serous fluid, a minuscule amount, draining from the umbilicus with no visible erythema. No tenderness. No blanching. No warmth. LABORATORY DATA: WBC 13, hemoglobin 12, hematocrit 39, platelets 468, MCV 75. Electrolytes within normal limits. Liver functions normal CA-125 pending. Day 1 cycle one CA-125 was 48. IMPRESSION: Stage IV endometrial carcinosarcoma, ER/[place] positive, MMR stable, diagnosed November 2018 status post TONY-BSO, lymph node biopsy and peritoneal biopsy with extensive peritoneal studding and retroperitoneal adenopathy. No evidence of distant metastases (lung nodules negative for hypermetabolic uptake) ECOG performance status 0. Now on first-line palliative carboplatin/paclitaxel with myalgias and possible grade 1 neuropathy involving hands and feet in the setting of type 2 diabetes. PLAN: 1. Cycle two carboplatin/paclitaxel today. 2. Continue warm soaks to umbilicus and using some times a moist washcloth with heating pad over it to encourage drainage. No evidence of infection. 3. Return in 3 weeks for day 1cycle three. CBC, stat CMP, CA-125 that day. Plan restaging after three cycles of carboplatin/paclitaxel. Consider addition of bevacizumab though with extensive peritoneal involvement higher risk for viscus perforation. Electronically Signed by Alia Sims MD 02/10/2019 05:18 P DD: Alia Sims MD 02/06/2019 10:13 A DT: miki 02/10/2019 09:46 A CC: MD Jay Gonzalez DO
[2019-02-27 08:22] LABS: HEMATOCRIT 40.1 % (36.0-47.0); HEMOGLOBIN 12.7 g/dl (12.0-15.5); LYMPH % 22.9 % (24.0-44.0); MEAN CORPUSCULAR HEMOGLOBIN 24.8 pg (27.0-33.0); MEAN CORPUSCULAR HGB CONC 31.7 g/dl (32.0-36.5); MEAN CORPUSCULAR VOLUME 78.2 fl (80.0-96.0); NEUTROPHILS # 6.5 10^3/uL (1.8-7.7); NEUTROPHILS % 70.8 % (36.0-66.0); RED BLOOD COUNT 5.13 10^6/uL (4.00-5.40); WHITE BLOOD COUNT 9.2 10^3/uL (4.0-10.0)
[2019-02-27 08:26] VITALS: BP 152/94
[2019-02-27 08:38] LABS: ALBUMIN 3.9 GM/DL (3.5-5.2); BLOOD UREA NITROGEN 21 MG/DL (6-20); CALCIUM LEVEL 9.2 MG/DL (8.5-10.2); CARBON DIOXIDE LEVEL 27 MEQ/L (23-31); CHLORIDE LEVEL 98 MMOL/L (98-107); CREATININE FOR GFR 0.74 MG/DL (0.60-1.10); GLOMERULAR FILTRATION RATE > 60.0 (>58); GLUCOSE, FASTING 287 MG/DL (70-105); POTASSIUM SERUM 3.4 MMOL/L (3.5-5.1); SODIUM LEVEL 139 MMOL/L (135-145); TOTAL PROTEIN 6.7 GM/DL (6.4-8.3)
--- NOTE | 2019-02-28 07:59 | MEDONC ---
MEDICAL ONCOLOGY FOLLOWUP/TREATMENT VISIT DATE OF SERVICE: 02/27/2019 DIAGNOSIS: 1. Stage IVB, T4N1M1, FIGO grade 2 endometrial carcinosarcoma, ER/[place] positive with high-risk features of LVI, bladder invasion, peritoneal studding, retroperitoneal adenopathy and greater than 50% myometrial invasion with extensive ovarian and fallopian tube and peritoneal node invasion. Status post laparoscopic TONY-BSO LMD and peritoneal biopsy 12/12/2018 with Dread Mobley MD. Non-hypermetabolic pulmonary nodules but persistent hypermetabolic retroperitoneal adenopathy seen on PET postoperatively 01/28/2019. CURRENT THERAPY: Carboplatin/paclitaxel every 21 days day one cycle one 01/16/2019. The patient is here for day one cycle three. INTERVAL HISTORY: Jenise reports chemo went fairly okay. She has one or two pretty tired days and some body aches after the Neulasta. She took Claritin and it did not seem to help a whole lot. She continues to have serous drainage though low volume from her umbilical area. She is doing warm soaks for this. She denies nausea or vomiting. Her appetite is okay. Her energy is okay. She mowed her lawn but says that the days of surrounding the chemo are a little bit tough. REVIEW OF SYSTEMS: Denies fevers, chills, shaking chills, florid diarrhea, constipation significant abdominal pain, shortness of breath, cough, orthopnea, headache, visual disturbance. As noted above some musculoskeletal pain about day three after chemotherapy, some low grade low abdominal discomfort transitory not progressive. No vaginal bleeding. No rectal bleeding. Remainder of 12 review negative. PHYSICAL EXAMINATION: Weight 87 kg, stable. Temperature 97.8, blood pressure 152/94, heart rate 111, respiratory 20, O2 sat 95%. Patient is an overweight middle aged woman in no distress. Respiratory: Clear lungs to auscultation bilaterally anteriorly and posteriorly. No wheezes or rales. Cardiac: S1/S2 regular rate and rhythm. No murmur. No gallop. Abdomen: Soft, large pannus, non tender. No hepatosplenomegaly appreciable. No palpable mass. No suprapubic tenderness. Extremities: Trace to 1+ bilateral pedal edema. No leg edema. No asymmetry. Lymph nodes: No submandibular, cervical, supraclavicular or axillary adenopathy bilaterally. LABORATORY DATA: WBC 9.2, hemoglobin 12, hematocrit 40, platelets 491, MCV 78, sodium 139, potassium 3.4. Remainder of electrolytes unremarkable. GFR greater than 60, glucose 287. Liver functions normal. Albumin 3.9. CA-125 pending. Prior 55 in January after one cycle of chemotherapy, postoperative CA-125 elevated at 59, recently going down to 48 then up to 55 during cycle one chemo. IMPRESSION: Stage IV endometrial carcinosarcoma ER/[place] positive high-risk MMR stable diagnosed November 2018 status post suboptimal debulking surgery with residual hypermetabolic retroperitoneal adenopathy after surgery and shortly following first cycle of chemotherapy. PLAN: 1. Proceed with cycle three today and restage. It is unclear if Jills CA-125 is a useful marker or whether she is not responding to treatment. 2. Continue warm soaks and warm pads to umbilicus for serous drainage. 3. I counseled Claritin and Tylenol for musculoskeletal pain related to Neulasta, the patient is allergic to naproxen. 4. Restaging CT chest, abdomen and pelvis with by mouth and IV contrast in approximately 2 weeks. 4. Return to clinic 3 weeks for presumptively cycle four carboplatin/Taxol. With CBC, CMP, CA-125. Electronically Signed by Alia Sims MD 02/28/2019 05:16 P DD: Alia Sims MD 02/27/2019 05:48 P DT: joon 02/28/2019 07:31 A CC: MD Jay Gonzalez DO
[2019-03-20 08:26] LABS: HEMATOCRIT 39.5 % (36.0-47.0); HEMOGLOBIN 12.3 g/dl (12.0-15.5); LYMPH % 27.2 % (24.0-44.0); MEAN CORPUSCULAR HEMOGLOBIN 25.4 pg (27.0-33.0); MEAN CORPUSCULAR HGB CONC 31.1 g/dl (32.0-36.5); MEAN CORPUSCULAR VOLUME 81.4 fl (80.0-96.0); NEUTROPHILS # 5.1 10^3/uL (1.8-7.7); NEUTROPHILS % 65.6 % (36.0-66.0); RED BLOOD COUNT 4.85 10^6/uL (4.00-5.40); WHITE BLOOD COUNT 7.7 10^3/uL (4.0-10.0)
[2019-03-20 08:34] VITALS: BP 129/91
[2019-03-20 08:54] LABS: ALBUMIN 4.2 GM/DL (3.5-5.2); BLOOD UREA NITROGEN 15 MG/DL (6-20); CALCIUM LEVEL 9.1 MG/DL (8.5-10.2); CARBON DIOXIDE LEVEL 32 MEQ/L (23-31); CREATININE FOR GFR 0.73 MG/DL (0.60-1.10); GLOMERULAR FILTRATION RATE > 60.0 (>58); GLUCOSE, FASTING 298 MG/DL (70-105); POTASSIUM SERUM 3.5 MMOL/L (3.5-5.1); SODIUM LEVEL 138 MMOL/L (135-145); TOTAL PROTEIN 6.8 GM/DL (6.4-8.3)
[2019-03-20 08:59] LABS: CHLORIDE LEVEL 96 MMOL/L (98-107)
[2019-03-20 09:46] LABS: MAGNESIUM LEVEL 1.8 MG/DL (1.8-2.4)
[2019-03-21 11:30] LABS: CA 125 38.5 U/ML (<30.2)
--- NOTE | 2019-03-21 15:36 | MEDONC ---
MEDICAL ONCOLOGY FOLLOWUP / TREATMENT VISIT DATE OF SERVICE: 03/20/2019 DIAGNOSIS: Stage IV B, T4N1M1 FIGO grade 2 endometrial carcinosarcoma, ER / NE positive with high-risk features of LV I, bladder invasion, peritoneal studding, retroperitoneal adenopathy. Postoperatively, greater than 50% myometrial invasion with extensive ovarian, fallopian tube and peritoneal node invasion. Status post laparoscopic TONY - BSO, LND and peritoneal biopsy 12/12/2018 with Dread Mobley MD, non hypermetabolic pulmonary nodules but persistent hypermetabolic retroperitoneal adenopathy on PET postop 01/28/2019. CURRENT THERAPY: Carboplatin / paclitaxel q. 21 days, day one cycle one 01/16/2019; now status post three cycles. Stable disease versus response following three cycles. INTERVAL HISTORY: Jenise Lopez just spent a week in the hospital after presenting to the emergency room with complaint of fever and total body aches. I do not see fever documented in her vital signs here. She was provisionally started on antibiotics, during admission, WBC count remained within normal limits, there was no neutropenia and no significant thrombocytopenia. She was started on morphine sulfate pain medication under palliative care for body aches. She says that these persist. When I ask her where the aches are she says mostly involving both arms and legs. No clear-cut inspection demonstrated on chest, abdomen or pelvis imaging. No cultures positive. Part of her presentation also included diarrhea. A GI PCR panel was negative. On close questioning, it turns out her diarrhea resolved fairly quickly within a day or two. Meanwhile, she had restaging CT chest, abdomen and pelvis 03/08/2019. The abdomen and pelvis scan showed an area of subcutaneous infection at the umbilicus seen in December, now resolved, a few lymph nodes noted along the aorta, one increased to 1.3 cm and some several small lymph nodes in the right and left groin. A right lower lung field 5 mm nodule decreased in size versus December and for which 6-month followup recommended. Overall, no clear evidence of disease progression and probable evidence of regression though this was not read as a comparison follow up film but rather in response to her abdominal complaints. 01/01/2019 CT showed retroperitoneal and pelvic lymph nodes up to 6 cm no longer clearly present on current imaging. REVIEW OF SYSTEMS: In addition to pertinent positives and negatives above, Jenise notes resolution of her diarrhea, resolution of the drainage from her umbilical incision. Denies shortness of breath, fevers, chills or dysuria since leaving the hospital. Denies active diarrhea, blood in her stool, shortness of breath or chest pain. She does have achiness in her arms, legs, hands and feet. She says this is about the same from when she started her chemotherapy. She says her baseline peripheral neuropathy has not changed. PHYSICAL EXAMINATION: Weight 89 kg, temperature 97.3, blood pressure 129/91, heart rate 99, respiratory 20, O2 sat 95%. Patient is an overweight, youthful, middle aged woman in no distress. Respiratory: Clear lungs to auscultation bilaterally, anterior and posteriorly. No wheezes or rales. Cardiac: S1, S2. Regular rate and rhythm. No murmur nor gallop. Abdomen: Obese, soft, nontender, nondistended, pannus present. No pelvic tenderness to deep palpation. No organomegaly. No evidence of fluctuance or drainage from the umbilical incision no palpable mass. Extremities: Trace pedal edema bilaterally, symmetric. Lymph nodes: No submandibular, cervical, supraclavicular, axillary or inguinal adenopathy bilaterally. LABORATORY DATA: WBC 7.7, hemoglobin 12.3, hematocrit 39.5, platelets 275. Electrolytes overall unremarkable. BUN, creatinine normal. Glucose 298. Liver functions normal. Magnesium 1.8, normal. CA-125 pending. Most recent CA-125 51. 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 No current CT of the chest has been done but evidence of response to treatment clear on abdomen and pelvis CT. 2. Jenise's arm and leg aches and pains are most likely related to chemotherapy and possible exacerbation of her underlying sensory neuropathy, which is multifactorial at this point due to her poorly controlled diabetes of many years and possible effects of Taxol. I recommended strongly 20% dose reduction of the Taxol, keeping carboplatin dose same for the next three cycles and further dose reduction as needed for significant worsening of Taxol related symptoms as these can be irreversible. Jenise was initially upset to think about a reduction in dose, but I convinced that it is common practice and helps preserve quality of life to minimize worsening of peripheral sensory neuropathy. In terms of Jenise's pain, I will contact Elaina Recinos of palliative care service to talk over management of her current pain. Given my strong suspicion this is related to her chemotherapy and neuropathy, modification of current regimen may be needed. PLAN: 1. Cycle four carboplatin / Taxol today with 20% dose reduction of paclitaxel. 2. Return to clinic in 3 weeks for day one cycle five. 3. Current overall plan is to complete a total of six cycles of carboplatin and Taxol and restage with PET and compare this to the January PET. 4. Discussed pain management with Elaina Recinos in light of multifactorial neuropathic component of this pain likely related both to the patient's diabetes and paclitaxel. Electronically Signed by Alia Sims MD 03/21/2019 07:38 P DD: Alia Sims MD 03/20/2019 06:24 P DT: charles 03/21/2019 02:50 P CC: MD Elaina Gonzalez, ST[employer]TER Jay Delgado DO
[2019-04-10 08:24] LABS: HEMATOCRIT 40.9 % (36.0-47.0); HEMOGLOBIN 12.9 g/dl (12.0-15.5); LYMPH % 27.8 % (24.0-44.0); MEAN CORPUSCULAR HGB CONC 31.5 g/dl (32.0-36.5); MEAN CORPUSCULAR VOLUME 85.7 fl (80.0-96.0); NEUTROPHILS # 4.8 10^3/uL (1.8-7.7); NEUTROPHILS % 64.6 % (36.0-66.0); RED BLOOD COUNT 4.77 10^6/uL (4.00-5.40); WHITE BLOOD COUNT 7.4 10^3/uL (4.0-10.0)
[2019-04-10 08:55] LABS: ALBUMIN 3.8 GM/DL (3.5-5.2); BLOOD UREA NITROGEN 12 MG/DL (6-20); CARBON DIOXIDE LEVEL 31 MEQ/L (23-31); CHLORIDE LEVEL 100 MMOL/L (98-107); CREATININE FOR GFR 0.74 MG/DL (0.60-1.10); GLOMERULAR FILTRATION RATE > 60.0 (>58); GLUCOSE, FASTING 246 MG/DL (70-105); SODIUM LEVEL 140 MMOL/L (135-145); TOTAL PROTEIN 6.6 GM/DL (6.4-8.3)
[2019-04-10 08:56] VITALS: BP 139/83
[2019-04-10 09:17] LABS: MAGNESIUM LEVEL 1.6 MG/DL (1.8-2.4)
--- NOTE | 2019-04-10 10:26 | ONC.PHACK ---
CHEMO ADMIN CHECKLIST Order Contains Pt ID: Name, Order on Chemo Order Form?: Yes Order Form Includes ALL: Correct Tx Day, Correct Date, Correct Cycle Number Pt ID on Order form Matches: Pt ID on PHA Label Med on Chemo OrderForm Matches: PHA Label, Med Used for Preparation [facility] Apr 10, 2019 10:26
--- NOTE | 2019-04-10 18:18 | MEDONC ---
MEDICAL ONCOLOGY FOLLOWUP / TREATMENT VISIT DATE OF SERVICE: 04/10/2019 DIAGNOSIS: Stage IVB, T4N1M1 FIGO grade II endometrial carcinosarcoma ER AL positive with high risk features of lymph vascular invasion, bladder invasion, peritoneal studding, retroperitoneal adenopathy. Postoperatively, greater than 50% myometrial invasion with extensive ovarian, fallopian tube and peritoneal node invasion. Status post laparoscopic TONY-BSO, LND and peritoneal biopsy 12/12/[address] Dread Reinoso. Non hypermetabolic pulmonary nodules but persistent hypermetabolic retroperitoneal adenopathy on PET postoperative 01/28/2019. Most recent restaging CT scan of the abdomen and pelvis dated 03/08/2019 showed an area of subcutaneous infection at the umbilicus seen in December, now resolved, a few lymph nodes noted along the aorta, one increased to 1.3 cm and some several small lymph nodes in the right and left groin. A right lower lung field 5 mm nodule decreased in size versus December and for which 6-month followup recommended. Overall, no clear evidence of disease progression and probable evidence of regression though this was not read as a comparison follow up film but rather in response to her abdominal complaints. CURRENT THERAPY: Carboplatin / paclitaxel every 21 days, day one cycle one 01/16/2019, here today for day one cycle five. Stable disease versus response following three cycles. INTERVAL HISTORY: Jenise Lopez returns for a follow-up visit prior to proceeding with day one cycle five. At her most recent office visit on 03/20/2019 and prior to proceeding with day one cycle four of chemotherapy, Taxol was dosed reduced by 20% secondary to possible exacerbation of underlying sensory neuropathy. For pain control, Jenise Lopez has morphine sulfate 15 mg ER tablets averaging 1 every 8 hours. For breakthrough pain, she has oxycodone 5 mg averaging 1 by mouth daily. Jenise Lopez indicates that her narcotic refills are prescribed through her PCP. At present, no new complaints are offered. Jenise specifically denies complaints of headache, visual disturbance, shortness of breath, persistent cough, fevers or chills, nausea or vomiting, diminished appetite unintended weight loss, diarrhea, constipation, new lumps or bumps, rashes or extremity edema. PHYSICAL EXAMINATION: Weight is 89.2 kg, temperature 97.1, pulse 98, respirations 20, BP 139/83, O2 sat 97% at rest on room air. General: Exam reveals a very pleasant white female who is comfortable and in no acute distress. HEENT: No scleral icterus. Oral pharynx, oral mucous membranes normal. Conjunctivae normal. No thyroid enlargement or nodule. No jugular venous distention. Neck supple. Carotid upstrokes 1+, no bruits. Fundi normal bilaterally. RESPIRATORY: Lungs clear bilaterally to auscultation and percussion. No rales, rhonchi, or wheezing. CARDIOVASCULAR: PMI 5th left intercostal space, midline. S1, S2 normal. No S3, S4 or murmurs. Regular rhythm. Femoral, dorsalis pedis pulses 2+ bilaterally. LYMPHATICS: No palpable lymphadenopathy. ABDOMEN: Soft, nontender. Bowel sounds normal. No tenderness, guarding, or rebound. No palpable masses or hepatosplenomegaly. MUSCULOSKELETAL: No focal skeletal tenderness to percussion. No joint swelling, warmth, tenderness, or erythema. SKIN: No rash, ecchymosis, or petechiae. Normal turgor. EXTREMITIES: No edema, clubbing, cyanosis. No thigh or calf tenderness. Normal range of motion. NEUROLOGICAL: No motor or sensory deficits. Cranial nerves intact, no pathological reflexes. MSRs 2+ and symmetrical. Visual honeycutt full to confrontation. Pupils equal, round, reactive to light and accommodation. LABORATORY DATA: WBC 7.4, ANC 4.8, RBC 4.77, H and H 12.9, 40.9 platelets 379. Chemistries are unremarkable with the exception of a nonfasting glucose of 246. Of note, Jenise Lopez's most recent CA-125 antigen was down to 38.5 on 03/20/2019 from a previous value of 51.1 on 02/27/2019. IMPRESSION: Jenise Lopez is a very pleasant 48-year-old female with high-risk metastatic endometrial carcinosarcoma FIGO grade 2, ER AL positive, here today for day one cycle five of treatment. No new complaints offered at this time. PLAN: 1. Day one cycle #5 of carboplatin / Taxol 20% dosed reduced as of 03/20/2019. 2. Return to clinic in 3 weeks for day one cycle six. 3. Current overall plan is to complete a total of six cycles of carboplatin and Taxol and restage with PET and compares this to the January PET. 4. Pain management prescriptions per the patient's PCP. Electronically Signed by Kathy Goldstein NP 04/11/2019 06:54 A DD: Kathy Goldstein NP 04/10/2019 11:34 A DT: rowena 04/10/2019 05:38 P CC:
[2019-05-01 08:24] LABS: HEMATOCRIT 37.9 % (36.0-47.0); LYMPH % 20.4 % (24.0-44.0); MEAN CORPUSCULAR HGB CONC 31.7 g/dl (32.0-36.5); MEAN CORPUSCULAR VOLUME 88.5 fl (80.0-96.0); NEUTROPHILS # 7.5 10^3/uL (1.8-7.7); NEUTROPHILS % 73.1 % (36.0-66.0); RED BLOOD COUNT 4.28 10^6/uL (4.00-5.40); WHITE BLOOD COUNT 10.3 10^3/uL (4.0-10.0)
[2019-05-01 08:27] VITALS: BP 128/84
[2019-05-01 09:20] LABS: ALBUMIN 4.2 GM/DL (3.5-5.2); BLOOD UREA NITROGEN 15 MG/DL (6-20); CARBON DIOXIDE LEVEL 27 MEQ/L (23-31); CHLORIDE LEVEL 98 MMOL/L (98-107); CREATININE FOR GFR 0.65 MG/DL (0.60-1.10); GLOMERULAR FILTRATION RATE > 60.0 (>58); GLUCOSE, FASTING 300 MG/DL (70-105); SODIUM LEVEL 137 MMOL/L (135-145); TOTAL PROTEIN 6.9 GM/DL (6.4-8.3)
--- NOTE | 2019-05-02 08:56 | ONC.PHACK ---
CHEMO ADMIN CHECKLIST Order Contains Pt ID: Name, Order on Chemo Order Form?: Yes Order Form Includes ALL: Correct Tx Day, Correct Date, Correct Cycle Number Pt ID on Order form Matches: Pt ID on PHA Label Med on Chemo OrderForm Matches: PHA Label, Med Used for Preparation [facility] May 02, 2019 08:56
--- NOTE | 2019-05-05 13:29 | MEDONC ---
MEDICAL ONCOLOGY FOLLOWUP AND TREATMENT DATE OF SERVICE: 05/01/2019 DIAGNOSIS: Stage IV B, T4N1M1 FIGO grade 2 endometrial carcinosarcoma, pMMR, ER / FL positive, with high-risk features: LVI, bladder invasion, peritoneal studding, retroperitoneal adenopathy. Status post laparoscopic TONY - BSO, peritoneal biopsy 11/2018. Persistent hypermetabolic retroperitoneal adenopathy on postoperative PET 01/28/2019. 03/08/[address] with subcutaneous infection / umbilicus resolved, a few para-aortic nodes, one 1.3 cm, right lower lung 5 mm nodule, decreased, requiring followup. CURRENT THERAPY: Carboplatin / paclitaxel q. 21 days. Day one cycle one 01/16/2019. Here today for cycle six. Restaging CTs with stable disease versus response after three cycles. INTERVAL HISTORY: Jenise is feeling okay. She has chronic peripheral neuropathy involving her feet but denies that this is any worse. This appears to predate her chemotherapy. She has fairly severe diabetes. The drainage from her umbilicus has stopped. REVIEW OF SYSTEMS: No new fever, chills, headache. Appetite is good. No nausea, vomiting. Complete alopecia. No shortness of breath, cough, chest pain, palpitations. Some slight leg edema, right greater than left, unchanged. The patient says this is chronic and happens in the summer. No vaginal discharge. No diarrhea. PHYSICAL EXAM: Weight 80 kg, temperature 97.1, blood pressure 128/84, heart rate 109, respiratory 18, O2 sat 96%. Patient is an overweight, well-groomed, pleasant 48-year-old woman in no distress. Respiratory: Clear lungs to auscultation bilaterally, anterior and posterior. No wheezes or rales. Cardiac: S1, S2. Regular rate and rhythm. No murmur, rub, or gallop. Abdomen: Soft, nontender, nondistended. Well-healed surgical incision. No umbilical drainage. Well-healed umbilical scar. No tenderness. No rebound. No mass. No distension. Extremities: Trace pedal edema bilaterally. Lymph nodes: No palpable submandibular, cervical, supraclavicular, axillary or inguinal adenopathy bilaterally. LABORATORY DATA: WBC 10.3, hemoglobin 12, hematocrit 38, platelets 212, MCV 88. Electrolytes and liver functions normal. Glucose 300, CA-125 pending. Most recent 25 in late March down from postop 59. IMPRESSION: 1. Stage IV B high risk endometrial carcinosarcoma, ER / FL positive, status post TONY-BSO on adjuvant / palliative carboplatin / paclitaxel, tolerating treatment well with biochemical response and stable to improved CT after three cycles. Here for cycle six treatment. ECOG performance status 0. Grade 1 to 2 peripheral neuropathy. PLAN: 1. Cycle six treatment today. 2. Restaging imaging with PET in approximately 6 weeks. 3. Return to clinic after PET with CBC, CMP, CA-125. For residual disease treatment options include continuing current therapy, vs single-agent carboplatin, vs testing for PDL1 status and possible immunotherapy. Electronically Signed by Alia Sims MD 05/05/2019 03:14 P DD: Alia Sims MD 05/01/2019 05:35 P DT: charles 05/05/2019 01:03 P CC: Jay Delgado DO, PGY-2
[2019-05-26 13:17] VITALS: BP 125/78
--- NOTE | 2019-05-28 11:43 | MEDONC ---
MEDICAL ONCOLOGY FOLLOWUP DATE OF SERVICE: 05/26/2019 DIAGNOSIS: Stage IV B, T4N1M1 FIGO grade 2 endometrial carcinosarcoma, MMR stable, ER/ND positive with high-risk features now with localized recurrence compressing bladder shortly after completing initial palliative post surgery carboplatin/paclitaxel. TREATMENT HISTORY: TONY-BSO, peritoneal biopsy 11/2018. Postoperative 01/28/2019 PET with residual retroperitoneal hypermetabolic adenopathy. Carboplatin/paclitaxel six cycles 01/16/2019 - 05/01/2019. Partial response on interval restaging and decrease in CA-125. INTERVAL HISTORY: Jenise was hospitalized last week presenting with progressive abdominal pain, constipation. Imaging workup with abdomen and pelvis CT 05/23/2019 showed recurrent mass in the central pelvis at the vaginal cuff extending to the vaginal fornix maximum diameter 10.8 x 8.2 x 8.8 cm increased versus 1 week prior. A 17 mm nodule in the right middle lobe previously 5 mm in February, a new 11 mm left lower lobe nodule versus February. No perforation or free air or other evidence of obstruction. The mass in the abdomen and pelvis seen on 05/23/2019 had grown versus 1 week prior. It abutted the sigmoid colon and vaginal cough as well as the posterior margin of the bladder extending into the vaginal fornix with some scattered pelvic nodes. The mass appeared to displace the bladder anteriorly. There is no evidence of hydronephrosis but the patient was struggling with urination. She was discharged with an indwelling Mccarthy catheter. Vascular ultrasound 05/17/2019 was negative for DVT in the right upper extremity but showed complete thrombosis in the proximal right forearm. Discharge medications do not include anticoagulation. They do include oxycodone 5 mg 3 tablets q. 4 hours p.r.n. for moderate to severe pain, morphine sulfate ER 15 mg 2 tablets t.i.d. Jenise complains of persistent pain though under better control. She has constipation and would like a prescription for magnesium citrate. I recommended she by [id number] but carefully hydrate if she is going to use that. I further recommended docusate 100 mg b.i.d. and Senokot up to three times a day. I spoke with Jenise about her disease appearing to be rapidly recurrent even within a month of completing her carboplatin and Taxol to which she has had a partial response. She has high risk endometrial cancer being of the carcinosarcoma variety. This is unfortunately somewhat chemo insensitive and radio insensitive tumor. We talked about the possibility of palliative radiation. During the visit, I spoke with Dr. Reid. He discouraged this as likely to be of low efficacy. I spoke with Jenise about ifosfamide. Given her significant peripheral neuropathy, diabetes and diabetic complications, I would recommend single-agent ifosfamide versus ifosfamide/paclitaxel. I spoke frankly with Jenise about the dire nature of her endometrial cancer given its early and aggressive recurrence. Her visit today was a rapid add-on and I asked for a few days' time to review all images with radiology to make sure this is a definite recurrence as opposed to another process, for example infection. Her CA-125 had dropped in response to chemotherapy and previously was a good marker of disease and was May 15 down from pretreatment 59. Jenise is understandably concerned about her prognosis. Unfortunately, with second line treatment she has an approximate 20% response rate to expect. If minimal or no response to chemotherapy her life expectancy would be on the order of 6 months. Hormone treatment could be tried. She has ER/ND positive disease but with this aggressive local bladder impinging tumor palliation may be minimal. I reviewed risks, benefits of ifosfamide with Jenise including but not limited to peripheral neuropathy, myelosuppression, nausea, vomiting, hemorrhagic cystitis. Written informed consent was signed. IMPRESSION: Chemo resistant/query [place] resistant endometrial carcinosarcoma with early recurrence following six cycles of carboplatin/Taxol. ECOG performance status 1-2, limited by pain. Non deep vein right forearm proximal cephalic vein thrombosis. PLAN: 1. Radiologic review to confirm disease progression in the absence of rise in CA-125. 2. Return to clinic in 2 days. At that point, based on radiology review will go forward with ifosfamide or not as single agent 2000 mg/m2 daily days 1-3 with mesna support. I cautioned Jenise for the potential need for MediPort placement. I cautioned her regarding somewhat a guarded prognosis given the early recurrence of this aggressive tumor. I recommended she contemplate quality of life questions and consider hospice care. 3. Gayle Larsen met with Jenise today to help her with issues related to transportation and home support. TIME STATEMENT: 40 minutes [id number] with the patient more than 50% involving counseling and regarding the issues above, obtaining written informed consent for chemotherapy, answering the patient's questions. Electronically Signed by Alia Sims MD 05/28/2019 05:02 P DD: Alia Sims MD 05/26/2019 05:06 P DT: sandi 05/28/2019 11:09 A CC: Jay Delgado DO, PGY-2
[~2019-05-29] VITALS: Ht 158.8 cm; Wt 91.9 kg
[~2019-05-29 07:28] MED LIST changes: +ACETAMINOPHEN 650 MG PO PO ONE; +CARBOPLATIN IV ONE; +FAMOTIDINE 20 MG IV IV ONE; +FOSAPREPITANT PERIPHERAL LINE 30 MIN INFUSION (PREMIX) IV ONE; +FOSAPREPITANT PERIPHERAL LINE 30 MIN INFUSION IV ONE; +MAG SULF 1GM/100ML (MAG RUN) SINGLE DOSE IV ONE; +NEUR300C PO; +NEUR400C PO; +NS IV ONE; +ONDA8TAB10 PO; -ONDA8TAB7 PO; +PACLITAXEL IV ONE; +PALONOSETRON 250 MCG IV IV ONE; +PEGFILGRASTIM 6 MG/0.6ML SYR (NEULASTA) (J2505 PER 6MG) SC ONE; +PEGFILGRASTIM 6MG/0.6ML ONPRO KIT (J2505 PER 6MG) (FOR ONCOLOGY) SC ONE; +SODIUM CHLORIDE 0.9% INJ 10 ML SYR IV PRN; +dexameTHASONE 10 MG IV IV ONE; +diphenhydrAMINE 50 MG IV IV ONE
[2019-05-29 07:56] VITALS: BP 149/86
[2019-05-29 08:25] LABS: HEMATOCRIT 35.7 % (36.0-47.0); HEMOGLOBIN 11.3 g/dl (12.0-15.5); LYMPH % 19.2 % (24.0-44.0); MEAN CORPUSCULAR HGB CONC 31.7 g/dl (32.0-36.5); MEAN CORPUSCULAR VOLUME 91.6 fl (80.0-96.0); NEUTROPHILS # 6.7 10^3/uL (1.8-7.7); NEUTROPHILS % 73.7 % (36.0-66.0); RED BLOOD COUNT 3.9 10^6/uL (4.00-5.40); WHITE BLOOD COUNT 9.1 10^3/uL (4.0-10.0)
[2019-05-29 08:34] VITALS: BP 124/75
[2019-05-29 08:41] LABS: INR 1.07; PROTHROMBIN TIME 13.6 SECONDS (11.8-14.0)
[2019-05-29 08:42] LABS: PARTIAL THROMBOPLASTIN TIME 31.1 SECONDS (25.0-38.4)
[2019-05-29 08:43] VITALS: BP 124/75
[2019-05-29] MEDS ORDERED: MORPHINE 10 MG/ML 1ML VIAL (J2270) IV ONE (08:45)
--- NOTE | 2019-05-29 08:47 | MEDONC ---
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 Rapid evolution of tumor confirmed in tumor board 04/27/2019. INTERVAL HISTORY: Jenise is here today scheduled to discuss palliative chemotherapy but in fact is in extreme pain and wishes to go on hospice care. We are giving 10 mg morphine IV in the clinic. Labs obtained. I discussed the case with Dr. Pearce. The patient will be sent by [facility] to the emergency room. I have spoken with hospice care requesting they see her as soon as possible. Jenise continues to make urine. She has had no vomiting. She has some nausea but no vomiting. Her lower abdomen is tender, upper epigastric area nontender. No breathing difficulties currently. IMPRESSION: Rapidly progressive high-grade uterine carcinosarcoma chemo refractory extremely poor prognosis. PLAN: 1. Morphine sulfate 10 mg IV. 2. ER referral. 3. Hospice referral a.s.a.p. ( spoke with hospice today). 4. Hospital admission for pain control until hospice arrangements can be made. Electronically Signed by Alia Sims MD 05/29/2019 06:10 P DD: Alia Sims MD 05/29/2019 08:37 A DT: sandi 05/29/2019 08:43 A CC: Jay Delgado DO, PGY-2
[2019-05-29 09:13] LABS: ALBUMIN 3.4 GM/DL (3.5-5.2); BLOOD UREA NITROGEN 9 MG/DL (6-20); CARBON DIOXIDE LEVEL 30 MEQ/L (23-31); CHLORIDE LEVEL 95 MMOL/L (98-107); CREATININE FOR GFR 0.73 MG/DL (0.60-1.10); GLOMERULAR FILTRATION RATE > 60.0 (>58); GLUCOSE, FASTING 246 MG/DL (70-105); SODIUM LEVEL 134 MMOL/L (135-145)
[2019-06-03] MEDS ORDERED: MORP20SO3 PO (10:58)
[2019-06-03] MEDS ORDERED: LORA0.5T5 PO (10:58)
== END 2019-05-29 07:30 | disposition home or self-care (01) ==
LOC: M ONCM 07:28
PROVIDERS: ATTEND Internal Medicine Medical Oncology
DX: C54.1 Malignant neoplasm of endometrium (principal); D64.9 Anemia, unspecified; Z79.899 Other long term (current) drug therapy; E11.9 Type 2 diabetes mellitus without complications; I10 Essential (primary) hypertension; E78.00 Pure hypercholesterolemia, unspecified
CPT/HCPCS: 36415; 80053; 82728; 83550; 83735; 85027; 85610; 85730; 86304; 96367; 96368; 96372; 96374; 96375; 96377; 96413; 96415; 96417; 99205; 99213; 99214; 99215; G0463; J1100; J1200; J1453; J2270; J2469; J2505; J3475; J9045; J9267

== ENCOUNTER 2019-05-29 08:51 | Inpatient (IN) | payer OTHER ==
[~2019-05-29] VITALS: Ht 157.5 cm; Wt 109.8 kg
[~2019-05-29 08:51] MED LIST changes: -ACETAMINOPHEN 650 MG PO PO ONE; -CARBOPLATIN IV ONE; -FAMOTIDINE 20 MG IV IV ONE; -FOSAPREPITANT PERIPHERAL LINE 30 MIN INFUSION (PREMIX) IV ONE; -FOSAPREPITANT PERIPHERAL LINE 30 MIN INFUSION IV ONE; -MAG SULF 1GM/100ML (MAG RUN) SINGLE DOSE IV ONE; -NS IV ONE; -ONDA8TAB10 PO; +ONDA8TAB7 PO; -PACLITAXEL IV ONE; -PALONOSETRON 250 MCG IV IV ONE; -PEGFILGRASTIM 6 MG/0.6ML SYR (NEULASTA) (J2505 PER 6MG) SC ONE; -PEGFILGRASTIM 6MG/0.6ML ONPRO KIT (J2505 PER 6MG) (FOR ONCOLOGY) SC ONE; -SODIUM CHLORIDE 0.9% INJ 10 ML SYR IV PRN; -dexameTHASONE 10 MG IV IV ONE; -diphenhydrAMINE 50 MG IV IV ONE
[2019-05-29] MEDS: BISACODYL 5 MG TAB PO SCH (09:00)
[2019-05-29] MEDS: metFORMIN (GLUCOPHAGE) 1000 MG TABLET PO SCH ×2 (09:00→22:45)
[2019-05-29] MEDS: SENOKOT S TAB PO SCH ×2 (09:00→22:46)
[2019-05-29] MEDS: NS 1,000 ML IV SCH ×2 (09:45→14:59)
[2019-05-29] MEDS ORDERED: ONDANSETRON 4MG/2ML VIAL (J2405) IV ONE (09:45)
[2019-05-29] MEDS: HYDROMORPHONE HCL 0.5 MG/ 0.5 ML SYRINGE (J1170 PER 1) IV PRN ×2 (09:49→10:27)
[2019-05-29] MEDS ORDERED: DEXTROSE 50% 50 ML SYRINGE IV PRN (11:30)
[2019-05-29] MEDS: LEVEMIR (INSULIN DETEMIR) 1 UNITS/0.01ML SC SCH ×2 (11:30→22:49)
[2019-05-29] MEDS ORDERED: METOCLOPRAMIDE INJ 10MG/2ML VIAL (J2765) IV PRN (11:30)
[2019-05-29] MEDS ORDERED: MOM 30ML SUSPENSION UDC PO PRN (11:30)
[2019-05-29] MEDS ORDERED: HYDROMORPHONE HCL 0.5 MG/ 0.5 ML SYRINGE (J1170 PER 1) IV PRN ×3 (11:30→12:15)
[2019-05-29] MEDS ORDERED: FLEET ENEMA PR PRN (11:30)
[2019-05-29] MEDS ORDERED: GLUCAGON FOR INJ 1 MG VIAL (J1610) SC PRN (11:30)
[2019-05-29] MEDS ORDERED: MORPHINE 30 MG TAB **MSIR PO PRN (11:30)
[2019-05-29] MEDS ORDERED: GLUCOSE 4 GM CHEW TABLET PO PRN (11:30)
[2019-05-29] MEDS ORDERED: HYDROMORPHONE HCL 0.5 MG/ 0.5 ML SYRINGE (J1170 PER 1) As Ordered ONE (11:51)
[2019-05-29] MEDS ORDERED: MORPHINE 30 MG SA TAB As Ordered ONE (12:07)
[2019-05-29] MEDS ORDERED: MORPHINE 15 MG SA TAB As Ordered ONE (12:07)
[2019-05-29] MEDS ORDERED: PILL CUTTER 1 EACH XX PRN (12:15)
[2019-05-29] MEDS: ONDANSETRON 4 MG ORAL DISINTEGRATING TAB (Q0162 PER 1MG) SL SCH ×2 (12:20→17:41)
[2019-05-29 12:30] VITALS: BP 137/83
[2019-05-29 14:00] VITALS: BP 137/77
[2019-05-29] MEDS ORDERED: MORPHINE 15 MG SA TAB PO SCH (14:00)
--- NOTE | 2019-05-29 15:42 | HPEPDOC ---
General Date of Admission May 29, 2019 at 08:52 Date of Service: May 29, 2019 Chief Complaint The patient is a 48-year-old female admitted with a reason for visit of Intractable Abd Pain Uterine Cancer Sarcoma. 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 After speaking with her oncologist today she has opted for hospice and so was sent to the ED for pain control and set her up with Hospice. Patient complains of severe dull aching lower abdominal pain 10/10 in intensity without any radiation associated with nausea. SHe has been on high doses of morphine extended release and oxycodone without any relief. Home Medications Scheduled Atorvastatin Calcium (Atorvastatin Calcium) 80 Mg Tab, 80 MG PO DAILY, (Reported) Gabapentin (Neurontin) 300 Mg Capsule, 900 MG PO DAILY, (Reported) Gabapentin (Gabapentin) 300 Mg Capsule, 1,200 MG PO QHS, (Reported) Insulin Glargine,Hum.rec.anlog (Basaglar Kwikpen U-100) 100 Unit/Ml Inj, 32 UNIT SC QHS, (Reported) Metformin HCl (Metformin HCl) 1,000 Mg Tablet, 1,000 MG PO BID, (Reported) Morphine Sulfate (Morphine Sulfate ER) 15 Mg Tablet.er, 30 MG PO TID Sennosides (Senna) 8.6 Mg Tablet, 8.6 MG PO QHS, (Reported) Scheduled PRN Aluminum/Magnesium/Simeth (Mag-Al Plus Suspension) 30 Ml Oral.susp, 30 ML PO DAILY PRN for DYSPEPSIA Diphenoxylate HCl/Atropine (Lomotil 2.5-0.025 mg Tablet) 1 Each Tablet, 1 TAB PO QID PRN for DIARRHEA, (Reported) Magnesium Hydroxide (Milk of Magnesia) 400 Mg/5 Ml Oral.susp, 30 ML PO Q6HP PRN for CONSTIPATION Ondansetron HCl (Ondansetron HCl) 8 Mg Tablet, 8 MG PO Q6H PRN for NAUSEA OR VOMITING, (Reported) Oxycodone HCl (Oxycodone HCl) 5 Mg Tablet, 15 MG PO Q4HP PRN for MODERATE/SEVERE PAIN (PS 5-10) Polyethylene Glycol 3350 (Miralax) 119 Gm Powder, 17 GM PO DAILY PRN for CONSTIPATION, (Reported) Prochlorperazine (Prochlorperazine Maleate) 5 Mg Tablet, 5 MG PO Q8H PRN for NAUSEA OR VOMITING, (Reported) Allergies Coded Allergies: naproxen (Verified Adverse Reaction, Mild, GI UPSET, 04/27/19) Past Medical History Medical History 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 status post TONY-BSO followed by adjuvant chemotherapy six cycles carboplatin/Taxol completed 05/01/2019 with near immediate recurrence involving large pelvic mass encroaching on bladder enlargement of pulmonary metastases, Rapid evolution of tumor confirmed in tumor board 04/27/2019, Diabetes, morbid obesity, urinary retention with chronic العلي Hypertension and hyperlipidemia Surgical History Status post TONY-BSO, pelvic tumor resection, perineal abscess incision and drainage, left wrist and right ankle fracture repair Family History FATHER: ALIVE 71 YRS, CARDIAC UNKNOWN ISSUE MOTHER: ALIVE 71 YRS, ENDOMETRIOSIS PATERNAL GRAND MOTHER: OF BREAST CANCER MATERNAL GRAND MOTHER: BREAST CANCER Social History * Smoker: Denies Alcohol: Denies Drugs: denies A-FIB/CHADSVASC A-FIB History Current/History of A-Fib/PAF?: No Review of Systems Constitutional: Denies: Chills, Fever, Night Sweats Eyes: Denies: Pain, Vision change ENT: Denies: Head Aches, Ear Pain, Dysphagia Skin: Denies: Rash, Lesions, Breakdown Pulmonary: Denies: Dyspnea, Cough Cardiovascular: Denies: Chest Pain, Palpitations, Orthopnea, Paroxysmal Noc. Dyspnea, Lt Headedness Gastrointestinal: Reports: Nausea, Abdominal Pain, Constipation Genitourinary: Reports: Retention, Other Symptoms (has chronic العلي) Hematologic: Denies: Bruising, Bleeding Excessively Musculoskeletal: Denies: Neck Pain, Back Pain, Joint Pain, Muscle Pain, Spasms Neurological: Denies: Weakness, Numbness, Change in speech, Confusion Physical Examination General Exam: Positive: Alert, Cooperative, Severe Distress Eye Exam: Positive: PERRLA, Conjunctiva & lids normal, EOMI; Negative: Sclera icteric ENT Exam: Positive: Atraumatic, Mucous membr. moist/pink, Pharynx Normal Neck Exam: Positive: Supple; Negative: JVD, thyromegaly Chest Exam: Positive: Clear to auscultation, Normal air movement Heart Exam: Positive: Rate Normal, Regular Rhythm, Normal S1, Normal S2; Negative: Murmurs, Rubs Abdomen Exam: Positive: Normal bowel sounds, Tenderness (in alma hypogastrium), Mass, Other (No guarding or rigidity) Extremity Exam: Positive: Normal pulses; Negative: Clubbing, Cyanosis, Edema Skin Exam: Positive: Nl turgor and temperature; Negative: Breakdown, Lesion Neuro Exam: Positive: Normal Speech, Strength at 5/5 X4 ext, Normal Tone Psych Exam: Positive: Anxiety, Memory Intact, Oriented x 3 Vital Signs Vital Signs Date Time Temp Pulse Resp B/P (MAP) Pulse Ox O2 Delivery O2 Flow Rate FiO2 05/29/19 14:57 18 05/29/19 14:00 98.0 98 137/77 (97) 93 05/29/19 09:07 Room Air Assessment/Plan 48 year old female with PMH of 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 After speaking with her oncologist today she has opted for hospice and so was sent to the ED for pain control and set her up with Hospice. Metastatic Uterine carcinosarcoma chemo resistant patient has opted for hospice. there is no 24 x7 care available at home so has opted for hospice house Hospice has seen the Patient Intractable abdominal pain will increase MS contin to 45 tid , add MSIR 15 mg q 4 and give iv 1 mg or 1.6 mg dilaudid for breakthrough pain depending up the pain level will also give toradol. added bowel regimen. Diabetes continue levemir and metformin Hypertension BP controlled. Urinary retention Has chronic العلي Plan / VTE VTE Prophylaxis Ordered?: Yes FLASH LARSEN MD May 29, 2019 15:42
[2019-05-29] MEDS ORDERED: KETOROLAC 30 MG/ML VIAL (J1885) IV PRN (15:45)
[2019-05-29] MEDS: HYDROmorphone HCL 2 MG/ML 1ML VIAL (J1170) IV PRN ×2 (16:50→20:36)
[2019-05-29] MEDS: MORPHINE 30 MG TAB **MSIR PO PRN (19:03)
[2019-05-29 22:00] VITALS: BP 132/74
[2019-05-29] MEDS: GABAPENTIN 400 MG CAP PO SCH (22:46)
[2019-05-29] MEDS: PANTOPRAZOLE 40MG TAB (PROTONIX) PO SCH (22:46)
[2019-05-29] MEDS: MORPHINE 30 MG SA TAB PO SCH (22:48)
[2019-05-30] MEDS: ONDANSETRON 4 MG ORAL DISINTEGRATING TAB (Q0162 PER 1MG) SL SCH ×4 (00:26→17:59)
[2019-05-30] MEDS: HYDROmorphone HCL 2 MG/ML 1ML VIAL (J1170) IV PRN (00:26)
[2019-05-30] MEDS: NS 1,000 ML IV SCH (03:21)
[2019-05-30 06:00] VITALS: BP 140/76
[2019-05-30] MEDS: MORPHINE 30 MG SA TAB PO SCH ×3 (06:15→22:06)
[2019-05-30] MEDS: MORPHINE 30 MG TAB **MSIR PO PRN ×3 (06:20→17:59)
[2019-05-30] MEDS ORDERED: FUROSEMIDE 40 MG/4 ML VIAL (J1940) IV ONE (08:30)
[2019-05-30] MEDS: BISACODYL 5 MG TAB PO SCH (10:25)
[2019-05-30] MEDS: metFORMIN (GLUCOPHAGE) 1000 MG TABLET PO SCH ×2 (10:25→22:07)
[2019-05-30] MEDS: GABAPENTIN 300 MG CAP PO SCH (10:25)
[2019-05-30] MEDS: MIRALAX *UNIT DOSE* 17GM PACKET PO SCH (10:26)
[2019-05-30] MEDS: LEVEMIR (INSULIN DETEMIR) 1 UNITS/0.01ML SC SCH ×2 (10:26→22:07)
[2019-05-30] MEDS: SENOKOT S TAB PO SCH ×2 (10:26→22:28)
--- NOTE | 2019-05-30 11:52 | IPNPDOC ---
Subjective Date Seen The patient was seen on 05/30/19. Subjective Chief Complaint/HPI Today her pain is better controlled today. No nausea or vomiting, appetite ok. Objective Physical Examination General Exam: Positive: Alert, Cooperative, Severe Distress Eye Exam: Positive: Conjunctiva & lids normal; Negative: Sclera icteric ENT Exam: Positive: Atraumatic, Mucous membr. moist/pink, Pharynx Normal Neck Exam: Positive: Supple; Negative: JVD, thyromegaly Chest Exam: Positive: Clear to auscultation, Normal air movement Heart Exam: Positive: Rate Normal, Regular Rhythm, Normal S1, Normal S2; Negative: Murmurs, Rubs Abdomen Exam: Positive: Normal bowel sounds, Tenderness (in alma hypogastrium), Mass, Other (No guarding or rigidity) Extremity Exam: Positive: Normal pulses; Negative: Clubbing, Cyanosis, Edema Skin Exam: Positive: Nl turgor and temperature; Negative: Breakdown, Lesion Neuro Exam: Positive: Normal Speech, Strength at 5/5 X4 ext, Normal Tone Psych Exam: Positive: Anxiety, Memory Intact, Oriented x 3 Assessment /Plan Assessment 48 year old female with PMH of 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 After speaking with her oncologist today she has opted for hospice and so was sent to the ED for pain control and set her up with Hospice. Metastatic Uterine carcinosarcoma chemo resistant patient has opted for hospice. there is no 24 x7 care available at home so has opted for hospice house Hospice has seen the Patient Intractable abdominal pain will increase MS contin to 60 tid , add MSIR 30 mg q 4 and give iv 1 mg or 1.6 mg dilaudid for breakthrough pain depending up the pain level will also give toradol. added bowel regimen. Diabetes continue levemir and metformin FS bid Hypertension BP controlled. Urinary retention Has chronic العلي Plan/VTE VTE Prophylaxis Ordered?: Yes VS, I&O, 24H, Fishbone Vital Signs/I&O Vital Signs Date Time Temp Pulse Resp B/P (MAP) Pulse Ox O2 Delivery O2 Flow Rate FiO2 05/30/19 06:50 18 05/30/19 06:00 96.9 93 140/76 (97) 95 05/29/19 09:07 Room Air I&O- Last 24 Hours up to 6 AM 05/30/19 06:00 Intake Total 270 ml Output Total 1200 ml Balance -930 ml Laboratory Data 24H LABS Laboratory Tests 2 05/29/19 16:21: Bedside Glucose (Misc Panel) 240H 05/29/19 20:55: Bedside Glucose (Misc Panel) 286H 05/30/19 08:27: Bedside Glucose (Misc Panel) 169H FLASH LARSEN MD May 30, 2019 11:52
[2019-05-30] MEDS: LORazepam 0.5 MG TAB PO PRN (18:33)
[2019-05-30] MEDS: PANTOPRAZOLE 40MG TAB (PROTONIX) PO SCH (22:05)
[2019-05-30] MEDS: GABAPENTIN 400 MG CAP PO SCH (22:06)
[2019-05-31] MEDS: ONDANSETRON 4 MG ORAL DISINTEGRATING TAB (Q0162 PER 1MG) SL SCH ×4 (00:32→18:01)
[2019-05-31] MEDS: MORPHINE 30 MG SA TAB PO SCH ×3 (06:27→22:27)
[2019-05-31] MEDS: SENOKOT S TAB PO SCH ×2 (10:56→20:31)
[2019-05-31] MEDS: GABAPENTIN 300 MG CAP PO SCH (10:56)
[2019-05-31] MEDS: MIRALAX *UNIT DOSE* 17GM PACKET PO SCH (10:56)
[2019-05-31] MEDS: metFORMIN (GLUCOPHAGE) 1000 MG TABLET PO SCH ×2 (10:56→20:31)
[2019-05-31] MEDS: MORPHINE 30 MG TAB **MSIR PO PRN ×3 (10:56→22:29)
[2019-05-31] MEDS: BISACODYL 5 MG TAB PO SCH (10:57)
[2019-05-31] MEDS: LEVEMIR (INSULIN DETEMIR) 1 UNITS/0.01ML SC SCH ×2 (10:57→20:31)
[2019-05-31 13:45] VITALS: BP 140/76
--- NOTE | 2019-05-31 15:18 | IPNPDOC ---
Subjective Date Seen The patient was seen on 05/31/19. Subjective Chief Complaint/HPI continues to have pain but getting better controlled with increased dosage of morphine. Had good urine output after lasix yesterday, today generalized swelling is less. appetite OK. Objective Physical Examination General Exam: Positive: Alert, Cooperative, Severe Distress Eye Exam: Positive: Conjunctiva & lids normal; Negative: Sclera icteric ENT Exam: Positive: Atraumatic, Mucous membr. moist/pink, Pharynx Normal Neck Exam: Positive: Supple; Negative: JVD, thyromegaly Chest Exam: Positive: Clear to auscultation, Normal air movement Heart Exam: Positive: Rate Normal, Regular Rhythm, Normal S1, Normal S2; Negative: Murmurs, Rubs Abdomen Exam: Positive: Normal bowel sounds, Tenderness (in alma hypogastrium), Mass, Other (No guarding or rigidity) Extremity Exam: Positive: Normal pulses; Negative: Clubbing, Cyanosis, Edema Skin Exam: Positive: Nl turgor and temperature; Negative: Breakdown, Lesion Neuro Exam: Positive: Normal Speech, Strength at 5/5 X4 ext, Normal Tone Psych Exam: Positive: Anxiety, Memory Intact, Oriented x 3 Assessment /Plan Assessment 48 year old female with PMH of 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 After speaking with her oncologist today she has opted for hospice and so was sent to the ED for pain control and set her up with Hospice. Metastatic Uterine carcinosarcoma chemo resistant patient has opted for hospice. there is no 24 x7 care available at home so has opted for hospice house Hospice has seen the Patient generalized anasarca will give another dose of lasix today. Intractable abdominal pain on MS contin to 60 tid , MSIR 30 mg q 4 and give iv 1 mg or 1.6 mg dilaudid for breakthrough pain depending up the pain level added bowel regimen. Anxiety started on ativan prn Diabetes continue levemir and metformin FS bid Urinary retention Has chronic العلي Plan/VTE VTE Prophylaxis Ordered?: Yes VS, I&O, 24H, Fishbone Vital Signs/I&O Vital Signs Date Time Temp Pulse Resp B/P (MAP) Pulse Ox O2 Delivery O2 Flow Rate FiO2 05/31/19 06:27 20 05/30/19 06:00 96.9 93 140/76 (97) 95 05/29/19 09:07 Room Air I&O- Last 24 Hours up to 6 AM 05/31/19 06:00 Intake Total 320 ml Output Total 1825 ml Balance -1505 ml Laboratory Data 24H LABS Laboratory Tests 2 05/30/19 08:27: Bedside Glucose (Misc Panel) 169H 05/30/19 21:49: Bedside Glucose (Misc Panel) 290H FLASH LARSEN MD May 31, 2019 06:56
[2019-05-31] MEDS ORDERED: FUROSEMIDE 40 MG/4 ML VIAL (J1940) IV ONE (16:00)
[2019-05-31] MEDS: DICLOFENAC EPOLAMINE 1.3 % PATCH TOP SCH (18:01)
[2019-05-31] MEDS: PANTOPRAZOLE 40MG TAB (PROTONIX) PO SCH (20:31)
[2019-05-31] MEDS: GABAPENTIN 400 MG CAP PO SCH (20:31)
[2019-06-01] MEDS: ONDANSETRON 4 MG ORAL DISINTEGRATING TAB (Q0162 PER 1MG) SL SCH ×5 (00:58→23:13)
[2019-06-01] MEDS: MORPHINE 30 MG SA TAB PO SCH ×2 (06:37→14:00)
[2019-06-01] MEDS: MORPHINE 30 MG TAB **MSIR PO PRN (06:38)
[2019-06-01] MEDS: DICLOFENAC EPOLAMINE 1.3 % PATCH TOP SCH ×2 (06:38→17:41)
[2019-06-01] MEDS: metFORMIN (GLUCOPHAGE) 1000 MG TABLET PO SCH ×3 (09:00→22:30)
[2019-06-01] MEDS: BISACODYL 5 MG TAB PO SCH ×2 (09:00→09:55)
[2019-06-01] MEDS: SENOKOT S TAB PO SCH ×3 (09:00→22:30)
[2019-06-01] MEDS: GABAPENTIN 300 MG CAP PO SCH ×2 (09:00→09:55)
[2019-06-01] MEDS: MIRALAX *UNIT DOSE* 17GM PACKET PO SCH ×2 (09:00→09:55)
[2019-06-01] MEDS: LEVEMIR (INSULIN DETEMIR) 1 UNITS/0.01ML SC SCH ×2 (09:55→22:46)
[2019-06-01] MEDS: MORPHINE 15 MG SA TAB PO SCH ×2 (14:00→22:00)
[2019-06-01] MEDS ORDERED: MORPHINE 30 MG TAB **MSIR PO PRN (14:30)
[2019-06-01] MEDS: KETOROLAC 30 MG/ML VIAL (J1885) IV PRN ×2 (14:41→22:48)
[2019-06-01] MEDS: PANTOPRAZOLE 40MG TAB (PROTONIX) PO SCH (22:30)
[2019-06-01] MEDS: GABAPENTIN 400 MG CAP PO SCH (22:30)
[2019-06-02] MEDS: ONDANSETRON 4 MG ORAL DISINTEGRATING TAB (Q0162 PER 1MG) SL SCH ×4 (06:00→18:32)
[2019-06-02] MEDS: MORPHINE 15 MG SA TAB PO SCH ×2 (06:00→06:40)
[2019-06-02] MEDS: DICLOFENAC EPOLAMINE 1.3 % PATCH TOP SCH ×2 (06:00→18:32)
[2019-06-02] MEDS: metFORMIN (GLUCOPHAGE) 1000 MG TABLET PO SCH ×2 (09:00→20:00)
[2019-06-02] MEDS: BISACODYL 5 MG TAB PO SCH (09:00)
[2019-06-02] MEDS: SENOKOT S TAB PO SCH ×2 (09:00→20:00)
[2019-06-02] MEDS: MIRALAX *UNIT DOSE* 17GM PACKET PO SCH (09:00)
[2019-06-02] MEDS: GABAPENTIN 300 MG CAP PO SCH (09:00)
[2019-06-02] MEDS: LEVEMIR (INSULIN DETEMIR) 1 UNITS/0.01ML SC SCH ×2 (09:00→20:00)
[2019-06-02] MEDS: PANTOPRAZOLE 40MG TAB (PROTONIX) PO SCH (20:00)
[2019-06-02] MEDS: GABAPENTIN 400 MG CAP PO SCH (20:00)
[2019-06-03] MEDS: KETOROLAC 30 MG/ML VIAL (J1885) IV PRN ×3 (00:34→16:40)
[2019-06-03] MEDS: ONDANSETRON 4 MG ORAL DISINTEGRATING TAB (Q0162 PER 1MG) SL SCH ×5 (06:39→23:12)
[2019-06-03] MEDS: DICLOFENAC EPOLAMINE 1.3 % PATCH TOP SCH ×2 (06:39→19:12)
[2019-06-03] MEDS: LEVEMIR (INSULIN DETEMIR) 1 UNITS/0.01ML SC SCH ×2 (08:58→22:10)
[2019-06-03] MEDS: GABAPENTIN 300 MG CAP PO SCH (08:58)
[2019-06-03] MEDS: BISACODYL 5 MG TAB PO SCH (09:00)
[2019-06-03] MEDS: MIRALAX *UNIT DOSE* 17GM PACKET PO SCH (09:00)
[2019-06-03] MEDS: SENOKOT S TAB PO SCH ×2 (09:00→22:09)
[2019-06-03] MEDS: metFORMIN (GLUCOPHAGE) 1000 MG TABLET PO SCH ×2 (09:01→22:09)
[2019-06-03] MEDS: LORazepam 0.5 MG TAB PO PRN ×2 (10:23→17:10)
[2019-06-03] MEDS ORDERED: HYOS125TA PO (10:58)
[2019-06-03] MEDS ORDERED: MORP20SO3 PO (10:58)
[2019-06-03] MEDS ORDERED: LORA0.5T11 PO (10:58)
[2019-06-03] MEDS: PANTOPRAZOLE 40MG TAB (PROTONIX) PO SCH (22:09)
[2019-06-03] MEDS: GABAPENTIN 400 MG CAP PO SCH (22:09)
[2019-06-03] MEDS: MORPHINE 10MG/0.5ML ORAL CONCENTRATE SOLUTION U/D SL PRN (22:24)
[2019-06-04] MEDS: KETOROLAC 30 MG/ML VIAL (J1885) IV PRN ×2 (02:49→11:16)
[2019-06-04] MEDS: ONDANSETRON 4 MG ORAL DISINTEGRATING TAB (Q0162 PER 1MG) SL SCH ×4 (05:28→23:15)
[2019-06-04] MEDS: DICLOFENAC EPOLAMINE 1.3 % PATCH TOP SCH ×2 (05:28→18:02)
[2019-06-04] MEDS: MIRALAX *UNIT DOSE* 17GM PACKET PO SCH (08:38)
[2019-06-04] MEDS: SENOKOT S TAB PO SCH ×2 (08:39→21:00)
[2019-06-04] MEDS: BISACODYL 5 MG TAB PO SCH (08:39)
[2019-06-04] MEDS: metFORMIN (GLUCOPHAGE) 1000 MG TABLET PO SCH ×2 (09:33→21:00)
[2019-06-04] MEDS: GABAPENTIN 300 MG CAP PO SCH (09:33)
[2019-06-04] MEDS: LEVEMIR (INSULIN DETEMIR) 1 UNITS/0.01ML SC SCH ×2 (09:33→21:17)
[2019-06-04] MEDS: MORPHINE 10MG/0.5ML ORAL CONCENTRATE SOLUTION U/D SL PRN ×4 (09:43→21:39)
[2019-06-04] MEDS: GABAPENTIN 400 MG CAP PO SCH (21:00)
[2019-06-04] MEDS: PANTOPRAZOLE 40MG TAB (PROTONIX) PO SCH (21:00)
[2019-06-04] MEDS: LORazepam 0.5 MG TAB PO PRN (21:39)
[2019-06-05] MEDS: MORPHINE 10MG/0.5ML ORAL CONCENTRATE SOLUTION U/D SL PRN ×6 (00:51→23:08)
[2019-06-05] MEDS: LORazepam 0.5 MG TAB PO PRN (05:14)
[2019-06-05] MEDS: ONDANSETRON 4 MG ORAL DISINTEGRATING TAB (Q0162 PER 1MG) SL SCH ×4 (05:14→23:07)
[2019-06-05] MEDS: KETOROLAC 30 MG/ML VIAL (J1885) IV PRN ×2 (05:15→13:41)
[2019-06-05] MEDS: DICLOFENAC EPOLAMINE 1.3 % PATCH TOP SCH ×2 (05:33→17:04)
[2019-06-05] MEDS: SENOKOT S TAB PO SCH ×2 (09:00→20:16)
[2019-06-05] MEDS: metFORMIN (GLUCOPHAGE) 1000 MG TABLET PO SCH ×2 (09:00→20:26)
[2019-06-05] MEDS: MIRALAX *UNIT DOSE* 17GM PACKET PO SCH (09:00)
[2019-06-05] MEDS: LEVEMIR (INSULIN DETEMIR) 1 UNITS/0.01ML SC SCH ×2 (09:00→20:16)
[2019-06-05] MEDS: BISACODYL 5 MG TAB PO SCH (09:00)
[2019-06-05] MEDS: GABAPENTIN 300 MG CAP PO SCH (09:00)
[2019-06-05] MEDS: PANTOPRAZOLE 40MG TAB (PROTONIX) PO SCH (20:16)
[2019-06-05] MEDS: GABAPENTIN 400 MG CAP PO SCH (20:26)
[2019-06-06] MEDS: MORPHINE 10MG/0.5ML ORAL CONCENTRATE SOLUTION U/D SL PRN ×8 (02:39→23:15)
[2019-06-06] MEDS: LORazepam 0.5 MG TAB PO PRN (02:58)
[2019-06-06] MEDS: ONDANSETRON 4 MG ORAL DISINTEGRATING TAB (Q0162 PER 1MG) SL SCH ×5 (05:44→23:15)
[2019-06-06] MEDS: DICLOFENAC EPOLAMINE 1.3 % PATCH TOP SCH ×2 (05:45→16:52)
[2019-06-06] MEDS: KETOROLAC 30 MG/ML VIAL (J1885) IV PRN (05:55)
[2019-06-06] MEDS: LEVEMIR (INSULIN DETEMIR) 1 UNITS/0.01ML SC SCH ×2 (09:00→20:42)
[2019-06-06] MEDS: SENOKOT S TAB PO SCH ×2 (09:00→20:42)
[2019-06-06] MEDS: MIRALAX *UNIT DOSE* 17GM PACKET PO SCH (09:00)
[2019-06-06] MEDS: metFORMIN (GLUCOPHAGE) 1000 MG TABLET PO SCH ×2 (09:00→20:42)
[2019-06-06] MEDS: GABAPENTIN 300 MG CAP PO SCH (09:00)
[2019-06-06] MEDS: BISACODYL 5 MG TAB PO SCH (09:00)
[2019-06-06] MEDS ORDERED: MORPHINE 4 MG/ML 1ML VIAL/SYRINGE (J2270) IV ONE (16:00)
[2019-06-06] MEDS: GABAPENTIN 400 MG CAP PO SCH (20:42)
[2019-06-06] MEDS: PANTOPRAZOLE 40MG TAB (PROTONIX) PO SCH (20:42)
[2019-06-07] MEDS: DICLOFENAC EPOLAMINE 1.3 % PATCH TOP SCH ×2 (06:00→17:49)
[2019-06-07] MEDS: MORPHINE 10MG/0.5ML ORAL CONCENTRATE SOLUTION U/D SL PRN ×5 (06:11→22:35)
[2019-06-07] MEDS: ONDANSETRON 4 MG ORAL DISINTEGRATING TAB (Q0162 PER 1MG) SL SCH ×3 (06:11→17:46)
[2019-06-07] MEDS: GABAPENTIN 300 MG CAP PO SCH (08:06)
[2019-06-07] MEDS: metFORMIN (GLUCOPHAGE) 1000 MG TABLET PO SCH ×2 (08:06→20:03)
[2019-06-07] MEDS: SENOKOT S TAB PO SCH ×2 (09:00→19:58)
[2019-06-07] MEDS: BISACODYL 5 MG TAB PO SCH (09:00)
[2019-06-07] MEDS: LEVEMIR (INSULIN DETEMIR) 1 UNITS/0.01ML SC SCH ×2 (09:00→19:58)
[2019-06-07] MEDS: MIRALAX *UNIT DOSE* 17GM PACKET PO SCH (09:00)
--- NOTE | 2019-06-07 11:43 | IPN ---
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 I saw her today, and she feels disappointed. Her needs are being met, although she might need increased pain control.
[2019-06-07] MEDS: PANTOPRAZOLE 40MG TAB (PROTONIX) PO SCH (20:03)
[2019-06-07] MEDS: GABAPENTIN 400 MG CAP PO SCH (20:03)
[2019-06-08] MEDS: MORPHINE 10MG/0.5ML ORAL CONCENTRATE SOLUTION U/D SL PRN ×6 (04:35→23:19)
[2019-06-08] MEDS: ONDANSETRON 4 MG ORAL DISINTEGRATING TAB (Q0162 PER 1MG) SL SCH ×5 (05:24→23:19)
[2019-06-08] MEDS: DICLOFENAC EPOLAMINE 1.3 % PATCH TOP SCH ×2 (05:27→17:27)
[2019-06-08] MEDS: metFORMIN (GLUCOPHAGE) 1000 MG TABLET PO SCH ×2 (08:48→20:11)
[2019-06-08] MEDS: GABAPENTIN 300 MG CAP PO SCH (08:48)
[2019-06-08] MEDS: BISACODYL 5 MG TAB PO SCH (09:00)
[2019-06-08] MEDS: SENOKOT S TAB PO SCH ×2 (09:00→19:58)
[2019-06-08] MEDS: LEVEMIR (INSULIN DETEMIR) 1 UNITS/0.01ML SC SCH ×2 (09:00→19:58)
[2019-06-08] MEDS: MIRALAX *UNIT DOSE* 17GM PACKET PO SCH (09:00)
--- NOTE | 2019-06-08 12:17 | IPN ---
DATE: 06/08/2019 Jenise is an retirement facility (SNF) level of care. It is my understanding she awaiting hospice house and open up. I stopped by to make sure her pain needs were being met. When discussed the hospice house, I was told that she no longer wanted this, that she anticipates "getting better and going home." There is no patient and family services (PFS) support on the weekends, but tomorrow someone needs to address this. 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
[2019-06-08] MEDS: GABAPENTIN 400 MG CAP PO SCH (20:11)
[2019-06-08] MEDS: PANTOPRAZOLE 40MG TAB (PROTONIX) PO SCH (20:11)
[2019-06-09] MEDS: DICLOFENAC EPOLAMINE 1.3 % PATCH TOP SCH ×2 (05:54→18:06)
[2019-06-09] MEDS: ONDANSETRON 4 MG ORAL DISINTEGRATING TAB (Q0162 PER 1MG) SL SCH ×3 (05:54→18:05)
[2019-06-09] MEDS: MORPHINE 10MG/0.5ML ORAL CONCENTRATE SOLUTION U/D SL PRN ×5 (05:54→22:35)
[2019-06-09] MEDS: metFORMIN (GLUCOPHAGE) 1000 MG TABLET PO SCH ×2 (08:23→20:29)
[2019-06-09] MEDS: GABAPENTIN 300 MG CAP PO SCH (08:23)
[2019-06-09] MEDS: SENOKOT S TAB PO SCH ×2 (08:41→20:20)
[2019-06-09] MEDS: BISACODYL 5 MG TAB PO SCH (08:41)
[2019-06-09] MEDS: MIRALAX *UNIT DOSE* 17GM PACKET PO SCH (08:41)
[2019-06-09] MEDS: LEVEMIR (INSULIN DETEMIR) 1 UNITS/0.01ML SC SCH ×2 (08:43→20:30)
[2019-06-09] MEDS: METOCLOPRAMIDE 10 MG TAB PO PRN (16:13)
[2019-06-09] MEDS: GABAPENTIN 400 MG CAP PO SCH (20:29)
[2019-06-09] MEDS: PANTOPRAZOLE 40MG TAB (PROTONIX) PO SCH (20:29)
--- NOTE | 2019-06-09 21:22 | IPNPDOC ---
Text Note Date of Service The patient was seen on 06/09/19. 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 After speaking with her oncologist she has opted for hospice and so was sent to the ED for pain control and set her up with Hospice. Metastatic Uterine carcinosarcoma chemo resistant patient has opted for hospice. there is no 24 x7 care available at home, initially opted for hospice house then refused. I had extensive conversation with mother and patient at bedside (35 minutes) about their options. Patient endorses she wants to go home with Hospice services and mother endorses that she would stay at her house to try to assist her, however mother may not be able to care for her independently. Poor other family support. They wish to speak to SW/CM and hospice agency again to discuss feasibility of hospice at home. -Continue comfort care. Anxiety started on ativan prn Diabetes continue levemir and metformin FS bid Urinary retention Has chronic العلي VS,Fishbone, I+O VS, Fishbone, I+O Vital Signs Date Time Temp Pulse Resp B/P (MAP) Pulse Ox O2 Delivery O2 Flow Rate FiO2 06/09/19 13:08 18 I&O- Last 24 Hours up to 6 AM 06/09/19 06:00 Intake Total 1020 ml Output Total 1550 ml Balance -530 ml OLAF ORTEGA MD Jun 09, 2019 21:22
[2019-06-10] MEDS: MORPHINE 10MG/0.5ML ORAL CONCENTRATE SOLUTION U/D SL PRN ×6 (01:04→21:24)
[2019-06-10] MEDS: ONDANSETRON 4 MG ORAL DISINTEGRATING TAB (Q0162 PER 1MG) SL SCH ×4 (01:04→17:54)
[2019-06-10] MEDS: DICLOFENAC EPOLAMINE 1.3 % PATCH TOP SCH ×2 (06:34→17:54)
[2019-06-10] MEDS: SENOKOT S TAB PO SCH ×2 (09:00→21:00)
[2019-06-10] MEDS: BISACODYL 5 MG TAB PO SCH (09:00)
[2019-06-10] MEDS: MIRALAX *UNIT DOSE* 17GM PACKET PO SCH (09:00)
[2019-06-10] MEDS: metFORMIN (GLUCOPHAGE) 1000 MG TABLET PO SCH ×2 (09:53→21:23)
[2019-06-10] MEDS: GABAPENTIN 300 MG CAP PO SCH (09:54)
[2019-06-10] MEDS: LEVEMIR (INSULIN DETEMIR) 1 UNITS/0.01ML SC SCH ×2 (09:54→21:00)
--- NOTE | 2019-06-10 16:44 | IPNPDOC ---
Text Note Date of Service The patient was seen on 06/10/19. 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 Patient staets abdomen pain has improved. . Mother in room. Patient complaining of buttock pain O: Vitals as below General: NAD AAOX3, HRRR LCTA Skin: no sacral decub or palpable abscess to buttock A/P: Metastatic Uterine carcinosarcoma chemo resistant patient has opted for hospice. there is no 24 x7 care available at home and mother states patient home is now in health system SocSvc/porter sample case consulted. Patient is declining "hospice house" and wants to return home with services. Continue comfort care Anxiety started on ativan prn Diabetes continue levemir and metformin FS bid Urinary retention Has chronic العلي VS,Fishbone, I+O VS, Fishbone, I+O Vital Signs Date Time Temp Pulse Resp B/P (MAP) Pulse Ox O2 Delivery O2 Flow Rate FiO2 06/10/19 15:13 20 I&O- Last 24 Hours up to 6 AM 06/10/19 06:00 Intake Total 1620 ml Output Total 1200 ml Balance 420 ml WINTER BONILLA DO Jun 10, 2019 16:44
[2019-06-10] MEDS: LORazepam 0.5 MG TAB PO PRN (18:59)
[2019-06-10] MEDS: GABAPENTIN 400 MG CAP PO SCH (21:23)
[2019-06-10] MEDS: PANTOPRAZOLE 40MG TAB (PROTONIX) PO SCH (21:23)
[2019-06-11] MEDS: MORPHINE 10MG/0.5ML ORAL CONCENTRATE SOLUTION U/D SL PRN ×4 (04:05→22:01)
[2019-06-11] MEDS: LORazepam 0.5 MG TAB PO PRN (04:29)
[2019-06-11] MEDS: DICLOFENAC EPOLAMINE 1.3 % PATCH TOP SCH ×2 (05:32→17:15)
[2019-06-11] MEDS: ONDANSETRON 4 MG ORAL DISINTEGRATING TAB (Q0162 PER 1MG) SL SCH ×4 (05:32→17:12)
[2019-06-11] MEDS: SENOKOT S TAB PO SCH ×2 (09:00→22:00)
[2019-06-11] MEDS: BISACODYL 5 MG TAB PO SCH (09:00)
[2019-06-11] MEDS: MIRALAX *UNIT DOSE* 17GM PACKET PO SCH (09:00)
[2019-06-11] MEDS: metFORMIN (GLUCOPHAGE) 1000 MG TABLET PO SCH ×2 (10:54→21:59)
[2019-06-11] MEDS: GABAPENTIN 300 MG CAP PO SCH (10:54)
[2019-06-11] MEDS: LEVEMIR (INSULIN DETEMIR) 1 UNITS/0.01ML SC SCH ×2 (10:54→22:00)
--- NOTE | 2019-06-11 14:25 | IPNPDOC ---
Text Note Date of Service The patient was seen on 06/11/19. 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 O: not examined today A/P: Metastatic Uterine carcinosarcoma chemo resistant patient has opted for hospice. there is no 24 x7 care available at home and mother [facility] Soc[facility]vc/sample case porter consulted. Anxiety started on ativan prn Diabetes continue levemir and metformin FS bid Urinary retention Has chronic العلي VS,Fishbone, I+O VS, Fishbone, I+O Vital Signs Date Time Temp Pulse Resp B/P (MAP) Pulse Ox O2 Delivery O2 Flow Rate FiO2 06/11/19 11:24 18 I&O- Last 24 Hours up to 6 AM 06/11/19 06:00 Intake Total 600 ml Output Total 1200 ml Balance -600 ml WINTER BONILLA DO Jun 11, 2019 13:41
[2019-06-11] MEDS: GABAPENTIN 400 MG CAP PO SCH (22:00)
[2019-06-11] MEDS: PANTOPRAZOLE 40MG TAB (PROTONIX) PO SCH (22:00)
[2019-06-12] MEDS: ONDANSETRON 4 MG ORAL DISINTEGRATING TAB (Q0162 PER 1MG) SL SCH ×4 (01:48→18:00)
[2019-06-12] MEDS: MORPHINE 10MG/0.5ML ORAL CONCENTRATE SOLUTION U/D SL PRN ×5 (01:48→21:10)
[2019-06-12] MEDS: DICLOFENAC EPOLAMINE 1.3 % PATCH TOP SCH ×2 (06:33→18:00)
[2019-06-12] MEDS: BISACODYL 5 MG TAB PO SCH (09:00)
[2019-06-12] MEDS: GABAPENTIN 300 MG CAP PO SCH (09:00)
[2019-06-12] MEDS: SENOKOT S TAB PO SCH ×3 (09:00→21:19)
[2019-06-12] MEDS: MIRALAX *UNIT DOSE* 17GM PACKET PO SCH (09:00)
[2019-06-12] MEDS: metFORMIN (GLUCOPHAGE) 1000 MG TABLET PO SCH ×2 (09:38→21:19)
[2019-06-12] MEDS: LEVEMIR (INSULIN DETEMIR) 1 UNITS/0.01ML SC SCH ×3 (09:39→21:24)
--- NOTE | 2019-06-12 14:34 | IPNPDOC ---
Text Note Date of Service The patient was seen on 06/12/19. 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 Mother present in room O: General: sleeping, NAD HRRR A/P: Metastatic Uterine carcinosarcoma chemo resistant patient has opted for hospice. there is no 24 x7 care available at home and mother states patient home is now in foreclosure SocSvc/onsite case manager consulted and working on placement into hospice house or facility Anxiety - prn ativan Diabetes continue levemir and metformin FS bid Urinary retention Has chronic العلي VS,Fishbone, I+O VS, Fishbone, I+O Vital Signs Date Time Temp Pulse Resp B/P (MAP) Pulse Ox O2 Delivery O2 Flow Rate FiO2 06/12/19 13:03 16 I&O- Last 24 Hours up to 6 AM 06/12/19 06:00 Intake Total 150 ml Output Total 850 ml Balance -700 ml WINTER BONILLA DO Jun 12, 2019 14:34
[2019-06-12] MEDS: METOCLOPRAMIDE 10 MG TAB PO PRN (21:19)
[2019-06-12] MEDS: PANTOPRAZOLE 40MG TAB (PROTONIX) PO SCH (21:19)
[2019-06-12] MEDS: GABAPENTIN 400 MG CAP PO SCH (21:19)
[2019-06-13] MEDS: ONDANSETRON 4 MG ORAL DISINTEGRATING TAB (Q0162 PER 1MG) SL SCH ×5 (06:00→23:35)
[2019-06-13] MEDS: DICLOFENAC EPOLAMINE 1.3 % PATCH TOP SCH ×2 (06:42→18:35)
[2019-06-13] MEDS: MORPHINE 10MG/0.5ML ORAL CONCENTRATE SOLUTION U/D SL PRN ×2 (06:47→22:52)
[2019-06-13] MEDS: MIRALAX *UNIT DOSE* 17GM PACKET PO SCH (09:00)
[2019-06-13] MEDS: SENOKOT S TAB PO SCH ×2 (09:00→21:00)
[2019-06-13] MEDS: GABAPENTIN 300 MG CAP PO SCH (09:00)
[2019-06-13] MEDS: BISACODYL 5 MG TAB PO SCH (09:00)
[2019-06-13] MEDS: metFORMIN (GLUCOPHAGE) 1000 MG TABLET PO SCH ×2 (09:52→21:00)
[2019-06-13] MEDS: LORazepam 0.5 MG TAB PO PRN (09:57)
[2019-06-13] MEDS: LEVEMIR (INSULIN DETEMIR) 1 UNITS/0.01ML SC SCH ×2 (10:03→22:55)
--- NOTE | 2019-06-13 14:35 | IPNPDOC ---
Text Note Date of Service The patient was seen on 06/13/19. 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 Awaiting hospice house. States pain is controlled except when turning in bed. Still with buttock pain when lying on her back O: General: alert, NAD skin: no sacral or coccyx decubitus or skin irritation A/P: Metastatic Uterine carcinosarcoma chemo resistant - currently on hospice per patient and family wishes. SocSvc/therapeutic case manager consulted and working on placement into hospice house or facility Anxiety - prn ativan Diabetes - continue levemir and metformin Urinary retention - Has chronic العلي VS,Fishbone, I+O VS, Fishbone, I+O Vital Signs Date Time Temp Pulse Resp B/P (MAP) Pulse Ox O2 Delivery O2 Flow Rate FiO2 06/12/19 21:10 16 I&O- Last 24 Hours up to 6 AM 06/13/19 06:00 Intake Total 386 ml Output Total 550 ml Balance -164 ml WINTER BONILLA DO Jun 13, 2019 14:35
[2019-06-13] MEDS: PANTOPRAZOLE 40MG TAB (PROTONIX) PO SCH (21:00)
[2019-06-13] MEDS: GABAPENTIN 400 MG CAP PO SCH (21:00)
[2019-06-14] MEDS: ONDANSETRON 4 MG ORAL DISINTEGRATING TAB (Q0162 PER 1MG) SL SCH ×2 (06:00→12:00)
[2019-06-14] MEDS: DICLOFENAC EPOLAMINE 1.3 % PATCH TOP SCH (06:30)
[2019-06-14] MEDS: LORazepam 0.5 MG TAB PO PRN (07:38)
[2019-06-14] MEDS: GABAPENTIN 300 MG CAP PO SCH (08:25)
[2019-06-14] MEDS: BISACODYL 5 MG TAB PO SCH (08:25)
[2019-06-14] MEDS: MIRALAX *UNIT DOSE* 17GM PACKET PO SCH (08:25)
[2019-06-14] MEDS: SENOKOT S TAB PO SCH (08:25)
[2019-06-14] MEDS: metFORMIN (GLUCOPHAGE) 1000 MG TABLET PO SCH (08:25)
[2019-06-14] MEDS: LEVEMIR (INSULIN DETEMIR) 1 UNITS/0.01ML SC SCH (09:47)
[2019-06-14] MEDS ORDERED: LORazepam 2 MG/ML VIAL (J2060) IV PRN (10:45)
[2019-06-14] MEDS ORDERED: BISACODYL 5 MG TAB PO PRN (11:00)
--- NOTE | 2019-06-14 11:13 | IPNPDOC ---
Text Note Date of Service The patient was seen on 06/14/19. NOTE S: patient with 2 short seizures this AM (less than 60 seconds) and given ativan (po - no IV access). Mother does not want ativan given any more frequently than q4h for anxiety or seizures. She is having loose stools but no diarrhea, no constipation. She is sleeping soundly this AM and mother requests that I do not disturb her. O: Vitals: resp 20,pulse 70 regular no current seizure activity HRRR A/P: Metastatic Uterine carcinosarcoma chemo resistant - currently on hospice per patient and family wishes. SocSvc/case management social worker consulted and working on placement into hospice house or facility Anxiety - prn ativan Diabetes - continue levemir ; stop metformen due to loose stools Constipation with intermittent loose stools - she has not recieved scheduled co lace, sennakot or miralax since prior to 06/03. Medications changed to prn/hold parameters as per nursing request. stop metformen due to loose stools Urinary retention - Has chronic العلي Seizure disorder - she had not had gabapentin since 06/12. no IV access. Will order prn IM ativan if prolonged seizure occurs. Current Medications Medications (Trade) Dose Ordered Sig/Ana Route PRN Reason Start Time Stop Time Status Last Admin Dose Admin Bisacodyl (Dulcolax Tab) 10 mg DAILY PO 05/29/19 09:00 06/14/19 10:49 DC 05/31/19 10:57 Bisacodyl (Dulcolax Tab) 10 mg DAILY PRN PO constipation 06/14/19 11:00 Dextrose (Dextrose 50%) 25 ml ASDIRECTED PRN IV SEE LABEL COMMENTS 05/29/19 11:30 Diclofenac Epolamine (Flector 1.3%) 1 patch Q12H TOP 05/31/19 18:00 06/14/19 06:30 Gabapentin (Neurontin) 900 mg DAILY PO 05/30/19 09:00 06/11/19 10:54 Gabapentin (Neurontin) 1,200 mg QHS PO 05/29/19 21:00 06/12/19 21:19 Glucagon (Glucagon) 1 mg ASDIRECTED PRN SC SEE LABEL COMMENTS 05/29/19 11:30 Glucose (Glucose) 16 GM ASDIRECTED PRN PO SEE LABEL COMMENTS 05/29/19 11:30 Home Med (Med Rec Complete!) ASDIRECTED XX 05/29/19 10:15 05/29/19 10:15 DC Hydromorphone HCl (Dilaudid) 0.5 mg Q30M PRN IV MODERATE PAIN (PS 5-7) 05/29/19 09:45 05/29/19 10:28 DC 05/29/19 10:27 Hydromorphone HCl (Dilaudid) 0.5 mg Q3HP PRN IV MILD PAIN (PS 1-4) 05/29/19 11:30 05/29/19 12:06 DC Hydromorphone HCl (Dilaudid) 0.8 mg Q3HP PRN IV MODERATE/SEVERE PAIN (PS 5-10) 05/29/19 11:30 05/29/19 12:06 DC Hydromorphone HCl (Dilaudid) 1 mg Q3HP PRN IV MILD PAIN (PS 1-4) 05/29/19 12:15 06/02/19 08:10 DC 05/29/19 13:42 Hydromorphone HCl (Dilaudid) 1.6 mg Q3HP PRN IV MODERATE/SEVERE PAIN (PS 5-10) 05/29/19 12:15 06/02/19 08:10 DC 05/30/19 00:26 Insulin Detemir (Levemir Insulin) 15 units BID SC 05/30/19 09:00 06/14/19 09:47 Insulin Detemir (Levemir Insulin) 20 units BID SC 05/29/19 11:30 05/30/19 08:29 DC 05/29/19 22:49 Ketorolac Tromethamine (ToRADol) 30 mg Q6HP PRN IV PAIN 05/29/19 15:45 05/31/19 06:57 DC 05/29/19 16:04 Ketorolac Tromethamine (ToRADol) 30 mg Q8H PRN IV PAIN 06/01/19 14:30 06/06/19 14:29 DC 06/06/19 05:55 Lorazepam (Ativan) 0.5 mg Q4HP PRN PO ANXIETY 05/30/19 18:30 06/14/19 07:38 Lorazepam (Ativan) 1 mg Q15M PRN IV seizures 06/14/19 10:45 Magnesium Hydroxide (Milk Of Magnesia) 30 ml Q6HP PRN PO CONSTIPATION 05/29/19 11:30 06/01/19 06:35 Metformin HCl (Glucophage) 1,000 mg BID PO 05/29/19 09:00 06/13/19 09:52 Metoclopramide HCl (REGLAN INJection) 10 mg Q6HP PRN IV REFRACTORY NAUSEA 05/29/19 11:30 06/09/19 15:48 DC 06/04/19 21:16 Metoclopramide HCl (Reglan) 10 mg Q6HP PRN PO NAUSEA OR VOMITING 06/09/19 15:45 06/12/19 21:19 Morphine Sulfate (Ms Contin) 45 mg Q8H PO 05/29/19 14:00 05/29/19 15:39 DC 05/29/19 12:11 Morphine Sulfate (Ms Contin) 45 mg Q8H PO 06/01/19 14:00 06/03/19 07:22 DC Morphine Sulfate (Ms Contin) 60 mg Q8H PO 05/29/19 22:00 06/01/19 14:25 DC 06/01/19 06:37 Morphine Sulfate (Msir) 15 mg Q4HP PRN PO SEVERE PAIN (PS 8-10) 05/29/19 11:30 05/29/19 15:39 DC 05/29/19 14:57 Morphine Sulfate (Msir) 15 mg Q4HP PRN PO SEVERE PAIN (PS 8-10) 06/01/19 14:30 06/03/19 17:14 DC 06/03/19 17:11 Morphine Sulfate (Msir) 30 mg Q4HP PRN PO SEVERE PAIN (PS 8-10) 05/29/19 15:45 06/01/19 14:26 DC 06/01/19 06:38 Morphine Sulfate (Roxanol) 5 mg Q2HP PRN SL PAIN 06/03/19 17:15 06/06/19 18:51 DC 06/06/19 18:24 Morphine Sulfate (Roxanol) 10 mg Q2HP PRN SL PAIN 06/06/19 19:00 06/13/19 22:52 Ondansetron HCl (Zofran Odt) 4 mg Q6H SL 05/29/19 12:00 06/13/19 18:36 Pantoprazole Sodium (Protonix) 40 mg QPM PO 05/29/19 21:00 06/12/19 21:19 Polyethylene Glycol (Miralax) 1 pkt DAILY PO 05/30/19 09:00 05/31/19 10:56 Senna/Docusate Sodium (Senokot S) 1 tab BID PO 06/14/19 21:00 Senna/Docusate Sodium (Senokot S) 2 tab BID PO 05/29/19 09:00 06/14/19 10:49 DC 06/03/19 22:09 Sodium Biphosphate/ Sodium Phosphate (Fleet Enema) 1 ea DAILYPRN PRN [place] CONSTIPATION 05/29/19 11:30 Sodium Chloride 1,000 ml @ 100 mls/hr Q10H IV 05/29/19 09:45 05/30/19 08:25 DC 05/29/19 14:59 VS,Fishbone, I+O VS, Fishbone, I+O Vital Signs Date Time Temp Pulse Resp B/P (MAP) Pulse Ox O2 Delivery O2 Flow Rate FiO2 06/12/19 21:10 16 I&O- Last 24 Hours up to 6 AM 06/14/19 05:59 Intake Total 356 ml Output Total 1175 ml Balance -819 ml WINTER BONILLA DO Jun 14, 2019 11:13
[2019-06-14] MEDS ORDERED: LORazepam 2 MG/ML VIAL (J2060) IM PRN (11:15)
[2019-06-14] MEDS ORDERED: SCOPOLAMINE 1MG TRANSDERMAL PATCH TOP PRN (12:00)
[2019-06-14] MEDS ORDERED: HYOSCYAMINE SULFATE 0.125 MG SUBL TABLET PO PRN (12:00)
[2019-06-14] MEDS ORDERED: ATROPINE SULFATE 1% OP SOLN 2 ML BTL SL PRN (12:00)
--- NOTE | 2019-06-14 19:39 | DS.PDOC ---
Discharge Summary General Date of Admission May 30, 2019 at 11:51 Date of Discharge 06/14/19 at 1705 Primary Care Physician: PACHECO KIM DO Attending Physician: WINTER BONILLA DO Discharge Summary PROCEDURES PERFORMED DURING STAY: none DISCHARGE DIAGNOSES: Metastatic Uterine carcinosarcoma chemo resistant Anxiety Diabetes - on care home insulin with hyperglycemia Seizure disorder COMPLICATIONS/CHIEF COMPLAINT: Intractable Abd Pain Uterine Cancer Sarcoma. 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 After speaking with her oncologist today she has opted for hospice and so was sent to the ED for pain control and set her up with Hospice. Patient complains of severe dull aching lower abdominal pain 10/10 in intensity without any radiation associated with nausea. SHe has been on high doses of morphine extended release and oxycodone without any relief. See H&P for details. HOSPITAL COURSE: Patient admitted with SWIMMER/Hospice and peacefully with mother present on 06/14/19 at 1705 DISCHARGE MEDICATIONS: Please see below. ALLERGIES: Please see below. PHYSICAL EXAMINATION ON DISCHARGE: General: patient does not respond to verbal or tactile stimuli Respirations have ceased No audible heart tones LABORATORY DATA: Please see below. DISPOSITION: patient DISCHARGE CONDITION: TIME SPENT ON DISCHARGE: 20 minutes. Vital Signs/I&Os Vital Signs Date Time Temp Pulse Resp B/P (MAP) Pulse Ox O2 Delivery O2 Flow Rate FiO2 06/12/19 21:10 16 I&O- Last 24 Hours up to 6 AM 06/14/19 06:00 Intake Total 356 ml Output Total 1175 ml Balance -819 ml Laboratory Data Labs 24H Laboratory Tests 2 06/13/19 20:39: Bedside Glucose (Misc Panel) 236H 06/14/19 06:18: Bedside Glucose (Misc Panel) 251H 06/14/19 09:15: Bedside Glucose (Misc Panel) 278H FSBS Laboratory Tests Test 06/13/19 20:39 8/31/19 06:18 06/14/19 09:15 Range/Units Bedside Glucose (Misc Panel) 236 251 278 70-105 MG/DL Discharge Medications No Active Prescriptions or Reported Meds Allergies Coded Allergies: naproxen (Verified Adverse Reaction, Mild, GI UPSET, 04/27/19) WINTER BONILLA DO Jun 14, 2019 19:39
[2019-06-14] MEDS ORDERED: SENOKOT S TAB PO SCH (21:00)
== END 2019-06-14 17:05 | disposition expired | DRG 861 ==
LOC: M ED 08:51 → M ED INP 08:52 → M MSPAV 12:31 → OBSVTOIN 05-30 11:51
PROVIDERS: ADMIT Internal Medicine Nephrology; ATTEND Family Medicine
DX: G89.3 Neoplasm related pain (acute) (chronic) (principal); C78.02 Secondary malignant neoplasm of left lung; C79.89 Secondary malignant neoplasm of other specified sites; C78.01 Secondary malignant neoplasm of right lung; Z68.41 Body mass index [BMI] 40.0-44.9, adult; E11.65 Type 2 diabetes mellitus with hyperglycemia; C55 Malignant neoplasm of uterus, part unspecified; Z51.5 Encounter for palliative care; G40.909 Epilepsy, unspecified, not intractable, without status epilepticus; F41.9 Anxiety disorder, unspecified; Z79.4 Long term (current) use of insulin; I10 Essential (primary) hypertension; E78.5 Hyperlipidemia, unspecified; Z79.899 Other long term (current) drug therapy